=== PATIENT | female | born 1955 | race Caucasian/White ===

== ENCOUNTER → 2016-08-25 | Outpatient (CLI) | payer OTHER ==
[~2016-08-25] MED LIST: ADVIN25/60 INH; AMOX500T PO; ASPI-232 PO; CLR/5 PO; CLR10 PO; CZR50 PO; DULA0.5I SQ; ESOM20CA PO; FURO-85 PO; GLIM4TAB2 PO; HYDR-5688 PO; INSDGIPEN SC; INSU1INJ2 SC; INSU70IN2 SC; IPRASOL4 INH; LEVO1TAB33 PO; MOME200A INH; MOME50SP5; OXGN; TRAM-453 PO; TRIATAB3 PO; ZNT150 PO
[2016-08-25 12:55] LABS: ALT/SGPT 24 U/L (12-78); AST/SGOT 19 U/L (15-37); BLOOD UREA NITROGEN 12 mg/dl (7-18); CALCIUM 8.6 mg/dl (8.5-10.1); CARBON DIOXIDE 25 mmol/L (21-32); CHLORIDE 103 mmol/L (98-107); CREATININE 0.87 mg/dl (0.60-1.20); GLUCOSE 262 mg/dl (70-99); POTASSIUM 4.1 mmol/L (3.5-5.1); SODIUM 138 mmol/L (136-145)
[2016-08-25 12:57] LABS: ALB/GLOB RATIO 0.9 (0.9-2); ALKALINE PHOSPHATASE 161 U/L (45-117)
[2016-08-25 13:09] LABS: ESTIMATED AVERAGE GLUCOSE 252 mg/dl; HA1C FLAG Normal (Normal)
== END | disposition home or self-care (01) ==
LOC: C.LABPVFM 09:41
PROVIDERS: ATTEND Nurse Practitioner
DX: E11.9 Type 2 diabetes mellitus without complications (principal)

== ENCOUNTER 2016-12-27 11:27 | Inpatient (IN) | payer OTHER ==
[~2016-12-27] VITALS: Ht 152.4 cm; Wt 113.0 kg
[2016-12-27] VITALS (10 sets, daily range): BP systolic 121–141; BP diastolic 69–92; PULSE 68–108; TEMP 36.8–37.4; O2SAT 92–98; Ht 152.4 cm; Wt 113.0 kg
[~2016-12-27 11:27] MED LIST changes: -AMOX500T PO; -CLR/5 PO; -FURO-85 PO; -HYDR-5688 PO; -INSU1INJ2 SC; -INSU70IN2 SC; -LEVO1TAB33 PO; -MOME200A INH; -TRAM-453 PO
--- NOTE | 2016-12-27 11:55 | HISTORY & PHYSICAL EXAMINATION ---
DATE OF ADMISSION: 12/27/2016 CHIEF COMPLAINT: Increased right thumb pain. INDICATIONS: This is a 61-year-old female with past medical history of diabetes who presents with increasing left thumb pain. I performed trigger finger release on her 12/19/2016. Surgery uneventful, and she developed drainage over the past day or so. She states she is having subjective fever, chills at home, but has not checked her temperature. PAST MEDICAL HISTORY: Diabetes, sleep apnea. MEDICATIONS: Nocturnal oxygen, CPAP, Dulera 200 mcg 2 puffs twice a day, aspirin 81 mg, losartan 50 mg, glimepiride 4 mg twice a day, Nexium 24 hours twice a day, desloratadine, Furosemide 20 mg once a day, Nasonex spray, Mucinex. P.R.N. MEDICATIONS: Ventolin as needed, DuoNeb, Novolin insulin triamcinolone cream and a fluocinonide topical solution. ALLERGIES, DIPHENHYDRAMINE, LISINOPRIL, BENICAR. PHYSICAL EXAMINATION: HEART: Regular rate and rhythm. LUNGS: Clear to auscultation. RIGHT HAND: Right hand exam does show a 1 cm surrounding erythema around the surgical incision in the right thumb. She has intact flexion and extension of the thumb. She has mild pain at with resisted extension of the thumb. She has gross pus draining from her incision. No streaking erythema. ASSESSMENT: 1. Right hand septic flexor tenosynovitis. 2. Status post right trigger thumb release PLAN: At this point in time would like to admit her to the hospital with intravenous antibiotics. Will plan for irrigation and debridement shortly. Hospitalist consultation for management of diabetes and sleep apnea. I discussed she will likely need admission for a few days and we discussed the possibility of stiffness with motion in the finger. Plan for strict elevation as well.
--- NOTE | 2016-12-27 13:01 | Medical Consult ---
Consultation Date of Consultation: December 27, 2016. Attending Physician: Nathen York MD Reason for Consultation: Medical management History of Present Illness Patient is a 61 y/o female, with PMHx of T2DM, HTN, asthma, MADAY, and GERD, who was admitted to the hospital by Dr. York for IV antibiotic treatment due to right hand septic flexor tenosynovitis s/p right trigger thumb release on 12/19. Patient states she is currently feeling well. Per patient, Dr. York is planning for I&D later today. Pain is well controlled- states Tylenol works the best. NPO per primary team. +fever/chills. Patient denies any sweats, lightheadedness, dizziness, vision changes, CP, palpitations, edema, SOB, wheezing, cough, abdominal pain, nausea, vomiting, diarrhea, urinary symptoms, melena, numbness/tingling, weakness, muscle/joint pain, anxiety/depression, active bleeding, or new skin discoloration/changes. Past Medical/Surgical History Medical Problems: 1. Asthma 2. MADAY 3. HTN 4. GERD 5. T2DM Family History FH: cancer FH: hypertension FHx: diabetes mellitus FHx: gallbladder disease FHx: heart disease FHx: kidney disease FHx: lung disease FHx: seizures Kidney stones Social History Smoking Status: Never Smoker Drug Use: none Marital Status: Housing Status: lives with family Occupation Status: unemployed Allergies Coded Allergies: Lisinopril (Verified Allergy, Mild, SINUS SWELLING, COUGH, 11/30/15) Diphenhydramine (Unverified Adverse Reaction, Intermediate, HYPER, 11/30/15 ) Home Medications Reported Home Medications Medications Dose Route/Sig Max Daily Dose Days Date Category Dose Instructions Lantus Solostar (Insulin Glargine) 100 Unit/Ml Inj 23 Unit SC BID 30 12/02/15 Rx Ranitidine HCl 150 Mg Tab 150 Mg PO QAM 14 12/02/15 Rx Duoneb (Ipratropium-Albuterol) 3 Ml Nebu 3 Ml INH QIDR 10 12/02/15 Rx Use four times a day for atleast 7 days then wean down as symptoms tolerate over 4-5 days Trulicity (Dulaglutide) 1.5 Mg/0.5 Ml Inj 1 Dose SQ WEEKLY 10/27/15 Reported injects dose on monday Nasonex (Mometasone Furoate) [place] 1 [place] NA QAM 10/27/15 Reported Nexium (Esomeprazole Magnesium) 20 Mg Capcr 20 Mg PO QAM 10/27/15 Reported Glimepiride 4 Mg Tab 4 Mg PO BID 10/27/15 Reported Claritin (Loratadine) 10 Mg Tab 10 Mg PO QAM 10/27/15 Reported Aspir-81 (Aspirin) 81 Mg Tab 81 Mg PO QAM 12/16/14 Reported Triamterene/Hctz 37.5-25MG (Triamterene/HCTZ) 1 Tab Tab 1 Tab PO QAM 12/16/14 Reported Losartan Potassium 50 Mg Tab 50 Mg PO QAM 12/16/14 Reported Advair Diskus 250/50 60 Dose (Fluticasone Prop/Salmeterol) 1 Ea Aerp 1 Puff INH BID 12/16/14 Reported Oxygen Gas 2 Liters NA PRN 07/08/14 Reported Physical Exam Date Time Temp Pulse Resp B/P Pulse Ox O2 Delivery O2 Flow Rate FiO2 12/27/16 12:25 36.8 108 20 141/92 95 Room Air Laboratory Results Last 24 Hours Test 12/27/16 12:40 Assessment & Plan Patient is a 61 y/o female, with PMHx of T2DM, HTN, asthma, MADAY, and GERD, who was admitted to the hospital by Dr. York for IV antibiotic treatment due to right hand septic flexor tenosynovitis s/p right trigger thumb release on 12/19. - Management/treatment as per primary team - Planning for I&D - CBC and PRP pending - BCx pending - Patient requesting Tylenol PRN for pain management - Infectious disease consulted T2DM: - Hold Trulicity and Glimepiride - Continue Lantus 23 u BID - BSG ACHS w/ sliding insulin scale HTN: Continue Losartan 50 mg daily and Maxzide daily Asthma: Continue home inhalers MADAY: CPAP GERD: Protonix daily- resume Nexium and Zantac at discharge DVT prophylaxis: As per primary team Code Status: LEVEL I, FULL Dispo: Discharge as per primary team
[2016-12-27 13:58] LABS: BASO % 0.7 %; BASO ABS # 0.07 K/uL (0-0.2); COMPLETE YES; EOS % 5.3 %; HEMATOCRIT 40.2 % (37-47); IG% 0.2 %; LYMPH % 22.2 %; LYMPH ABS # 2.22 K/uL (1.2-3.4); MEAN CELL VOLUME 85.5 fL (80-100); MEAN CORPUSCULAR HEMOGLOBIN 28.7 pg (25-34); MEAN CORPUSCULAR HGB CONC 33.6 g/dl (32-36); MEAN PLATELET VOLUME 11.1 fL (7.4-10.4); MONO % 7.9 %; NEUT % 63.7 %; PLATELET COUNT 280 K/uL (130-400); WHITE BLOOD COUNT 10.02 K/uL (4.8-10.8)
[2016-12-27] MEDS ORDERED: CLR/5 PO (14:02)
[2016-12-27] MEDS ORDERED: INSU1INJ2 SC (14:02)
[2016-12-27] MEDS ORDERED: MOME200A INH (14:02)
[2016-12-27] MEDS ORDERED: INSU70IN2 SC (14:02)
[2016-12-27] MEDS ORDERED: FURO-85 PO (14:07)
[2016-12-27] MEDS ORDERED: GLUCOSE 10 TABS/TUBE PO PRN (14:15)
[2016-12-27] MEDS ORDERED: DEXTROSE 50% 50 ML SYR IV PRN (14:15)
[2016-12-27] MEDS ORDERED: GLUCAGON FOR INJ 1 MG VIAL SQ PRN (14:15)
[2016-12-27] MEDS ORDERED: GLUCOSE 40% GEL 15 GM TUBE PO PRN (14:15)
[2016-12-27] MEDS ORDERED: NURSING VERBAL MED ORDER ONE ×2 (14:45→23:00)
[2016-12-27] MEDS ORDERED: FUROSEMIDE 20 MG TAB PO PRN (14:45)
[2016-12-27 14:47] LABS: ALB/GLOB RATIO 1.1 (0.9-2); BUN/CREATININE RATIO 15.9 (10-20); CALCIUM 9.1 mg/dl (8.5-10.1); CREATININE 0.92 mg/dl (0.60-1.20); POTASSIUM 3.9 mmol/L (3.5-5.1)
[2016-12-27 14:51] LABS: C-REACTIVE PROTEIN 4.14 mg/dl (0-0.29)
[2016-12-27] MEDS: ALBUT/IPRATROP 3MG/0.5MG NEB 3 ML VIAL INH SCH ×2 (14:59→19:43)
--- NOTE | 2016-12-27 15:51 | Medical Consult ---
Consultation Date of Consultation: December 27, 2016. Attending Physician: Nathen York MD Reason for Consultation: Septic flexor tenosynovitis History of Present Illness Patient is a 61-year-old diabetic female admitted to the hospital with concerns of septic flexor tenosynovitis following trigger finger release on 12/19/2016. The patient states that she initially did very well following surgery, but approximately 3 days after surgery began to have severe pain in her right hand. She continued to have pain for the next 1-2 days, and then she started to notice some drainage from her wound along with erythema of the surrounding area. She states that on 12/25/2016, she began to purulent drainage from the area. She waited to be evaluated by her orthopedic surgeon, and was then admitted for IV antibiotic therapy. Past Medical/Surgical History Medical Problems: (1) Status asthmaticus Status: Acute (2) Wheezing Status: Acute Medical Problems: (1) Asthma (2) Asthma exacerbation (3) Diabetes (4) Eosinophilia (5) Hypertension Surgical history: Trigger finger release on 12/19/2016 Family History FH: cancer FH: hypertension FHx: diabetes mellitus FHx: gallbladder disease FHx: heart disease FHx: kidney disease FHx: lung disease FHx: seizures Kidney stones Non contributory Social History Smoking Status: Never Smoker Drug Use: none Marital Status: Housing Status: lives with family Occupation Status: unemployed Allergies Coded Allergies: Lisinopril (Verified Allergy, Mild, SINUS SWELLING, COUGH, 11/30/15) Diphenhydramine (Verified Adverse Reaction, Intermediate, HYPERACTIVE, 12/27) Olmesartan (Verified Adverse Reaction, Mild, pt reports nonstop coughing after taking (3 years ago), 12/27/16) pt reports nonstop coughing after taking (3 years ago) Home Medications Reported Home Medications Medications Dose Route/Sig Max Daily Dose Days Date Category Dose Instructions Lasix (Furosemide) 20 Mg Tab 1 Tab PO DAILY 90 12/27/16 Reported Clarinex (Desloratadine) 5 Mg Tab 5 Mg PO DAILY 12/27/16 Reported Novolog Penfill (Insulin Aspart) 100 Unit/Ml Inj SC 12/27/16 Reported Novolin 70/30 (Insulin Human Isoph/Insulin Regular) Susp 20 SC BID 12/27/16 Reported Dulera 200/5 Mcg (Mometasone Furoate-Formoterol) 1 Aer Aer 2 Puffs INH BID 30 12/27/16 Reported Duoneb (Ipratropium-Albuterol) 3 Ml Nebu 3 Ml INH QIDR 10 12/02/15 Rx Use four times a day for atleast 7 days then wean down as symptoms tolerate over 4-5 days Nasonex (Mometasone Furoate) [place] 1 [place] NA QAM 10/27/15 Reported Nexium (Esomeprazole Magnesium) 20 Mg Capcr 20 Mg PO QAM 10/27/15 Reported Glimepiride 4 Mg Tab 4 Mg PO BID 10/27/15 Reported Aspir-81 (Aspirin) 81 Mg Tab 81 Mg PO QAM 12/16/14 Reported Losartan Potassium 50 Mg Tab 50 Mg PO QAM 12/16/14 Reported Oxygen Gas 2 Liters NA PRN 07/08/14 Reported Current Inpatient Medications Current Inpatient Medications Medications (Trade) Dose Ordered Sig/Volodymyr Route Start Time Stop Time Status Last Admin Dose Admin Aspirin (Ecotrin Tab) 81 mg QAM PO 12/28/16 09:00 01/27/17 08:59 Salmeterol Xinafoate/ Fluticasone (Advair Diskus 250/50 Inh) 1 puff BID INH 12/27/16 21:00 01/26/17 20:59 Albuterol/ Ipratropium (Duoneb) 3 ml QIDR INH 12/27/16 16:00 01/26/17 15:59 12/27/16 14:59 3 ML Loratadine (Claritin Tab) 10 mg QAM PO 12/28/16 09:00 01/27/17 08:59 Losartan Potassium (coZAAR TAB) 50 mg QAM PO 12/28/16 09:00 01/27/17 08:59 Ranitidine HCl (zANTac TAB) 150 mg QAM PO 12/28/16 09:00 01/27/17 08:59 Triamterene/HCTZ (Maxzide 37.5/25 Tab) 1 tab QAM PO 12/28/16 09:00 01/27/17 08:59 Pantoprazole Sodium (Protonix Tab) 40 mg QAM PO 12/28/16 09:00 01/27/17 08:59 Acetaminophen (Tylenol Tab) 650 mg Q4H PRN PO 12/27/16 13:15 01/26/17 13:14 Glucose (Glucose 40% Gel) 15-30 GRAMS 15 GRAMS... UD PRN PO 12/27/16 14:15 01/26/17 14:14 Glucose (Glucose Chew Tab) 4-8 Tablets 4 Tabl... UD PRN PO 12/27/16 14:15 01/26/17 14:14 Dextrose (Dextrose 50% 50ML Syringe) 25-50ML OF 50% DW IV FOR... UD PRN IV 12/27/16 14:15 01/26/17 14:14 Glucagon (Glucagon Inj) 1 mg UD PRN SQ 12/27/16 14:15 01/26/17 14:14 Furosemide (Lasix Tab) 20 mg DAILY PRN PO 12/27/16 14:45 01/26/17 14:44 Insulin Aspart (novoLOG ASPART) SLIDING SCALE G... Q6 SC 12/27/16 18:00 01/26/17 17:59 Review of Systems Constitutional: + chills, + fever, + sweats, No weakness Eyes: No worsening of vision ENT: No hearing loss Respiratory: No cough, No shortness of breath Cardiovascular: No chest pain Abdomen: + nausea, + pain, No vomiting Musculoskeletal: + joint pain (right thumb), + swelling Genitourinary - Female: No dysuria, No urinary frequency Integumentary: + new/changing skin lesions (erythema surrounding surgical site , purulent drainage), No itch, No rash Physical Exam Date Time Temp Pulse Resp B/P Pulse Ox O2 Delivery O2 Flow Rate FiO2 12/27/16 15:29 37.0 96 18 141/83 93 Room Air 12/27/16 14:59 68 14 97 Room Air 12/27/16 13:43 93 93 Room Air 12/27/16 13:27 95 Room Air 12/27/16 12:25 36.8 108 20 141/92 95 Room Air General Appearance: no apparent distress, + obese Head: normocephalic, atraumatic Eyes: normal inspection, sclerae normal ENT: hearing grossly normal Neck: supple, trachea midline Respiratory/Chest: chest non-tender, lungs clear, normal breath sounds, no respiratory distress, no accessory muscle use Cardiovascular: no murmur, + tachycardia Abdomen/GI: normal bowel sounds, non tender Back: normal inspection Extremities/Musculoskelatal: normal inspection, + pertinent finding (Right inner thumb with open surgical wound with mild surrounding erythema. Tenderness to surrounding area.) Neurologic/Psych: alert, normal mood/affect, oriented x 3 Skin: warm/dry, no rash, + pertinent finding (Erythema of some as described above) Laboratory Results Last 24 Hours Test 12/27/16 13:23 12/27/16 14:14 White Blood Count 10.02 K/uL Red Blood Count 4.70 M/uL Hemoglobin 13.5 g/dL Hematocrit 40.2 % Mean Corpuscular Volume 85.5 fL Mean Corpuscular Hemoglobin 28.7 pg Mean Corpuscular Hemoglobin Concent 33.6 g/dl Platelet Count 280 K/uL Mean Platelet Volume 11.1 fL Neutrophils (%) (Auto) 63.7 % Lymphocytes (%) (Auto) 22.2 % Monocytes (%) (Auto) 7.9 % Eosinophils (%) (Auto) 5.3 % Basophils (%) (Auto) 0.7 % Neutrophils # (Auto) 6.39 K/uL Lymphocytes # (Auto) 2.22 K/uL Monocytes # (Auto) 0.79 K/uL Eosinophils # (Auto) 0.53 K/uL Basophils # (Auto) 0.07 K/uL RDW Standard Deviation 40.5 fL RDW Coefficient of Variation 13.0 % Immature Granulocyte % (Auto) 0.2 % Immature Granulocyte # (Auto) 0.02 K/uL Erythrocyte Sedimentation Rate 25 mm/hr Sodium Level 137 mmol/L Potassium Level 3.9 mmol/L Chloride Level 103 mmol/L Carbon Dioxide Level 25 mmol/L Anion Gap 9.0 mmol/L Blood Urea Nitrogen 15 mg/dl Creatinine 0.92 mg/dl Est Creatinine Clear Calc Drug Dose 74.4 ml/min Estimated GFR () 78.4 Estimated GFR (Non- 67.7 BUN/Creatinine Ratio 15.9 Random Glucose 211 mg/dl Calcium Level 9.1 mg/dl Total Bilirubin 0.6 mg/dl Aspartate Amino Transf (AST/SGOT) 14 U/L Alanine Aminotransferase (ALT/SGPT) 24 U/L Alkaline Phosphatase 154 U/L C-Reactive Protein 4.14 mg/dl Total Protein 7.5 gm/dl Albumin 4.0 gm/dl Globulin 3.5 gm/dl Albumin/Globulin Ratio 1.1 Bedside Glucose 181 mg/dl Assessment & Plan Patient with probable septic flexor tenosynovitis following trigger finger release on 12/19/2016. She is anticipated to have an I and D of this area later today. Will order CBC with diff, CMP, ESR, CRP, and blood cultures on this patient. Will await surgical cultures as well. Will start the patient on IV vancomycin pending culture results following surgery. We will continue to follow and adjust antibiotics as able. PROVIDER ADDENDUM: Patient examined and reviewed with Ms. Mares. Agree with above assessment.
[2016-12-27] MEDS ORDERED: FENTANYL CITRATE INJ 50 MCG/1 ML 2 ML VIAL ONE (15:59)
[2016-12-27] MEDS ORDERED: MIDAZOLAM HCL 1 MG/ML 2ML VIAL ONE (15:59)
--- NOTE | 2016-12-27 16:23 | Pharmacy Progress Note ---
Pharmacy Antibiotic Consult Date of Service: December 27, 2016. Pharmacy Dosing Scope Pharmacy is consulted to initiate vancomycin IV dosing therapy, order appropriate labs and adjust drug dose/frequency. Subjective The patient is a 61 year old female admitted on December 27, 2016 at 12:27. Objective Height (Feet): 5 Height (Inches): 0.00 Weight (Kilograms): 113.000 Lab Results (24hrs): Test 12/27/16 13:23 12/27/16 14:14 White Blood Count 10.02 K/uL (4.8-10.8) Red Blood Count 4.70 M/uL (4.2-5.4) Hemoglobin 13.5 g/dL (12.0-16.0) Hematocrit 40.2 % (37-47) Mean Corpuscular Volume 85.5 fL (80-100) Mean Corpuscular Hemoglobin 28.7 pg (25-34) Mean Corpuscular Hemoglobin Concent 33.6 g/dl (32-36) Platelet Count 280 K/uL (130-400) Mean Platelet Volume 11.1 fL (7.4-10.4) Neutrophils (%) (Auto) 63.7 % Lymphocytes (%) (Auto) 22.2 % Monocytes (%) (Auto) 7.9 % Eosinophils (%) (Auto) 5.3 % Basophils (%) (Auto) 0.7 % Neutrophils # (Auto) 6.39 K/uL (1.4-6.5) Lymphocytes # (Auto) 2.22 K/uL (1.2-3.4) Monocytes # (Auto) 0.79 K/uL (0.11-0.59) Eosinophils # (Auto) 0.53 K/uL (0-0.5) Basophils # (Auto) 0.07 K/uL (0-0.2) RDW Standard Deviation 40.5 fL (36.4-46.3) RDW Coefficient of Variation 13.0 % (11.5-14.5) Immature Granulocyte % (Auto) 0.2 % Immature Granulocyte # (Auto) 0.02 K/uL (0.00-0.02) Erythrocyte Sedimentation Rate 25 mm/hr (0-21) Sodium Level 137 mmol/L (136-145) Potassium Level 3.9 mmol/L (3.5-5.1) Chloride Level 103 mmol/L (98-107) Carbon Dioxide Level 25 mmol/L (21-32) Anion Gap 9.0 mmol/L (3-11) Blood Urea Nitrogen 15 mg/dl (7-18) Creatinine 0.92 mg/dl (0.60-1.20) Est Creatinine Clear Calc Drug Dose 74.4 ml/min Estimated GFR () 78.4 Estimated GFR (Non- 67.7 BUN/Creatinine Ratio 15.9 (10-20) Random Glucose 211 mg/dl (70-99) Calcium Level 9.1 mg/dl (8.5-10.1) Total Bilirubin 0.6 mg/dl (0.2-1) Aspartate Amino Transf (AST/SGOT) 14 U/L (15-37) Alanine Aminotransferase (ALT/SGPT) 24 U/L (12-78) Alkaline Phosphatase 154 U/L (45-117) C-Reactive Protein 4.14 mg/dl (0-0.29) Total Protein 7.5 gm/dl (6.4-8.2) Albumin 4.0 gm/dl (3.4-5.0) Globulin 3.5 gm/dl (2.5-4.0) Albumin/Globulin Ratio 1.1 (0.9-2) Bedside Glucose 181 mg/dl (70-90) Assessment & Plan Patient started on vancomycin for possible septic flexor tenosynovitis. ID is following the patient. Plan for I&D later today. Vancomycin: * LD of vancomycin 2800 mg (~25 mg/kg) x 1 * Will order MD of vancomycin 1500 mg (~13 mg/kg) iv q 18 hrs to achieve an estimated trough ~15-20 mcg/ml (goal for cellulitis/abscess) * Estimated kinetics: t1/2~12 hrs, ke~0.06 hr-1, CrCl ~74 ml/min * Will plan to obtain a trough prior to the 0000 dose to ensure therapeutic ( note this will be before steady state, however since with elevated BMI there is a concern for accumulation) Pharmacy will continue to follow and will adjust dose/frequency as necessary. Thank you
[2016-12-27] MEDS ORDERED: VANCOMYCIN INJ 2,800 MG in SODIUM CHLORIDE 0.9% 500ML 500 ML IV SCH (16:30)
[2016-12-27] MEDS ORDERED: VANCOMYCIN CONSULT ACTIVE PRN (16:30)
[2016-12-27] MEDS ORDERED: SODIUM CHLORIDE 0.9% IV SCH (16:30)
[2016-12-27] MEDS ORDERED: VANCOMYCIN IV SCH (16:30)
[2016-12-27] MEDS ORDERED: BUPIVACAINE 0.5 % 5 MG/1 ML MPF 30ML VIAL ONE (17:07)
[2016-12-27] MEDS ORDERED: BACITRACIN 50000 UNIT VIAL ONE (17:08)
[2016-12-27] MEDS ORDERED: INSULIN ASPART 100 UNITS/ML 3 ML PEN SC SCH ×2 (17:15→18:00)
[2016-12-27] MEDS ORDERED: LIDOCAINE HCL 2% LOCAL 50ML VIAL ONE (17:47)
[2016-12-27] MEDS ORDERED: LIDOCAINE HCL 2% 2 ML VIAL (20MG/ML) ONE (18:20)
[2016-12-27] MEDS ORDERED: PROPOFOL IV EMULSION 10 MG/ML 20 ML VIAL IV ONE (18:20)
[2016-12-27] MEDS ORDERED: LABETALOL HCL IV 5 MG/ML 20ML IV PRN (18:30)
[2016-12-27] MEDS ORDERED: FENTANYL CITRATE INJ 50 MCG/1 ML 2 ML VIAL IV PRN (18:30)
[2016-12-27] MEDS ORDERED: EpHEDrine SULFATE INJ 50 MG/ML AMP IV PRN (18:30)
[2016-12-27] MEDS ORDERED: HYDROmorphone INJ 1 MG/ML SYR IV PRN (18:30)
[2016-12-27] MEDS ORDERED: MEPERIDINE HCL 25 MG/ML CARP IV PRN (18:30)
[2016-12-27] MEDS ORDERED: ONDANSETRON INJ 2 MG/ML 2 ML VIAL IV PRN ×2 (18:30→19:15)
[2016-12-27] MEDS ORDERED: ATROPINE SULFATE 0.1 MG/ML 5ML SYR IV PRN (18:30)
[2016-12-27] MEDS ORDERED: OXYCODONE/ACETAMINOPHEN 5-325 TAB PO PRN (19:15)
[2016-12-27] MEDS ORDERED: DiphenhydrAMINE HCL 50 MG/ML VIAL IV PRN (19:15)
[2016-12-27] MEDS ORDERED: MoRPHine SULFATE 4 MG/ML 1 ML CARP\\VIAL IV PRN (19:15)
[2016-12-27] MEDS ORDERED: ZOLPIDEM TARTRATE 5 MG TAB PO PRN (19:15)
--- NOTE | 2016-12-27 19:29 | Anesthesiology Progress Note ---
Anesthesia Post Op Note Date & Time December 27, 2016 at 19:29 Vital Signs Pain Intensity: 0 Vital Signs Past 12 Hours Date Time Temp Pulse Resp B/P Pulse Ox O2 Delivery O2 Flow Rate FiO2 12/27/16 19:25 36.8 92 16 123/79 94 Room Air 12/27/16 19:15 92 18 117/76 99 Mask 10 12/27/16 19:09 36.5 94 16 109/71 99 Mask 10 12/27/16 17:31 36.8 103 16 150/74 94 Room Air 12/27/16 15:29 37.0 96 18 141/83 93 Room Air 12/27/16 14:59 68 14 97 Room Air 12/27/16 13:43 93 93 Room Air 12/27/16 13:27 95 Room Air 12/27/16 12:25 36.8 108 20 141/92 95 Room Air Notes Mental Status: alert / awake / arousable, participated in evaluation Pt Amnestic to Procedure: Yes Nausea / Vomiting: adequately controlled Pain: adequately controlled Airway Patency, RR, SpO2: stable & adequate BP & HR: stable & adequate Hydration State: stable & adequate Anesthetic Complications: no major complications apparent
[2016-12-27] MEDS: ACETAMINOPHEN 325 MG TAB PO PRN (20:02)
[2016-12-27] MEDS: FLUTICASONE/SALMETEROL 250/50 (ADVAIR) 14 PUFF/1 INHALER INH SCH (21:00)
[2016-12-27] MEDS ORDERED: VANCOMYCIN INJ 2,200 MG in SODIUM CHLORIDE 0.9% 250ML 250 ML IV SCH (21:00)
[2016-12-27] MEDS ORDERED: INSULIN GLARGINE SOLOSTAR 100 UNITS/ML 3 ML PEN SC SCH (21:00)
[2016-12-27] MEDS: OXYCODONE/ACETAMINOPHEN 5-325 TAB PO PRN (22:03)
[2016-12-27] MEDS: INSULIN ASPART 100 UNITS/ML 3 ML PEN SC SCH (23:16)
[2016-12-28] VITALS (9 sets, daily range): BP systolic 107–144; BP diastolic 65–79; PULSE 80–100; TEMP 36.9–37.1; O2SAT 91–99
--- NOTE | 2016-12-28 04:30 | OPERATIVE REPORT ---
DATE OF OPERATION: 12/27/2016 PREOPERATIVE DIAGNOSIS: Right index finger septic flexor tenosynovitis. POSTOPERATIVE DIAGNOSIS: Same. PROCEDURE: Right index finger I\T\D septic flexor tenosynovitis. SURGEON: Dr. York. BAND NAILER: None. ANESTHESIA: Local monitored anesthesia care. INDICATIONS: This is a 61-year-old female status post right trigger thumb release. She presents with pain and swelling and drainage consistent with septic flexor tenosynovitis. The risks and benefits have been discussed including, but not limited to, risk of infection, nerve injury, stiffness, loss of motion, failure to improve, etc. The patient is agreeable and wishes to proceed. DESCRIPTION OF OPERATION: I injected a mixture of lidocaine and Marcaine in the local area for pain control. The patient's traumatic laceration was opened. I removed the prior stitches. I was able to obtain good access to the flexor tendon sheath. There was a small amount of fluid in there consistent with septic flexor tenosynovitis. I performed irrigation and debridement of septic flexor tenosynovitis, irrigating with 3 liters of bacitracin impregnated normal saline in the area. The digital nerves were identified and were retracted throughout the procedure. Debridement of skin, subcutaneous tissue and fascia was performed. The wound was very clean at the end of the debridement. I elected to proceed with primary closure. Tourniquet was let down. Hemostasis was adequate. The patient's incision was closed with 4-0 nylon. I placed packing in the middle section of the incision. The patient was placed in a soft dressing and sent to the PACU in stable condition. Postoperative plan will be monitor the cultures that were taken and adjust antibiotics as necessary. I attest to the content of the Intraoperative Record and any orders documented therein. Any exceptio ns are noted below.
[2016-12-28] MEDS: OXYCODONE/ACETAMINOPHEN 5-325 TAB PO PRN (06:20)
[2016-12-28 06:57] LABS: HEMATOCRIT 39.4 % (37-47); MEAN CELL VOLUME 87.9 fL (80-100); MEAN CORPUSCULAR HEMOGLOBIN 29.5 pg (25-34); MEAN CORPUSCULAR HGB CONC 33.5 g/dl (32-36); MEAN PLATELET VOLUME 10.9 fL (7.4-10.4); PLATELET COUNT 261 K/uL (130-400); RED BLOOD COUNT 4.48 M/uL (4.2-5.4); WHITE BLOOD COUNT 9.62 K/uL (4.8-10.8)
[2016-12-28 07:33] LABS: CREATININE 0.89 mg/dl (0.60-1.20)
[2016-12-28] MEDS: FLUTICASONE/SALMETEROL 250/50 (ADVAIR) 14 PUFF/1 INHALER INH SCH ×2 (07:45→20:52)
[2016-12-28] MEDS: LORATADINE 10 MG TAB PO SCH (07:46)
[2016-12-28] MEDS: LOSARTAN POTASSIUM 50 MG TAB PO SCH (07:46)
[2016-12-28] MEDS: TRIAMTERENE/HCTZ 37.5/25MG TAB PO SCH (07:46)
[2016-12-28] MEDS: RANITIDINE HCL 150 MG TAB PO SCH (07:46)
[2016-12-28] MEDS: ALBUT/IPRATROP 3MG/0.5MG NEB 3 ML VIAL INH SCH ×4 (07:46→19:36)
[2016-12-28] MEDS: ASPIRIN 81 MG ECTAB PO SCH (07:46)
[2016-12-28] MEDS: PANTOprazole SOD 40 MG TAB PO SCH (07:47)
--- NOTE | 2016-12-28 08:27 | Anesthesiology Progress Note ---
Anesthesia Post Op Note Date & Time December 28, 2016 at 08:27 Vital Signs Pain Intensity: 5.0 Vital Signs Past 12 Hours Date Time Temp Pulse Resp B/P Pulse Ox O2 Delivery O2 Flow Rate FiO2 12/28/16 08:08 36.9 84 16 107/66 96 CPAP 12/28/16 07:46 82 14 95 Room Air 12/28/16 03:20 37.1 90 16 110/65 95 BiPAP 12/27/16 23:15 Room Air CPAP 12/27/16 22:48 37.4 99 16 121/75 98 Room Air 12/27/16 21:50 36.8 88 18 134/84 98 CPAP 2.0 12/27/16 20:50 36.9 107 18 132/69 94 CPAP Notes Mental Status: alert / awake / arousable, participated in evaluation Pt Amnestic to Procedure: Yes Nausea / Vomiting: adequately controlled Pain: adequately controlled Airway Patency, RR, SpO2: stable & adequate BP & HR: stable & adequate Hydration State: stable & adequate Anesthetic Complications: no major complications apparent
[2016-12-28] MEDS: INSULIN ASPART 100 UNITS/ML 3 ML PEN SC SCH ×4 (09:07→20:55)
--- NOTE | 2016-12-28 10:36 | Pharmacy Progress Note ---
Pharmacy Abx Dose Short Note Date of Service December 28, 2016. Assessment & Plan Item Value Date Time Gram Stain - Final Resulted 12/27/16 1858 Abscess Hand Right Blood Culture Received 12/27/16 1335 Blood Pending Blood Culture Received 12/27/16 1323 Blood Pending Assessment 61 year old female receiving Vancomycin for treatment of septic flexor tenosynovitis Day # 2 of antimicrobial therapy. Plan Vancomycin * Patient is at risk for drug accumulation given morbid obesity; however, I don' t believe current dosing interval is an appropriate estimation * Change to 1500 mg IV every 12 hours * This is a reduced mg/kg dose to account for likely drug accumulation, but an interval that I think will get us to therapeutic ranges quicker * Once we meet acceptable level, will likely need to back off * Goal trough level for septic flexor tenosynovitis (joint involvement) : 15 to 20 mcg/mL * Trough level ordered for: 12/29/16 prior to the 2130 dose. Pharmacy will continue to follow and will adjust dose/frequency as necessary. Thank you.
[2016-12-28] MEDS: ACETAMINOPHEN 325 MG TAB PO PRN ×2 (11:59→17:51)
[2016-12-28] MEDS ORDERED: VANCOMYCIN INJ 1,500 MG in SODIUM CHLORIDE 0.9% 500ML 500 ML IV SCH ×2 (12:00→22:00)
[2016-12-28] MEDS ORDERED: PIPERACILL/TAZOBAC CONSULT ACTIVE PRN (13:00)
[2016-12-28] MEDS ORDERED: PIPERACILL/TAZOBAC IV 4.5 GM in DEXTROSE 5% 100ML IV ONE (13:00)
--- NOTE | 2016-12-28 15:43 | Hospitalist Progress Note ---
Hospitalist Progress Note Date of Service December 28, 2016. Subjective Doing OK. No fevers, SOB, CP Medications Medications (Trade) Dose Ordered Sig/Volodymyr Route Start Time Stop Time Status Last Admin Dose Admin Aspirin (Ecotrin Tab) 81 mg QAM PO 12/28/16 09:00 01/27/17 08:59 12/28/16 07:46 81 MG Salmeterol Xinafoate/ Fluticasone (Advair Diskus 250/50 Inh) 1 puff BID INH 12/27/16 21:00 01/26/17 20:59 12/28/16 07:45 1 PUFF Albuterol/ Ipratropium (Duoneb) 3 ml QIDR INH 12/27/16 16:00 01/26/17 15:59 12/28/16 11:41 3 ML Loratadine (Claritin Tab) 10 mg QAM PO 12/28/16 09:00 01/27/17 08:59 12/28/16 07:46 10 MG Losartan Potassium (coZAAR TAB) 50 mg QAM PO 12/28/16 09:00 01/27/17 08:59 12/28/16 07:46 50 MG Ranitidine HCl (zANTac TAB) 150 mg QAM PO 12/28/16 09:00 01/27/17 08:59 12/28/16 07:46 150 MG Triamterene/HCTZ (Maxzide 37.5/25 Tab) 1 tab QAM PO 12/28/16 09:00 01/27/17 08:59 12/28/16 07:46 1 TAB Pantoprazole Sodium 40 mg 40 mg QAM PO 12/28/16 09:00 01/27/17 08:59 12/28/16 07:47 40 MG Vancomycin HCl 2800 mg/Sodium Chloride 556 ml @ 200 mls/hr TODAY@1630 IV 12/27/16 16:30 12/27/16 19:10 DC 12/27/16 16:53 200 MLS/HR Vancomycin HCl/ Sodium Chloride (Vancomycin Inj/ Nss 500ml) 530 ml @ 200 mls/hr Q18H IV 12/28/16 12:00 12/28/16 12:00 DC 12/28/16 10:33 200 MLS/HR Bupivacaine HCl (Marcaine 0.5% MPF Inj) 30 ml STK-MED ONCE .ROUTE 12/27/16 17:07 12/27/16 17:08 DC 12/27/16 18:48 30 ML Bacitracin (Bacitracin Inj) 50,000 units STK-MED ONCE .ROUTE 12/27/16 17:08 12/27/16 17:09 DC 12/27/16 19:00 50,000 UNITS Lidocaine HCl (Lidocaine 2% Preserved Inj) 50 ml STK-MED ONCE .ROUTE 12/27/16 17:47 12/27/16 17:48 DC 12/27/16 18:48 30 ML Oxycodone/ Acetaminophen (Percocet 5-325mg Tab) 2 tab Q4H PRN PO 12/27/16 19:15 01/10/17 19:14 12/28/16 06:20 2 TAB Insulin Aspart SLIDING SCALE G... ACHS SC 12/28/16 08:00 01/27/17 07:59 12/28/16 12:48 3 UNITS Piperacillin Sod/ Tazobactam Sod/ Dextrose (Zosyn Iv/D5 100ml) 120 ml @ 200 mls/hr 1300 ONCE IV 12/28/16 13:00 12/28/16 13:35 DC 12/28/16 13:30 200 MLS/HR Objective Vital Signs Date Time Temp Pulse Resp B/P Pulse Ox O2 Delivery O2 Flow Rate FiO2 12/28/16 15:00 36.9 99 16 127/79 91 Room Air 12/28/16 11:42 80 14 93 Room Air 12/28/16 08:08 36.9 84 16 107/66 96 CPAP 12/28/16 08:00 95 Room Air 12/28/16 07:46 82 14 95 Room Air 12/28/16 03:20 37.1 90 16 110/65 95 BiPAP 12/27/16 23:15 Room Air CPAP 12/27/16 22:48 37.4 99 16 121/75 98 Room Air 12/27/16 21:50 36.8 88 18 134/84 98 CPAP 2.0 12/27/16 20:50 36.9 107 18 132/69 94 CPAP 12/27/16 20:20 37.3 100 18 129/78 92 Room Air 12/27/16 19:57 95 Room Air 12/27/16 19:50 95 Room Air 12/27/16 19:35 98 16 126/79 93 Room Air 12/27/16 19:25 36.8 92 16 123/79 94 Room Air 12/27/16 19:15 92 18 117/76 99 Mask 10 12/27/16 19:09 36.5 94 16 109/71 99 Mask 10 12/27/16 17:31 36.8 103 16 150/74 94 Room Air Physical Exam General Appearance: WD/WN Eyes: normal inspection ENT: normal ENT inspection Neck: supple, no adenopathy Respiratory/Chest: chest non-tender, lungs clear Cardiovascular: regular rate, rhythm, no edema Abdomen: normal bowel sounds, non tender, soft Extremities: normal range of motion, non-tender, normal inspection, no pedal edema, + pertinent finding (right hand in dressing) 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, no motor/sensory deficits, alert Skin: normal color Laboratory Results Last 24 Hours Test 12/27/16 19:14 12/27/16 20:51 12/27/16 23:09 12/28/16 06:15 Bedside Glucose 157 mg/dl 228 mg/dl 248 mg/dl White Blood Count 9.62 K/uL Red Blood Count 4.48 M/uL Hemoglobin 13.2 g/dL Hematocrit 39.4 % Mean Corpuscular Volume 87.9 fL Mean Corpuscular Hemoglobin 29.5 pg Mean Corpuscular Hemoglobin Concent 33.5 g/dl RDW Standard Deviation 42.9 fL RDW Coefficient of Variation 13.3 % Platelet Count 261 K/uL Mean Platelet Volume 10.9 fL Creatinine 0.89 mg/dl Est Creatinine Clear Calc Drug Dose 76.9 ml/min Estimated GFR () 81.6 Estimated GFR (Non- 70.4 Hepatitis C Antibody Screen NEG Test 12/28/16 09:05 Bedside Glucose 297 mg/dl Diagnostic Results RUN DATE: 05/10/17 [facility] LAB PAGE 1 RUN TIME: 1356 Specimen Inquiry PATIENT: ANGUS ALEX LOC: CL[facility] U # : [id number] AGE/SX: 61/F ROOM: [facility] REG : 12/27/[address]: Nathen York : 1955 BED: 2 DIS : STATUS: ADM IN TLOC: SPEC #: [id number] KIM: 12/27/16 STATUS: RES REQ #: [id number] RECD: 12/27/16 [facility] DR: Nathen York MD SOURCE: ABSCESS ENTR: 12/27/16 [facility] DR: Yoav Tubbs MD SPDESC: HAND RIGHT Ryan Alegria M.D. Maurer, Candace C.R.N.P ORDERED: AER/LISA CULTSMR Procedure Result Verified Site GRAM STAIN Final 12/28/16-0834 RESULT FEW GRAM POSITIVE BACILLI NO WBCs SEEN OR AER/LISA CULT Preliminary 12/28/16-1356 Organism 1 GRAM NEGATIVE BACILLI QUANITY FEW SENS SENSITIVITY TO FOLLOW +MIXWOUND PLUS LOW COUNTS OF PROBABLE SKIN KAR Blood cultures are pending. Assessment and Plan Patient is a 61 y/o female, with PMHx of T2DM, HTN, asthma, MADAY, and GERD, who was admitted to the hospital by Dr. York for IV antibiotic treatment due to right hand septic flexor tenosynovitis s/p right trigger thumb release on 12/19. - Management/treatment as per primary team - Planning for I&D - CBC and PRP pending - BCx pending - Patient requesting Tylenol PRN for pain management - Infectious disease consulted T2DM: - Hold Trulicity and Glimepiride - Continue SSI with Novolog. - Switch to Insulin 70/30 at time of discharge. Pt does not want Lantus - BSG ACHS w/ sliding insulin scale HTN: Continue Losartan 50 mg daily and Maxzide daily Asthma: Continue home inhalers MADAY: CPAP GERD: Protonix daily- resume Nexium and Zantac at discharge DVT prophylaxis: As per primary team Code Status: LEVEL I, FULL
--- NOTE | 2016-12-28 16:17 | Infectious Disease Progress Nt ---
Progress Note Date of Service December 28, 2016. Subjective Pt evaluation today including: conversation w/ patient, physical exam, chart review, lab review, review of studies, review of inpatient medication list Patient is feeling groggy today it due to her pain medication. She is now S/p right index finger I and D of septic flexor tenosynovitis. Some infected appearing fluid was encountered during surgery upon review of the operative record. This fluid was sent for culture and is currently pending. Gram- positive bacilli were seen on Gram stain. Surgical culture and blood cultures are currently pending. the patient's white blood cell count today was 9.62. Her creatinine was stable at 0.89. She is currently on IV vancomycin alone. She states that she has been having some increased cough today and agreed and sputum production. She is also noticing some mild shortness of breath and wheezing on an off. Her pain level is approximately a 4/10, and it is not radiating. All Other Systems: Reviewed and Negative Medications Current Inpatient Medications Medications (Trade) Dose Ordered Sig/Volodymyr Route Start Time Stop Time Status Last Admin Dose Admin Aspirin (Ecotrin Tab) 81 mg QAM PO 12/28/16 09:00 01/27/17 08:59 12/28/16 07:46 81 MG Salmeterol Xinafoate/ Fluticasone (Advair Diskus 250/50 Inh) 1 puff BID INH 12/27/16 21:00 01/26/17 20:59 12/28/16 07:45 1 PUFF Albuterol/ Ipratropium (Duoneb) 3 ml QIDR INH 12/27/16 16:00 01/26/17 15:59 12/28/16 15:45 3 ML Loratadine (Claritin Tab) 10 mg QAM PO 12/28/16 09:00 01/27/17 08:59 12/28/16 07:46 10 MG Losartan Potassium (coZAAR TAB) 50 mg QAM PO 12/28/16 09:00 01/27/17 08:59 12/28/16 07:46 50 MG Ranitidine HCl (zANTac TAB) 150 mg QAM PO 12/28/16 09:00 01/27/17 08:59 12/28/16 07:46 150 MG Triamterene/HCTZ (Maxzide 37.5/25 Tab) 1 tab QAM PO 12/28/16 09:00 01/27/17 08:59 12/28/16 07:46 1 TAB Pantoprazole Sodium (Protonix Tab) 40 mg QAM PO 12/28/16 09:00 01/27/17 08:59 12/28/16 07:47 40 MG Acetaminophen (Tylenol Tab) 650 mg Q4H PRN PO 12/27/16 13:15 01/26/17 13:14 12/28/16 11:59 650 MG Glucose (Glucose 40% Gel) 15-30 GRAMS 15 GRAMS... UD PRN PO 12/27/16 14:15 01/26/17 14:14 Glucose (Glucose Chew Tab) 4-8 Tablets 4 Tabl... UD PRN PO 12/27/16 14:15 01/26/17 14:14 Dextrose (Dextrose 50% 50ML Syringe) 25-50ML OF 50% DW IV FOR... UD PRN IV 12/27/16 14:15 01/26/17 14:14 Glucagon (Glucagon Inj) 1 mg UD PRN SQ 12/27/16 14:15 01/26/17 14:14 Furosemide (Lasix Tab) 20 mg DAILY PRN PO 12/27/16 14:45 01/26/17 14:44 Vancomycin HCl (Consult) 1 ea UD PRN N/A 12/27/16 16:30 01/26/17 16:29 Oxycodone/ Acetaminophen (Percocet 5-325mg Tab) 1 tab Q4H PRN PO 12/27/16 19:15 01/10/17 19:14 Oxycodone/ Acetaminophen (Percocet 5-325mg Tab) 2 tab Q4H PRN PO 12/27/16 19:15 01/10/17 19:14 12/28/16 06:20 2 TAB Morphine Sulfate (MoRPHine SULFATE INJ) 4 mg Q1H PRN IV 12/27/16 19:15 01/10/17 19:14 Ondansetron HCl (Zofran Inj) 4 mg ONE PRN IV 12/27/16 19:15 01/26/17 19:14 Diphenhydramine HCl (Benadryl Inj) 25 mg Q6H PRN IV 12/27/16 19:15 01/26/17 19:14 Zolpidem Tartrate (Ambien Tab) 5 mg HS PRN PO 12/27/16 19:15 01/26/17 19:14 Insulin Aspart SLIDING SCALE G... ACHS SC 12/28/16 08:00 01/27/17 07:59 12/28/16 12:48 3 UNITS Vancomycin HCl 1500 mg/Sodium Chloride 530 ml @ 200 mls/hr Q12H IV 12/28/16 22:00 01/05/17 23:59 Piperacillin Sod/ Tazobactam Sod/ Dextrose (Zosyn Iv/D5 100ml) 120 ml @ 30 mls/hr Q8H IV 12/28/16 20:00 12/30/16 19:59 Piperacillin Sod/ Tazobactam Sod (Consult) 1 ea UD PRN N/A 12/28/16 13:00 01/27/17 12:59 Objective Vital Signs Date Time Temp Pulse Resp B/P Pulse Ox O2 Delivery O2 Flow Rate FiO2 12/28/16 15:45 86 14 96 Room Air 12/28/16 15:00 36.9 99 16 127/79 91 Room Air 12/28/16 11:42 80 14 93 Room Air 12/28/16 08:08 36.9 84 16 107/66 96 CPAP 12/28/16 08:00 95 Room Air 12/28/16 07:46 82 14 95 Room Air 12/28/16 03:20 37.1 90 16 110/65 95 BiPAP 12/27/16 23:15 Room Air CPAP 12/27/16 22:48 37.4 99 16 121/75 98 Room Air 12/27/16 21:50 36.8 88 18 134/84 98 CPAP 2.0 12/27/16 20:50 36.9 107 18 132/69 94 CPAP 12/27/16 20:20 37.3 100 18 129/78 92 Room Air 12/27/16 19:57 95 Room Air 12/27/16 19:50 95 Room Air 12/27/16 19:35 98 16 126/79 93 Room Air 12/27/16 19:25 36.8 92 16 123/79 94 Room Air 12/27/16 19:15 92 18 117/76 99 Mask 10 12/27/16 19:09 36.5 94 16 109/71 99 Mask 10 12/27/16 17:31 36.8 103 16 150/74 94 Room Air Physical Exam General Appearance: no apparent distress, + obese Eyes: normal inspection, sclerae normal ENT: hearing grossly normal Neck: supple, trachea midline Respiratory/Chest: chest non-tender, no respiratory distress, no accessory muscle use, + wheezing (Mild throughout lung [place]) Cardiovascular: regular rate, rhythm, no murmur Abdomen: normal bowel sounds, non tender, soft Extremities: + pertinent finding (Right hand with dressing in place.) 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: alert, normal mood/affect Skin: warm/dry, no rash Laboratory Results Item Value Date Time Blood Culture Received 12/27/16 1335 Blood Pending Blood Culture Received 12/27/16 1323 Blood Pending Gram Stain - Final Resulted 12/27/16 1858 Abscess Hand Right Last 24 Hours Test 12/27/16 19:14 12/27/16 20:51 12/27/16 23:09 12/28/16 06:15 Bedside Glucose 157 mg/dl 228 mg/dl 248 mg/dl White Blood Count 9.62 K/uL Red Blood Count 4.48 M/uL Hemoglobin 13.2 g/dL Hematocrit 39.4 % Mean Corpuscular Volume 87.9 fL Mean Corpuscular Hemoglobin 29.5 pg Mean Corpuscular Hemoglobin Concent 33.5 g/dl RDW Standard Deviation 42.9 fL RDW Coefficient of Variation 13.3 % Platelet Count 261 K/uL Mean Platelet Volume 10.9 fL Creatinine 0.89 mg/dl Est Creatinine Clear Calc Drug Dose 76.9 ml/min Estimated GFR () 81.6 Estimated GFR (Non- 70.4 Hepatitis C Antibody Screen NEG Test 12/28/16 09:05 Bedside Glucose 297 mg/dl Assessment and Plan Patient with septic flexor tenosynovitis following trigger finger release on 08/2016. Patient does appear to have bacteria on Gram stain. She is currently on IV vancomycin, and will add IV Zosyn for extended coverage due to the patient 's uncontrolled diabetes. She may need a few more days of IV antibiotic therapy pending healing of her wounds. Will await orthopedic opinion regarding further need for surgical intervention. We will adjust antibiotic therapy once cultures are available. I also ordered a chest x-ray due to the patient's green sputum production, wheezing, and shortness of breath. PROVIDER ADDENDUM: Pt. reviewed with Ms. Mares. Agree with above assessment.
--- NOTE | 2016-12-28 16:32 | DIAGNOSTIC IMAGING REPORT ---
CHEST 2 VIEWS ROUTINE CLINICAL HISTORY: Green sputum production, wheezing, SOB COMPARISON STUDY: 02/13/2016 FINDINGS: The cardiac and mediastinal contours remain stable. There is a peripheral right midlung zone airspace opacity, likely representing a pneumonitis given history of green sputum production. There are no pleural effusions. Films subsequent to treatment are recommended in follow-up.[ IMPRESSION: Right middle lobe airspace opacity, suspicious for a pneumonia. Films subsequent to antibiotic therapy are recommended in follow-up Electronically signed by: Rex Ernandez M.D. 12/28/2016 4:31 PM Dictated Date/Time: 12/28/2016 4:30 PM
[2016-12-28] MEDS ORDERED: HYDROCODONE/ACETAMOPHEN 5/325MG TAB PO PRN (18:00)
--- NOTE | 2016-12-28 18:20 | PROGRESS NOTE ---
DATE: 12/28/2016 SUBJECTIVE: Seen at the bedside today. She has complaints of malaise from the pain medication. Denies any subjective fever or chills, notes appropriate amount of pain in the right thumb. OBJECTIVE: Right thumb exam shows a small amount of purulent drainage. She has no extension of erythema. She has supple, flexion, extension of the thumb without significant pain or discomfort. Negative [place] signs. ASSESSMENT: Postop day #1 irrigation and debridement, septic flexor tenosynovitis. PLAN: Continue strict elevation of the extremity. She was seen by therapy and has been having range of motion of the thumb. Continue Zosyn and vancomycin. At this point in time, no further surgical plan, so will reevaluate tomorrow. If still has continued drainage, may consider repeat irrigation and debridement. Will defer to hospitalist for management of lung opacity.
[2016-12-28] MEDS ORDERED: KETOROLAC TROMETHAMINE 15 MG/ML VIAL IM SCH (18:30)
[2016-12-28] MEDS ORDERED: NURSING VERBAL MED ORDER ONE (19:00)
[2016-12-28] MEDS ORDERED: KETOROLAC TROMETHAMINE 15 MG/ML VIAL IV. SCH (20:00)
[2016-12-28] MEDS: PIPERACILL/TAZOBAC IV 4.5 GM in DEXTROSE 5% 100ML 100 ML IV SCH (20:05)
[2016-12-28] MEDS: KETOROLAC TROMETHAMINE 15 MG/ML VIAL IV. SCH (20:05)
[2016-12-29] VITALS (8 sets, daily range): BP systolic 118–136; BP diastolic 71–79; PULSE 81–96; TEMP 36.7–36.9; O2SAT 91–98
[2016-12-29] MEDS: KETOROLAC TROMETHAMINE 15 MG/ML VIAL IV. SCH ×4 (01:59→19:35)
[2016-12-29] MEDS: PIPERACILL/TAZOBAC IV 4.5 GM in DEXTROSE 5% 100ML 100 ML IV SCH (03:26)
[2016-12-29 05:40] LABS: HEMATOCRIT 34.5 % (37-47); MEAN CORPUSCULAR HEMOGLOBIN 28.9 pg (25-34); MEAN CORPUSCULAR HGB CONC 33.6 g/dl (32-36); MEAN PLATELET VOLUME 10.4 fL (7.4-10.4); PLATELET COUNT 232 K/uL (130-400); RED BLOOD COUNT 4.01 M/uL (4.2-5.4); WHITE BLOOD COUNT 8.36 K/uL (4.8-10.8)
[2016-12-29] MEDS: ALBUT/IPRATROP 3MG/0.5MG NEB 3 ML VIAL INH SCH ×4 (07:37→19:38)
[2016-12-29] MEDS: PANTOprazole SOD 40 MG TAB PO SCH (08:45)
[2016-12-29] MEDS: FLUTICASONE/SALMETEROL 250/50 (ADVAIR) 14 PUFF/1 INHALER INH SCH ×2 (08:45→20:54)
[2016-12-29] MEDS: LOSARTAN POTASSIUM 50 MG TAB PO SCH (08:47)
[2016-12-29] MEDS: RANITIDINE HCL 150 MG TAB PO SCH (08:49)
[2016-12-29] MEDS: TRIAMTERENE/HCTZ 37.5/25MG TAB PO SCH (08:49)
[2016-12-29] MEDS: INSULIN ASPART 100 UNITS/ML 3 ML PEN SC SCH ×4 (08:54→20:57)
[2016-12-29] MEDS: ASPIRIN 81 MG ECTAB PO SCH (09:19)
[2016-12-29] MEDS: LORATADINE 10 MG TAB PO SCH (09:19)
[2016-12-29] MEDS: CEFTRIAXONE SOD INJ 2,000 MG in DEXTROSE 5% 50ML 50 ML IV SCH (09:46)
--- NOTE | 2016-12-29 11:05 | Infectious Disease Progress Nt ---
Progress Note Date of Service December 29, 2016. Subjective Pt evaluation today including: conversation w/ patient, physical exam, chart review, lab review, review of studies, review of inpatient medication list WBC count 8.36 this morning. CXR showed probable right middle lobe pneumonia. Creatinine was 1.00 today. Blood cultures showing no growth to date. Hand culture growing Enterobacter Aerogenes which is pansensitive. She continues to have pain in the right hand and into the palm of her hands. She also continues to have cough and green sputum production. She is currently on IV Vancomycin and Zosyn. All Other Systems: Reviewed and Negative Medications Current Inpatient Medications Medications (Trade) Dose Ordered Sig/Volodymyr Route Start Time Stop Time Status Last Admin Dose Admin Aspirin (Ecotrin Tab) 81 mg QAM PO 12/28/16 09:00 01/27/17 08:59 12/29/16 09:19 81 MG Salmeterol Xinafoate/ Fluticasone (Advair Diskus 250/50 Inh) 1 puff BID INH 12/27/16 21:00 01/26/17 20:59 12/29/16 08:45 1 PUFF Albuterol/ Ipratropium (Duoneb) 3 ml QIDR INH 12/27/16 16:00 01/26/17 15:59 12/29/16 07:37 3 ML Loratadine (Claritin Tab) 10 mg QAM PO 12/28/16 09:00 01/27/17 08:59 12/29/16 09:19 10 MG Losartan Potassium (coZAAR TAB) 50 mg QAM PO 12/28/16 09:00 01/27/17 08:59 12/29/16 08:47 50 MG Ranitidine HCl (zANTac TAB) 150 mg QAM PO 12/28/16 09:00 01/27/17 08:59 12/28/16 07:46 150 MG Triamterene/HCTZ (Maxzide 37.5/25 Tab) 1 tab QAM PO 12/28/16 09:00 01/27/17 08:59 12/28/16 07:46 1 TAB Pantoprazole Sodium (Protonix Tab) 40 mg QAM PO 12/28/16 09:00 01/27/17 08:59 12/29/16 08:45 40 MG Acetaminophen (Tylenol Tab) 650 mg Q4H PRN PO 12/27/16 13:15 01/26/17 13:14 12/28/16 17:51 650 MG Glucose (Glucose 40% Gel) 15-30 GRAMS 15 GRAMS... UD PRN PO 12/27/16 14:15 01/26/17 14:14 Glucose (Glucose Chew Tab) 4-8 Tablets 4 Tabl... UD PRN PO 12/27/16 14:15 01/26/17 14:14 Dextrose (Dextrose 50% 50ML Syringe) 25-50ML OF 50% DW IV FOR... UD PRN IV 12/27/16 14:15 01/26/17 14:14 Glucagon (Glucagon Inj) 1 mg UD PRN SQ 12/27/16 14:15 01/26/17 14:14 Furosemide (Lasix Tab) 20 mg DAILY PRN PO 12/27/16 14:45 01/26/17 14:44 Morphine Sulfate (MoRPHine SULFATE INJ) 4 mg Q1H PRN IV 12/27/16 19:15 01/10/17 19:14 Ondansetron HCl (Zofran Inj) 4 mg ONE PRN IV 12/27/16 19:15 01/26/17 19:14 Diphenhydramine HCl (Benadryl Inj) 25 mg Q6H PRN IV 12/27/16 19:15 01/26/17 19:14 Zolpidem Tartrate (Ambien Tab) 5 mg HS PRN PO 12/27/16 19:15 01/26/17 19:14 Insulin Aspart (novoLOG ASPART) SLIDING SCALE G... ACHS SC 12/28/16 08:00 01/27/17 07:59 12/29/16 08:54 3 UNITS Acetaminophen/ Hydrocodone Bitart ([place] 5/325 Tab) 1 tab Q6 PRN PO 12/28/16 18:00 01/11/17 17:59 Ketorolac Tromethamine 15 mg 15 mg Q6H IV. 12/28/16 20:00 01/02/17 19:59 12/29/16 07:53 15 MG Ceftriaxone Sodium/Dextrose (Rocephin Inj/D5 50ml) 70 ml @ 100 mls/hr Q24H IV 12/29/16 10:00 01/08/17 09:59 12/29/16 09:46 100 MLS/HR Objective Vital Signs Date Time Temp Pulse Resp B/P Pulse Ox O2 Delivery O2 Flow Rate FiO2 12/29/16 07:37 88 16 95 Room Air 12/29/16 07:29 36.7 82 16 136/71 98 CPAP 12/29/16 07:15 Room Air 12/28/16 23:21 36.9 89 16 144/78 99 BiPAP 12/28/16 23:15 Room Air 12/28/16 19:36 100 16 95 Room Air 12/28/16 15:45 86 14 96 Room Air 12/28/16 15:45 96 Room Air 12/28/16 15:00 36.9 99 16 127/79 91 Room Air 12/28/16 11:42 80 14 93 Room Air Physical Exam General Appearance: WD/WN, no apparent distress Eyes: normal inspection, sclerae normal ENT: hearing grossly normal Neck: supple, trachea midline Respiratory/Chest: chest non-tender, no respiratory distress, no accessory muscle use, + crackles (right middle lobe and left upper lobe) Cardiovascular: regular rate, rhythm, no murmur Abdomen: normal bowel sounds, non tender, soft Extremities: + pertinent finding (right hand with swelling of the palm and mild serous drainage) 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: alert, normal mood/affect, oriented x 3 Skin: warm/dry, no rash, + pertinent finding (very mild erythema surrounding wound) Laboratory Results [~ rep ct add3]] CHEST 2 VIEWS ROUTINE CLINICAL HISTORY: Green sputum production, wheezing, SOB COMPARISON STUDY: 02/13/2016 FINDINGS: The cardiac and mediastinal contours remain stable. There is a peripheral right midlung zone airspace opacity, likely representing a pneumonitis given history of green sputum production. There are no pleural effusions. Films subsequent to treatment are recommended in follow-up.[ IMPRESSION: Right middle lobe airspace opacity, suspicious for a pneumonia. Films subsequent to antibiotic therapy are recommended in follow-up RUN DATE: 12/29/16 [facility] LAB PAGE 1 RUN TIME: 1021 Specimen Inquiry PATIENT: ANGUS ALEX LOC: CLIVE U # : [id number] AGE/SX: 61/F ROOM: [facility] REG : 12/27/[address]: Nathen York : 1955 BED: 2 DIS : STATUS: ADM IN TLOC: SPEC #: [id number] KIM: 12/27/16 STATUS: RES REQ #: [id number] RECD: 12/27/[address]: Nathen York MD SOURCE: ABSCESS ENTR: 12/27/[address] [facility] DR: Yoav Tubbs MD SPDESC: MAIN RIGHT Ryan Alegria M.D. Maurer, Candace, C.R.N.P ORDERED: AER/LISA CULTSMR Procedure Result Verified Site GRAM STAIN Final 12/28/16-833 RESULT FEW GRAM POSITIVE BACILLI NO WBCs SEEN OR AER/LISA CULT Preliminary 12/29/16-1021 Organism 1 ENTEROBACTER AEROGENES QUANITY FEW SENS SENSITIVITY TO FOLLOW +MIXWOUND PLUS LOW COUNTS OF PROBABLE SKIN KAR 1. ENTEROBACTER AEROGENES Target Route Dose RX AB Cost M.I.C. IQ ------ ----- ------ -- ------ -------- - ------ TRIMET/SULFA S <=2/38 CEFOTAXIME S <=2 CEFTRIAXONE S <=1 CEFEPIME S <=4 IMIPENEM S <=1 GENTAMICIN S <=4 TOBRAMYCIN S <=4 AMIKACIN S <=16 CIPROFLOXACIN S <=1 LEVOFLOXACIN S <=2 ERTAPENEM S <=1 PIP/TAZO S <=16 S = SENSITIVE I = INTERMEDIATE R = RESISTANT Item Value Date Time Gram Stain - Final Resulted 12/27/16 1858 Abscess Hand Right Blood Culture - Preliminary Resulted 12/27/16 1335 Blood NO GROWTH TO DATE. Blood Culture - Preliminary Resulted 12/27/16 1323 Blood NO GROWTH TO DATE. Last 24 Hours Test 12/28/16 12:06 12/28/16 16:44 12/28/16 20:31 12/29/16 05:27 Bedside Glucose 245 mg/dl 209 mg/dl 264 mg/dl White Blood Count 8.36 K/uL Red Blood Count 4.01 M/uL Hemoglobin 11.6 g/dL Hematocrit 34.5 % Mean Corpuscular Volume 86.0 fL Mean Corpuscular Hemoglobin 28.9 pg Mean Corpuscular Hemoglobin Concent 33.6 g/dl RDW Standard Deviation 42.3 fL RDW Coefficient of Variation 13.3 % Platelet Count 232 K/uL Mean Platelet Volume 10.4 fL Creatinine 1.00 mg/dl Est Creatinine Clear Calc Drug Dose 68.5 ml/min Estimated GFR () 70.9 Estimated GFR (Non- 61.2 Test 12/29/16 08:08 Bedside Glucose 267 mg/dl Assessment and Plan Patient with septic flexor tenosynovitis following trigger finger release on 08/2016 and now right middle lobe pneumonia. Culture growing Enterobacter aerogenes which is pansensitive in nature. CXR with right middle lobe pneumonia. Will D/C IV Vancomycin and Zosyn and start IV Ceftriaxone 2 g daily. She ultimately can probably transition to PO Levaquin 500 mg daily for discharge to home. This will cover her for both the pneumonia and Enterobacter in her hand wound. Recommend continuing therapy for at least 2 weeks with ID follow up prior to discharge. We will follow up as outpatient. Thanks PROVIDER ADDENDUM: Patient reviewed with Ms. Mares. Agree with above assessment.
--- NOTE | 2016-12-29 15:22 | PROGRESS NOTE ---
DATE: 12/29/2016 SUBJECTIVE: Postop day #2 I\T\D right hand. She is feeling well today. Notes that her pain is better management with her pain medication. OBJECTIVE: Right hand exam: She has no evidence of drainage from her incision. She has no erythema. She does show resolution of infection. She has supple motion of the thumb. LABORATORY DATA: Cultures do show Enterobacter aerogenes. ASSESSMENT: 1. Postop day #2 I\T\D, septic flexor tenosynovitis. 2. Right middle lobe pneumonia, present x3 weeks. PLAN: At this point, continue ceftriaxone. She may be discharged to home tomorrow after a morning 10:00 a.m. dose of ceftriaxone [address] her on Levaquin p.o. 500 mg daily upon discharge for 2 weeks. She will follow up with me January 05 in the office. May do dry sterile dressing changes once a day and should follow up with infectious disease as directed. DREW
--- NOTE | 2016-12-29 15:35 | Hospitalist Progress Note ---
Hospitalist Progress Note Date of Service December 29, 2016. Subjective No CP. Some pain in right hand post I and D. Medications Medications (Trade) Dose Ordered Sig/Volodymyr Route Start Time Stop Time Status Last Admin Dose Admin Vancomycin HCl 1500 mg/Sodium Chloride 530 ml @ 200 mls/hr Q12H IV 12/28/16 22:00 12/29/16 09:22 DC 12/29/16 00:08 200 MLS/HR Piperacillin Sod/ Tazobactam Sod/ Dextrose (Zosyn Iv/D5 100ml) 120 ml @ 30 mls/hr Q8H IV 12/28/16 20:00 12/29/16 09:22 DC 12/29/16 03:26 30 MLS/HR Ketorolac Tromethamine 15 mg 15 mg Q6H IV. 12/28/16 20:00 01/02/17 19:59 12/29/16 13:29 15 MG Ceftriaxone Sodium/Dextrose (Rocephin Inj/D5 50ml) 70 ml @ 100 mls/hr Q24H IV 12/29/16 10:00 01/08/17 09:59 12/29/16 09:46 100 MLS/HR Objective Vital Signs Date Time Temp Pulse Resp B/P Pulse Ox O2 Delivery O2 Flow Rate FiO2 12/29/16 15:23 85 16 96 Room Air 12/29/16 14:57 36.9 96 16 121/79 92 Room Air 12/29/16 11:19 81 16 95 Room Air 12/29/16 07:37 88 16 95 Room Air 12/29/16 07:29 36.7 82 16 136/71 98 CPAP 12/29/16 07:15 Room Air 12/28/16 23:21 36.9 89 16 144/78 99 BiPAP 12/28/16 23:15 Room Air 12/28/16 19:36 100 16 95 Room Air 12/28/16 15:45 86 14 96 Room Air 12/28/16 15:45 96 Room Air Physical Exam General Appearance: WD/WN Eyes: normal inspection ENT: normal ENT inspection Neck: supple Respiratory/Chest: chest non-tender, + decreased breath sounds, + rales (right base) Cardiovascular: regular rate, rhythm, no edema, no murmur Abdomen: normal bowel sounds, non tender, soft Extremities: normal range of motion, + pertinent finding (right hand in dressing) 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: 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 nml as tested, alert, oriented x 3 Laboratory Results Last 24 Hours Test 12/28/16 16:44 12/28/16 20:31 12/29/16 05:27 12/29/16 08:08 Bedside Glucose 209 mg/dl 264 mg/dl 267 mg/dl White Blood Count 8.36 K/uL Red Blood Count 4.01 M/uL Hemoglobin 11.6 g/dL Hematocrit 34.5 % Mean Corpuscular Volume 86.0 fL Mean Corpuscular Hemoglobin 28.9 pg Mean Corpuscular Hemoglobin Concent 33.6 g/dl RDW Standard Deviation 42.3 fL RDW Coefficient of Variation 13.3 % Platelet Count 232 K/uL Mean Platelet Volume 10.4 fL Creatinine 1.00 mg/dl Est Creatinine Clear Calc Drug Dose 68.5 ml/min Estimated GFR () 70.9 Estimated GFR (Non- 61.2 Test 12/29/16 11:48 Bedside Glucose 245 mg/dl Diagnostic Results CHEST 2 VIEWS ROUTINE CLINICAL HISTORY: Green sputum production, wheezing, SOB COMPARISON STUDY: 02/13/2016 FINDINGS: The cardiac and mediastinal contours remain stable. There is a peripheral right midlung zone airspace opacity, likely representing a pneumonitis given history of green sputum production. There are no pleural effusions. Films subsequent to treatment are recommended in follow-up.[ IMPRESSION: Right middle lobe airspace opacity, suspicious for a pneumonia. Films subsequent to antibiotic therapy are recommended in follow-up Electronically signed by: Rex Ernandez M.D. 12/28/2016 4:31 PM Dictated Date/Time: 12/28/2016 4:30 PM RUN DATE: 12/29/16 [facility] LAB PAGE 1 RUN TIME: 6587 Specimen Inquiry PATIENT: ANGUS ALEX LOC: CLIVE U # : [id number] AGE/SX: 61/F ROOM: [facility] REG : 12/27/[address]: Nathen oYrk : 1955 BED: 2 DIS : STATUS: ADM IN TLOC: SPEC #: [id number] KIM: 12/27/16 STATUS: RES REQ #: [id number] RECD: 12/27/[address]: Nathen York MD SOURCE: ABSCESS ENTR: 12/27/[address] [facility] [address]: Yoav Tubbs MD SPDESC: HAND RIGHT Ryan Alegria M.D. Maurer, Candace C.RAlmaNAlmaP ORDERED: AER/LISA CULTSMR Procedure Result Verified Site GRAM STAIN Final 12/28/16-833 RESULT FEW GRAM POSITIVE BACILLI NO WBCs SEEN OR AER/LISA CULT Preliminary 12/29/16-151 Organism 1 ENTEROBACTER AEROGENES QUANITY FEW SENS SENSITIVITY TO FOLLOW +MIXWOUND PLUS LOW COUNTS OF PROBABLE SKIN KAR Organism 2 ENTEROCOCCUS SPECIES QUANITY FEW SENS SENSITIVITY TO FOLLOW 1. ENTEROBACTER AEROGENES Target Route Dose RX AB Cost M.I.C. IQ ------ ----- ------ -- ------ -------- - ------ TRIMET/SULFA S <=2/38 CEFOTAXIME S <=2 CEFTRIAXONE S <=1 CEFEPIME S <=4 IMIPENEM S <=1 GENTAMICIN S <=4 TOBRAMYCIN S <=4 AMIKACIN S <=16 CIPROFLOXACIN S <=1 LEVOFLOXACIN S <=2 ERTAPENEM S <=1 PIP/TAZO S <=16 S = SENSITIVE I = INTERMEDIATE R = RESISTANT END OF REPORT Assessment and Plan Patient is a 61 y/o female, with PMHx of T2DM, HTN, asthma, MADAY, and GERD, who was admitted to the hospital by Dr. York for IV antibiotic treatment due to right hand septic flexor tenosynovitis s/p right trigger thumb release on 12/19. - Management/treatment as per primary team - s/p I&D. IV antibiotics as per ID. - CBC and PRP pending - BCx pending - Patient requesting Tylenol PRN for pain management - Infectious disease consulted Right LL PNA - oxygen, nebs, IV antibiotics. Blood cultures negative. T2DM: - Hold Trulicity and Glimepiride - Continue SSI with Novolog. - Switch to Insulin 70/30 at time of discharge. Pt does not want Lantus - BSG ACHS w/ sliding insulin scale HTN: Continue Losartan 50 mg daily and Maxzide daily Asthma: Continue home inhalers MADAY: CPAP GERD: Protonix daily- resume Nexium and Zantac at discharge DVT prophylaxis: As per primary team Code Status: LEVEL I, FULL
[2016-12-29] MEDS: ACETAMINOPHEN 325 MG TAB PO PRN (16:55)
[2016-12-29] MEDS ORDERED: VANCOMYCIN TROUGH SCH (21:30)
--- NOTE | 2016-12-29 22:30 | Discharge Instructions ---
Discharge Instructions Date of Service December 29, 2016. Admission Reason for Admission: R Thumb Infection Discharge Discharge Diagnosis / Problem: s/p Right thumb flexor tenosynovitis Discharge Goals Goal(s): Decrease discomfort, Improve function Activity Recommendations Activity Limitations: per Instructions/Follow-up section Shower/Bathe: keep incision dry . Instructions / Follow-Up Instructions / Follow-Up ACTIVITY RECOMMENDATIONS: * Avoid lifting anything heavier than a medium water glass until your first post operative visit. SPECIAL CARE INSTRUCTIONS: * Your bandage should be left in place and changed daily for dry sterile dressing. * Some drainage onto the dressing may occur. This is normal. * If the bandage feels excessively tight, you may loosen the elastic bandage. Then call the physician's office for further instructions. * If possible, keep your hand elevated above the level of your heart for the first 2 post operative days. You may use a sling if necessary. * You should move your fingers regularly (50-100 motions per hour) unless otherwise instructed. SPECIAL PRECAUTIONS: * If you notice increased drainage, fever over 101 degrees F. or severe, unremitting pain, call your physician/office at . * You may have been prescribed pain medication. If you experience nausea and/or skin rash, discontinue this medication and contact our office for an alternative medication. FOLLOW UP VISIT: If appointment is not already scheduled: Follow up appt with Dr. York on . Please call [facility] to make a follow-up appointment after your surgery at . Current Hospital Diet Patient's current hospital diet: Diabetes Type 2 Diet Discharge Diet Recommended Diet: N/A (Resume previous diabetic diet) Procedures Procedures Performed: I&D of Right hand septic flexor tenosynovitis Pending Studies Studies pending at discharge: no Medical Emergencies . Who to Call and When: Medical Emergencies: If at any time you feel your situation is an emergency, please call [phone] immediately. . Non-Emergent Contact Non-Emergency issues call your: Primary Care Provider Call Non-Emergent contact if: you have a fever, your pain is not controlled, your pain is worsening, wound has increased drainage, wound has increased redness, wound has increased pain, you have any medication questions . "Provider Documentation" section prepared by Kelsea Fermin. . Quality Control Coordinator Recommendations Quality Control Coordinator Recommendations: Follow up with infectious disease upon discharge Follow up with primary care physician upon discharge regarding pneumonia VTE Core Measure Inpt VTE Proph given/why not?: Other Anticoagulation (ASA) [place] Drug Monitoring Program Search Results: patient reviewed within database, no issues identified
[2016-12-29] MEDS ORDERED: LEVO1TAB33 PO (22:38)
[2016-12-29] MEDS ORDERED: VANCOMYCIN TROUGH ONE (23:30)
[2016-12-30] MEDS: KETOROLAC TROMETHAMINE 15 MG/ML VIAL IV. SCH ×3 (01:43→13:55)
[2016-12-30 07:20] VITALS: BP 121/81; PULSE 90; TEMP 36.8; O2SAT 95
[2016-12-30 07:45] VITALS: PULSE 84; O2SAT 93
[2016-12-30] MEDS: ALBUT/IPRATROP 3MG/0.5MG NEB 3 ML VIAL INH SCH ×2 (07:45→11:49)
[2016-12-30] MEDS: INSULIN ASPART 100 UNITS/ML 3 ML PEN SC SCH ×4 (08:23→21:40)
[2016-12-30] MEDS: FLUTICASONE/SALMETEROL 250/50 (ADVAIR) 14 PUFF/1 INHALER INH SCH ×2 (08:25→21:41)
[2016-12-30] MEDS: PANTOprazole SOD 40 MG TAB PO SCH (08:26)
[2016-12-30] MEDS: ASPIRIN 81 MG ECTAB PO SCH (08:26)
[2016-12-30] MEDS: LORATADINE 10 MG TAB PO SCH (08:26)
[2016-12-30] MEDS: LOSARTAN POTASSIUM 50 MG TAB PO SCH (08:26)
[2016-12-30] MEDS: TRIAMTERENE/HCTZ 37.5/25MG TAB PO SCH (08:28)
[2016-12-30] MEDS: RANITIDINE HCL 150 MG TAB PO SCH (08:28)
[2016-12-30] MEDS ORDERED: INSULIN HUMAN 70% NPH/30% REGULAR SC SCH (08:30)
[2016-12-30 08:51] LABS: HEMATOCRIT 36.8 % (37-47); MEAN CORPUSCULAR HGB CONC 33.7 g/dl (32-36); MEAN PLATELET VOLUME 10.9 fL (7.4-10.4); PLATELET COUNT 272 K/uL (130-400); RED BLOOD COUNT 4.28 M/uL (4.2-5.4); WHITE BLOOD COUNT 8.63 K/uL (4.8-10.8)
[2016-12-30] MEDS: CEFTRIAXONE SOD INJ 2,000 MG in DEXTROSE 5% 50ML 50 ML IV SCH (10:28)
[2016-12-30] MEDS ORDERED: GUAIFENESIN/CODEINE 100MG/10MG 5ML UDC PO PRN (10:30)
[2016-12-30] MEDS: IPRATROPIUM BROMIDE/ALBUTEROL respimat INH INH SCH ×3 (11:49→21:41)
--- NOTE | 2016-12-30 13:54 | Hospitalist Progress Note ---
Hospitalist Progress Note Date of Service December 30, 2016. Subjective Pt evaluation today including: conversation w/ patient, chart review c.o cough and min. productive. No CP or SOB. Medications Medications (Trade) Dose Ordered Sig/Volodymyr Route Start Time Stop Time Status Last Admin Dose Admin Insulin Human Isoph/Insulin Regular (novoLIN 70/30 REGULAR) 10 units BIDM SC 12/30/16 08:30 01/29/17 08:29 12/30/16 08:24 10 UNITS Albuterol/ Ipratropium (Combivent Respimat Inh) 1 puffs QIDR INH 12/30/16 12:00 01/29/17 11:59 12/30/16 11:49 1 PUFFS Objective Vital Signs Date Time Temp Pulse Resp B/P Pulse Ox O2 Delivery O2 Flow Rate FiO2 12/30/16 07:45 84 16 93 Room Air 12/30/16 07:45 Room Air 12/30/16 07:20 36.8 90 19 121/81 95 Room Air 12/29/16 23:20 CPAP 12/29/16 23:02 36.7 92 16 118/72 91 Room Air 12/29/16 19:38 81 16 95 Room Air 12/29/16 15:45 92 Room Air 12/29/16 15:23 85 16 96 Room Air 12/29/16 14:57 36.9 96 16 121/79 92 Room Air Physical Exam General Appearance: WD/WN Eyes: normal inspection ENT: normal ENT inspection Neck: supple Respiratory/Chest: chest non-tender, + decreased breath sounds Cardiovascular: regular rate, rhythm, no edema, no murmur Abdomen: normal bowel sounds, non tender, no organomegaly Extremities: normal range of motion, + pertinent finding (right hand in dressing) 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: 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, alert Skin: normal color Laboratory Results Last 24 Hours Test 12/29/16 16:48 12/29/16 20:40 12/30/16 08:04 12/30/16 08:09 Bedside Glucose 275 mg/dl 285 mg/dl 264 mg/dl White Blood Count 8.63 K/uL Red Blood Count 4.28 M/uL Hemoglobin 12.4 g/dL Hematocrit 36.8 % Mean Corpuscular Volume 86.0 fL Mean Corpuscular Hemoglobin 29.0 pg Mean Corpuscular Hemoglobin Concent 33.7 g/dl RDW Standard Deviation 42.4 fL RDW Coefficient of Variation 13.5 % Platelet Count 272 K/uL Mean Platelet Volume 10.9 fL Creatinine 1.00 mg/dl Est Creatinine Clear Calc Drug Dose 68.5 ml/min Estimated GFR () 70.9 Estimated GFR (Non- 61.2 Diagnostic Results RUN DATE: 12/29/16 [facility] LAB PAGE 1 RUN TIME: 2336 Specimen Inquiry PATIENT: ANGUS ALEX LOC: CLIVE U # : [id number] AGE/SX: 61/F ROOM: [facility] REG : 12/27/[address]: Nathen York : 1955 BED: 2 DIS : STATUS: ADM IN TLOC: SPEC #: [id number] KIM: 12/27/16-1323 STATUS: RES REQ #: [id number] RECD: 12/27/16-3323 [facility] DR: Stefany Mares PA-C SOURCE: BLOOD ENTR: 12/27/16-1241 [facility] DR: Yoav Tubbs MD [facility]: Ryan Alegria M.D. [place]ki, MD Karlos Bazzi Candace, C.R.NAlmaP ORDERED: BLOOD CULTURE Procedure Result Verified Site BLD CULT Preliminary 12/29/16-7 Organism 1 GRAM POSITIVE COCCI SENS SENSITIVITIES DEPENDENT ON FURTHER IDENTIFICATION Phoned Positive Blood Culture Gram Stain Report to EDER BRONSON on 12/29/16 At 2337 By RADHA. Results were verbalized back to RADHA. Assessment and Plan Patient is a 61 y/o female, with PMHx of T2DM, HTN, asthma, MADAY, and GERD, who was admitted to the hospital by Dr. York for IV antibiotic treatment due to right hand septic flexor tenosynovitis s/p right trigger thumb release on 12/19. - Management/treatment as per primary team - s/p I&D. IV antibiotics as per ID - BCx positive for gram + cocci. - Patient requesting Tylenol PRN for pain management - Infectious disease consulted Right LL PNA - oxygen, nebs, IV antibiotics. Blood cultures from December 27 are + for gram + cocci. Will liase with ID reg abn. blood cultures. - DC on levaquin x 2 week course as per ID. T2DM: - Restart Trulicity and Glimepiride at discharge. - Continue SSI with Novolog. - Switch to Insulin 70/30, 20 units bid at time of discharge. For now will increase it to 15 units bid with meals. - BSG ACHS w/ sliding insulin scale HTN: Continue Losartan 50 mg daily and Maxzide daily Asthma: Continue home inhalers MADAY: CPAP GERD: Protonix daily- resume Nexium and Zantac at discharge DVT prophylaxis: As per primary team Code Status: LEVEL I, FULL
--- NOTE | 2016-12-30 14:34 | Infectious Disease Progress Nt ---
Progress Note Date of Service December 30, 2016. Subjective Pt evaluation today including: conversation w/ patient, physical exam, chart review, lab review, review of studies, conversation w/ delivery consultant, review of inpatient medication list Patient offering no new complaints today. Cough unchanged, no hemoptysis. No fever. All Other Systems: Reviewed and Negative Medications Current Inpatient Medications Medications (Trade) Dose Ordered Sig/Volodymyr Route Start Time Stop Time Status Last Admin Dose Admin Aspirin (Ecotrin Tab) 81 mg QAM PO 12/28/16 09:00 01/27/17 08:59 12/30/16 08:26 81 MG Salmeterol Xinafoate/ Fluticasone (Advair Diskus 250/50 Inh) 1 puff BID INH 12/27/16 21:00 01/26/17 20:59 12/30/16 08:25 1 PUFF Loratadine (Claritin Tab) 10 mg QAM PO 12/28/16 09:00 01/27/17 08:59 12/30/16 08:26 10 MG Losartan Potassium (coZAAR TAB) 50 mg QAM PO 12/28/16 09:00 01/27/17 08:59 12/30/16 08:26 50 MG Ranitidine HCl (zANTac TAB) 150 mg QAM PO 12/28/16 09:00 01/27/17 08:59 12/28/16 07:46 150 MG Triamterene/HCTZ (Maxzide 37.5/25 Tab) 1 tab QAM PO 12/28/16 09:00 01/27/17 08:59 12/28/16 07:46 1 TAB Pantoprazole Sodium (Protonix Tab) 40 mg QAM PO 12/28/16 09:00 01/27/17 08:59 12/30/16 08:26 40 MG Acetaminophen (Tylenol Tab) 650 mg Q4H PRN PO 12/27/16 13:15 01/26/17 13:14 12/29/16 16:55 650 MG Glucose (Glucose 40% Gel) 15-30 GRAMS 15 GRAMS... UD PRN PO 12/27/16 14:15 01/26/17 14:14 Glucose (Glucose Chew Tab) 4-8 Tablets 4 Tabl... UD PRN PO 12/27/16 14:15 01/26/17 14:14 Dextrose (Dextrose 50% 50ML Syringe) 25-50ML OF 50% DW IV FOR... UD PRN IV 12/27/16 14:15 01/26/17 14:14 Glucagon (Glucagon Inj) 1 mg UD PRN SQ 12/27/16 14:15 01/26/17 14:14 Furosemide (Lasix Tab) 20 mg DAILY PRN PO 12/27/16 14:45 01/26/17 14:44 Morphine Sulfate (MoRPHine SULFATE INJ) 4 mg Q1H PRN IV 12/27/16 19:15 01/10/17 19:14 Ondansetron HCl (Zofran Inj) 4 mg ONE PRN IV 12/27/16 19:15 01/26/17 19:14 Diphenhydramine HCl (Benadryl Inj) 25 mg Q6H PRN IV 12/27/16 19:15 01/26/17 19:14 Zolpidem Tartrate (Ambien Tab) 5 mg HS PRN PO 12/27/16 19:15 01/26/17 19:14 Insulin Aspart (novoLOG ASPART) SLIDING SCALE G... ACHS SC 12/28/16 08:00 01/27/17 07:59 12/30/16 12:09 4 UNITS Acetaminophen/ Hydrocodone Bitart (Newberry 5/325 Tab) 1 tab Q6 PRN PO 12/28/16 18:00 01/11/17 17:59 Ketorolac Tromethamine 15 mg 15 mg Q6H IV. 12/28/16 20:00 01/02/17 19:59 12/30/16 13:55 15 MG Ceftriaxone Sodium/Dextrose (Rocephin Inj/D5 50ml) 70 ml @ 100 mls/hr Q24H IV 12/29/16 10:00 01/08/17 09:59 12/30/16 10:28 100 MLS/HR Codeine Phosphate/ Guaifenesin (Robitussin-AC Sugar Free Syrup) 5 ml Q6H PRN PO 12/30/16 10:30 01/29/17 10:29 Albuterol/ Ipratropium (Combivent Respimat Inh) 1 puffs QIDR INH 12/30/16 12:00 01/29/17 11:59 12/30/16 11:49 1 PUFFS Insulin Human Isoph/Insulin Regular (novoLIN 70/30 REGULAR) 15 units BIDM SC 12/30/16 17:45 01/29/17 17:44 UNV Objective Vital Signs Date Time Temp Pulse Resp B/P Pulse Ox O2 Delivery O2 Flow Rate FiO2 12/30/16 07:45 84 16 93 Room Air 12/30/16 07:45 Room Air 12/30/16 07:20 36.8 90 19 121/81 95 Room Air 12/29/16 23:20 CPAP 12/29/16 23:02 36.7 92 16 118/72 91 Room Air 12/29/16 19:38 81 16 95 Room Air 12/29/16 15:45 92 Room Air 12/29/16 15:23 85 16 96 Room Air 12/29/16 14:57 36.9 96 16 121/79 92 Room Air Physical Exam General Appearance: WD/WN, no apparent distress Eyes: normal inspection, sclerae normal ENT: normal ENT inspection, hearing grossly normal, pharynx normal Neck: supple, no adenopathy, trachea midline Respiratory/Chest: lungs clear, normal breath sounds, no respiratory distress Cardiovascular: regular rate, rhythm, no gallop, no murmur Abdomen: normal bowel sounds, non tender, soft, no organomegaly Extremities: non-tender, no calf tenderness 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: alert, normal mood/affect, oriented x 3 Skin: normal color, no rash, + pertinent finding ( Dressing intact right thumb ) Lymphatic: no adenopathy Laboratory Results RUN DATE: 01/01/17 [facility] LAB PAGE 1 RUN TIME: 9195 Specimen Inquiry PATIENT: ANGUS ALEX LOC: CLIVE U # : [id number] AGE/SX: 61/F ROOM: [facility] REG : 12/27/[address]: Nathen York : 1955 BED: 2 DIS : 12/31/16 STATUS: DIS IN TLOC: SPEC #: [id number] KIM: 12/27/16 STATUS: COMP REQ #: [id number] RECD: 12/27/[address]: Nathen York MD SOURCE: ABSCESS ENTR: 12/27/[address] [facility] DR: Yoav Tubbs MD SPDESC: HAND RIGHT Ryan Alegria M.D. Maurer,Sarah C.RAlmaNAlmaP ORDERED: AER/LISA CULTSMR Procedure Result Verified Site GRAM STAIN Final 12/28/16-0834 RESULT FEW GRAM POSITIVE BACILLI NO WBCs SEEN OR AER/LISA CULT Final 01/01/17-140 Organism 1 ENTEROBACTER AEROGENES QUANITY FEW SENS SENSITIVITY TO FOLLOW ANAS NO ANAEROBES ISOLATED. +MIXWOUND PLUS LOW COUNTS OF PROBABLE SKIN KRA Organism 2 ENTEROCOCCUS FAECALIS QUANITY FEW SENS SENSITIVITY TO FOLLOW Organism 3 PSEUDOMONAS AERUGINOSA QUANITY RARE SENS SENSITIVITY TO FOLLOW ENT AEROGE E FAECALIS PSEUD AERG M.I.C. RX M.I.C. RX M.I.C. RX --------- ------ --------- ------ --------- ------ TRIMET/SULFA <=2/38 S AMPICILLIN <=2 S CEFOTAXIME <=2 S CEFTAZIDIME 4 S CEFTRIAXONE <=1 S CEFEPIME <=4 S <=4 S IMIPENEM <=1 S <=1 S GENT SYNERGY <=500 S AZTREONAM <=4 S VANCOMYCIN 2 S PENICILLIN 2 S GENTAMICIN <=4 S <=4 S TOBRAMYCIN <=4 S <=4 S AMIKACIN <=16 S <=16 S CIPROFLOXACIN <=1 S <=1 S LEVOFLOXACIN <=2 S <=2 S ERTAPENEM <=1 S DAPTOMYCIN 2 S PIP/TAZO <=16 S <=16 S STREP SYNERGY <=1000 S CONTINUED ON NEXT PAGE RUN DATE: 01/01/17 [facility] LAB PAGE 2 RUN TIME: 863 Specimen Inquiry SPEC: [id number] PATIENT: ANGUS ALEX [id number] ( Continued) Procedure Result Verified Site OR AER/LISA CULT Final (continued) ENTEROCOCCUS FAECALIS: POSITIVE COMBO 33 Streptomycin Synergy Screen S Gentamicin Synergy Screen S 1. ENTEROBACTER AEROGENES Target Route Dose RX AB Cost M.I.C. IQ ------ ----- ------ -- ------ -------- - ------ TRIMET/SULFA S <=2/38 CEFOTAXIME S <=2 CEFTRIAXONE S <=1 CEFEPIME S <=4 IMIPENEM S <=1 GENTAMICIN S <=4 TOBRAMYCIN S <=4 AMIKACIN S <=16 CIPROFLOXACIN S <=1 LEVOFLOXACIN S <=2 ERTAPENEM S <=1 PIP/TAZO S <=16 2. ENTEROCOCCUS FAECALIS Target Route Dose RX AB Cost M.I.C. IQ ------ ----- ------ -- ------ -------- - ------ AMPICILLIN S <=2 GENT SYNERGY S <=500 VANCOMYCIN S 2 PENICILLIN S 2 DAPTOMYCIN S 2 STREP SYNERGY S <=1000 Streptomycin Synergy Screen S Gentamicin Synergy Screen S 3. PSEUDOMONAS AERUGINOSA Target Route Dose RX AB Cost M.I.C. IQ ------ ----- ------ -- ------ -------- - ------ CEFTAZIDIME S 4 CEFEPIME S <=4 IMIPENEM S <=1 AZTREONAM S <=4 GENTAMICIN S <=4 TOBRAMYCIN S <=4 AMIKACIN S <=16 CIPROFLOXACIN S <=1 LEVOFLOXACIN S <=2 PIP/TAZO S <=16 CONTINUED ON NEXT PAGE RUN DATE: 01/01/17 [facility] LAB PAGE 3 RUN TIME: 1407 Specimen Inquiry SPEC: [id number] PATIENT: ANGUS ALEX [id number] ( Continued) Procedure Result Verified Site OR AER/LISA REID Final (continued) S = SENSITIVE I = INTERMEDIATE R = RESISTANT END OF REPORT Last 24 Hours Test 12/29/16 16:48 12/29/16 20:40 12/30/16 08:04 12/30/16 08:09 Bedside Glucose 275 mg/dl 285 mg/dl 264 mg/dl White Blood Count 8.63 K/uL Red Blood Count 4.28 M/uL Hemoglobin 12.4 g/dL Hematocrit 36.8 % Mean Corpuscular Volume 86.0 fL Mean Corpuscular Hemoglobin 29.0 pg Mean Corpuscular Hemoglobin Concent 33.7 g/dl RDW Standard Deviation 42.4 fL RDW Coefficient of Variation 13.5 % Platelet Count 272 K/uL Mean Platelet Volume 10.9 fL Creatinine 1.00 mg/dl Est Creatinine Clear Calc Drug Dose 68.5 ml/min Estimated GFR () 70.9 Estimated GFR (Non- 61.2 Assessment and Plan Patient with septic flexor tenosynovitis following trigger finger release on 08/2016 and now right middle lobe pneumonia. Culture growing Enterobacter aerogenes which is pansensitive in nature, Enterococcus and now Pseudomonas. Blood culture also now with gram positive cocci. Will start vancomycin and change ceftriaxone to Zosyn pending further culture results.
[2016-12-30 15:12] VITALS: BP 146/84; PULSE 89; TEMP 36.8; O2SAT 94
[2016-12-30] MEDS ORDERED: PIPERACILL/TAZOBAC CONSULT ACTIVE PRN (16:30)
[2016-12-30] MEDS ORDERED: VANCOMYCIN CONSULT ACTIVE PRN (16:30)
--- NOTE | 2016-12-30 16:35 | Pharmacy Progress Note ---
Pharmacy Abx Dose Short Note Date of Service December 30, 2016. Assessment & Plan Assessment 61 year old female re-initiated on IV Vancomycin + Zosyn for treatment of bone/ joint infection, PNX, bacteremia Pt received Vanco + Zosyn 12/27 - 12/29 then was changed to IV Rocephin - now changing back to Vanco + Zosyn Pt with extreme obesity; BMI ~ 49, putting her at high risk of rapid vanco accumulation once Vd filled and vanco at steady state Plan Vancomycin * Last dose given was 12/29 @ 0000. Will need re-loaded. * Loading Dose: Vancomycin 2,800mg IV x 1 dose then * Vancomycin 1,500mg (~13mg/kg) IV Q18hrs * Reduced mg/kg dosing given d/t extreme obesity * Considered more aggressive Q12hr regimen for the first few doses but pt likely to rapidly accumulate at this dosing interval. Calc T1/2 is ~ 17hrs and dosing under the half life leads to accumulation. Also, pt may still have some vanco on board from previous dosing this admission. * Goal trough level for complicated infection : 15 to 20 mcg/mL * Trough level ordered for: 01/01/17 @ 2200 Zosyn Piperacillin/Tazobactam Extended Infusion: * 4.5 grams IV bolus, 4.5 grams IV every 8 hours for est CrCL > 20mL/min. * 4.5 grams IV bolus, 4.5 grams IV every 12 hours for est CrCL 20mL/min or below * Consider this more aggressive regimen if: critically ill, obese with BMI 35 or above, cystic fibrosis, MEREDITH > 16 g/mL Pharmacy will continue to follow and will adjust dose/frequency as necessary. Thank you.
[2016-12-30] MEDS ORDERED: PIPERACILL/TAZOBAC IV 4.5 GM in DEXTROSE 5% 100ML IV ONE (17:00)
[2016-12-30] MEDS ORDERED: VANCOMYCIN INJ 2,800 MG in SODIUM CHLORIDE 0.9% 500ML 500 ML IV ONE (17:00)
[2016-12-30] MEDS ORDERED: NURSING VERBAL MED ORDER ONE (17:15)
[2016-12-30] MEDS ORDERED: PIPERACILL/TAZOBAC IV 3.375 GM in DEXTROSE 5% 100ML 100 ML IV SCH (18:00)
--- NOTE | 2016-12-30 18:04 | PROGRESS NOTE ---
DATE: 12/30/2016 SUBJECTIVE: She is seen at the bedside today. She has improvements in her hand. She has complaints mostly of generalized malaise. No complaints of pain in the hand currently. OBJECTIVE: Right hand: She has resolution of infection. She has supple motion, negative Kanavel signs. ASSESSMENT: Postop day #3 incision and drainage, septic flexor tenosynovitis, right hand. PLAN: At this point, will continue antibiotics and I reviewed her cultures. We note a recent gram positive cocci growing, pending sensitivities. Will defer antibiotic treatment as per infectious disease. From my standpoint, she is stable to be discharged now and does not require further surgical treatment. My hope would be cultures will come back and discharge her either Monday or Monday, pending further ID input. Follow up with me next upon discharge.
[2016-12-30] MEDS: INSULIN HUMAN 70% NPH/30% REGULAR SC SCH (18:23)
[2016-12-30] MEDS: PIPERACILL/TAZOBAC IV 4.5 GM in DEXTROSE 5% 100ML IV SCH (21:59)
[2016-12-31 00:53] VITALS: BP 133/78; PULSE 98; TEMP 36.8; O2SAT 94
[2016-12-31] MEDS: PIPERACILL/TAZOBAC IV 4.5 GM in DEXTROSE 5% 100ML IV SCH ×2 (05:44→13:12)
[2016-12-31 06:43] LABS: BASO % 0.8 %; BASO ABS # 0.06 K/uL (0-0.2); COMPLETE YES; EOS % 11.4 %; HEMATOCRIT 36.1 % (37-47); IG% 0.4 %; LYMPH % 19.6 %; LYMPH ABS # 1.55 K/uL (1.2-3.4); MEAN CORPUSCULAR HEMOGLOBIN 28.9 pg (25-34); MEAN CORPUSCULAR HGB CONC 33.2 g/dl (32-36); MEAN PLATELET VOLUME 10.7 fL (7.4-10.4); MONO % 10.5 %; NEUT % 57.3 %; PLATELET COUNT 302 K/uL (130-400); RED BLOOD COUNT 4.15 M/uL (4.2-5.4)
[2016-12-31 07:09] VITALS: BP 151/82; PULSE 90; TEMP 36.7; O2SAT 90
[2016-12-31 07:11] LABS: CREATININE 1.3 mg/dl (0.60-1.20)
[2016-12-31] MEDS: RANITIDINE HCL 150 MG TAB PO SCH (08:29)
[2016-12-31] MEDS: ASPIRIN 81 MG ECTAB PO SCH (08:30)
[2016-12-31] MEDS: LORATADINE 10 MG TAB PO SCH (08:30)
[2016-12-31] MEDS: TRIAMTERENE/HCTZ 37.5/25MG TAB PO SCH (08:30)
[2016-12-31] MEDS: FLUTICASONE/SALMETEROL 250/50 (ADVAIR) 14 PUFF/1 INHALER INH SCH (08:30)
[2016-12-31] MEDS: LOSARTAN POTASSIUM 50 MG TAB PO SCH (08:30)
[2016-12-31] MEDS: PANTOprazole SOD 40 MG TAB PO SCH (08:32)
[2016-12-31] MEDS: IPRATROPIUM BROMIDE/ALBUTEROL respimat INH INH SCH ×2 (08:32→13:13)
[2016-12-31] MEDS: INSULIN HUMAN 70% NPH/30% REGULAR SC SCH (08:43)
[2016-12-31] MEDS: INSULIN ASPART 100 UNITS/ML 3 ML PEN SC SCH ×2 (08:44→13:17)
[2016-12-31] MEDS ORDERED: VANCOMYCIN INJ 1,500 MG in SODIUM CHLORIDE 0.9% 500ML 500 ML IV SCH (10:00)
--- NOTE | 2016-12-31 11:53 | Orthopedic Progress Note ---
Orthopedic Progress Note Date of Service December 31, 2016. Subjective Post OP Day: 4 Reports: feeling well, pain controlled w PO medications, Denies: SOB, chest pain , complaints, light headedness, nausea / vomiting Objective N/V intact, capillary refill less than 2 sec., incision C/D/I, A&O x3 no pain with Motion Date Time Temp Pulse Resp B/P Pulse Ox O2 Delivery O2 Flow Rate FiO2 12/31/16 08:00 CPAP 12/31/16 07:09 36.7 90 17 151/82 90 Room Air 12/31/16 00:53 36.8 98 18 133/78 94 Room Air 12/31/16 00:10 CPAP 12/30/16 16:00 Room Air 12/30/16 15:12 36.8 89 18 146/84 94 Room Air Laboratory Results 24 Hours: Test 12/31/16 05:57 White Blood Count 7.90 K/uL Red Blood Count 4.15 M/uL Hemoglobin 12.0 g/dL Hematocrit 36.1 % Mean Corpuscular Volume 87.0 fL Mean Corpuscular Hemoglobin 28.9 pg Mean Corpuscular Hemoglobin Concent 33.2 g/dl Platelet Count 302 K/uL Mean Platelet Volume 10.7 fL Neutrophils (%) (Auto) 57.3 % Lymphocytes (%) (Auto) 19.6 % Monocytes (%) (Auto) 10.5 % Eosinophils (%) (Auto) 11.4 % Basophils (%) (Auto) 0.8 % Neutrophils # (Auto) 4.53 K/uL Lymphocytes # (Auto) 1.55 K/uL Monocytes # (Auto) 0.83 K/uL Eosinophils # (Auto) 0.90 K/uL Basophils # (Auto) 0.06 K/uL Assessment & Plan Assessment: ASSESSMENT: Postop day #4 incision and drainage, septic flexor tenosynovitis, right hand. PLAN: At this point, will continue antibiotics and await final cultures/ID recommendations on antibiotics. noted a recent gram positive cocci growing, pending sensitivities. Will defer antibiotic treatment as per infectious disease.
--- NOTE | 2016-12-31 14:03 | Hospitalist Progress Note ---
Hospitalist Progress Note Date of Service December 31, 2016. Subjective Pt evaluation today including: conversation w/ patient, chart review c/o rash in the right elbow and left leg. Medications Medications (Trade) Dose Ordered Sig/Volodymyr Route Start Time Stop Time Status Last Admin Dose Admin Insulin Human Isoph/Insulin Regular 15 units 15 units BIDM SC 12/30/16 17:45 01/29/17 17:44 12/31/16 08:43 15 UNITS Vancomycin HCl 1500 mg/Sodium Chloride 530 ml @ 200 mls/hr Q18H IV 12/31/16 10:00 01/14/17 09:59 12/31/16 10:03 200 MLS/HR Vancomycin HCl 2800 mg/Sodium Chloride 556 ml @ 200 mls/hr NOW ONCE IV 12/30/16 17:00 12/30/16 19:46 DC 12/30/16 18:18 200 MLS/HR Piperacillin Sod/ Tazobactam Sod 4.5 gm/Dextrose 120 ml @ 200 mls/hr NOW ONCE IV 12/30/16 17:00 12/30/16 17:35 DC 12/30/16 17:19 200 MLS/HR Piperacillin Sod/ Tazobactam Sod/ Dextrose (Zosyn Iv/D5 100ml) 120 ml @ 30 mls/hr Q8H IV 12/30/16 22:00 01/06/17 21:59 12/31/16 13:12 30 MLS/HR Objective Vital Signs Date Time Temp Pulse Resp B/P Pulse Ox O2 Delivery O2 Flow Rate FiO2 12/31/16 08:00 CPAP 12/31/16 07:09 36.7 90 17 151/82 90 Room Air 12/31/16 00:53 36.8 98 18 133/78 94 Room Air 12/31/16 00:10 CPAP 12/30/16 16:00 Room Air 12/30/16 15:12 36.8 89 18 146/84 94 Room Air Physical Exam General Appearance: WD/WN Eyes: normal inspection ENT: normal ENT inspection Neck: supple, no JVD Respiratory/Chest: chest non-tender, lungs clear Cardiovascular: regular rate, rhythm, no edema Abdomen: normal bowel sounds, non tender, soft Extremities: normal range of motion, + pertinent finding (right hand in dressing) Skin: + rash (exfoliating rash present on the flexor aspect of the elbow, erythematous base, ? eczema.) Laboratory Results Last 24 Hours Test 12/30/16 16:55 12/30/16 20:49 12/31/16 05:57 Bedside Glucose 182 mg/dl 187 mg/dl White Blood Count 7.90 K/uL Red Blood Count 4.15 M/uL Hemoglobin 12.0 g/dL Hematocrit 36.1 % Mean Corpuscular Volume 87.0 fL Mean Corpuscular Hemoglobin 28.9 pg Mean Corpuscular Hemoglobin Concent 33.2 g/dl Platelet Count 302 K/uL Mean Platelet Volume 10.7 fL Neutrophils (%) (Auto) 57.3 % Lymphocytes (%) (Auto) 19.6 % Monocytes (%) (Auto) 10.5 % Eosinophils (%) (Auto) 11.4 % Basophils (%) (Auto) 0.8 % Neutrophils # (Auto) 4.53 K/uL Lymphocytes # (Auto) 1.55 K/uL Monocytes # (Auto) 0.83 K/uL Eosinophils # (Auto) 0.90 K/uL Basophils # (Auto) 0.06 K/uL RDW Standard Deviation 42.9 fL RDW Coefficient of Variation 13.5 % Immature Granulocyte % (Auto) 0.4 % Immature Granulocyte # (Auto) 0.03 K/uL Creatinine 1.30 mg/dl Est Creatinine Clear Calc Drug Dose 52.7 ml/min Estimated GFR () 51.6 Estimated GFR (Non- 44.6 Assessment and Plan Patient is a 61 y/o female, with PMHx of T2DM, HTN, asthma, MADAY, and GERD, who was admitted to the hospital by Dr. York for IV antibiotic treatment due to right hand septic flexor tenosynovitis s/p right trigger thumb release on 12/19. - Management/treatment as per primary team - s/p I&D. IV antibiotics as per ID - BCx positive for gram + cocci, micrococcus. Wound cultures positive for Pseudomonas and Enterococcus - Patient requesting Tylenol PRN for pain management - Infectious disease consulted Right LL PNA - oxygen, nebs, IV antibiotics. Blood cultures from December 27 are + for gram + cocci. Will liase with ID reg abn. blood cultures. - DC on levaquin x 2 week course as per ID. ARF - Increase in serum creatinine to 1.3. Will check renal profile in am. Avoid nephrotoxic agents. Renally dose IV antibiotics. Will hold losartan and maxzide. Rash right elbow - Pt has had this rash for about five to six weeks. ? Eczema. OP Derm follow up T2DM: - Restart Trulicity and Glimepiride at discharge. - Continue SSI with Novolog. - Switch to Insulin 70/30, 20 units bid at time of discharge. For now will increase it to 15 units bid with meals. - BSG ACHS w/ sliding insulin scale HTN: Continue Losartan 50 mg daily and Maxzide daily Asthma: Continue home inhalers MADAY: CPAP GERD: Protonix daily- resume Nexium and Zantac at discharge DVT prophylaxis: As per primary team Code Status: LEVEL I, FULL
[2016-12-31] MEDS ORDERED: LEVO1TAB33 PO (14:55)
[2016-12-31] MEDS ORDERED: AMOX500T PO (14:55)
[2016-12-31] MEDS ORDERED: HYDR-5688 PO (14:55)
[2016-12-31] MEDS ORDERED: TRAM-453 PO (15:15)
[2016-12-31 15:16] VITALS: BP 126/76; PULSE 91; TEMP 36.9; O2SAT 96
[2016-12-31 15:18] VITALS: BP 126/76; PULSE 91; TEMP 36.9; O2SAT 96
[2017-01-01] MEDS ORDERED: VANCOMYCIN TROUGH SCH (21:30)
--- NOTE | 2017-01-02 09:19 | EDITING REQUIRED CODING QUERY ---
DEBRIDEMENT DOCUMENTATION To promote full compliance with coding requirements relating to patient care, physician participation is requested in all cases of cash grain grower uncertainty. Please assist us with the question(s) below: Please place an X in the parenthesis (x). If other, please document the finding: Type of Debridement: (x ) Excisional Debridement- Cutting away necrotic, devitalized tissue or slough to the level of viable tissue using a sharp instrument (i.e. scalpel, scissors, etc.) ( ) Non Excisional Debridement- The removal of necrotic, devitalized tissue or slough by means of scraping, mechanical brushing, flushing, or washing (i.e. irrigation,whirlpool);minor removal of loose fragments. ( ) Other (please specify): Instrument Used: (x ) Scissors (x ) Scalpel x( ) Curette ( ) Other (please specify): Depth of Debridement: ( ) Skin ( ) Skin and Subcutaneous Tissue (x ) Skin, Subcutaneous Tissue and Muscle ( ) Skin, Subcutaneous Tissue, Muscle and Bone ( ) Other (please specify): Please Specify the Size of Debridement in cm2: Thank you Flores Wilson
--- NOTE | 2017-01-02 09:23 | EDITING REQUIRED CODING QUERY ---
CODING QUERY To promote full compliance with coding requirements relating to patient care, provider participation is requested in all cases of freight car inspector uncertainty. Please assist us with the question(s) below: Coding Question(s): Please clarify below, in your clinical opinion, regarding the Septic Tenosynovitis right hand s/p right trigger thumb release procedure. ( x ) Septic Tenosynovitis is likely a postoperative complication ( ) Septic Tenosynovitis is not a postoperative comlication Physician's Response(s): Thank you Flores Wilson Principal Diagnosis: "_that condition established after study, to be chiefly responsible for occasioning the admission of the patient to the hospital for care." Co-Existing Principal Diagnosis: "_when two or more diagnoses equally meet the criteria for principal diagnosis as determined by the circumstances of admission, diagnostic work up, and/or therapy provided, and the Alphabetic Index, Tabular List, or another coding guideline does not provide sequencing direction, any one of the diagnoses may be sequenced first." "When the physician has documented what appears to be a current diagnosis in the body of the record, but has not included the diagnosis in the final diagnostic statement, the physician should be asked whether the diagnosis should be added." (Source Coding [facility] 2 QTR90. p3-4)
--- NOTE | 2017-01-11 18:13 | Discharge Summary ---
Orthopedic Discharge Summary Admission Date/Reason December 27, 2016 at 12:27 R Thumb Infection. Discharge Date/Disposition December 31, 2016 Home Diagnosis Principal Diagnosis: right hand septic flexor tenosynovitis Procedure(s) Performed Right hand I &D septic flexor tenosynovitis Medication Reconciliation New Medications: Amoxicillin & Pot Clavulanate (Augmentin 500MG) 1 Tab Tab 1 TAB PO BID for 21 Days, #42 TAB Levofloxacin (Levaquin) 500 Mg Tab 500 MG PO DAILY for 21 Days, #21 TAB Continued Medications: Aspirin (Aspir-81) 81 Mg Tab 81 MG PO QAM Desloratadine (Clarinex) 5 Mg Tab 5 MG PO DAILY, TAB Esomeprazole Magnesium (Nexium) 20 Mg Capcr 20 MG PO QAM, CAP Furosemide (Lasix) 20 Mg Tab 1 TAB PO DAILY for 90 Days, #90 TAB 1 Refill Glimepiride (Glimepiride) 4 Mg Tab 4 MG PO BID, TAB 3 Refills Insulin Aspart (Novolog Penfill) 100 Unit/Ml Inj SC Insulin Isophan/Regular (Novolin 70/30) Susp 20 SC BID, BTL Ipratropium-Albuterol (Duoneb) 3 Ml Nebu 3 ML INH QIDR for 10 Days Use four times a day for atleast 7 days then wean down as symptoms tolerate over 4-5 days Losartan Potassium (Losartan Potassium) 50 Mg Tab 50 MG PO QAM Mometasone Furoate (Nasonex) [place] 1 SPRAY NA QAM, BTL Mometasone Furoate-Formoterol (Dulera 200/5 Mcg) 1 Aer Aer 2 PUFFS INH BID for 30 Days, #13 GM 5 Refills Oxygen (Oxygen) Gas 2 LITERS NA PRN Admission Physical Exam As per Admitting History & Physical. Discharge Instructions Please refer to the electronic Patient Visit Report (Discharge Instructions) for additional information.
== END 2016-12-31 17:00 | disposition home or self-care (01) | DRG 856 ==
LOC: C.MSW 12:12 → OBSVTOIN 12:27
PROVIDERS: ADMIT Orthopaedic Surgery; ATTEND Orthopaedic Surgery
PROC: 0KB Muscles, Excision (ICD-10-PCS; principal; 2016-12-27 11:00)
PROC: 3E1U38Z Irrigation of Joints using Irrigating Substance, Percutaneous Approach (ICD-10-PCS; principal; 2016-12-27 11:00)
DX: T81.4XXA Infection following a procedure, initial encounter (principal); M65.141 Other infective (teno)synovitis, right hand; J18.9 Pneumonia, unspecified organism; Z68.42 Body mass index [BMI] 45.0-49.9, adult; N17.9 Acute kidney failure, unspecified; B96.89 Other specified bacterial agents as the cause of diseases classified elsewhere; B96.5 Pseudomonas (aeruginosa) (mallei) (pseudomallei) as the cause of diseases classified elsewhere; E11.9 Type 2 diabetes mellitus without complications; E66.9 Obesity, unspecified; G47.33 Obstructive sleep apnea (adult) (pediatric); I10 Essential (primary) hypertension; J45.909 Unspecified asthma, uncomplicated; K21.9 Gastro-esophageal reflux disease without esophagitis; Z79.899 Other long term (current) drug therapy; Z79.84 Long term (current) use of oral hypoglycemic drugs; Z79.82 Long term (current) use of aspirin; Z98.890 Other specified postprocedural states; Z82.49 Family history of ischemic heart disease and other diseases of the circulatory system; Z83.3 Family history of diabetes mellitus; Z84.1 Family history of disorders of kidney and ureter; Y83.8 Other surgical procedures as the cause of abnormal reaction of the patient, or of later complication, without mention of misadventure at the time of the procedure

== ENCOUNTER → 2017-03-04 | Outpatient (CLI) | payer OTHER ==
[~2017-03-04] MED LIST changes: -ADVIN25/60 INH; +CLR/5 PO; -CLR10 PO; -DULA0.5I SQ; +FURO-85 PO; -INSDGIPEN SC; +INSU1INJ2 SC; +INSU70IN2 SC; +LEVO1TAB33 PO; +MOME200A INH; -TRIATAB3 PO; -ZNT150 PO
[2017-03-04 12:42] LABS: ESTIMATED AVERAGE GLUCOSE 220 mg/dl; HA1C FLAG Normal (Normal)
[2017-03-04 12:43] LABS: ALT/SGPT 30 U/L (12-78); AST/SGOT 20 U/L (15-37); BLOOD UREA NITROGEN 14 mg/dl (7-18); BUN/CREATININE RATIO 14.3 (10-20); CALCIUM 8.7 mg/dl (8.5-10.1); CARBON DIOXIDE 27 mmol/L (21-32); CHLORIDE 103 mmol/L (98-107); GLUCOSE 267 mg/dl (70-99); POTASSIUM 4.5 mmol/L (3.5-5.1); SODIUM 139 mmol/L (136-145)
[2017-03-04 12:46] LABS: ALB/GLOB RATIO 0.9 (0.9-2); ALKALINE PHOSPHATASE 163 U/L (45-117); CHOLESTEROL 235 mg/dl (0-200); CHOLESTEROL/HDL RATIO 5.7; HDL CHOLESTEROL 41 mg/dl; LDL CHOLESTEROL CALCULATED 142 mg/dl; TRIGLYCERIDES 262 mg/dl (0-150); VERY LOW DENSITY LIPOPROT CALC 52 mg/dl
== END | disposition home or self-care (01) ==
LOC: C.LABPVFM 09:39
PROVIDERS: ATTEND Nurse Practitioner
DX: E11.9 Type 2 diabetes mellitus without complications (principal); E55.9 Vitamin D deficiency, unspecified; I10 Essential (primary) hypertension

== ENCOUNTER 2017-06-05 10:11 | Emergency (ER) | payer OTHER ==
[~2017-06-05] VITALS: Ht 152.4 cm; Wt 116.4 kg
[2017-06-05 10:20] VITALS: TEMP 36.7; Ht 152.4 cm; Wt 116.4 kg
[2017-06-05] MEDS ORDERED: IPRA1AER2 INH (10:45)
[2017-06-05 10:48] VITALS: O2SAT 94
[2017-06-05 11:19] LABS: BASO ABS # 0.08 K/uL (0-0.2); COMPLETE YES; EOS % 8.6 %; HEMATOCRIT 39.5 % (37-47); IG% 0.3 %; LYMPH % 24.9 %; LYMPH ABS # 1.95 K/uL (1.2-3.4); MEAN CELL VOLUME 84.4 fL (80-100); MEAN CORPUSCULAR HEMOGLOBIN 28.4 pg (25-34); MEAN CORPUSCULAR HGB CONC 33.7 g/dl (32-36); MONO % 7.8 %; NEUT % 57.4 %; PLATELET COUNT 277 K/uL (130-400); RED BLOOD COUNT 4.68 M/uL (4.2-5.4); WHITE BLOOD COUNT 7.82 K/uL (4.8-10.8)
[2017-06-05 11:23] LABS: INR 0.9 (0.9-1.1)
[2017-06-05 11:28] LABS: ALT/SGPT 42 U/L (12-78); AST/SGOT 39 U/L (15-37); BLOOD UREA NITROGEN 17 mg/dl (7-18); BUN/CREATININE RATIO 17.4 (10-20); CALCIUM 8.9 mg/dl (8.5-10.1); CARBON DIOXIDE 24 mmol/L (21-32); CHLORIDE 103 mmol/L (98-107); CREATININE 0.98 mg/dl (0.60-1.20); GLUCOSE 265 mg/dl (70-99); POTASSIUM 4.2 mmol/L (3.5-5.1); SODIUM 137 mmol/L (136-145)
[2017-06-05 11:32] LABS: ALKALINE PHOSPHATASE 152 U/L (45-117); CKMB/CK RATIO 1.3 (0-3.0)
[2017-06-05 11:32] LABS: POINT OF CARE TROPONIN I < 0.030 ng/ml (0-0.045)
--- NOTE | 2017-06-05 11:39 | DIAGNOSTIC IMAGING REPORT ---
CHEST 2 VIEWS ROUTINE CLINICAL HISTORY: Atypical chest pain COMPARISON STUDY: 12/28/2016 FINDINGS: The cardiac and mediastinal contours are normal. There is no evidence of focal pulmonary consolidation. There is no evidence of failure. No pleural effusions are visualized.[ IMPRESSION: No active disease in the chest. Electronically signed by: Rex Ernandez M.D. 06/05/2017 11:38 AM Dictated Date/Time: 06/05/2017 11:37 AM
[2017-06-05 12:09] LABS: URINE APPEARANCE CLEAR (CLEAR); URINE BILIRUBIN NEG (NEG); URINE COLOR YELLOW; URINE NITRITE NEG (NEG); URINE SPECIFIC GRAVITY 1.013 (1.000-1.030); UROBILINOGEN NEG (NEG); ZZUR CULT IF INDIC CLEAN CATCH NO
[2017-06-05 12:10] LABS: MANUAL MICROSCOPIC REQUIRED? NO; REVIEW REQ? NO
[2017-06-05] MEDS ORDERED: PERFLUTREN LIPID MICROSPHERE (DEFINITY) IV ONE (14:46)
--- NOTE | 2017-06-05 15:18 | EMERGENCY ROOM VISIT NOTE ---
History First contact with patient: 10:49 Chief Complaint: CARDIAC ASSESSMENT Stated Complaint: CHEST PRESSURE-PHYSICIAN REFERRED Nursing Triage Summary: Pt c/o intermittent left chest pressure/squeezing that began 1 1/2 weeks ago, at times she also get a pain in her left neck. SOB at time (but I have asthma), diaphoretic with CP. denies nausea. Rash on right leg x months. 81mg asa today. Ankle swelling, but not worse than usual. Pt states he told her to come to ER to be admitted. Denies personal cardiac history. History of Present Illness The patient is a 62 year old female who presents to the Emergency Room with complaints of chest pain which started 10 days ago. The patient describes the pain as a "squeezing sensation". She states it radiates up to the left side of her neck. She also gets some associated shortness of breath and diaphoresis. She states that the shortness of breath feels different than her asthma. She has not used her inhaler for the shortness of breath. She states the chest pain has been intermittent but is becoming more frequent and is lasting longer. Over the last 24 hours she states the pain has lasted from 90 minutes up to 3 hours at a time. Currently she had the pain for 90 minutes. She takes a baby aspirin daily which she took this morning. The patient denies any associated nausea, headaches, dizziness or visual changes. The patient denies any urinary symptoms, abdominal pain or change in bowel habits. The patient is a nonsmoker. She does admit to having a DVT in her left lower leg 40 years ago when she broke her leg. She has not had any problems since that time. The patient denies any clotting disorders. The patient father at age 61 from a heart attack. The patient states that she initially went to her family physician at [facility] this morning for her symptoms. She was told the EKG was normal. The physician wanted the patient to go to the ER by ambulance but she refused. The doctor then called Dr. Goldsmith, cardiology and she was instructed to send the patient to the ER. The patient drove herself to the emergency room. The patient has never seen a box inspector in the past. The patient does admit to hypertension, diabetes, asthma Review of Systems 10 system review was performed and was negative unless stated otherwise history of present illness. Past Medical/Surgical History Medical Problems: (1) Asthma (2) Asthma exacerbation (3) Diabetes (4) Eosinophilia (5) Hypertension Family History FH: cancer FH: hypertension FHx: diabetes mellitus FHx: gallbladder disease FHx: heart disease FHx: kidney disease FHx: lung disease FHx: seizures Kidney stones Social History Smoking Status: Never Smoker Alcohol Use: none Drug Use: none Marital Status: Housing Status: lives with family Occupation Status: unemployed Current/Historical Medications Scheduled Aspirin (Aspir-81), 81 MG PO QAM Desloratadine (Clarinex), 5 MG PO DAILY Esomeprazole Magnesium (Nexium), 20 MG PO QAM Furosemide (Lasix), 1 TAB PO DAILY Glimepiride (Glimepiride), 4 MG PO BID Home O2 Therapy (Oxygen), 2 LITERS NA PRN Insulin Aspart (Novolog Penfill), 1 DOSE SC DIRECTED Insulin Isophan/Regular (Novolin 70/30), 30 UNITS SC BID Ipratropium-Albuterol (Combivent Respimat), 1 PUFF INH QID Losartan Potassium (Losartan Potassium), 50 MG PO QAM Mometasone Furoate-Formoterol (Dulera 200/5 Mcg), 2 PUFFS INH BID Physical Exam Vital Signs Date Time Temp Pulse Resp B/P (MAP) Pulse Ox O2 Delivery O2 Flow Rate FiO2 06/05/17 13:59 88 20 127/86 97 Room Air 06/05/17 13:09 82 06/05/17 13:05 86 18 126/82 96 Room Air 06/05/17 11:40 80 20 143/83 95 Room Air 06/05/17 10:48 94 Room Air 06/05/17 10:43 88 06/05/17 10:24 95 Room Air 06/05/17 10:20 36.7 95 16 152/92 96 Room Air Physical Exam GENERAL: 62-year-old obese female appears in no acute distress. MENTAL Status: Alert and oriented 3. EYES: PERRLA. EOMs intact. EARS: Canals clear. TMs without fluid level noted. NECK: Supple, no lymphadenopathy noted. No carotid bruits noted. LUNGS: Clear auscultation without wheezes rales or rhonchi. CARDIAC: Regular rate and rhythm without murmur. Pulses is full and equal throughout. CHEST WALL: Nontender to palpation throughout. ABDOMEN: Positive bowel sounds all 4 quadrants. Soft, nontender to palpation without organomegaly or masses. NEURO:Cranial nerves two through 12 intact. Cerebellar function intact with [id number]. Fine motor intact with alternating finger motions. LOWER EXTREMITIES: Nontender to palpation bilaterally. No palpable cords. No erythema or edema noted. No cyanosis. Medical Decision & Procedures ER Provider Diagnostic Interpretation: CHEST 2 VIEWS ROUTINE CLINICAL HISTORY: Atypical chest pain COMPARISON STUDY: 12/28/2016 FINDINGS: The cardiac and mediastinal contours are normal. There is no evidence of focal pulmonary consolidation. There is no evidence of failure. No pleural effusions are visualized.[ IMPRESSION: No active disease in the chest. Electronically signed by: Rex Ernandez M.D. 06/05/2017 11:38 AM Laboratory Results 06/05/17 10:35 Red Blood Count 4.68, Mean Corpuscular Volume 84.4, Mean Corpuscular Hemoglobin 28.4, Mean Corpuscular Hemoglobin Concent 33.7, Mean Platelet Volume 11.0, Neutrophils (%) (Auto) 57.4, Lymphocytes (%) (Auto) 24.9, Monocytes (%) (Auto) 7.8, Eosinophils (%) (Auto) 8.6, Basophils (%) (Auto) 1.0, Neutrophils # (Auto) 4.49, Lymphocytes # (Auto) 1.95, Monocytes # (Auto) 0.61, Eosinophils # (Auto) 0.67, Basophils # (Auto) 0.08 06/05/17 10:35 Test 06/05/17 10:35 06/05/17 11:15 06/05/17 12:00 06/05/17 12:54 White Blood Count 7.82 K/uL (4.8-10.8) Red Blood Count 4.68 M/uL (4.2-5.4) Hemoglobin 13.3 g/dL (12.0-16.0) Hematocrit 39.5 % (37-47) Mean Corpuscular Volume 84.4 fL (80-100) Mean Corpuscular Hemoglobin 28.4 pg (25-34) Mean Corpuscular Hemoglobin Concent 33.7 g/dl (32-36) Platelet Count 277 K/uL (130-400) Mean Platelet Volume 11.0 fL (7.4-10.4) Neutrophils (%) (Auto) 57.4 % Lymphocytes (%) (Auto) 24.9 % Monocytes (%) (Auto) 7.8 % Eosinophils (%) (Auto) 8.6 % Basophils (%) (Auto) 1.0 % Neutrophils # (Auto) 4.49 K/uL (1.4-6.5) Lymphocytes # (Auto) 1.95 K/uL (1.2-3.4) Monocytes # (Auto) 0.61 K/uL (0.11-0.59) Eosinophils # (Auto) 0.67 K/uL (0-0.5) Basophils # (Auto) 0.08 K/uL (0-0.2) RDW Standard Deviation 40.6 fL (36.4-46.3) RDW Coefficient of Variation 13.4 % (11.5-14.5) Immature Granulocyte % (Auto) 0.3 % Immature Granulocyte # (Auto) 0.02 K/uL (0.00-0.02) Prothrombin Time 10.0 SECONDS (9.0-12.0) Prothromb Time International Ratio 0.9 (0.9-1.1) Activated Partial Thromboplast Time 25.1 SECONDS (21.0-31.0) Partial Thromboplastin Ratio 1.0 Anion Gap 10.0 mmol/L (3-11) Est Creatinine Clear Calc Drug Dose 70.3 ml/min Estimated GFR () 72.2 Estimated GFR (Non- 62.3 BUN/Creatinine Ratio 17.4 (10-20) Calcium Level 8.9 mg/dl (8.5-10.1) Total Bilirubin 0.5 mg/dl (0.2-1) Direct Bilirubin < 0.1 mg/dl (0-0.2) Aspartate Amino Transf (AST/SGOT) 39 U/L (15-37) Alanine Aminotransferase (ALT/SGPT) 42 U/L (12-78) Alkaline Phosphatase 152 U/L (45-117) Total Creatine Kinase 107 U/L (26-192) Creatine Kinase MB 1.4 ng/ml (0.5-3.6) Creatine Kinase MB Ratio 1.3 (0-3.0) Total Protein 7.2 gm/dl (6.4-8.2) Albumin 3.4 gm/dl (3.4-5.0) Lipase 90 U/L (73-393) Bedside D-Dimer 332 ng/mlFEU (0-450) Bedside Troponin I < 0.030 ng/ml (0-0.045) Urine Color YELLOW Urine Appearance CLEAR (CLEAR) Urine pH 7.0 (4.5-7.5) Urine Specific [place] 1.013 (1.000-1.030) Urine Protein NEG (NEG) Urine Glucose (UA) 3+ (NEG) Urine Ketones NEG (NEG) Urine Occult Blood NEG (NEG) Urine Nitrite NEG (NEG) Urine Bilirubin NEG (NEG) Urine Urobilinogen NEG (NEG) Urine Leukocyte Esterase NEG (NEG) Troponin I < 0.015 ng/ml (0-0.045) Medications Administered Medications (Trade) Dose Ordered Sig/Volodymyr Route Start Time Stop Time Status Last Admin Dose Admin Perflutren Lipid Microsphere (Definity) 2 ml ONE ONCE IV 06/05/17 14:46 06/05/17 14:50 DC 06/05/17 14:46 2 ML ECG Indication: chest pain Rhythm: normal sinus Findings: no acute ischemic change ED Course The patient was evaluated. IV access was obtained. The patient was placed on a monitor and continuous pulse ox. Vitals every hour ordered. CBC and differential, renal profile, LFTs and lipase levels were ordered. Coags, CK-MB , [id number] troponin, pointing care d-dimer were ordered. Urinalysis was ordered. Chest x-ray was ordered and interpreted by the radiologist and myself as above without any acute findings. EKG was reviewed as above without any acute findings. Labs are all reviewed and were within normal range. The patient's case was discussed with Dr. Ulloa. I also contacted Dr. Pichardo since her PCP had contacted him earlier. He stated I should call Dr. Barrios since he is email production consultant increased stress the patient if he felt it was indicated. I then contacted Dr. Barrios about the patient. He wanted me to get a troponin through the [facility] [place] [facility]. This was obtained and was less than 0.015. The patient was sent to the stress lab per Dr. Barrios. He contacted me and stated that the stress test was normal and that the patient could just follow-up with her family doctor. The patient was informed of all findings and discharged home in stable condition. Medical Decision Differential diagnosis include acute DE, unstable angina, GERD, pneumonia, PE Due to the patient's family history and risk factors a stress test was obtained. [place] Drug Monitoring Program Search Results: patient reviewed within database Medication Reconcilliation Current Medication List: was personally reviewed by me Blood Pressure Screening Patient's blood pressure: Normal blood pressure Impression Primary Impression: Chest pain not due to acute coronary syndrome Departure Information Dispostion Home / Self-Care Condition GOOD Referrals Sarah Everett C.R.N.P (PCP) Forms IMPORTANT VISIT INFORMATION Patient Instructions Chest Pain - [facility], [facility] Additional Instructions Continue all current medications as prescribed. If you become short of breath or chest pain changes in nature return to ER immediately. Otherwise follow-up with your family doctor in 2 days for recheck.
[2017-06-05 15:30] VITALS: BP 132/97; PULSE 93; O2SAT 96
--- NOTE | 2017-06-05 15:52 | EXERCISE STRESS ECHO ---
*NOTICE TO RECEIVING CONSTITUTION PARTY AGENCY This information is strictly Confidential and protected under [place] law. [place] law prohibits you from making any further disclosure of this information unless further disclosure is expressly permitted by the written consent of the person to whom it pertains or is authorized by law. A general authorization for the release of medical or other information is not sufficient for this purpose. Hospital accepts no responsibility if the information is made available to any other person, INCLUDING THE PATIENT. Interpretation Summary * Name: ANGUS ALEX Study Date: 06/05/2017 01:49 PM BP: 134/89 mmHg * Patient Location: [facility] HR: 76 * : 1955 (M/d/yyyy) Gender: Female Height: 60 in * Age: 62 yrs Ethnicity: CA Weight: 256 lb * Ordering Physician: Aylin Larose * Referring Physician: Kalyan Pichardo * Performed By: Milana Cole RDCS * * Reason For Study: CHEST PAIN * BSA: 2.1 m2 * -- Conclusions -- * 1. Normal stress echocardiogram at 4.6 METS and a peak heart rate of 90% predicted maximum. * 2. No exercise-induced chest pain. * 3. Limited exercise tolerance. * 4. No EKG changes. * 5. Baseline echocardiogram notes normal left ventricular systolic function. Procedure Details * ECHOEX, CPT #46348 * A contrast injection of Definity was performed to improve assessment of LV function. * Contrast was injected into an intravenous site in the left arm. * One vial of Definity ultrasound contrast was diluted in normal saline to a total volume of 10 ml. A total of '4' ml of solution was administered during imaging. * Lot # [id number] of Definity utilized for procedure. * Expiration date JUN 07. * The attending nurse who injected the contrast agent was IVA HICKS RN. Left Ventricle * The left ventricle is normal in size. * There is normal left ventricular wall thickness. * Left ventricular systolic function is normal. * Resting wall motion: Normal. Stress wall motion: Appropriate increase in Left ventricular systolic function and decrease in cavity size. No stress induced segmental wall motion abnormalities. Stress Parameters * Normal baseline electrocardiogram. * Stress ECG: No ST changes. No arrhythmias. * The stress portion of this study was personally supervised by the undersigned interpreting physician. * Rest heart rate was '76' BPM. * Rest blood pressure was '134/89' * Maximum heart rate achieved was 146 bpm. * Maximum heart rate was 91 % of maximum age-predicted heart rate. * Maximum blood pressure was '180/90' * Total exercise time was '2:36' * Maximum exercise MET level achieved was '4.60' METS * Maximum treadmill speed was '1.70' miles per hour. * Maximum treadmill elevation was '10.00'% grade. * Exercise was terminated due to 'FATIGUE, ACHIEVING TARGET HR'
== END 2017-06-05 15:32 | disposition home or self-care (01) ==
LOC: C.EDB 10:12 → C.EDC 15:32
DX: R07.89 Other chest pain (principal); Z86.718 Personal history of other venous thrombosis and embolism; E66.9 Obesity, unspecified; Z68.43 Body mass index [BMI] 50.0-59.9, adult; Z79.82 Long term (current) use of aspirin; I10 Essential (primary) hypertension; E11.9 Type 2 diabetes mellitus without complications; J45.909 Unspecified asthma, uncomplicated; D72.1 Eosinophilia; Z79.4 Long term (current) use of insulin; Z79.899 Other long term (current) drug therapy; Z80.9 Family history of malignant neoplasm, unspecified; Z83.3 Family history of diabetes mellitus; Z82.0 Family history of epilepsy and other diseases of the nervous system; Z84.1 Family history of disorders of kidney and ureter; Z82.49 Family history of ischemic heart disease and other diseases of the circulatory system

== ENCOUNTER → 2017-07-03 | Outpatient (CLI) | payer OTHER ==
[~2017-07-03] MED LIST changes: +IPRA1AER2 INH; -IPRASOL4 INH; -LEVO1TAB33 PO; -MOME50SP5
[2017-07-03 13:12] LABS: ESTIMATED AVERAGE GLUCOSE 252 mg/dl; HA1C FLAG Normal (Normal)
[2017-07-03 13:28] LABS: ALT/SGPT 41 U/L (12-78); AST/SGOT 39 U/L (15-37); BLOOD UREA NITROGEN 15 mg/dl (7-18); BUN/CREATININE RATIO 14.4 (10-20); CALCIUM 8.8 mg/dl (8.5-10.1); CARBON DIOXIDE 24 mmol/L (21-32); CHLORIDE 102 mmol/L (98-107); CREATININE 1.02 mg/dl (0.60-1.20); GLUCOSE 327 mg/dl (70-99); POTASSIUM 4.4 mmol/L (3.5-5.1); SODIUM 134 mmol/L (136-145)
[2017-07-03 13:32] LABS: ALB/GLOB RATIO 0.8 (0.9-2); ALKALINE PHOSPHATASE 164 U/L (45-117)
[2017-07-03 13:40] LABS: BETA-HYDROXYBUTYRATE 1.35 mg/dL (0.2-2.81)
== END | disposition home or self-care (01) ==
LOC: C.LABPVFM 11:00
PROVIDERS: ATTEND Nurse Practitioner
DX: E11.9 Type 2 diabetes mellitus without complications (principal); I10 Essential (primary) hypertension; R74.8 Abnormal levels of other serum enzymes

== ENCOUNTER → 2017-07-04 | Outpatient (CLI) | payer OTHER | END | disposition home or self-care (01) | LOC: C.LABPVFM 13:11 | PROVIDERS: ATTEND Nurse Practitioner | DX: N39.0 Urinary tract infection, site not specified (principal) ==

== ENCOUNTER → 2017-08-03 | Outpatient (CLI) | payer OTHER | END | disposition home or self-care (01) | LOC: C.LABPVFM 15:28 | PROVIDERS: ATTEND Nurse Practitioner | DX: E11.9 Type 2 diabetes mellitus without complications (principal); R51 Headache; R00.0 Tachycardia, unspecified; R00.2 Palpitations ==

== ENCOUNTER → 2017-08-08 | Outpatient (CLI) | payer OTHER ==
[2017-08-08 12:51] LABS: BASO % 1.1 %; BASO ABS # 0.09 K/uL (0-0.2); COMPLETE YES; EOS % 6.9 %; HEMATOCRIT 39.2 % (37-47); IG% 0.2 %; LYMPH % 22.8 %; LYMPH ABS # 1.89 K/uL (1.2-3.4); MEAN CORPUSCULAR HEMOGLOBIN 28.7 pg (25-34); MEAN CORPUSCULAR HGB CONC 33.4 g/dl (32-36); MEAN PLATELET VOLUME 11.5 fL (7.4-10.4); MONO % 8.2 %; NEUT % 60.8 %; PLATELET COUNT 288 K/uL (130-400); RED BLOOD COUNT 4.56 M/uL (4.2-5.4)
== END | disposition home or self-care (01) ==
LOC: C.LABPVFM 10:33
PROVIDERS: ATTEND Nurse Practitioner
DX: R00.0 Tachycardia, unspecified (principal); R00.2 Palpitations

== ENCOUNTER → 2017-11-22 | Outpatient (CLI) | payer OTHER ==
--- NOTE | 2017-11-23 14:42 | MAMMOGRAPHY REPORT ---
BILATERAL DIGITAL SCREENING MAMMOGRAM TOMOSYNTHESIS WITH CAD: 11/22/2017 CLINICAL HISTORY: Routine screening. TECHNIQUE: Breast tomosynthesis in addition to standard 2D mammography was performed. Current study was also evaluated with a Computer Aided Detection (CAD) system. COMPARISON: No prior exams were available for comparison. BREAST COMPOSITION: The tissue of both breasts is almost entirely fatty. FINDINGS: There are a few scattered benign-appearing calcifications in the breasts. No suspicious ma ss, architectural distortion or cluster of suspicious microcalcifications is seen. IMPRESSION: ACR BI-RADS CATEGORY 1: NEGATIVE There is no mammographic evidence of malignancy. A 1 year screening mammogram is recommended. The pa tient will receive written notification of the results. Approximately 10% of breast cancers are not detected with mammography. A negative mammographic report should not delay biopsy if a clinically suggestive mass is present. Lou Berg M.D. ay/:11/22/2017 15:13:17 Supervisor [employer]: Perez MARTINS(Rafi)(Chente), [facility] letter sent: Normal 1/2 BI-RADS Code: ACR BI-RADS Category 1: Negative
== END | disposition home or self-care (01) ==
LOC: C.MAMM 14:32
PROVIDERS: ATTEND Nurse Practitioner
DX: Z12.31 Encounter for screening mammogram for malignant neoplasm of breast (principal)

== ENCOUNTER → 2017-11-28 | Outpatient (CLI) | payer OTHER ==
--- NOTE | 2017-11-28 12:16 | DIAGNOSTIC IMAGING REPORT ---
CHEST 2 VIEWS ROUTINE CLINICAL HISTORY: 62 years-old Female presenting with DYSPNEA ON EXERTION. TECHNIQUE: PA and lateral views of the chest were obtained. COMPARISON: 06/05/2017. FINDINGS: Atherosclerosis of aortic arch. Cardiac silhouette enlarged. No focal opacity. No large effusion or pneumothorax. Osseous structures normal. Upper abdomen normal. IMPRESSION: 1. No acute cardiopulmonary disease. Electronically signed by: Agustin Gilbert M.D. 11/28/2017 12:15 PM Dictated Date/Time: 11/28/2017 12:14 PM
[2017-11-28 17:33] LABS: BLOOD UREA NITROGEN 22 mg/dl (7-18); CALCIUM 8.6 mg/dl (8.5-10.1); CARBON DIOXIDE 25 mmol/L (21-32); CREATININE 1.04 mg/dl (0.60-1.20); GLUCOSE 140 mg/dl (70-99); POTASSIUM 4.2 mmol/L (3.5-5.1); SODIUM 137 mmol/L (136-145)
[2017-11-29 05:48] LABS: HEMOGLOBIN A1C 6.8 % (4.5-5.6)
== END | disposition home or self-care (01) ==
LOC: C.LABPVFM 11:55
PROVIDERS: ATTEND Nurse Practitioner
DX: R06.09 Other forms of dyspnea (principal); E11.9 Type 2 diabetes mellitus without complications; R53.83 Other fatigue

== ENCOUNTER → 2017-12-11 | Outpatient (CLI) | payer OTHER ==
[~2017-12-11] MED LIST changes: +OPTIRAY 320 IV PRN
--- NOTE | 2017-12-11 12:31 | DIAGNOSTIC IMAGING REPORT ---
CT ANGIOGRAPHY OF THE CHEST, PULMONARY EMBOLUS PROTOCOL CLINICAL HISTORY: Dyspnea on exertion. COMPARISON STUDY: Chest CT November 30, 2015 and chest radiograph November 28, 2017. TECHNIQUE: Following IV administration of 95 mL of Optiray-320, helical axial images of the chest were obtained utilizing the pulmonary embolus protocol. Maximal intensity projections and sagittal and coronal reformats were viewed on an independent 3D workstation. IV contrast was administered without complication. A dose lowering technique was utilized adhering to the principles of ALARA. CT DOSE: 545.87 mGycm FINDINGS: No pulmonary emboli are identified. There is no evidence of thoracic aortic dissection. There is no pericardial effusion. Enlarged bilateral axillary lymph nodes are similar to exam of November 30, 2015. Index right axillary lymph node measures 2.5 x 2.1 cm. A few lymph nodes have slightly increased in size. There is no mediastinal or hilar lymphadenopathy. There is a small hiatal hernia. A few small right lung nodules are unchanged. These are benign given stability. There is no consolidation to suggest pneumonia. Groundglass opacities are noted with mosaic attenuation. No pneumothorax or pleural effusion is noted. There is suspected fatty atrophy of the pancreas which is partially imaged. There may be fatty infiltration of the liver. IMPRESSION: 1. No pulmonary emboli identified. 2. No consolidation to suggest pneumonia. 3. Groundglass opacities within the lungs with mosaic attenuation. The findings favor atelectasis although air trapping could appear similar. 4. Bilateral axillary lymphadenopathy, right greater than left. The majority of these nodes are similar to exam of November 30, 2015. A few nodes have minimally increased in size. These nodes remain indeterminate although relative stability favors a benign etiology and many of these nodes contain a fatty hilum. Correlation with previous biopsy results is recommended. Electronically signed by: Jamaal Biggs M.D. 12/11/2017 12:29 PM Dictated Date/Time: 12/11/2017 12:06 PM
== END | disposition home or self-care (01) ==
LOC: C.CTS 11:23
PROVIDERS: ATTEND Nurse Practitioner
DX: E11.9 Type 2 diabetes mellitus without complications (principal); R06.09 Other forms of dyspnea

== ENCOUNTER → 2018-01-02 | Outpatient (CLI) | payer OTHER ==
[~2018-01-02] MED LIST changes: -OPTIRAY 320 IV PRN
== END | disposition home or self-care (01) ==
LOC: C.LABPVFM 10:31
PROVIDERS: ATTEND Nurse Practitioner
DX: E78.5 Hyperlipidemia, unspecified (principal)

== ENCOUNTER → 2018-03-21 | Outpatient (CLI) | payer OTHER ==
--- NOTE | 2018-03-21 11:36 | DIAGNOSTIC IMAGING REPORT ---
ULTRASOUND-GUIDED FINE-NEEDLE ASPIRATION OF A RIGHT AXILLARY LYMPH NODE HISTORY: Right axillary lymph node COMPARISON: Chest CTA 12/11/2017. PROCEDURE: Written informed consent was obtained. The right axilla was prepped and draped in the usual sterile fashion. 1% lidocaine was used for local anesthesia. A total of 2 passes using a 22-gauge and 20-gauge spinal needle were made through right lower axillary lymph node under ultrasound guidance. Specimens were given to the on-site pathologist who determined adequate tissue for diagnosis. The patient tolerated the procedure well. There were no immediate locations. IMPRESSION: Successful ultrasound-guided fine-needle aspiration of a right lower axillary lymph node. Electronically signed by: Ramsey Tse M.D. 03/21/2018 11:34 AM Dictated Date/Time: 03/21/2018 11:30 AM
== END | disposition home or self-care (01) ==
LOC: C.ULTR 10:27
PROVIDERS: ATTEND Physician Assistant
DX: R06.02 Shortness of breath (principal); R59.0 Localized enlarged lymph nodes

== ENCOUNTER 2019-02-05 14:35 | Inpatient (IN) ==
[2019-02-05] MEDS ORDERED: ASPIRIN CHEW 324 MG PO STA (14:52)
[2019-02-05] MEDS ORDERED: ALBUT/IPRATROP 3MG/0.5MG NEB 3 ML VIAL NEB STA (14:52)
[2019-02-05 15:17] LABS: Hematocrit (blood only) 38.4 % (37-47); Hemoglobin 12.8 g/dL (12.0-16.0); Immature Granulocytes # (auto) 0.04 K/uL (0.00-0.02); Immature Granulocytes % (auto) 0.6 %; Lymphocytes # (auto) 1.67 K/uL (1.2-3.4); Lymphocytes % (auto) 24.6 %; Mean Corpuscular Hgb Conc 33.3 g/dL (32-36); Mean Corpuscular Volume 85.9 fL (80-100); Mean Platelet Volume 10.6 fL (7.4-10.4); Monocytes # (auto) 0.38 K/uL (0.11-0.59); Monocytes % (auto) 5.6 %; Neutrophils # (auto) 4.69 K/uL (1.4-6.5); Neutrophils % (auto) 69.2 %; Platelet Count 219 K/uL (130-400); RDW Standard Deviation 43.8 fL (36.4-46.3); Red Blood Count 4.47 M/uL (4.2-5.4); White Blood Count 6.78 K/uL (4.8-10.8)
[2019-02-05 15:32] LABS: D Dimer 240 ug/L FEU (0-500); INR 0.9 (0.9-1.1); Partial Thromboplastin Ratio 0.8; Partial Thromboplastin Time 22.3 Seconds (21.0-31.0); Prothrombin Time 9.7 Seconds (9.0-12.0)
[2019-02-05 15:40] LABS: Base Excess VBG 1.3 mEq/L; HCO3 VBG 26 mmol/L; PCO2 VBG 44 mmHg (38-50); PO2 VBG 28 mmHg
[2019-02-05 15:42] LABS: Oxygen Saturation VBG < 60.0 %
--- NOTE | 2019-02-05 15:42 | XRay Report ---
XR chest 2V routine CLINICAL HISTORY: 63 years-old Female presenting with Chest Pain. TECHNIQUE: PA and lateral views of the chest were obtained. COMPARISON: 05/24/2018. FINDINGS: Atherosclerosis of the aortic arch. Cardiac silhouette top normal in size. Lungs and pleural spaces c lear. Degenerative changes of the thoracic spine. Upper abdomen normal. IMPRESSION: 1. No acute cardiopulmonary disease. Electronically signed by: Agustin Gilbert M.D. 02/05/2019 3:40 PM
[2019-02-05 15:50] LABS: BUN Creatinine Ratio 16.4 (10-20); Blood Urea Nitrogen 20 mg/dl (7-18); Calcium 8.8 mg/dl (8.5-10.1); Carbon Dioxide 28 mmol/L (21-32); Chloride 102 mmol/L (98-107); Creatinine Clr Calc Pharmacy 58.3 ml/min; Est GFR (African American) 53.9; Est GFR (Non-African American) 46.5; Glucose 342 mg/dl (70-99); NT Pro B Type Natriuretic Pept 26 pg/ml (0-900); Potassium 4.6 mmol/L (3.5-5.1); Sodium 138 mmol/L (136-145); Troponin I < 0.015 ng/ml (0-0.045)
--- NOTE | 2019-02-05 17:15 | Emergency Department Note ---
Entered by Shima Harvey acting as a scribe for Maximus Wade History of Present Illness General Chief complaint: Shortness of Breath/Dyspnea Stated complaint: TROUBLE BREATHING Time Seen by Provider: 02/05/19 14:48 Source: patient Mode of arrival: ambulatory Limitations: no limitations History of Present Illness Onset (ago): week(s) 1 Location: chest Pain Consistency: + constant Maximum Pain Intensity: 0 Quality: + other (chest discomfort) Associated symptoms: + chest pain (discomfort) and + other (The patient denies diarrhea and coughing up blood. ); no nausea/vomiting The patient is a 63 year old female with a history of asthma, diabetes, hyperten amor, eosinophilia, and hyperglycemia who presents to the ED with complaints of constant shortness of breath that onset 1 week ago. The patient complains of chest discomfort located over her left chest which she describes as a light pressure. Pain is mild in nature. Dates she has a history of asthma and has been on a prednisone taper since late December. She states that her carton liner told her to come to the emergency department today as he is worried that her persistent dyspnea could be due to more than her asthma. The patient denies nausea, vomiting, diarrhea, and coughing up blood. She denies using hormones creams, taking blood thinners, and recent travel. The patient states that she is on Prednisone for 2 more days. Home Medications Home Medications Medication Instructions Recorded Confirmed Type aspirin [Aspir-81] 81 mg PO QAM #0 12/16/14 02/05/19 History losartan 50 mg PO DAILY #0 12/16/14 02/05/19 History glimepiride 4 mg PO BID #0 tab 10/27/15 02/05/19 History furosemide [Lasix] 20 mg PO QPM 90 Days #90 tab 12/27/16 02/05/19 History mometasone-formoterol 1 puff INHALATION BID 05/24/18 02/05/19 History benralizumab [Fasenra] 30 mg SUBCUT 02/05/19 History epinephrine [EpiPen] 0.3 mg IM DIRECTED PRN 02/05/19 02/05/19 History escitalopram oxalate 20 mg PO DAILY 02/05/19 02/05/19 History fexofenadine [Sari Allergy] 180 mg PO DAILY 02/05/19 02/05/19 History insulin NPH and regular human 30 unit SUBCUT QPM 02/05/19 02/05/19 History [Novolin 70/30 U-100 Insulin] insulin NPH and regular human 50 unit SUBCUT QAM 02/05/19 02/05/19 History [Novolin 70/30 U-100 Insulin] insulin lispro [Admelog U-100 0 unit SUBCUT BIDM 02/05/19 02/05/19 History Insulin lispro] ipratropium-albuterol [Combivent 1 puff INHALATION QID 02/05/19 02/05/19 History Respimat] mometasone [Nasonex] 2 spray INTRANASAL DAILY 02/05/19 02/05/19 History pantoprazole 40 mg PO QAM 02/05/19 02/05/19 History Allergies Allergy/AdvReac Type Severity Reaction Status Date / Time lisinopril Allergy Mild SINUS Verified 02/05/19 15:51 SWELLING, COUGH cetirizine [From Zyrtec] AdvReac Severe Dizziness Verified 02/05/19 15:51 escitalopram [From Lexapro] AdvReac Severe Fatigued Verified 02/05/19 15:51 diphenhydramine AdvReac Intermediate HYPERACTIVE Verified 02/05/19 15:51 insulin glargine AdvReac Intermediate VERY "SICK Verified 02/05/19 15:51 ALL OVER" olmesartan AdvReac Mild pt reports Verified 02/05/19 15:51 nonstop coughing after taking (3 years ago) Past Med/Surg History Medical History Asthma (Acute) Diabetes (Acute) Eosinophilia (Acute) Hypertension (Acute) Trigger thumb (Acute) Surgical History H/O laparoscopy (Acute) Family History Other Family history non-contributory Social History Preferred Language: Yi Communication Ability: Effective Beliefs That Will Affect Care: None Current Living Situation: Spouse Feels Safe at Home: Yes Smoking Status: Never smoker Hx Alcohol Use: No Hx Substance Use: No Review of Systems See HPI for pertinent positives & negatives. and A total of 10 systems reviewed and were otherwise negative Physical Exam Vital Signs Vital Signs - 24 hr 02/05/19 14:40 02/05/19 15:05 02/05/19 15:13 Temperature 36.5 C Temperature Source Oral Sepsis Recent Fever Within 48 Hours No Sepsis New/Unexplained Change in Mental Status No Sepsis Action Taken by Nursing No Action Required Pulse Rate 103 H Pulse Rate [Finger] 92 H Pulse Rate [Right Apical] 90 Pulse Rhythm [Finger] Regular Pulse Rhythm [Right Apical] Respiratory Rate 20 14 18 Respiratory Effort / Characteristics Pursed Lip Non-Labored Spontaneous Respiratory Depth Normal Blood Pressure 166/73 H Blood Pressure [Right Arm] 155/69 H Blood Pressure Mean 104 Blood Pressure Mean [Right Arm] 97 Blood Pressure Position [Right Arm] Sitting Pulse Oximetry 93 97 97 Oxygen Delivery Method Room Air Room Air Room Air 02/05/19 16:01 Temperature Temperature Source Sepsis Recent Fever Within 48 Hours Sepsis New/Unexplained Change in Mental Status Sepsis Action Taken by Nursing Pulse Rate Pulse Rate [Finger] Pulse Rate [Right Apical] 92 H Pulse Rhythm [Finger] Pulse Rhythm [Right Apical] Regular Respiratory Rate 22 Respiratory Effort / Characteristics Respiratory Depth Normal Blood Pressure Blood Pressure [Right Arm] 107/88 Blood Pressure Mean Blood Pressure Mean [Right Arm] 94 Blood Pressure Position [Right Arm] Sitting Pulse Oximetry 95 Oxygen Delivery Method Room Air GENERAL: Obese. She is oriented to person, place, and time. She appears well- developed and well-nourished. She does not appear distressed. HENT: Exam performed. - Head: Normocephalic and atraumatic. - Right Ear: External ear normal. No mastoid tenderness. - Left Ear: External ear normal. No mastoid tenderness. - Mouth/Throat: The oropharynx is clear and moist. No trismus in the jaw. No dental abscesses or uvula swelling. No oropharyngeal exudate or tonsillar abscesses. EYES: Conjunctivae and EOM are normal. Pupils are equal, round, and reactive to light. Right eye exhibits no discharge. Left eye exhibits no discharge. No scleral icterus. NECK: Normal range of motion. Neck supple. No JVD present. No spinous process tenderness present. No carotid bruit present. No rigidity. No tracheal deviation and normal range of motion present. No Brudzinski's sign and no Kernig's sign noted. CV: Normal rate, regular rhythm, normal heart sounds and intact distal pulses. There is no peripheral edema. Palpable radial pulses bue. PULM/CHEST: Effort normal and breath sounds normal. No respiratory distress. No stridor. She has no wheezes. She has no rales. Chest Wall: She exhibits no tenderness. ABD: The abdomen is soft. Bowel sounds are normal. She has no distension. No mass is present. There is no tenderness. There is no rebound, no guarding, no Vaz's sign and no tenderness at McBurney's point. Rovsig negative MUSC/SKEL: Normal range of motion. There is no peripheral edema, tenderness or deformity. LYMPH: No cervical adenopathy. NEURO: She is alert and oriented to person, place, and time. She has normal strength. No cranial nerve deficit or sensory deficit. Coordination and gait normal. GCS eye subscore is 4. GCS verbal subscore is 5. GCS motor subscore is 6. cerbellar tests wnl. SKIN: Skin is warm and dry. She is not diaphoretic. PSYCH: She has a normal mood and affect. Her behavior is normal. Judgment and thought content normal. Course 1449: Past medical records reviewed. The patient was evaluated in room C8. A complete history and physical examination was performed. 1602: Vital signs stable. Labs and imaging within normal limits including a negative D-dimer, troponin, proBNP, chest x -ray and VBG. The patient states that she is still short of breath and has intermittent chest pain. I discussed conducting a delta troponin with the patient and possible discharge with outpatient follow-up. She states that her carton liner wanted her admitted for an echo. She and her at bedside are not comfortable with the patient going home and are okay being admitted for observation. Tiara german and the hospitalist was made aware of the patient. Consultations Consultation #1: [id number]: I reviewed the patient's case with Tiara Ring Hospitalist - [facility]. She will evaluate the patient for further management. Time: 16:01 Administered Medications Discontinued Medications Albuterol (Duoneb) 3 ml NEB NOW STA Stop: 02/05/19 14:53 Last Admin: 02/05/19 15:11 Dose: 3 ml Documented by: [id number] Aspirin (Aspirin) 324 mg PO NOW STA Stop: 02/05/19 14:53 Last Admin: 02/05/19 15:17 Dose: 324 mg Documented by: [id number] Medical Decision Making Medical Records Attestation: I reviewed the patient's medical records. Home Medications Current Medication List: was personally reviewed by me Laboratory Data Attestation: I reviewed the patient's lab results. Result diagrams: 02/05/19 15:09 02/05/19 15:09 Lab Results 02/05/19 02/05/19 02/05/19 Range/Units 15:09 15:09 15:09 WBC 6.78 (4.8-10.8) K/uL RBC 4.47 (4.2-5.4) M/uL Hgb 12.8 (12.0-16.0) g/dL Hct 38.4 (37-47) % MCV 85.9 (80-100) fL MCH 28.6 (25-34) pg MCHC 33.3 (32-36) g/dL RDW Std Deviation 43.8 (36.4-46.3) fL RDW Coeff of Carolyn 14.0 (11.5-14.5) % Plt Count 219 (130-400) K/uL MPV 10.6 H (7.4-10.4) fL Immature Gran % (Auto) 0.6 % Neut % (Auto) 69.2 % Lymph % (Auto) 24.6 % [place] % (Auto) 5.6 % Eos % (Auto) 0.0 % Baso % (Auto) 0.0 % Immature Gran # (Auto) 0.04 H (0.00-0.02) K/uL Neut # (Auto) 4.69 (1.4-6.5) K/uL Lymph # (Auto) 1.67 (1.2-3.4) K/uL [place] # (Auto) 0.38 (0.11-0.59) K/uL Eos # (Auto) 0.00 (0-0.5) K/uL Baso # (Auto) 0.00 (0-0.2) K/uL PT 9.7 (9.0-12.0) Seconds INR 0.9 (0.9-1.1) APTT 22.3 (21.0-31.0) Seconds PTT Ratio 0.8 D-Dimer 240 (0-500) ug/L FEU VBG pH (7.36-7.41) VBG pCO2 (38-50) mmHg VBG pO2 mmHg VBG HCO3 mmol/L VBG O2 Saturation % VBG Base Excess mEq/L Barometric Pressure mm/Hg Sodium 138 (136-145) mmol/L Potassium 4.6 (3.5-5.1) mmol/L Chloride 102 (98-107) mmol/L Carbon Dioxide 28 (21-32) mmol/L Anion Gap 8.0 (3-11) BUN 20 H (7-18) mg/dl Creatinine 1.24 H (0.6-1.2) mg/dl Est Cr Clr Drug Dosing 58.3 ml/min Est GFR ( Amer) 53.9 Est GFR (Non-Af Amer) 46.5 BUN/Creatinine Ratio 16.4 (10-20) Glucose 342 H* (70-99) mg/dl Calcium 8.8 (8.5-10.1) mg/dl Troponin I < 0.015 (0-0.045) ng/ml NT-Pro-B Natriuret Pep 26 (0-900) pg/ml Lipase 84 (73-393) U/L Beta-Hydroxybutyric Acd (0.2-2.81) mg/dl Specimen Hemolysis 02/05/19 Range/Units 15:26 WBC (4.8-10.8) K/uL RBC (4.2-5.4) M/uL Hgb (12.0-16.0) g/dL Hct (37-47) % MCV (80-100) fL MCH (25-34) pg MCHC (32-36) g/dL RDW Std Deviation (36.4-46.3) fL RDW Coeff of Carolyn (11.5-14.5) % Plt Count (130-400) K/uL MPV (7.4-10.4) fL Immature Gran % (Auto) % Neut % (Auto) % Lymph % (Auto) % [place] % (Auto) % Eos % (Auto) % Baso % (Auto) % Immature Gran # (Auto) (0.00-0.02) K/uL Neut # (Auto) (1.4-6.5) K/uL Lymph # (Auto) (1.2-3.4) K/uL [place] # (Auto) (0.11-0.59) K/uL Eos # (Auto) (0-0.5) K/uL Baso # (Auto) (0-0.2) K/uL PT (9.0-12.0) Seconds INR (0.9-1.1) APTT (21.0-31.0) Seconds PTT Ratio D-Dimer (0-500) ug/L FEU VBG pH 7.40 (7.36-7.41) VBG pCO2 44 (38-50) mmHg VBG pO2 28 mmHg VBG HCO3 26 mmol/L VBG O2 Saturation < 60.0 % VBG Base Excess 1.3 mEq/L Barometric Pressure 729.3 mm/Hg Sodium (136-145) mmol/L Potassium (3.5-5.1) mmol/L Chloride (98-107) mmol/L Carbon Dioxide (21-32) mmol/L Anion Gap (3-11) BUN (7-18) mg/dl Creatinine (0.6-1.2) mg/dl Est Cr Clr Drug Dosing ml/min Est GFR ( Amer) Est GFR (Non-Af Amer) BUN/Creatinine Ratio (10-20) Glucose (70-99) mg/dl Calcium (8.5-10.1) mg/dl Troponin I (0-0.045) ng/ml NT-Pro-B Natriuret Pep (0-900) pg/ml Lipase (73-393) U/L Beta-Hydroxybutyric Acd (0.2-2.81) mg/dl Specimen Hemolysis Imaging Data Radiologist's Impression: Radiology results as stated below per my review and the radiologist's interpretation: XR chest 2V routine CLINICAL HISTORY: 63 years-old Female presenting with Chest Pain. TECHNIQUE: PA and lateral views of the chest were obtained. COMPARISON: 05/24/2018. FINDINGS: Atherosclerosis of the aortic arch. Cardiac silhouette top normal in size. Lungs and pleural spaces clear. Degenerative changes of the thoracic spine. Upper abdomen normal. IMPRESSION: 1. No acute cardiopulmonary disease. Electronically signed by: Agustin Gilbert M.D. 02/05/2019 3:40 PM Dictated: 02/05/19 1539 Transcribed: 02/05/19 1539 ECG Data Attestation: I personally reviewed and interpreted this ECG as follows: Indication: SOB/dyspnea Rate (beats per minute): 90 Rhythm: sinus rhythm Findings: + other (HI, QRS, QTC within normal limtis); no ST depression and no ST elevation Blood Pressure Blood Pressure Findings: Normal blood pressure MDM Narrative Vital signs stable. Labs and imaging within normal limits including a negative D-dimer, troponin, proBNP, chest x -ray and VBG. The patient states that she is still short of breath and has intermittent chest pain. I discussed conducting a delta troponin with the patient and possible discharge with outpatient follow- up. She states that her carton liner wanted her admitted for an echo. She and her at bedside are not comfortable with the patient going home and are okay being admitted for observation. Tiara Ring wound and the hospitalist was made aware of the patient. Impression & Plan Dyspnea, Chest pain Discharge Plan Visit Data Chief Complaint: Shortness of Breath/Dyspnea Stated Complaint: TROUBLE BREATHING ED Provider: Maximus Wade Discharge Problem: Dyspnea, Chest pain Patient Disposition: Being Evaluated by Hospitalist Forms Stand Alone Forms: My [facility] Prescriptions Prescriptions: No Action losartan 50 mg Tablet 50 mg PO DAILY Qty: 0 RF: 0 aspirin [Aspir-81] 81 mg Tablet,Delayed Release (Dr/Ec) 81 mg PO QAM Qty: 0 RF: 0 glimepiride 4 mg Tablet 4 mg PO BID Qty: 0 RF: 3 furosemide [Lasix] 20 mg Tablet 20 mg PO QPM 90 Days Qty: 90 RF: 1 mometasone-formoterol 200-5 mcg/actuation HFA aerosol inhaler 1 puff Inhalation BID RF: 0 Novolin 70/30 U-100 Insulin 100 unit/mL (70-30) suspension 30 unit subcut QPM RF: 0 Novolin 70/30 U-100 Insulin 100 unit/mL (70-30) suspension 50 unit subcut QAM RF: 0 fexofenadine [Sari Allergy] 180 mg Tablet 180 mg PO DAILY RF: 0 pantoprazole 40 mg tablet,delayed release (DR/EC) 40 mg PO QAM RF: 0 mometasone [Nasonex] 50 mcg/actuation Ipava,Non-Aerosol 2 spray INTRANASAL DAILY RF: 0 insulin lispro [Admelog U-100 Insulin lispro] 100 unit/mL solution subcut BIDM RF: 0 epinephrine [EpiPen] 0.3 mg/0.3 mL Auto-Injector 0.3 mg IM DIRECTED PRN (Reason: Allergic Reaction) RF: 0 escitalopram oxalate 20 mg tablet 20 mg PO DAILY RF: 0 Combivent Respimat 20-100 mcg/actuation mist 1 puff inhalation QID RF: 0 Fasenra 30 mg/mL syringe 30 mg subcut RF: 0 Referrals Referrals: Sarah Everett CRNP [Primary Care Provider] - Discharge Problem: Dyspnea Qualifiers: Dyspnea type: unspecified Qualified Code(s): R06.00 - Dyspnea, unspecified Chest pain Qualifiers: Chest pain type: unspecified Qualified Code(s): R07.9 - Chest pain, unspecified The scribe's documentation has been prepared under my direction and personally reviewed by me in its entirety. I confirm that the note above accurately reflects all work, treatment, procedures, and medical decision making performed by me.
--- NOTE | 2019-02-05 17:30 | History & Physical Report ---
Date of Service February 05, 2019 Assessment & Plan (1) Dyspnea: Uncertain etiology Persisting through tx of pt's eosinophilic asthma, so seems unlikely cause Not hypoxic on RA CXR neg for acute CBC, PRP WNL BNP WNL Trop neg x1 Stress ECHO 05/2017 was WNL, will repeat resting ECHO to eval for pulm HTN Lyme neg x2, but prior to onset of most recent sx, will recheck TSH pending Pulm increased her lasix from 10mg to 20mg today, uncertain that this will change her status Pt with 2 days of prednisone at 5mg left, will continue this Will not dose with further steroids as this seems to not be resolving her SOB and is causing elevated BS (2) Hyperglycemia due to type 2 diabetes mellitus: Likely related to recent steroid use SSI PRN Home NPH dosing A1c pending (3) Hypertension: continue home meds Pt was on aspirin 81mg for prevention only Has been out for 3-4 weeks, will resume (4) GERD (gastroesophageal reflux disease): Was on nexium in the past, but changed to protonix s/p admission and d/c Will keep on protonix due to hospital formulary, but pt requesting rx for nexium at d/c as she feels it worked much better (5) DVT prophylaxis: SCDs History of Present Illness Primary Care Provider: VALERY Chavez 63 y/o F c/o SOB. Pt states that she has been having progressive SOB for the last few months. It was mostly with exertion at one point, but now she is getting SOB at rest. She feels she is SOB all day, every day at this point. She is fatigued to the point of having difficulty getting out of bed. She has a dx of eosinophilic asthma and states that she has been following with Dr. Cortes with this. She states she had some wheezing in his office recently and was started on a steroid taper on 01/10. She only has 2 days left of this and while the wheezing/asthma type issues are better, she is still having this other SOB that she states does not feel like her asthma at all. She was seen in the office earlier today by Dr. Cortes and he sent her to the ED for further eval. Pt states that she does get some LE swelling at times and that today he increased her lasix from 10mg to 20mg QD. Pt states she gets a chest heaviness at times, but no nikita pain. She states she has a lot of gas, but no other GI sx. Pt denies fever, abd pain, n/v/c/d, LE pain. Pt states she gets large open ulcerations all over, particularly on her UE. This has been happening for many years. She actually relates the onset to after she was bitten by something when in [place]. She states that the area got very infected and she had to take abx for this. She is not sure what bit her. Pt states she used to take nexium for her GERD. During a recent admission, she was changed to protonix due to availability in the hospital and this was continued. She feels the protonix does not work as well for her. Allergies Allergy/AdvReac Type Severity Reaction Status Date / Time lisinopril Allergy Mild SINUS Verified 02/05/19 15:51 SWELLING, COUGH cetirizine [From Zyrtec] AdvReac Severe Dizziness Verified 02/05/19 15:51 escitalopram [From Lexapro] AdvReac Severe Fatigued Verified 02/05/19 15:51 diphenhydramine AdvReac Intermediate HYPERACTIVE Verified 02/05/19 15:51 insulin glargine AdvReac Intermediate VERY "SICK Verified 02/05/19 15:51 ALL OVER" olmesartan AdvReac Mild pt reports Verified 02/05/19 15:51 nonstop coughing after taking (3 years ago) Home Medications Home Medications Medication Instructions Recorded Confirmed Type aspirin [Aspir-81] 81 mg PO QAM #0 12/16/14 02/05/19 History losartan 50 mg PO DAILY #0 12/16/14 02/05/19 History glimepiride 4 mg PO BID #0 tab 10/27/15 02/05/19 History furosemide [Lasix] 20 mg PO QPM 90 Days #90 tab 12/27/16 02/05/19 History mometasone-formoterol 1 puff INHALATION BID 05/24/18 02/05/19 History benralizumab [Fasenra] 30 mg SUBCUT 02/05/19 History epinephrine [EpiPen] 0.3 mg IM DIRECTED PRN 02/05/19 02/05/19 History escitalopram oxalate 20 mg PO DAILY 02/05/19 02/05/19 History fexofenadine [Sari Allergy] 180 mg PO DAILY 02/05/19 02/05/19 History insulin NPH and regular human 30 unit SUBCUT QPM 02/05/19 02/05/19 History [Novolin 70/30 U-100 Insulin] insulin NPH and regular human 50 unit SUBCUT QAM 02/05/19 02/05/19 History [Novolin 70/30 U-100 Insulin] insulin lispro [Admelog U-100 0 unit SUBCUT BIDM 02/05/19 02/05/19 History Insulin lispro] ipratropium-albuterol [Combivent 1 puff INHALATION QID 02/05/19 02/05/19 History Respimat] mometasone [Nasonex] 2 spray INTRANASAL DAILY 02/05/19 02/05/19 History pantoprazole 40 mg PO QAM 02/05/19 02/05/19 History Past Med/Surg History Medical History Asthma (Acute) Diabetes (Acute) Eosinophilia (Acute) Hypertension (Acute) Trigger thumb (Acute) Surgical History H/O laparoscopy (Acute) Family History Father Myocardial infarction Mother Stroke Ovarian cancer Sister Stroke Other Family history non-contributory Social History Preferred Language: Danish Communication Ability: Effective Beliefs That Will Affect Care: None Current Living Situation: Spouse Feels Safe at Home: Yes Smoking Status: Never smoker Second Hand Exposure: Yes (father smoked, but mostly outside) Hx Alcohol Use: No Hx Substance Use: No Review of Systems Review of Systems: Pertinent positives and negatives reviewed in HPI--all others negative Physical Exam Constitutional: WD/WN, vitals as above + obese Eyes: normal visual [place] by confrontation and + anicteric sclerae Neck: normal visual inspection and trachea midline Respiratory: normal respiratory effort, lungs clear to auscultation no respiratory distress periodically has to catch her breath to continue speaking Cardiovascular: Rate/Rhythm: regular rate and regular rhythm Gastrointestinal (Abdomen): Inspection/Auscultation: abdomen not distended Percussion/Palpation: abdomen soft; abdomen nontender Musculoskeletal: Head/Neck/Chest: normocephalic and head atraumatic negative for edema, peripheral pulses intact Skin: no rashes, warm and dry Neurologic: awake; not confused Speech / Cognition: normal speech Psychiatric: A+Ox3, euthymic affect Results & Data Vital Signs (Past 12 Hours) Vital Signs Temp Pulse Pulse Pulse Resp BP BP 02/05/19 16:01 92 H 22 107/88 02/05/19 15:13 90 18 02/05/19 15:05 92 H 14 155/69 H 02/05/19 14:40 36.5 C 103 H 20 166/73 H Pulse Ox 02/05/19 16:01 95 02/05/19 15:13 97 02/05/19 15:05 97 02/05/19 14:40 93 Diagnostic Findings CXR: neg for acute Code Status & VTE Plan Code Status Full code VTE Prophylaxis Plan VTE Prophylaxis will be ordered: Yes PG Care Time/CCT Total # of Minutes Spent Total Time Spent with Patient: Total time spent is greater than 50% in coordination of care (as documented) at patient's floor/unit and/or counseling patient: (1) Dyspnea Dyspnea type: unspecified Qualified Code(s): R06.00 - Dyspnea, unspecified
[2019-02-05] MEDS ORDERED: GLUCOSE 40% GEL 15 GM TUBE PO PRN (18:30)
[2019-02-05] MEDS ORDERED: EPINEPHRINE ADULT AUTO-INJECT 0.3 MG SYR IM PRN (18:30)
[2019-02-05] MEDS ORDERED: DEXTROSE 50% 50 ML SYRINGE IV PRN (18:30)
[2019-02-05] MEDS ORDERED: MAGNESIUM HYDROXIDE SUSP 30 ML UDC PO PRN (18:30)
[2019-02-05] MEDS ORDERED: CARBOHYDRATES FOR HYPOGLYCEMIA PO PRN (18:30)
[2019-02-05] MEDS ORDERED: GLUCAGON FOR INJ 1 MG VIAL SQ PRN (18:30)
[2019-02-05] MEDS ORDERED: ACETAMINOPHEN 325 MG TAB PO PRN (18:30)
[2019-02-05] MEDS ORDERED: ONDANSETRON INJ 2 MG/ML 2 ML VIAL IV PRN (18:30)
[2019-02-05] MEDS ORDERED: GLUCOSE 10 TABS/TUBE PO PRN (18:30)
[2019-02-05] MEDS ORDERED: INSULIN HUMAN 70% NPH/30% REGULAR SQ SCH (19:00)
[2019-02-05 19:33] LABS: Lyme Ab IgG w/WB Rflx Negative (Negative); Lyme Ab IgM w/WB Rflx Negative (Negative)
[2019-02-05] MEDS: INSULIN ASPART 100 UNITS/ML 3 ML PEN SC SCH (20:53)
[2019-02-05] MEDS: IPRATROPIUM BROMIDE/ALBUTEROL respimat INH INH SCH (20:54)
[2019-02-05] MEDS ORDERED: FUROSEMIDE 20 MG TAB PO SCH (21:00)
[2019-02-06 07:04] LABS: BUN Creatinine Ratio 19.7 (10-20); Calcium 8.3 mg/dl (8.5-10.1); Creatinine Clr Calc Pharmacy 75.3 ml/min; Est GFR (African American) 73.5; Est GFR (Non-African American) 63.4; Potassium 3.9 mmol/L (3.5-5.1)
[2019-02-06 07:13] LABS: Estimated Average Glucose 258 mg/dl; Hemoglobin A1C 10.6 % (4.5-5.6)
[2019-02-06] MEDS ORDERED: INSULIN HUMAN 70% NPH/30% REGULAR SQ SCH (07:30)
[2019-02-06] MEDS: INSULIN ASPART 100 UNITS/ML 3 ML PEN SC SCH ×4 (08:17→21:03)
[2019-02-06] MEDS: LOSARTAN POTASSIUM 50 MG TAB PO SCH (08:22)
[2019-02-06] MEDS: GLIMEPIRIDE 2 MG TAB PO SCH ×2 (08:23→17:17)
[2019-02-06] MEDS: ESCITALOPRAM OXALATE 20 MG TAB PO SCH (08:23)
[2019-02-06] MEDS: predniSONE 5 MG TAB PO SCH (08:23)
[2019-02-06] MEDS: FEXOFENADINE HCL 180 MG TAB PO SCH (08:23)
[2019-02-06] MEDS: ASPIRIN 81 MG ECTAB PO SCH (08:24)
[2019-02-06] MEDS: FLUTICASONE PROPIONATE NA SPR 16 GM BTL SCH (08:24)
[2019-02-06] MEDS: PANTOprazole 40 MG TAB PO SCH (08:24)
[2019-02-06] MEDS: IPRATROPIUM BROMIDE/ALBUTEROL respimat INH INH SCH ×4 (08:25→21:01)
[2019-02-06] MEDS ORDERED: FAMOTIDINE 20 MG TAB PO ONE (14:45)
[2019-02-06] MEDS: INSULIN HUMAN NPH SC SCH (17:17)
[2019-02-06] MEDS: FUROSEMIDE 20 MG TAB PO SCH (18:22)
--- NOTE | 2019-02-06 22:26 | Hospitalist Progress Note ---
Date of Service February 06, 2019 Assessment & Plan (1) Dyspnea: Uncertain etiology Persisting through tx of pt's eosinophilic asthma, so seems unlikely cause IMaging and tests are negative. Unsure as to the cause. Given that patient gets short of breath on exertion, could be cardiac in nature, perhaps anginal equivalent. Will discuss with cardio and consult them. Stress ECHO 05/2017 was WNL. Perhaps patient has pulmonary hypertension. Patient may require a cath. Lyme neg x2, but prior to onset of most recent sx (2) Hyperglycemia due to type 2 diabetes mellitus: Likely related to recent steroid use SSI PRN Home NPH dosing A1c remains elevated. (3) Hypertension: continue home meds Pt was on aspirin 81mg for prevention only Has been out for 3-4 weeks, will resume (4) GERD (gastroesophageal reflux disease): Was on nexium in the past, but changed to protonix s/p admission and d/c Will keep on protonix due to hospital formulary, but pt requesting rx for nexium at d/c as she feels it worked much better (5) DVT prophylaxis: SCDs Spent 35 minutes in management of patient. This included discussion with cardio. Subjective 63 yo female reports no significant improvement. She continues to feel short of breath especially with short distances. Patient denies any chest pain. Review of Systems Review of Systems: All systems reviewed & are unremarkable except as noted in HPI & below Physical Exam Physical Exam: Constitutional: WD/WN, vitals as above + obese Eyes: normal visual [place] by confrontation and + anicteric sclerae Neck: normal visual inspection and trachea midline Respiratory: normal respiratory effort, lungs clear to auscultation no respiratory distress periodically has to catch her breath to continue speaking Cardiovascular: Rate/Rhythm: regular rate and regular rhythm Gastrointestinal (Abdomen): Inspection/Auscultation: abdomen not distended Percussion/Palpation: abdomen soft; abdomen nontender Musculoskeletal: Head/Neck/Chest: normocephalic and head atraumatic negative for edema, peripheral pulses intact Skin: no rashes, warm and dry Neurologic: awake; not confused Speech / Cognition: normal speech Psychiatric: A+Ox3, euthymic affect Results & Data Vital Signs (Past 12 Hours) Vital Signs Temp Pulse Pulse Resp BP Pulse Ox 02/06/19 19:53 36.8 C 88 18 126/73 95 02/06/19 15:36 37.0 C 59 L 18 155/77 H 98 02/06/19 15:13 81 02/06/19 11:38 37.1 C 88 20 153/85 H 02/06/19 10:50 99 H PG Care Time/CCT Total # of Minutes Spent Total Time Spent with Patient: Total time spent is greater than 50% in coordination of care (as documented) at patient's floor/unit and/or counseling patient: (1) Dyspnea Dyspnea type: unspecified Qualified Code(s): R06.00 - Dyspnea, unspecified
[2019-02-07] MEDS: ESCITALOPRAM OXALATE 20 MG TAB PO SCH (08:25)
[2019-02-07] MEDS: PANTOprazole 40 MG TAB PO SCH (08:26)
[2019-02-07] MEDS: FEXOFENADINE HCL 180 MG TAB PO SCH (08:26)
[2019-02-07] MEDS: LOSARTAN POTASSIUM 50 MG TAB PO SCH (08:26)
[2019-02-07] MEDS: predniSONE 5 MG TAB PO SCH (08:26)
[2019-02-07] MEDS: FLUTICASONE PROPIONATE NA SPR 16 GM BTL SCH (08:28)
[2019-02-07] MEDS: IPRATROPIUM BROMIDE/ALBUTEROL respimat INH INH SCH ×4 (08:28→21:11)
[2019-02-07] MEDS: ASPIRIN 81 MG ECTAB PO SCH (08:28)
[2019-02-07] MEDS: INSULIN ASPART 100 UNITS/ML 3 ML PEN SC SCH ×4 (09:17→21:11)
[2019-02-07] MEDS: INSULIN HUMAN NPH SC SCH ×2 (09:19→17:22)
[2019-02-07 13:14] LABS: EBV Nuclear Ag Antibody >600.00 U/ML; EBV Virus Capsid Ag IgG Ab >750.00 U/ML; Epstein Barr Virus Early Ag Ab < 9.00 U/ML
--- NOTE | 2019-02-07 15:44 | Cardiology Consultation ---
Date of Consultation February 07, 2019 Assessment & Plan (1) Dyspnea: Etiology of her dyspnea is likely pulmonary. While she has persistent and progressive symptoms of dyspnea, this is not appear to be consistent with heart failure or pulmonary vascular congestion. LV function has been normal over the years. Her N terminal proBNP at the time of admission was normal. There is no evidence of edema on examination or on x-ray. The severity of her symptoms which includes breathing difficulty even at rest give highly atypical for any cardiac process in the absence of severe heart failure. Exertional dyspnea could be an anginal equivalent. However, she has been evaluated on 2 occasions for the same symptoms with dobutamine echocardiography. Neither study has suggest an element of ischemia. I do not think a repeat dobutamine echocardiogram is worthwhile. I think the likelihood that she has a cardiac lesion that produces or symptoms is low. However, if there is some concerned amongst her medical team that her current symptoms are not pulmonary in etiology or represent some form of angina, both right and left heart catheterization could be entertained. Did discuss the procedure with the patient today who was willing to proceed if necessary. Present on Admission?: Yes History of Present Illness Reason for Consultation: Dyspnea on exertion Requesting Physician: Juancho Attending Physician: Amaury Dawkins History of Present Illness Patient is a 63-year-old woman with a history of severe persistent asthma and use anaphylactic asthma who continues to have severe shortness of breath. The patient states that despite a recent course of steroids she continues to have breathing difficulty. She feels that her current breathing difficulty is not reminiscent of her typical asthma as she is not wheezing. She has not noticed significant coughing recently which has been more consistent with a history of bronchitis. He states that over the past year she is more short of breath with even less activity than usual. She states she can be short of breath after eating or even after speaking. She is short of breath at rest. With minimal activity she gets severely short of breath and have an element of tachycardia. She feels this has been progressive over the past year. He has occasional symptoms of left chest discomfort. This is fairly random in nature and not associated with her breathing difficulty or activity. She does not have associated dizziness or lightheadedness. She notices palpitations with activity which she describes as a sense of tachycardia. She has not had recent fevers or chills. She is very frustrated regarding the persistent and progressive nature of her breathing difficulty. Allergies Allergy/AdvReac Type Severity Reaction Status Date / Time lisinopril Allergy Mild SINUS Verified 02/05/19 15:51 SWELLING, COUGH cetirizine [From Zyrtec] AdvReac Severe Dizziness Verified 02/05/19 15:51 escitalopram [From Lexapro] AdvReac Severe Fatigued Verified 02/05/19 15:51 diphenhydramine AdvReac Intermediate HYPERACTIVE Verified 02/05/19 15:51 insulin glargine AdvReac Intermediate VERY "SICK Verified 02/05/19 15:51 ALL OVER" olmesartan AdvReac Mild pt reports Verified 02/05/19 15:51 nonstop coughing after taking (3 years ago) Home Medications Home Medications Medication Instructions Recorded Confirmed Type aspirin [Aspir-81] 81 mg PO QAM #0 12/16/14 02/05/19 History losartan 50 mg PO DAILY #0 12/16/14 02/05/19 History glimepiride 4 mg PO BID #0 tab 10/27/15 02/05/19 History furosemide [Lasix] 20 mg PO QPM 90 Days #90 tab 12/27/16 02/05/19 History mometasone-formoterol 1 puff INHALATION BID 05/24/18 02/05/19 History benralizumab [Fasenra] 30 mg SUBCUT 02/05/19 History epinephrine [EpiPen] 0.3 mg IM DIRECTED PRN 02/05/19 02/05/19 History escitalopram oxalate 20 mg PO DAILY 02/05/19 02/05/19 History fexofenadine [Sari Allergy] 180 mg PO DAILY 02/05/19 02/05/19 History insulin NPH and regular human 30 unit SUBCUT QPM 02/05/19 02/05/19 History [Novolin 70/30 U-100 Insulin] insulin NPH and regular human 50 unit SUBCUT QAM 02/05/19 02/05/19 History [Novolin 70/30 U-100 Insulin] insulin lispro [Admelog U-100 0 unit SUBCUT BIDM 02/05/19 02/05/19 History Insulin lispro] ipratropium-albuterol [Combivent 1 puff INHALATION QID 02/05/19 02/05/19 History Respimat] mometasone [Nasonex] 2 spray INTRANASAL DAILY 02/05/19 02/05/19 History pantoprazole 40 mg PO QAM 02/05/19 02/05/19 History Patient History Medical History Asthma (Acute) Diabetes (Acute) Eosinophilia (Acute) Hypertension (Acute) Trigger thumb (Acute) Surgical History H/O laparoscopy (Acute) Family History Father Myocardial infarction Mother Stroke Ovarian cancer Sister Stroke Other Family history non-contributory Social History Preferred Language: Malay Communication Ability: Effective Beliefs That Will Affect Care: None Current Living Situation: Spouse Feels Safe at Home: Yes Smoking Status: Never smoker Second Hand Exposure: No Hx Alcohol Use: No Hx Substance Use: No Review of Systems Review of Systems: All systems reviewed & are unremarkable except as noted in HPI & below Mild persistent lower extremity edema. Patient uses CPAP and supplemental oxygen at night. She occasionally will get up to take a few deep breaths. Physical Exam Physical Exam: She is alert and oriented x3. Mood affect appear normal. She answered all questions appropriately. Obese HEENT: Sclerae are anicteric. Pupils are equal and reactive to light and accommodation. Extraocular movements were intact. Neuro: Cranial nerves intact Neck: Examination of the submandibular region did not reveal any significant lymphadenopathy. Carotids are palpable bilaterally and free of bruits on auscultation. There was no evidence of jugular venous distention. The thyroid was not enlarged. Lungs: Lungs are clear to auscultation bilaterally. There are no rales wheezes or rhonchi. She has normal respiratory effort without use of accessory muscles. There is normal pulmonary excursion. Cardiac: The rhythm was regular. S1 and S2 were normal. There are no murmurs on examination. The PMI was not markedly displaced on palpation. Abdomen: The abdomen was soft and nontender. Extremities: Patient has bilateral radial pulses that are equal in intensity. There is no evidence cyanosis or clubbing. Skin: There are no rashes noted on examination today. Results & Data Vital Signs (Past 12 Hours) Vital Signs Temp Pulse Pulse Resp BP BP Pulse Ox 02/07/19 11:37 37 C 85 18 123/68 95 02/07/19 09:00 94 H 02/07/19 06:56 36.5 C 79 20 144/85 H 96 02/07/19 04:00 36.4 C L 77 22 138/75 96 Laboratory Results Abnormal Lab Results 02/05/19 02/06/19 02/06/19 15:05 13:38 16:21 POC Glucose 204 H 150 H EBV Capsid Ag IgG Ab >750.00 H EBV Capsid Ag IgM Ab < 36.00 EBV EA Restrict+Diffuse < 9.00 EBV Nuclear Antigen Ab >600.00 H 02/06/19 02/07/19 02/07/19 20:51 07:28 11:44 POC Glucose 131 H 139 H 161 H EBV Capsid Ag IgG Ab EBV Capsid Ag IgM Ab EBV EA Restrict+Diffuse EBV Nuclear Antigen Ab Diagnostic Findings Chest x-ray obtained at the time of admission was normal Echocardiogram obtained during this admission demonstrated preserved LV systolic function with stage I diastolic dysfunction Dobutamine echocardiogram performed in April 2018 without evidence of ischemia Dobutamine echocardiogram performed in 2016 without evidence of ischemia ECG Additional Comments: Normal sinus rhythm. Normal EKG (1) Dyspnea Dyspnea type: unspecified Qualified Code(s): R06.00 - Dyspnea, unspecified
[2019-02-07] MEDS: FUROSEMIDE 20 MG TAB PO SCH (17:21)
--- NOTE | 2019-02-08 07:29 | Hospitalist Progress Note ---
Date of Service February 07, 2019 Assessment & Plan (1) Dyspnea: Uncertain etiology Had discussion with both cardiology and pulmonary. 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 Unsure as to the cause. Given that patient gets short of breath on exertion, could be cardiac in nature, perhaps anginal equivalent. Will discuss with cardio and consult them. Stress ECHO 05/2017 was WNL. Perhaps patient has pulmonary hypertension. Patient may require a cath. Lyme neg x2, but prior to onset of most recent sx Had discussion with cardiology and pulmonary on 02/07 Patient will need to obtain a cardiac cath in AM. Will admit patient. (2) Hyperglycemia due to type 2 diabetes mellitus: Likely related to recent steroid use SSI PRN Home NPH dosing A1c remains elevated. Will consider getting pharmacy consult. (3) Hypertension: continue home meds Pt was on aspirin 81mg for prevention only Has been out for 3-4 weeks, will resume (4) GERD (gastroesophageal reflux disease): Was on nexium in the past, but changed to protonix s/p admission and d/c Will keep on protonix due to hospital formulary, but pt requesting rx for nexium at d/c as she feels it worked much better (5) DVT prophylaxis: SCDs Spent 35 minutes in management of patient. This included discussion with cardio and pulmonry Subjective Late input for 02/07/19 63 yo female reports no significant improvement. She contiues to be short of breath. She states she does not want to go home as she continues to be short of breath. I had discussion with Dr. Cortes who saw patient prior to coming to the hospital. He does not feel this is pulmonary in nature. Perhaps pulmonary hypertension or Unstable angina. Review of Systems Review of Systems: All systems reviewed & are unremarkable except as noted in HPI & below Physical Exam Physical Exam: Constitutional: WD/WN, vitals as above + obese Eyes: normal visual [place] by confrontation and + anicteric sclerae Neck: normal visual inspection and trachea midline Respiratory: normal respiratory effort, lungs clear to auscultation no respiratory distress periodically has to catch her breath to continue speaking Cardiovascular: Rate/Rhythm: regular rate and regular rhythm Gastrointestinal (Abdomen): Inspection/Auscultation: abdomen not distended Percussion/Palpation: abdomen soft; abdomen nontender Musculoskeletal: Head/Neck/Chest: normocephalic and head atraumatic negative for edema, peripheral pulses intact Skin: no rashes, warm and dry Neurologic: awake; not confused Speech / Cognition: normal speech Psychiatric: A+Ox3, euthymic affect Results & Data Vital Signs (Past 12 Hours) Vital Signs Temp Pulse Pulse Resp BP Pulse Ox 02/08/19 06:55 86 02/08/19 03:51 36.5 C 85 20 142/82 H 95 02/08/19 00:00 88 02/07/19 23:01 36.8 C 78 20 145/77 H 93 02/07/19 19:35 36.7 C 85 22 145/81 H 94 PG Care Time/CCT Total # of Minutes Spent Total Time Spent with Patient: Total time spent is greater than 50% in coordination of care (as documented) at patient's floor/unit and/or counseling patient: (1) Dyspnea Dyspnea type: unspecified Qualified Code(s): R06.00 - Dyspnea, unspecified
[2019-02-08] MEDS ORDERED: Nursing to Pharmacy Communication ONE (08:15)
[2019-02-08] MEDS: INSULIN ASPART 100 UNITS/ML 3 ML PEN SC SCH ×4 (08:40→21:48)
[2019-02-08] MEDS: INSULIN HUMAN NPH SC SCH ×2 (08:40→16:58)
[2019-02-08] MEDS: FEXOFENADINE HCL 180 MG TAB PO SCH (08:41)
[2019-02-08] MEDS: LOSARTAN POTASSIUM 50 MG TAB PO SCH (08:41)
[2019-02-08] MEDS: FLUTICASONE PROPIONATE NA SPR 16 GM BTL SCH (08:42)
[2019-02-08] MEDS: ASPIRIN 81 MG ECTAB PO SCH (08:42)
[2019-02-08] MEDS: ESCITALOPRAM OXALATE 20 MG TAB PO SCH (08:42)
[2019-02-08] MEDS: PANTOprazole 40 MG TAB PO SCH (08:42)
[2019-02-08] MEDS: IPRATROPIUM BROMIDE/ALBUTEROL respimat INH INH SCH ×4 (08:42→21:05)
[2019-02-08] MEDS ORDERED: NiCARDipine HCL INJ 2.5 MG/ML 10 ML AMP ONE (10:00)
[2019-02-08] MEDS ORDERED: MIDAZOLAM HCL 1 MG/ML 2ML VIAL ONE (10:00)
[2019-02-08] MEDS ORDERED: fentaNYL citrate 100 MCG/2 ML VIAL ONE (10:00)
[2019-02-08] MEDS ORDERED: HEPARIN (PORCINE) 1000 UNIT/ML 10 ML (CATH LAB USE ONLY) ONE (10:00)
[2019-02-08] MEDS ORDERED: NITROGLYCERIN/D5W 100MCG/ML 20ML SYR ONE (10:01)
--- NOTE | 2019-02-08 10:26 | Pre Anesthesia Assessment ---
Date of Service February 08, 2019 Pre Sedation Assessment Vital Signs Temp Pulse Pulse Resp BP BP Pulse Ox 02/08/19 07:30 36.8 C 94 H 22 154/75 H 95 02/08/19 06:55 86 02/08/19 03:51 36.5 C 85 20 142/82 H 95 02/08/19 00:00 88 02/07/19 23:01 36.8 C 78 20 145/77 H 93 02/07/19 19:35 36.7 C 85 22 145/81 H 94 02/07/19 17:21 97 H 162/85 H 02/07/19 16:14 94 H 02/07/19 16:00 36.9 C 88 18 142/73 H 96 02/07/19 11:37 37 C 85 18 123/68 95 Cardiovascular + regular rate Respiratory + respiratory effort normal Pre-Sedation Airway Assessment Smoking Status: Never smoker Hx Sleep Apnea: Yes Hx Difficult Intubation: No Short, Thick Neck: Yes Thyromental Distance: > or= 3.5 Finger Breadths Oral Cavity: + WNL Mallampati Class: III ASA: ASA3 Procedure Planning Contraindications for Sedation: none Current Medications Reviewed: Yes Notes The planned sedation has been discussed with the patient. Informed Consent was obtained. I have identified the patient, determined the appropriateness of sedation and have assessed the patient immediately prior to the procedure. All medicine(s) and interventions are by my order.
[2019-02-08] MEDS ORDERED: PHENYLEPHRINE HCL INJ 10 MG/ML VIAL (CATH LAB USE ONLY) ONE (12:29)
[2019-02-08] MEDS ORDERED: DOPamine 400MG / 250ML D5W (CATH LAB USE ONLY) ONE (12:30)
[2019-02-08] MEDS ORDERED: NOREPINEPHRINE BITARTRATE 1 MG/ML 4 ML VIAL (CATH LAB USE ONLY) ONE (12:34)
--- NOTE | 2019-02-08 13:12 | Cardiac Catheterization ---
Cardiac Cath Procedure: Brief Procedure Date February 08, 2019 Pre-Procedure Diagnosis Pre-Procedure Diagnosis: Cardiothoracic Symptom AUC Score AUC Score: 7 Post-Procedure Diagnosis Post-Procedure Diagnosis: Mild CAD Procedure(s) Performed Procedure(s) Performed: Coronary Angiography and Left Heart Cath Print Manager Nathen Skaggs MD [employer](s) none Estimated Blood Loss Estimated Blood Loss: 20cc Medication(s) Medication(s): Dopamine, Fentanyl, Morphine, Nicardipine, Nitroglycerin and Versed Preliminary Findings Transient hypotension with administration of vasodilators. Normal pulmonary pressure. Normal left ventricular pressure. 50% proximal LAD stenosis. Right dominant coronary system without other significant disease. Recommendations Recommendations: Medical Therapy and/or Counseling Procedural Complication(s) None Disposition PCU
[2019-02-08 13:24] LABS: iSTAT Arterial Blood Gas HCO3 24 meg/L (19-24); iSTAT Arterial Blood Gas pCO2 44 mmHg (35-46); iSTAT Arterial Blood Gas pH 7.34 (7.35-7.45); iSTAT Carbon Dioxide 25 mEq/l (24-31)
[2019-02-08 13:26] LABS: iSTAT Arterial Blood Gas HCO3 24 meg/L (19-24); iSTAT Arterial Blood Gas pCO2 46 mmHg (35-46); iSTAT Arterial Blood Gas pH 7.33 (7.35-7.45); iSTAT Carbon Dioxide 26 mEq/l (24-31)
[2019-02-08] MEDS: FUROSEMIDE 20 MG TAB PO SCH (17:18)
--- NOTE | 2019-02-08 17:38 | XRay Report ---
XR chest 2V routine CLINICAL HISTORY: Shortness of breath COMPARISON STUDY: 02/05/2019 FINDINGS: The cardiac and mediastinal contours are normal. There is no evidence of focal pulmonary co nsolidation. There is no evidence of failure. No pleural effusions are visualized.[ IMPRESSION: No active disease in the chest. Electronically signed by: Rex Ernandez M.D. 02/08/2019 5:37 PM
--- NOTE | 2019-02-08 17:54 | Cardiology Progress Note ---
Date of Service February 08, 2019 Assessment & Plan (1) Dyspnea: Her cardiac catheterization did not suggest pulmonary hypertension, coronary disease or left ventricular failure. While she does have an element of coronary disease this was nonobstructive. The degree of her coronary stenosis should not produce the symptoms described. At this point I would recommend standard cardiac risk factor modification according to published guidelines. She had some transient hypotension associated with the catheterization procedure, likely related to administration of vasodilators in the setting of relatively low cardiac filling pressures. This responded promptly to volume administration and a brief period of vasopressor therapy. Patient should refrain from using the right wrist in a vigorous fashion or lifting more than 5 pounds for period of 7 days. No other restrictions. Subjective This afternoon she claims to be feeling well. She has not report any discomfort at the site of her right radial access. She continues to have her usual dy spnea. Not better or worse. Review of Systems Review of Systems: Per HPI Physical Exam Physical Exam: Right radial area without hematoma. Good perfusion of the right hand. Palpable radial pulse. Results & Data Vital Signs (Past 12 Hours) Vital Signs Temp Pulse Pulse Pulse Resp BP BP 02/08/19 17:27 90 16 122/71 02/08/19 16:27 87 16 117/75 02/08/19 15:27 90 16 114/66 02/08/19 15:13 36.6 C 94 H 16 93/45 L 02/08/19 14:27 36.8 C 16 136/74 02/08/19 13:57 95 H 16 119/84 02/08/19 13:42 88 16 117/86 02/08/19 13:27 36.8 C 72 16 104/68 02/08/19 11:26 36.5 C 92 H 18 159/80 H 02/08/19 07:30 36.8 C 94 H 22 154/75 H 02/08/19 06:55 86 Pulse Ox 02/08/19 17:27 95 02/08/19 16:27 96 02/08/19 15:27 95 02/08/19 15:13 95 02/08/19 14:27 95 02/08/19 13:57 96 02/08/19 13:42 95 02/08/19 13:27 95 02/08/19 11:26 93 02/08/19 07:30 95 02/08/19 06:55 Laboratory Results Abnormal Lab Results 02/07/19 02/08/19 02/08/19 20:15 07:44 12:19 POC pH 7.33 L POC pCO2 46 POC pO2 39 L POC HCO3 24 POC Total CO2 26 POC Base Excess -2.0 POC ABG O2 Sat 69.0 L POC Glucose 157 H 168 H 02/08/19 02/08/19 02/08/19 12:25 13:40 16:05 POC pH 7.34 L POC pCO2 44 POC pO2 236 H POC HCO3 24 POC Total CO2 25 POC Base Excess -2.0 POC ABG O2 Sat 100.0 H POC Glucose 164 H 174 H Diagnostic Findings Patient did undergo right and left heart catheterization today. She appeared to have normal pulmonary pressures. Normal wedge pressure. Normal left ventricular end-diastolic pressure. She had a 50 percent stenosis in the proximal LAD but no other significant coronary disease. (1) Dyspnea Dyspnea type: unspecified Qualified Code(s): R06.00 - Dyspnea, unspecified
[2019-02-08] MEDS ORDERED: PHARMACY GLYCEMIC MGMT CONSULT PRN (18:00)
[2019-02-08] MEDS ORDERED: INSULIN HUMAN NPH SC ONE (18:00)
[2019-02-08] MEDS ORDERED: AZITHROMYCIN 500 MG in DEXTROSE 5% 250 ML IV ONE (19:30)
[2019-02-08] MEDS: ARFORMOTEROL TART 15MCG/2ML VIAL INH SCH (19:32)
[2019-02-08] MEDS: LEVALBUTEROL HCL 1.25 MG/3 ML NEB NEB SCH (19:35)
[2019-02-08] MEDS: cefTRIAXone SODIUM 2,000 MG in DEXTROSE 5% 50 ML IV SCH (20:04)
[2019-02-08] MEDS: methylPREDNISolone 80 MG in SYRINGE 0 ML IV SCH (21:03)
--- NOTE | 2019-02-08 23:00 | Hospitalist Progress Note ---
Date of Service February 08, 2019 Assessment & Plan (1) Dyspnea: Uncertain etiology Had discussion with both cardiology and pulmonary. 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 Unsure as to the cause. Given that patient gets short of breath on exertion, could be cardiac in nature, perhaps anginal equivalent. Will discuss with cardio and consult them. Stress ECHO 05/2017 was WNL. Perhaps patient has pulmonary hypertension. Patient may require a cath. Lyme neg x2, but prior to onset of most recent sx On 02/08 Cardiac cath improved. Exam shows wheezing, discussed with pulmonary. Will treat for COPD exacerbation. Will keep patient in hospital. May require a bronch (2) Hyperglycemia due to type 2 diabetes mellitus: Likely related to recent steroid use SSI PRN Home NPH dosing A1c remains elevated. Consulted glycemic control. (3) Hypertension: continue home meds Pt was on aspirin 81mg for prevention only Has been out for 3-4 weeks, will resume (4) GERD (gastroesophageal reflux disease): Was on nexium in the past, but changed to protonix s/p admission and d/c Will keep on protonix due to hospital formulary, but pt requesting rx for nexium at d/c as she feels it worked much better (5) DVT prophylaxis: SCDs Spent 35 minutes in management of patient. This included discussion with cardio and pulmonry Subjective Patient reports no significant improvement in her shortness of breath. Review of Systems Review of Systems: All systems reviewed & are unremarkable except as noted in HPI & below Physical Exam Physical Exam: Constitutional: WD/WN, vitals as above + obese Eyes: normal visual [place] by confrontation and + anicteric sclerae Neck: normal visual inspection and trachea midline Respiratory: normal respiratory effort, lungs clear to auscultation no respiratory distress periodically has to catch her breath to continue speaking Cardiovascular: Rate/Rhythm: regular rate and regular rhythm Gastrointestinal (Abdomen): Inspection/Auscultation: abdomen not distended Percussion/Palpation: abdomen soft; abdomen nontender Musculoskeletal: Head/Neck/Chest: normocephalic and head atraumatic negative for edema, peripheral pulses intact Skin: no rashes, warm and dry Neurologic: awake; not confused Speech / Cognition: normal speech Psychiatric: A+Ox3, euthymic affect Results & Data Vital Signs (Past 12 Hours) Vital Signs Temp Pulse Pulse Resp BP BP Pulse Ox 02/08/19 20:13 71 16 97 02/08/19 18:11 36.6 C 95 H 20 153/84 H 93 02/08/19 17:27 90 16 122/71 95 02/08/19 16:27 87 16 117/75 96 02/08/19 15:27 90 16 114/66 95 02/08/19 15:13 36.6 C 94 H 16 93/45 L 95 02/08/19 14:27 36.8 C 16 136/74 95 02/08/19 13:57 95 H 16 119/84 96 02/08/19 13:42 88 16 117/86 95 02/08/19 13:27 36.8 C 72 16 104/68 95 02/08/19 11:26 36.5 C 92 H 18 159/80 H 93 PG Care Time/CCT Total # of Minutes Spent Total Time Spent with Patient: Total time spent is greater than 50% in coordination of care (as documented) at patient's floor/unit and/or counseling patient: (1) Dyspnea Dyspnea type: unspecified Qualified Code(s): R06.00 - Dyspnea, unspecified
[2019-02-09] MEDS: INSULIN ASPART 100 UNITS/ML 3 ML PEN SC SCH ×6 (00:07→20:33)
--- NOTE | 2019-02-09 02:01 | Consultation Report ---
DATE OF CONSULTATION: 02/08/2019 PULMONARY MEDICINE CONSULTATION REASON FOR CONSULTATION: Asthma/dyspnea. HISTORY OF PRESENT ILLNESS: This patient is a 63-year-old white female who was admitted from our office practice with progressive signs of dyspnea and clear tachypnea. She has been very symptomatic over the past several months. She has been followed by both our clinic in pulmonary medicine and by asthma and allergy with Dr. Merritt. She has been treated for asthma with eosinophilia and was on prednisone taper recently, but came in to my clinic the day of her admission complaining of dyspnea and fatigue. I could not hear any wheezing at that juncture, but sent her to the Emergency Room where she was evaluated by Dr. Maximus Wade. There was some light pressure in her chest that was nonspecific and atypical. Her oxygenation was excellent. Her hemodynamics were normal and she was given neb treatment in the Emergency Room and a chest x-ray in the Emergency Room showed no acute cardiopulmonary findings. The exact nature and etiology of her dyspnea were unclear, but she was admitted onto the hospitalist service by Dr. Tiara Ring. Troponin levels were negative. BNP was normal. The rest of her blood work was unremarkable. Echocardiogram did not suggest pulmonary hypertension and she has undergone dobutamine stress testing x2 in the past without ischemic changes seen. She felt that her dyspnea was different than from what she normally experiences when her asthma is exacerbated. Her diuretic was stepped up a bit. She has gained a great deal of weight over the past year. Dr. Dawkins took over her care and conversed with me by phone. Dr. Nathen Skaggs from cardiology was consulted who thought it would be unlikely that her symptoms represent an anginal equivalent, but could not rule it out and because it was unclear as to the nature of her exertional dyspnea, she underwent cardiac catheterization today with normal pulmonary artery pressures, normal left ventricular pressures and function with a 50% proximal left anterior descending stenosis. The rest of the coronaries looked fine and she was to be treated medically. This evening, I was asked by Dr. Dawkins to stop in to see the patient, I did and she still felt somewhat labored with her breathing and has not improved since her hospitalization. PHYSICAL EXAMINATION: VITAL SIGNS: Blood pressure was 153/84, pulse 95 and regular, respiratory rate 20, temperature 36.6 and O2 sat 93% on room air. SKIN: Warm and dry. HEENT: Atraumatic and normocephalic. PERRLA. EOMI. Conjunctivae pink. Sclerae nonicteric. Fundi benign. Tympanic membranes within normal limits. Pharyngeal examination intact. LUNGS: On forced expiration, I could hear expiratory wheeze at the right base. CARDIAC: Sinus tachycardia. No murmurs or gallops. ABDOMEN: Soft and protuberant. EXTREMITIES: No significant pedal edema, clubbing or cyanosis. NEUROLOGIC: Intact. ABG done earlier today showed a pH 7.34, pCO2 of 44, pO2 of 236 on high flow O2 would suggest a mild respiratory acidosis. Chest x-ray this evening showed no active disease. CTA done in 05/2018 showed no evidence of pulmonary emboli and no acute intrathoracic findings noted. OVERALL ASSESSMENT: This patient is a 63-year-old morbidly obese white female with a history of asthma with eosinophilia admitted with dyspnea and tachypnea with no clinical signs of left ventricular decompensation or for that matter acute or chronic pulmonary arterial hypertension. I do believe her asthma despite steroid therapy and fairly good outpatient regimen that her asthma is not well controlled and for the first time I have been able to hear some audible wheezing. I have discussed with Dr. Dawkins about keeping her in the hospital and treating her asthma more aggressively and not discharging her this evening as originally planned. Appreciate Dr Skaggs's diligence in performing R and L cardiac catheterization(very helpful information in our approach to treating this patient) [facility] HOSPITALFernando
[2019-02-09] MEDS: LEVALBUTEROL HCL 1.25 MG/3 ML NEB NEB SCH ×4 (02:11→19:22)
[2019-02-09] MEDS: ARFORMOTEROL TART 15MCG/2ML VIAL INH SCH ×2 (07:39→19:23)
[2019-02-09] MEDS: cefTRIAXone SODIUM 2,000 MG in DEXTROSE 5% 50 ML IV SCH (08:09)
[2019-02-09] MEDS: IPRATROPIUM BROMIDE/ALBUTEROL respimat INH INH SCH ×4 (08:10→20:27)
[2019-02-09] MEDS: methylPREDNISolone 80 MG in SYRINGE 0 ML IV SCH ×2 (08:10→20:27)
[2019-02-09] MEDS: FLUTICASONE PROPIONATE NA SPR 16 GM BTL SCH (08:11)
[2019-02-09] MEDS: INSULIN HUMAN NPH SC SCH ×2 (08:13→16:38)
[2019-02-09] MEDS: ASPIRIN 81 MG ECTAB PO SCH (08:43)
[2019-02-09] MEDS: LOSARTAN POTASSIUM 50 MG TAB PO SCH (08:44)
[2019-02-09] MEDS: FEXOFENADINE HCL 180 MG TAB PO SCH (08:44)
[2019-02-09] MEDS: ESCITALOPRAM OXALATE 20 MG TAB PO SCH (08:44)
[2019-02-09] MEDS: PANTOprazole 40 MG TAB PO SCH (08:44)
[2019-02-09] MEDS: INSULIN REGULAR 250 UNITS in SODIUM CHLORIDE 0.9% 247.5 ML IV SCH (08:45)
--- NOTE | 2019-02-09 10:31 | Progress Note ---
DATE: 02/09/2019 PULMONARY MEDICINE PROGRESS NOTE SUBJECTIVE: The patient does not feel any significant improvement since institution of high-dose steroid therapy along with aerosolized bronchodilator. She is still mildly bronchospastic at the right base and we discussed several options including consideration of bronchoscopic intervention on Monday with BAL for the possibility, she has some mucoid impaction or mucus plugging. She is amenable to proceeding, so I would continue current therapy through the weekend schedule her for Monday.
--- NOTE | 2019-02-09 13:44 | Pharmacy Report ---
Pharmacy Glycemic Short Note 2 - Date of Service February 09, 2019 - Glycemic Short BSG Results (Last 24 hours): 02/08/19 02/08/19 02/08/19 13:40 16:05 18:31 POC Glucose 164 H 174 H 131 H 02/08/19 02/08/19 02/08/19 20:59 23:43 23:44 POC Glucose 89 347 H* 342 H* 02/09/19 02/09/19 02/09/19 04:14 07:37 07:38 POC Glucose 382 H* 440 H* 417 H* 02/09/19 02/09/19 02/09/19 10:05 11:01 12:01 POC Glucose 408 H* 363 H* 334 H* 02/09/19 13:20 POC Glucose 299 H ASSESSMENT: * Insulin infsn started in setting of steroid induced hyperglycemia. We will increase her NPH doses to more closely mirror her home regimen. PLAN FOR INPATIENT GLYCEMIC CONTROL: * Basal insulin * NPH 35u QAM, 20u Dinner * Insulin infsn
[2019-02-09] MEDS: AZITHROMYCIN 250 MG TAB PO SCH (17:27)
[2019-02-09] MEDS: FUROSEMIDE 20 MG TAB PO SCH (17:27)
--- NOTE | 2019-02-09 23:55 | Hospitalist Progress Note ---
Date of Service February 09, 2019 Assessment & Plan (1) Dyspnea: Uncertain etiology Had discussion with both cardiology and pulmonary. 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 Unsure as to the cause. Given that patient gets short of breath on exertion, could be cardiac in nature, perhaps anginal equivalent. Will discuss with cardio and consult them. Stress ECHO 05/2017 was WNL. Perhaps patient has pulmonary hypertension. Patient may require a cath. Lyme neg x2, but prior to onset of most recent sx On 02/09 Cardiac cath was negative for pul hypertension. No signifcant improvement with steroids and bronchodilators. Patient will have a bronchscopy on Monday. (2) Hyperglycemia due to type 2 diabetes mellitus: Likely related to recent steroid use SSI PRN Home NPH dosing A1c remains elevated. Obtained glycemic consult. (3) Hypertension: continue home meds Pt was on aspirin 81mg for prevention only Has been out for 3-4 weeks, will resume (4) GERD (gastroesophageal reflux disease): Was on nexium in the past, but changed to protonix s/p admission and d/c Will keep on protonix due to hospital formulary, but pt requesting rx for nexium at d/c as she feels it worked much better (5) DVT prophylaxis: SCDs Spent 25 minutes in management of patient. Subjective Patient reports having mildly less shortness of breath. But is clearly not back to her baseline. Patient explains she is interested in having a bronchoscopy on monday. Review of Systems Review of Systems: All systems reviewed & are unremarkable except as noted in HPI & below Physical Exam Physical Exam: Constitutional: WD/WN, vitals as above + obese Eyes: normal visual [place] by confrontation and + anicteric sclerae Neck: normal visual inspection and trachea midline Respiratory: normal respiratory effort, lungs show wheezing on right lung, no respiratory distress Cardiovascular: Rate/Rhythm: regular rate and regular rhythm Gastrointestinal (Abdomen): Inspection/Auscultation: abdomen not distended Percussion/Palpation: abdomen soft; abdomen nontender Musculoskeletal: Head/Neck/Chest: normocephalic and head atraumatic negative for edema, peripheral pulses intact Skin: no rashes, warm and dry Neurologic: awake; not confused Speech / Cognition: normal speech Psychiatric: A+Ox3, euthymic affect Results & Data Vital Signs (Past 12 Hours) Vital Signs Temp Pulse Resp BP Pulse Ox 02/09/19 19:25 89 16 96 02/09/19 15:32 36.7 C 88 18 149/77 H 94 PG Care Time/CCT Total # of Minutes Spent Total Time Spent with Patient: Total time spent is greater than 50% in coordination of care (as documented) at patient's floor/unit and/or counseling patient: (1) Dyspnea Dyspnea type: unspecified Qualified Code(s): R06.00 - Dyspnea, unspecified
[2019-02-10] MEDS: LEVALBUTEROL HCL 1.25 MG/3 ML NEB NEB SCH ×4 (01:31→20:04)
[2019-02-10] MEDS ORDERED: INSULIN HUMAN NPH SC SCH (07:30)
[2019-02-10] MEDS ORDERED: INSULIN HUMAN NPH SC ONE ×2 (07:30)
[2019-02-10] MEDS: ARFORMOTEROL TART 15MCG/2ML VIAL INH SCH ×2 (07:43→19:06)
[2019-02-10] MEDS ORDERED: INSULIN HUMAN NPH SC STA (08:04)
[2019-02-10] MEDS: PANTOprazole 40 MG TAB PO SCH (08:19)
[2019-02-10] MEDS: ESCITALOPRAM OXALATE 20 MG TAB PO SCH (08:20)
[2019-02-10] MEDS: ASPIRIN 81 MG ECTAB PO SCH (08:20)
[2019-02-10] MEDS: LOSARTAN POTASSIUM 50 MG TAB PO SCH (08:20)
[2019-02-10] MEDS: FEXOFENADINE HCL 180 MG TAB PO SCH (08:20)
[2019-02-10] MEDS: FLUTICASONE PROPIONATE NA SPR 16 GM BTL SCH (08:20)
[2019-02-10] MEDS: IPRATROPIUM BROMIDE/ALBUTEROL respimat INH INH SCH ×4 (08:21→19:54)
[2019-02-10] MEDS: cefTRIAXone SODIUM 2,000 MG in DEXTROSE 5% 50 ML IV SCH (08:46)
[2019-02-10] MEDS: methylPREDNISolone 80 MG in SYRINGE 0 ML IV SCH ×2 (08:46→21:55)
[2019-02-10] MEDS: INSULIN ASPART 100 UNITS/ML 3 ML PEN SC SCH ×4 (08:52→19:57)
--- NOTE | 2019-02-10 09:47 | Progress Note ---
DATE: 02/10/2019 PULMONARY MEDICINE PROGRESS NOTE SUBJECTIVE: The patient is status quo, sleeping comfortably with BiPAP. I do not appreciate any wheezing today, I think she has responded to therapy, but still states she is not breathing the way she is usually comfortable with her breathing, but still not comfortable with her breathing. We will schedule bronchoscopic evaluation with BAL tomorrow. Hopefully, there is some mucoid impaction that we can help her with and would slowly decrease her steroid therapy. I spoke with Dr. Dawkins this morning and it is certainly possible that we post-procedure can discharge her tomorrow evening or the next day.
--- NOTE | 2019-02-10 13:16 | Pharmacy Report ---
Pharmacy Glycemic Short Note 2 - Date of Service February 10, 2019 - Glycemic Short BSG Results (Last 24 hours): 02/09/19 02/09/19 02/09/19 13:20 14:27 15:30 POC Glucose 299 H 305 H* 290 H 02/09/19 02/09/19 02/09/19 16:27 17:23 18:25 POC Glucose 275 H 272 H 350 H* 02/09/19 02/09/19 02/09/19 19:26 20:25 21:29 POC Glucose 298 H 264 H 258 H 02/09/19 02/09/19 02/10/19 22:24 23:32 00:25 POC Glucose 238 H 211 H 227 H 02/10/19 02/10/19 02/10/19 02:31 04:25 06:23 POC Glucose 206 H 205 H 179 H 02/10/19 02/10/19 02/10/19 07:47 10:36 11:37 POC Glucose 160 H 228 H 217 H ASSESSMENT: * Will continue with insulin infsn. Solumedrol 80mg q12 ongoing and her insulin requirements are currently in excess of 180u/D. She will be made NPO at midnight which further makes any transition to basal/bolus inappropriate. She will receive her home Rx of NPH tonight with dinner. NPH for after tomorrow's bronchoscopy will need to be ordered AM of 02/11/19. PLAN FOR INPATIENT GLYCEMIC CONTROL: * Basal insulin * NPH 35u QAM, 20u Dinner * Insulin infsn continues to run at 5.5u/hr
[2019-02-10] MEDS: AZITHROMYCIN 250 MG TAB PO SCH (17:36)
[2019-02-10] MEDS: INSULIN HUMAN NPH SC SCH (17:36)
[2019-02-10] MEDS: FUROSEMIDE 20 MG TAB PO SCH (17:37)
[2019-02-10] MEDS: INSULIN REGULAR 250 UNITS in SODIUM CHLORIDE 0.9% 247.5 ML IV SCH (21:54)
--- NOTE | 2019-02-10 23:55 | Hospitalist Progress Note ---
Date of Service February 10, 2019 Assessment & Plan (1) Dyspnea: Uncertain etiology Had discussion with both cardiology and pulmonary. 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 Unsure as to the cause. Given that patient gets short of breath on exertion, could be cardiac in nature, perhaps anginal equivalent. Will discuss with cardio and consult them. Stress ECHO 05/2017 was WNL. Perhaps patient has pulmonary hypertension. Patient may require a cath. Lyme neg x2, but prior to onset of most recent sx On 02/10 Cardiac cath was negative for pul hypertension. No signifcant improvement with steroids and bronchodilators. Patient will have a bronchscopy on Monday. Patient has not improved with medical treatment. (2) Hyperglycemia due to type 2 diabetes mellitus: Likely related to recent steroid use SSI PRN Home NPH dosing A1c remains elevated. Obtained glycemic consult. Patient will be started on insulin drip. (3) Hypertension: continue home meds Pt was on aspirin 81mg for prevention only Has been out for 3-4 weeks, will resume (4) GERD (gastroesophageal reflux disease): Was on nexium in the past, but changed to protonix s/p admission and d/c Will keep on protonix due to hospital formulary, but pt requesting rx for nexium at d/c as she feels it worked much better (5) DVT prophylaxis: SCDs Spent 25 minutes in management of patient. Subjective Patient reports no significant improvement today. Patient still reports dypsnea at rest Review of Systems Review of Systems: All systems reviewed & are unremarkable except as noted in HPI & below Physical Exam Physical Exam: Constitutional: WD/WN, vitals as above + obese Eyes: normal visual [place] by confrontation and + anicteric sclerae Neck: normal visual inspection and trachea midline Respiratory: normal respiratory effort, lungs show wheezing on right lung, no respiratory distress Cardiovascular: Rate/Rhythm: regular rate and regular rhythm Gastrointestinal (Abdomen): Inspection/Auscultation: abdomen not distended Percussion/Palpation: abdomen soft; abdomen nontender Musculoskeletal: Head/Neck/Chest: normocephalic and head atraumatic negative for edema, peripheral pulses intact Skin: no rashes, warm and dry Neurologic: awake; not confused Speech / Cognition: normal speech Psychiatric: A+Ox3, euthymic affect Results & Data Vital Signs (Past 12 Hours) Vital Signs Temp Pulse Resp BP Pulse Ox 02/10/19 19:06 83 16 97 02/10/19 15:26 36.7 C 84 18 145/72 H 93 PG Care Time/CCT Total # of Minutes Spent Total Time Spent with Patient: Total time spent is greater than 50% in coordination of care (as documented) at patient's floor/unit and/or counseling patient: (1) Dyspnea Dyspnea type: unspecified Qualified Code(s): R06.00 - Dyspnea, unspecified
[2019-02-11] MEDS: LEVALBUTEROL HCL 1.25 MG/3 ML NEB NEB SCH ×2 (01:28→07:08)
[2019-02-11] MEDS: ARFORMOTEROL TART 15MCG/2ML VIAL INH SCH ×2 (07:08→19:14)
--- NOTE | 2019-02-11 07:44 | History & Physical Bridge Note ---
Date of Service February 11, 2019 History & Physical Bridge Note I have examined the patient, reviewed the History & Physical and in the interval since the performance of the History & Physical I have noted the following changes of clinical significance: no changes noted
--- NOTE | 2019-02-11 07:45 | Pre Anesthesia Assessment ---
Date of Service February 11, 2019 Pre Sedation Assessment Vital Signs Temp Pulse Pulse Resp BP BP Pulse Ox 02/11/19 07:12 36.6 C 87 20 138/73 96 02/11/19 07:10 68 16 97 02/10/19 23:53 36.8 C 79 18 168/86 H 91 02/10/19 19:06 83 16 97 02/10/19 15:26 36.7 C 84 18 145/72 H 93 Cardiovascular RRR, no murmur, no edema + peripheral pulses normal Respiratory normal respiratory effort, lungs clear to auscultation Pre-Sedation Airway Assessment Smoking Status: Never smoker Hx Sleep Apnea: Yes Hx Difficult Intubation: No Short, Thick Neck: Yes Thyromental Distance: > or= 3.5 Finger Breadths Oral Cavity: + WNL Mallampati Class: III ASA: ASA3 Notes The planned sedation has been discussed with the patient. Informed Consent was obtained. I have identified the patient, determined the appropriateness of sedation and have assessed the patient immediately prior to the procedure. All medicine(s) and interventions are by my order.
[2019-02-11] MEDS ORDERED: LIDOCAINE 4% INH SOLN 4 ML BTL ONE ×2 (08:20→08:24)
[2019-02-11] MEDS ORDERED: OXYMETAZOLINE 0.05% 30 ML BTL ONE (08:20)
[2019-02-11] MEDS ORDERED: INSULIN HUMAN NPH SC SCH ×3 (08:30→16:30)
[2019-02-11] MEDS ORDERED: LEVALBUTEROL HCL 1.25 MG/3 ML NEB NEB STA (08:36)
[2019-02-11] MEDS ORDERED: MIDAZOLAM HCL 1 MG/ML 2ML VIAL IV STA (08:36)
[2019-02-11] MEDS ORDERED: LIDOCAINE HCL VISCOUS SOLN 2% 15 ML UDC MT ONE (08:36)
--- NOTE | 2019-02-11 08:36 | Hospitalist Progress Note ---
Date of Service February 11, 2019 Assessment & Plan (1) Dyspnea: Uncertain etiology Had discussion with both cardiology and pulmonary. 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 Stress ECHO 05/2017 was WNL.. On 02/10 Cardiac cath was negative for pul hypertension. No signifcant improvement with steroids and bronchodilators. 02/11 bronchscopy mucopurulent impacted secretions removed patient subjectively feels better. (2) Hyperglycemia due to type 2 diabetes mellitus: Likely related to recent steroid use As patient starting to be going home the next few days will discuss with glycemic pharmacist about transitioning from insulin drip to basal bolus insulin to return to home (3) Hypertension: continue home meds, losartan Pt was on aspirin 81mg for prevention only, will resume (4) GERD (gastroesophageal reflux disease): Was on nexium in the past, but changed to protonix s/p admission and d/c Will keep on protonix due to hospital formulary, but pt requesting rx for nexium at d/c as she feels it worked much better (5) DVT prophylaxis: SCDs Subjective Pt was seen after bronchoscopy, she states that at rest feels better but had yet to ambulate. she is eager to eat and to go home, will advance diet, and attempt to get off insulin gtt Review of Systems Review of Systems: ROS: well nourished well developed. No double vision blurry vision No problems with speech or swallowing No palpitations, chest pain or pressure No Wheezing or coughing No abdominal pain nausea vomiting diarrhea changes in appetite or weight No burning urine urine frequency or changes in color No focal joint pain or muscle pain No skin rashes or oral lesions No unusual bruising or bleeding No focused back pain or numbness or loss of strength No changes in memory or confusion Physical Exam Physical Exam: The patient appeared awake alert does not appears significantly uncomfortable Vital signs as documented. Head exam is unremarkable. normocephalic, atraumatic Neck is without jugular venous distension, thyromegaly, or lymphademopathy Lungs are clear recently air movement no wheezes are heard no focal air loss Cardiac exam reveals Rhythm is regular. First and second heart sounds normal. Abdominal exam reveals normal bowel sounds, no masses, no organomegaly Extremities are nonedematous and both pedal pulses are present Neurologic exam is A&Ox3, no focal deficits, strength is equal bilateral Psychologically seems neither anxious or depressed Skin is warm Dry without bruises or lesions Results & Data Vital Signs (Past 12 Hours) Vital Signs Temp Pulse Pulse Pulse Resp BP Pulse Ox 02/11/19 08:30 79 14 137/102 H 98 02/11/19 08:25 78 157/89 H 99 02/11/19 08:15 76 139/83 100 02/11/19 07:12 36.6 C 87 20 138/73 96 02/11/19 07:10 68 16 97 02/10/19 23:53 36.8 C 79 18 168/86 H 91 PG Care Time/CCT Total # of Minutes Spent Total Time Spent with Patient: Total time spent is greater than 50% in coordination of care (as documented) at patient's floor/unit and/or counseling patient: (1) Dyspnea Dyspnea type: unspecified Qualified Code(s): R06.00 - Dyspnea, unspecified
[2019-02-11] MEDS ORDERED: SODIUM CHLORIDE 0.9% 1000ML 1,000 ML IV SCH (08:45)
--- NOTE | 2019-02-11 08:56 | Post Anesthesia Assessment ---
Date of Service February 11, 2019 Post Sedation Assessment Vital Signs Temp Pulse Pulse Pulse Resp BP BP 02/11/19 08:47 91 H 129/108 H 02/11/19 08:45 93 H 163/84 H 02/11/19 08:40 90 113/86 02/11/19 08:35 96 H 189/107 H 02/11/19 08:30 79 14 137/102 H 02/11/19 08:25 78 157/89 H 02/11/19 08:15 76 139/83 02/11/19 07:12 36.6 C 87 20 138/73 02/11/19 07:10 68 16 02/10/19 23:53 36.8 C 79 18 168/86 H 02/10/19 19:06 83 16 02/10/19 15:26 36.7 C 84 18 145/72 H Pulse Ox 02/11/19 08:47 98 02/11/19 08:45 99 02/11/19 08:40 99 02/11/19 08:35 99 02/11/19 08:30 98 02/11/19 08:25 99 02/11/19 08:15 100 02/11/19 07:12 96 02/11/19 07:10 97 02/10/19 23:53 91 02/10/19 19:06 97 02/10/19 15:26 93 Recovery Score Activity: Moves 4 extremities Respiration: Deep Breath/Cough Circulation: +/-20% PreAnes Value Consciousness: Arouseable (by name) Oxygen Saturation: O2 needed for >90% Post Anesthesia Score: 8 Discharge Sedation Level of Care: Fast Track Phase II Post Sedation Plan On clinical assessment, the patient appears to have tolerated the sedation without complications. Patient is recovering as anticipated. Patient will continue to be monitored by nursing and may be discharged when sedation discharge criteria are met per below protocol. Upon Completions of procedure and additional 15 minutes continue every 5 minute vital signs and the P.A.R. score; then discharge to a Phase I or Fast Track to Phase II per the following guidelines: * Discharge Patient to appropriate Phase II area if PAR is 8 or greater or return to pre- procedure baseline. The post - procedure orders will be as directed. * If PAR score is less than 8 or not return to pre-procedure baseline then patient will follow Phase I monitoring till PAR is reached for Phase II. The Phase I may be done in procedure room or may call to secure a Phase I area. * If naloxone or flumazenil are used for reversal, hold in Phase I for continued monitoring from when last reversal dose was given for a minimum of 60 minutes or longer pending the nurse and/or physician discretion of patient condition before discharge to Phase II. Please call the Sedation Physician to re-evaluate and complete post-note for discharge to Phase II area. Do NOT discharge from procedure sedation or Phase 1 until post- sedation evaluation note is complete by procedure /sedation MD Sedation Discharge Instructions to be given to the patient at discharge to home.
--- NOTE | 2019-02-11 08:57 | Post Operative Brief Note ---
Immediate Post Op Note v1 Date of Surgery February 11, 2019 Pre & Post Diagnosis Operation Date: 02/08/19 07:35 <No data on this case meets the specified criteria> Operation Date: 02/11/19 08:00 Pre-Op Diagnosis: Chronic Asthmatic Bronchitis Post-Op Diagnosis: Chronic Asthmatic Bronchitis /mucopurulent Procedure Operation Date: 02/08/19 07:35 Actual Procedures p Cath, Right and Left Heart - Mc Skaggs MD s Cineradiography w/Routine Exam - Mc Skaggs MD Operation Date: 02/11/19 08:00 Actual Procedures p Bronchoscopy Radiology(Bilateral) - Brad Cortes MD Surgeon Brad Cortes MD Drag Out Man none Estimated Blood Loss 0 Findings Consistent with Post-Op Diagnosis Chronic Mucopurulent Astmatic Bronchitis Complications none Disposition Accompanied Patient To Recovery: No Overlapping Procedure I was present for: the critical portions of procedure. I was immediately available: during the entire case. Back up surgeon: was not required during procedure.
[2019-02-11] MEDS: INSULIN ASPART 100 UNITS/ML 3 ML PEN SC SCH ×4 (09:20→21:12)
[2019-02-11] MEDS: IPRATROPIUM BROMIDE/ALBUTEROL respimat INH INH SCH ×2 (09:34→12:03)
[2019-02-11] MEDS: methylPREDNISolone 80 MG in SYRINGE 0 ML IV SCH (09:35)
[2019-02-11] MEDS: INSULIN HUMAN NPH SC SCH (09:35)
[2019-02-11] MEDS: FLUTICASONE PROPIONATE NA SPR 16 GM BTL SCH (09:36)
[2019-02-11] MEDS: cefTRIAXone SODIUM 2,000 MG in DEXTROSE 5% 50 ML IV SCH (09:36)
[2019-02-11] MEDS: ASPIRIN 81 MG ECTAB PO SCH (09:36)
[2019-02-11] MEDS: ESCITALOPRAM OXALATE 20 MG TAB PO SCH (09:36)
[2019-02-11] MEDS: PANTOprazole 40 MG TAB PO SCH (09:36)
[2019-02-11] MEDS: LOSARTAN POTASSIUM 50 MG TAB PO SCH (09:36)
[2019-02-11] MEDS: FEXOFENADINE HCL 180 MG TAB PO SCH (09:36)
--- NOTE | 2019-02-11 09:44 | Operative Report ---
DATE OF OPERATION: 02/11/2019 PROCEDURE: Fiberoptic bronchoscopy with bronchoalveolar lavage. INDICATIONS: Persistent symptoms of dyspnea, persistent right lower lobe wheezing, rule out mucus plugging. ANESTHESIA PREOPERATIVELY: None. ANESTHESIA DURING PROCEDURE: IV Versed 5 mg. No fentanyl given. 20 mL 2% Xylocaine spray above and below the cords, 4% viscous Xylocaine intranasally. DESCRIPTION OF PROCEDURE: Fiberoptic bronchoscope was inserted to the right naris with minimal difficulty and passed to the level of the true vocal cords. The cords appear to approximate normally with phonation without evidence for lesions or paralysis. Significant amount of mucoviscous secretion was seen pooling in the supraglottic region and was aspirated to clear. The cords were anesthetized with 2% Xylocaine spray and the scope was then introduced into the trachea and right and left tracheobronchial tree. The grzegorz was sharp. The right main stem bronchus was found to be free of endobronchial lesions. Right upper lobe, the apical posterior and anterior segments, bronchus intermedius, right middle lobe, the medial and lateral segments and all basilar segments of right lower lobe were found to be free of endobronchial lesions with a moderate amount of mucoviscous secretion lavaged from each segmental and subsegmental bronchus from the right lower lobe until clear. The aspirate was sent for appropriate studies. Bronchial crypts and clefts were seen throughout the right tracheobronchial tree. Left tracheobronchial tree was explored. No antibiotic lesions were seen. Left upper lobe, the apical posterior and anterior segments, lingula subdivision with respective segmental bronchi and the basilar segments of the left lower lobe were found to be free of endobronchial lesions. A mild degree of inflammatory mucosal change was seen with a small amount of mucoviscous secretion lavaged from the left lower lobe until clear. The procedure was terminated. No brushings or biopsies were attempted. Fluoroscopy was not utilized. The patient was given a nebulizer treatment with Xopenex 1.25 mg and then transferred back to the medical floor, hemodynamically stable, no signs of respiratory compromise. Will await microbiological and cytologic examination of the bronchial washings. OVERALL ASSESSMENT: Chronic mucopurulent asthmatic bronchitis with mucus plugging, right lower lobe basal segments lavaged until clear, aspirate cultures pending. I attest to the content of the Intraoperative Record and any orders documented therein. Any exception s are noted below.
[2019-02-11] MEDS ORDERED: methylPREDNISolone 40 MG in SYRINGE 0 ML IV SCH (13:30)
--- NOTE | 2019-02-11 13:56 | Pharmacy Report ---
Pharmacy Glycemic Short Note 2 - Date of Service February 11, 2019 - Glycemic Short BSG Results (Last 24 hours): 02/10/19 02/10/19 02/10/19 15:34 16:41 19:53 POC Glucose 218 H 190 H 233 H 02/11/19 02/11/19 02/11/19 00:03 01:15 02:04 POC Glucose 136 H 147 H 170 H 02/11/19 02/11/19 02/11/19 03:03 04:06 05:58 POC Glucose 201 H 199 H 210 H 02/11/19 02/11/19 02/11/19 07:47 09:59 11:44 POC Glucose 192 H 216 H 260 H 02/11/19 02/11/19 12:59 13:02 POC Glucose 292 H 302 H* ASSESSMENT: 02/11 * will continue the insulin drip overnight (unless the drip turns off on its own) while steroids are transitioned form iV to PO. Solumedrol 80mg IV was changed to prednisone 60mg starting tomorrow, which should help for drip transition. I did increase both the morning and evening NPH doses to aid in transition and will initiate a stress of three novolog regimen in the morning. Lunch BSG is elevated, however, this is somewhat expected given the 2 hour delay in NPH administration for bronch procedure. 02/10 * Will continue with insulin infsn. Solumedrol 80mg q12 ongoing and her insulin requirements are currently in excess of 180u/D. She will be made NPO at midnight which further makes any transition to basal/bolus inappropriate. She will receive her home Rx of NPH tonight with dinner. NPH for after tomorrow's bronchoscopy will need to be ordered AM of 02/11/19. PLAN FOR INPATIENT GLYCEMIC CONTROL: * Basal insulin * NPH 40u QAM, 30 or 35u Dinner (see scale in order and MAR for details) * Insulin infsn continues to run between 3-5 u/hr
[2019-02-11] MEDS: ALBUT/IPRATROP 3MG/0.5MG NEB 3 ML VIAL NEB SCH ×2 (15:16→19:14)
--- NOTE | 2019-02-11 16:40 | Pulmonology Progress Note ---
Date of Service February 11, 2019 Assessment & Plan (1) Asthma: Impression: 1. Asthma exacerbation with mucoid impaction status post bronchoscopy with good results. 2. Eosinophilic syndrome, on benralimab. 3. Morbid obesity with obstructive sleep apnea. Plan: 1. Change bronchodilators to DuoNeb for now. 2. Continue with MDI upon discharge. 3 change steroids to prednisone 60 mg p.o. daily for 5 days then taper by 10 mg every other day.. 4. Change antibiotics to cefuroxime upon discharge. 5. Follow the results of the bronchoscopy. 6. Patient can be discharged home from pulmonary standpoint. 7. Follow with Dr. Cortes and allergy medicine as well. Thank you, will follow as needed. Subjective The patient feeling better after the bronchoscopy, she is able to breathe, she was on room air when I interviewed her, no wheezing, no cough, she was asymptomatic from pulmonary standpoint, she has not ambulated yet. Review of Systems Review of Systems: Review of system otherwise was unremarkable. Physical Exam Physical Exam: Vital signs are stable, S1-S2 regular rate and rhythm, distant breath sounds but clear bilaterally, abdomen is benign obese but nontender, no edema, neurologically she is intact, no oral thrush. No skin rash. Results & Data Vital Signs (Past 12 Hours) Vital Signs Temp Pulse Pulse Pulse Resp BP Pulse Ox 02/11/19 15:11 77 16 96 02/11/19 15:05 36.4 C L 75 18 135/83 95 02/11/19 08:47 91 H 129/108 H 98 02/11/19 08:45 93 H 163/84 H 99 02/11/19 08:40 90 113/86 99 02/11/19 08:35 96 H 189/107 H 99 02/11/19 08:30 79 14 137/102 H 98 02/11/19 08:25 78 157/89 H 99 02/11/19 08:15 76 139/83 100 02/11/19 07:12 36.6 C 87 20 138/73 96 02/11/19 07:10 68 16 97 Laboratory Results Labs with resolving eosinophils, she is already on targeted therapy, the rest of her labs are acceptable. Diagnostic Findings Imaging has been reviewed personally.
[2019-02-11] MEDS: AZITHROMYCIN 250 MG TAB PO SCH (18:15)
[2019-02-11] MEDS: FUROSEMIDE 20 MG TAB PO SCH (18:15)
[2019-02-11] MEDS ORDERED: INSULIN REGULAR 250 UNITS in SODIUM CHLORIDE 0.9% 247.5 ML IV SCH (23:00)
[2019-02-12] MEDS: INSULIN REGULAR 250 UNITS in SODIUM CHLORIDE 0.9% 247.5 ML IV SCH ×2 (06:56→06:58)
[2019-02-12] MEDS: ALBUT/IPRATROP 3MG/0.5MG NEB 3 ML VIAL NEB SCH ×2 (07:13→11:17)
[2019-02-12] MEDS: ARFORMOTEROL TART 15MCG/2ML VIAL INH SCH (07:15)
[2019-02-12] MEDS ORDERED: INSULIN ASPART 100 UNITS/ML 3 ML PEN SC SCH (07:30)
[2019-02-12] MEDS: INSULIN HUMAN NPH SC SCH (07:48)
[2019-02-12] MEDS ORDERED: INSULIN HUMAN NPH SC SCH (08:00)
[2019-02-12] MEDS: FEXOFENADINE HCL 180 MG TAB PO SCH (08:32)
[2019-02-12] MEDS: LOSARTAN POTASSIUM 50 MG TAB PO SCH (08:32)
[2019-02-12] MEDS: ASPIRIN 81 MG ECTAB PO SCH (08:33)
[2019-02-12] MEDS: FLUTICASONE PROPIONATE NA SPR 16 GM BTL SCH (08:33)
[2019-02-12] MEDS: ESCITALOPRAM OXALATE 20 MG TAB PO SCH (08:33)
[2019-02-12] MEDS: cefTRIAXone SODIUM 2,000 MG in DEXTROSE 5% 50 ML IV SCH (08:34)
[2019-02-12] MEDS: PANTOprazole 40 MG TAB PO SCH (08:34)
[2019-02-12] MEDS ORDERED: predniSONE 20 MG TAB PO SCH (09:00)
--- NOTE | 2019-02-12 12:17 | Discharge Summary ---
Date of Service February 12, 2019 Admission HPI Per Admitting Provider 63 y/o F c/o SOB. Pt states that she has been having progressive SOB for the last few months. It was mostly with exertion at one point, but now she is getting SOB at rest. She feels she is SOB all day, every day at this point. She is fatigued to the point of having difficulty getting out of bed. She has a dx of eosinophilic asthma and states that she has been following with Dr. Cortes with this. She states she had some wheezing in his office recently and was started on a steroid taper on 01/10. She only has 2 days left of this and while the wheezing/asthma type issues are better, she is still having this other SOB that she states does not feel like her asthma at all. She was seen in the office earlier today by Dr. Cortes and he sent her to the ED for further eval. Pt states that she does get some LE swelling at times and that today he increased her lasix from 10mg to 20mg QD. Pt states she gets a chest heaviness at times, but no nikita pain. She states she has a lot of gas, but no other GI sx. Pt denies fever, abd pain, n/v/c/d, LE pain. Pt states she gets large open ulcerations all over, particularly on her UE. This has been happening for many years. She actually relates the onset to after she was bitten by something when in [place]. She states that the area got very infected and she had to take abx for this. She is not sure what bit her. Pt states she used to take nexium for her GERD. During a recent admission, she was changed to protonix due to availability in the hospital and this was continued. She feels the protonix does not work as well for her. Principal Diagnosis Asthma dyspnea mucoid impaction removed by bronchoscopy Discharge Exam The patient appeared well nourished and normally developed. Vital signs as documented. Head exam is unremarkable. normocephalic, atraumatic Neck is without jugular venous distension, thyromegaly, or lymphademopathy Lungs are clear to auscultation Cardiac exam reveals Rhythm is regular. Extremities are nonedematous Neurologic exam is A&Ox3, no focal deficits, strength is equal bilateral Skin is warm Dry without bruises or lesions Discharge Data Allergies Allergy/AdvReac Type Severity Reaction Status Date / Time lisinopril Allergy Mild SINUS Verified 02/05/19 15:51 SWELLING, COUGH amoxicillin [From Augmentin] Allergy Unknown Unknown Verified 02/11/19 20:48 clavulanic acid Allergy Unknown Unknown Verified 02/11/19 20:48 [From Augmentin] metformin Allergy Unknown Unknown Verified 02/11/19 20:48 cetirizine [From Zyrtec] AdvReac Intermediate Dizziness Verified 02/11/19 19:09 diphenhydramine AdvReac Intermediate HYPERACTIVE Verified 02/05/19 15:51 escitalopram [From Lexapro] AdvReac Intermediate Fatigued Verified 02/11/19 19:09 insulin glargine AdvReac Intermediate VERY "SICK Verified 02/05/19 15:51 ALL OVER" olmesartan AdvReac Mild pt reports Verified 02/05/19 15:51 nonstop coughing after taking (3 years ago) Consultations 02/05/19 16:03 ED Decision to Admit Stat 02/06/19 14:22 Consult Cardiology Routine 02/08/19 17:16 Consult Pulmonology Routine Procedures Performed Operation Date: 02/08/19 07:35 Actual Procedures p Cath, Right and Left Heart - Mc Skaggs MD s Cineradiography w/Routine Exam - Mc Skaggs MD Operation Date: 02/11/19 08:00 Actual Procedures p Bronchoscopy Radiology(Bilateral) - Brad Cotres MD Ordered Studies 02/08/19 07:35 CL Cath Imgs for PACS use only Routine Hospital Course (1) Dyspnea: [place] secondary asthma and underventilation due to mucoid impaction limiting ventilation Had discussion with both cardiology and pulmonary. 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 Stress ECHO 05/2017 was WNL.. On 02/10 Cardiac cath was negative for pul hypertension. No signifcant improvement with steroids and bronchodilators. 02/11 bronchscopy mucopurulent impacted secretions removed patient subjectively feels better. (2) Hyperglycemia due to type 2 diabetes mellitus: Likely related to recent steroid use will recommend increased caution with diet while on steroid taper (3) Hypertension: continue home meds, losartan Pt was on aspirin 81mg for prevention only (4) GERD (gastroesophageal reflux disease): nexium at d/c as she feels it worked much better (5) DVT prophylaxis: SCDs Total Time Total Time Spent Total Time Spent (In Minutes): greater than 30 minutes were required to prepare discharge Discharge Plan Discharge Items Patient Disposition: Home - Self-Care Reason For Visit: SOB Discharge Diagnosis: SOB mucus impaction, with removal Discharge Goals: Decrease discomfort Activity: Resume your previous activity Non-emergency contact: Primary Care Provider Call non-emergency contact if: you have any medication questions Follow-up/Referrals: Brad Cortes MD [Physician] - 02/27/19 1:00 pm (follow up appointment at the lung doctor office with the physician autopsy assistant, Tiara) Sarah Everett CRNP [Primary Care Provider] - 02/20/19 9:30 am (follow up appointment with your primary care physician) Diet: Regular Addtl Provider Instructions: Recommend followup with PCP to discuss better control regarding your blood sugars. Please be extra cautious with your diet to help control your blood sugars while you are on steroids You had an extensive workup which did not show anything wrong with your heart, you lung test did show a large amount of mucus, and much was removed. Please follow up with pulmonary medicine to consider also pulmonary rehab Prescriptions: New prednisone 10 mg tablet 10 mg PO UD Qty: 40 RF: 0 Dulera 100-5 mcg/actuation HFA aerosol inhaler 2 puffs INH BID Qty: 13 RF: 6 guaifenesin 600 mg tablet extended release 12hr 600 mg PO BID Qty: 60 RF: 0 Continued losartan 50 mg Tablet 50 mg PO DAILY Qty: 0 RF: 0 aspirin [Aspir-81] 81 mg Tablet,Delayed Release (Dr/Ec) 81 mg PO QAM Qty: 0 RF: 0 glimepiride 4 mg Tablet 4 mg PO BID Qty: 0 RF: 3 furosemide [Lasix] 20 mg Tablet 20 mg PO QPM 90 Days Qty: 90 RF: 1 triamcinolone acetonide 0.1 % ointment topical .APPLY SPARINGLY TO A Qty: 1 RF: 0 montelukast 10 mg tablet PO .TAKE 1 TABLET DAILY. Qty: 30 RF: 0 ipratropium-albuterol 0.5 mg-3 mg(2.5 mg base)/3 mL solution for nebulization inhalation .USE 1 UNIT DOSE IN N Qty: 1 RF: 0 mometasone-formoterol 200-5 mcg/actuation HFA aerosol inhaler 1 puff Inhalation BID RF: 0 Novolin 70/30 U-100 Insulin 100 unit/mL (70-30) suspension 30 unit subcut QPM RF: 0 Novolin 70/30 U-100 Insulin 100 unit/mL (70-30) suspension 50 unit subcut QAM RF: 0 fexofenadine [Sari Allergy] 180 mg Tablet 180 mg PO DAILY RF: 0 pantoprazole 40 mg tablet,delayed release (DR/EC) 40 mg PO QAM RF: 0 mometasone [Nasonex] 50 mcg/actuation [place],Non-Aerosol 2 spray INTRANASAL DAILY RF: 0 insulin lispro [Admelog U-100 Insulin lispro] 100 unit/mL solution subcut BIDM RF: 0 epinephrine [EpiPen] 0.3 mg/0.3 mL Auto-Injector 0.3 mg IM DIRECTED PRN (Reason: Allergic Reaction) RF: 0 escitalopram oxalate 20 mg tablet 20 mg PO DAILY RF: 0 Combivent Respimat 20-100 mcg/actuation mist 1 puff inhalation QID RF: 0 Fasenra 30 mg/mL syringe 30 mg subcut RF: 0 Stand-Alone Forms: [facility] Discharge Orders: Discharge Order (Routine); Ordered 02/12/19 Ordered By: Ryan Alegria Admission Data Admit Date/Time: 02/08/19 06:27 Attending Provider: Ryan Alegria Admit Provider: Tiara Ring Primary Care Provider: Sarah Everett Other Providers: Tiara Ring ; Mc Skaggs ; Brad Cortes ; Amaury Dawkins Service: Medical Other Interventions: Discharge Summary Assessment (RN) Last Done: 02/12/19 09:59 DC Date/Time DO NOT enter until pt leaves facility: 02/12/19 12:30
--- NOTE | 2019-03-16 17:35 | Cardiac Catheterization ---
Date of Service February 08, 2019 Cardiac Cath Report Cardiac Cath Report Procedure performed: Left heart catheterization, coronary angiography Staff sales promoter: Nathen Skaggs MD Indication: Patient is a 64-year-old woman with a history of persistent dyspnea with activity. Despite extensive outpatient evaluation involving stress testing on more than 1 occasion she continues to have the symptoms. Due to the persistent nature of her symptoms and the concern over coronary disease as well as heart failure she was brought to the catheterization suite for procedure today. Procedure in detail: The patient was informed of the risks benefits and alternatives to the intended procedure, he understood such and wished to proceed. She was taken to the cardiac catheterization suite in a fasting state. Conscious sedation was administered per protocol and the patient was monitored electrocardiographically throughout today's procedure. The right wrist area was prepped and draped in usual sterile fashion. This area was anesthetized using subcutaneous administration of a lidocaine solution. The right radial artery was then accessed using Seldinger technique, and a arterial sheath was placed at this site over a guidewire. The sheath was used to facilitate passage of the cardiac catheter for coronary angiography and left heart catheterization. Coronary angiogram was then obtained in multiple orthogonal views prior to removal of the catheter. At the conclusion of the procedure the sheath was removed and hemostasis was achieved at the access site using manual pressure. The patient tolerated procedure well, there were no immediate complications. Equipment used: 5 [place] tiger 4, 5 [place] AL1 Findings: Opening aortic pressure: 54/33 after vasodilators with increased to 146/65 with volume administration Left ventricular pressure: 103/9 millimeters of mercury Left ventricular end-diastolic pressure 13 millimeters of mercury Closing aortic pressure: 140/64 millimeters of mercury Coronary angiography: Left main: Left main coronary was normal in size and caliber without evidence of obstructive disease. It bifurcated normally into the left anterior descending, left circumflex and medium size ramus intermedius Left anterior descending: Left anterior descending was a large very tortuous vessel. New produced a single large diagonal system. There was approximately 50 percent stenosis just proximal to the takeoff of the large diagonal branch. There was some mild ostial disease involving the 1st diagonal branch. Left circumflex: Left circumflex artery was a nondominant vessel. Effectively produced 1 OM branch without significant disease. Ramus intermedius: There was a medium size ramus intermedius without evidence of disease Right coronary artery: The right coronary artery was a dominant vessel. There are only luminal irregularities without obstructive disease. Impression: Right-dominant coronary system Nonobstructive disease involving the proximal LAD Normal left ventricular end-diastolic pressure No evidence of aortic stenosis
== END 2019-02-12 12:30 | disposition home or self-care (01) | DRG 206 ==
LOC: 2N 14:35 → ED 14:35 → SUATTDRO 17:28 → 2N 17:58 → SUATTDRO 02-08 06:27 → 2E 02-08 14:00 → 2W 02-08 17:26
DX: E11.65 Type 2 diabetes mellitus with hyperglycemia; J45.909 Unspecified asthma, uncomplicated; T17.890A Other foreign object in other parts of respiratory tract causing asphyxiation, initial encounter; Z79.4 Long term (current) use of insulin; Y92.009 Unspecified place in unspecified non-institutional (private) residence as the place of occurrence of the external cause; Z79.82 Long term (current) use of aspirin; Z80.41 Family history of malignant neoplasm of ovary; E66.01 Morbid (severe) obesity due to excess calories; I25.10 Atherosclerotic heart disease of native coronary artery without angina pectoris; Z82.49 Family history of ischemic heart disease and other diseases of the circulatory system; R07.9 Chest pain, unspecified; T38.0X5A Adverse effect of glucocorticoids and synthetic analogues, initial encounter; E87.2 Acidosis; I10 Essential (primary) hypertension

== ENCOUNTER 2021-01-08 15:52 | Observation (INO) ==
[2021-01-08] MEDS ORDERED: ASPIRIN CHEW 324 MG PO STA (16:37)
[2021-01-08 16:42] LABS: Basophils # (auto) 0.12 K/uL (0-0.2); Basophils % (auto) 1.1 %; Eosinophils # (auto) 0.49 K/uL (0-0.5); Eosinophils % (auto) 4.6 %; Hematocrit (blood only) 41.9 % (37-47); Hemoglobin 14.4 g/dL (12.0-16.0); Immature Granulocytes # (auto) 0.02 K/uL (0.00-0.02); Immature Granulocytes % (auto) 0.2 %; Lymphocytes # (auto) 2.85 K/uL (1.2-3.4); Lymphocytes % (auto) 26.7 %; Mean Corpuscular Hemoglobin 29.4 pg (25-34); Mean Corpuscular Hgb Conc 34.4 g/dL (32-36); Mean Corpuscular Volume 85.5 fL (80-100); Mean Platelet Volume 11.2 fL (7.4-10.4); Monocytes # (auto) 0.76 K/uL (0.11-0.59); Monocytes % (auto) 7.1 %; Neutrophils # (auto) 6.42 K/uL (1.4-6.5); Neutrophils % (auto) 60.3 %; Platelet Count 325 K/uL (130-400); RDW Coefficient of Variation 13.2 % (11.5-14.5); RDW Standard Deviation 41.2 fL (36.4-46.3); White Blood Count 10.66 K/uL (4.8-10.8)
[2021-01-08 16:51] LABS: Alanine Aminotransferase 30 U/L (12-78); Albumin Level 3.4 gm/dl (3.4-5.0); Aspartate Aminotransferase 32 U/L (15-37); BUN Creatinine Ratio 12.8 (10-20); Blood Urea Nitrogen 16 mg/dl (7-18); Calcium 8.8 mg/dl (8.5-10.1); Carbon Dioxide 25 mmol/L (21-32); Chloride 108 mmol/L (98-107); Est GFR (African American) 52.6 ml/min; Est GFR (Non-African American) 45.4 ml/min; Glucose 191 mg/dl (70-99); Potassium 3.9 mmol/L (3.5-5.1); Sodium 139 mmol/L (136-145)
[2021-01-08 16:56] LABS: Albumin Globulin Ratio 0.8 (0.9-2); Alkaline Phosphatase 149 U/L (45-117); Bilirubin,Total 0.4 mg/dl (0.2-1); Globulin 4.3 gm/dl (2.5-4.0); Total Protein 7.7 gm/dl (6.4-8.2); Troponin I < 0.015 ng/ml (0-0.045)
[2021-01-08 16:59] LABS: Lipase 59 U/L (73-393)
--- NOTE | 2021-01-08 17:05 | XRay Report ---
XR chest 1V portable HISTORY: 65 years-old Female Chest Pain acute atypical chest pain COMPARISON: Chest radiograph 02/08/2019 TECHNIQUE: Portable AP view of the chest FINDINGS: Cardiac mediastinal and hilar silhouettes are unchanged. No pneumothorax, pleural effusion, airspace consolidation or overt pulmonary edema. The bones appear grossly intact. IMPRESSION: No acute process. ACT 112: Negative or not required by law. The above report was generated using voice recognition software. It may contain grammatical, syntax o r spelling errors. Electronically signed by: Shukri Quiles M.D. 01/08/2021 5:03 PM
[2021-01-08 17:39] LABS: D Dimer 330 ug/L FEU (0-500); Prothrombin Time 9.7 Seconds (9.0-12.0)
--- NOTE | 2021-01-08 18:59 | History & Physical Report ---
Date of Service January 08, 2021 Assessment & Plan (1) Chest pain: Patient does have chest pain with some radiation to her neck. Patient has confirmed reproducibility with minor exertion or even bathing with associated symptoms of nausea and diaphoresis. She has shortness of breath but she has significant pulmonary disease. Patient underwent cardiac catheterization by Dr. 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 Circumflex was nondominant ramus intermedius was without evidence of disease right coronary with luminal irregularities seen Patient kept on aspirin should be on telemetry serial troponins will be drawn an echocardiogram be done in the morning, last echocardiogram was January 2019 normal LV systolic function aortic sclerosis without stenosis Given her concern for reproducibility with exertion and associated symptoms cardiology be consulted to determine if we should do additional stress versus interventional study on her (2) Severe persistent chronic asthma without complication: Patient has a history of eosinophilic asthma she is on Combivent albuterol but she also receives injections of dupilumab which had lessened her hospital stay (3) MADAY on CPAP: Compliance test is good she uses 2 L additional at night with the CPAP arrange for 11.5 to 20 cm of water (4) Diabetes mellitus, type 2: Patient typically is on insulin 70/30 + glimepiride is controlled A1c will be checked in the morning and she will be on glycemic consultation (5) DVT prophylaxis: Heparin subcu will be used for DVT prevention History of Present Illness Primary Care Provider: VALERY Chavez 65-year-old female who is got history of diabetes, this lipidemia, morbid obesity, sleep apnea and hypertension who presents with dyspnea on exertion chest pain with radiation to her neck. Patient is fairly assured that this is definitely reproducible with exertion and last about an hour. She says anytime she does walk slightly she gets very diaphoretic nauseous and her symptoms occur. This even occurs while she showers. He feels this is more significant than her previous chest pain for which she had a heart catheterization in 2019. Initial work-up in the emergency department is negative including troponin EKG and chest x-ray. Patient is brought in for observation for chest pain Allergies Allergy/AdvReac Type Severity Reaction Status Date / Time metformin Allergy Severe STOMACH Verified 01/07/21 12:52 CRAMPS DIARRHEA amoxicillin [From Augmentin] Allergy Intermediate ITCHING Verified 01/07/21 12:52 clavulanic acid Allergy Intermediate ITCHING Verified 01/07/21 12:52 [From Augmentin] dulaglutide [From Trulicity] Allergy Intermediate FEELS SICK Verified 01/07/21 12:52 ALL OVER lisinopril Allergy Mild SINUS Verified 01/07/21 12:52 SWELLING, COUGH cetirizine [From Zyrtec] AdvReac Intermediate Dizziness Verified 01/07/21 12:52 diphenhydramine AdvReac Intermediate HYPERACTIVE Verified 01/07/21 12:52 olmesartan AdvReac Mild pt reports Verified 01/07/21 12:52 nonstop coughing after taking (3 years ago) DAMP COLDNESS ENVIRONMENT Allergy Intermediate SYNCOPAL Uncoded 01/07/21 12:52 EPISODE Home Medications Medication Instructions Recorded Confirmed Type epinephrine 0.3 mg IM Q3H PRN 03/26/19 01/08/21 History aspirin 81 mg tablet,delayed 81 mg PO QAM tab 04/30/19 01/08/21 History release guaifenesin 600 mg tablet, 600 mg PO BID PRN 04/30/19 01/08/21 History extended release 12 hr desloratadine 5 mg tablet 5 mg PO QAM #30 tab 07/05/19 01/08/21 Rx budesonide 0.5 mg/2 mL suspension 2 ml INH USEASDIRECTD PRN ml 08/18/19 01/08/21 History for nebulization triamcinolone acetonide 0.1 % 1 appln TOP USEASDIRECTD PRN gm 08/18/19 01/08/21 History topical cream ipratropium 0.5 mg-albuterol 3 mg 3 ml INH Q4H PRN #540 ml 06/24/20 01/08/21 Rx (2.5 mg base)/3 mL nebulization soln clotrimazole [Antifungal 1 appln TOP BID PRN 08/27/20 01/08/21 History (clotrimazole)] furosemide 20 mg PO QAM 08/27/20 01/08/21 History glimepiride 4 mg PO BID 08/27/20 01/08/21 History cyclobenzaprine 10 mg tablet 10 mg PO TID PRN #60 tab 09/03/20 01/08/21 Rx insulin lispro 100 unit/mL See Rx Instructions SUBCUT 09/03/20 01/08/21 Rx subcutaneous solution .COMPLEX #10 ml dupilumab 300 mg/2 mL subcutaneous See Rx Instructions .ROUTE 10/09/20 01/08/21 Rx syringe .COMPLEX #2 ml azelastine 137 mcg (0.1 %) nasal 2 spray INTNAS DAILY #30 ml 11/04/20 01/08/21 Rx spray aerosol ipratropium bromide 42 mcg (0.06 2 spray INTRANASAL DAILY #15 ml 11/04/20 01/08/21 Rx %) nasal spray omeprazole 40 mg capsule,delayed 40 mg PO DAILY cap 11/04/20 01/08/21 History release albuterol sulfate 90 mcg/actuation 1 - 2 puff INHALATION Q6H PRN #18 11/24/20 01/08/21 Rx aerosol inhaler gm chlorpheniramine maleate 4 mg 4 mg PO Q6H PRN #40 tab 11/24/20 01/08/21 Rx tablet ipratropium 20 mcg-albuterol 100 1 puff INHALATION QID PRN #4 gm 11/24/20 01/08/21 Rx mcg/actuation mist for inhalation pseudoephedrine HCl 120 mg 120 mg PO Q12H #40 tab 11/24/20 01/08/21 Rx tablet,extended release insulin human U-100 NPH-regulr See Rx Instructions SQ BID #30 ml 01/07/21 01/08/21 Rx 70-30 mix 100 unit/mL subcutaneous susp losartan 50 mg PO DAILY 01/08/21 01/08/21 History Past Med/Surg History Medical History Abnormal CT scan of lung Diabetes mellitus, type 2 Diverticular disease Fatigue GERD (gastroesophageal reflux disease) Hiatal hernia Left knee pain Morbid obesity Seizure Surgical History H/O laparoscopy History of bronchoscopy History of cardiac cath History of colonoscopy History of esophagogastroduodenoscopy (EGD) History of repair of hiatal hernia (07/11/19) S/P laparoscopic cholecystectomy Family History Father Myocardial infarction Cardiac disorder Lung disease Mother Ovarian cancer Stroke Family history of diabetes mellitus Gallbladder disease Hypertension Sister Stroke Family history of diabetes mellitus Gallbladder disease Cancer Pancreatic cancer Family/Other Asthma Coronary heart disease Other Family history non-contributory Denies family history of Prostate cancer Breast cancer Colorectal cancer Social History Smoking Status: Never smoker Second Hand Exposure: No; Hx Alcohol Use: No Hx Substance Use: No Preferred Language: Hungarian Communication Ability: Effective 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 Required: No Beliefs That Will Affect Care: None marital status: Current Living Situation: Spouse current occupational status: unemployed Feels Safe at Home: Yes Dental Care, Regularly: Yes Seatbelt Use: always Assistive Devices: CPAP, Glasses and Oxygen - at Night Review of Systems Review of Systems: At rest she has absolutely no distress no headache, blurry or double vision no speech or swallowing issues no chest pain, at times it is reproducible with pressure which is a separate discomfort but with exertion she experiences chest pressure plus associated symptoms Pain radiates to her neck and shoulder on the left side Dyspnea on exertion plus diaphoresis no abdominal pain, nausea or vomiting, diarrhea or constipation no dysuria, hematuria or frequency no focal joint pain or swelling no back pain, CVA tenderness or radicular pain no bruising, bleeding or rashes no focal signs of weakness or numbness or altered sensation no complaints of anxiety or depression.. Physical Exam Physical Exam: The patient appeared well nourished and morbidly obese Vital signs as documented. Head exam is normocephalic atraumatic Neck is without JVD, thyromegaly, or carotid bruits. Lungs are clear to auscultation, no focal loss of breath sounds Cardiac exam, Rhythm is regular.. No murmurs, rubs or gallops. There is a component of reproducibility of discomfort to her left rib margin but she states this is slightly different than the exertional exacerbated pain Abdominal exam reveals normal bowel sounds, soft non tender, no masses Extremities are nonedematous and both pedal pulses are present Neurologic exam is alert and oriented, no focal loss of strength or sensation Skin is without bruises or rashes Psychologically is without concerns for anxiety or depression Results & Data Results & Data ([facility]) Vital Signs (Past 12 Hours) Vital Signs Temp Pulse Resp BP Pulse Ox 01/08/21 18:31 93 H 17 01/08/21 18:30 94 H 18 119/82 01/08/21 18:01 95 H 18 01/08/21 18:00 97 H 14 01/08/21 17:31 97 H 16 96 01/08/21 17:30 100 H 14 134/75 96 01/08/21 17:01 101 H 18 96 01/08/21 17:00 103 H 18 135/74 94 01/08/21 16:53 104 H 18 95 01/08/21 16:52 103 H 15 96 01/08/21 16:49 105 H 18 131/75 94 01/08/21 16:04 99.1 F 107 H 20 136/80 96 Chest X-Ray 01/08/21 16:07 XR chest 1V portable HISTORY: 65 years-old Female Chest Pain acute atypical chest pain COMPARISON: Chest radiograph 02/08/2019 TECHNIQUE: Portable AP view of the chest FINDINGS: Cardiac mediastinal and hilar silhouettes are unchanged. No pneumothorax, pleural effusion, airspace consolidation or overt pulmonary edema. The bones appear grossly intact. IMPRESSION: No acute process. Electronically signed by: Shukri Quiles M.D. 01/08/2021 5:03 PM PG Care Time/CCT Total # of Minutes Spent Total Time Spent with Patient: Total time spent is greater than 50% in coordination of care (as documented) at patient's floor/unit and/or counseling patient: Coding Level of Care Code 15302 Initial Inpt Care Lvl 3 Diagnoses Chest pain R07.9 Severe persistent chronic asthma without complication J45.50 MADAY on CPAP G47.33; Z99.89 Diabetes mellitus, type 2 E11.9 DVT prophylaxis Z29.9
--- NOTE | 2021-01-08 20:08 | Emergency Department Note ---
History of Present Illness General Chief Complaint: Chest Pain Stated Complaint: CHEST PRESSURE,SOB,PAINS OFF AND ON Time Seen by Provider: 01/08/21 16:31 History of Present Illness Provider Complaint: chest pain Onset (ago): week(s) Onset (Weeks): 3 Duration: intermittent Onset: during exertion Pain Location: substernal and left chest Pain Radiation: LUE and back Severity: moderate Maximum Pain Intensity: 5 Current Pain Intensity: 5 Quality: + other (pressure) Relieved By: + rest Exacerbated By: + exertion Associated symptoms: + dyspnea; no nausea, no vomiting, no diaphoresis, no syncope, no palpitations, no fever, no cough and no leg swelling Home Medications Medication Instructions Recorded Confirmed Type epinephrine 0.3 mg IM Q3H PRN 03/26/19 01/08/21 History aspirin 81 mg tablet,delayed 81 mg PO QAM tab 04/30/19 01/08/21 History release guaifenesin 600 mg tablet, 600 mg PO BID PRN 04/30/19 01/08/21 History extended release 12 hr desloratadine 5 mg tablet 5 mg PO QAM #30 tab 07/05/19 01/08/21 Rx budesonide 0.5 mg/2 mL suspension 2 ml INH USEASDIRECTD PRN ml 08/18/19 01/08/21 History for nebulization triamcinolone acetonide 0.1 % 1 appln TOP USEASDIRECTD PRN gm 08/18/19 01/08/21 History topical cream ipratropium 0.5 mg-albuterol 3 mg 3 ml INH Q4H PRN #540 ml 06/24/20 01/08/21 Rx (2.5 mg base)/3 mL nebulization soln clotrimazole [Antifungal 1 appln TOP BID PRN 08/27/20 01/08/21 History (clotrimazole)] furosemide 20 mg PO QAM 08/27/20 01/08/21 History glimepiride 4 mg PO BID 08/27/20 01/08/21 History cyclobenzaprine 10 mg tablet 10 mg PO TID PRN #60 tab 09/03/20 01/08/21 Rx insulin lispro 100 unit/mL See Rx Instructions SUBCUT 09/03/20 01/08/21 Rx subcutaneous solution .COMPLEX #10 ml dupilumab 300 mg/2 mL subcutaneous See Rx Instructions .ROUTE 10/09/20 01/08/21 Rx syringe .COMPLEX #2 ml azelastine 137 mcg (0.1 %) nasal 2 spray INTNAS DAILY #30 ml 11/04/20 01/08/21 Rx spray aerosol ipratropium bromide 42 mcg (0.06 2 spray INTRANASAL DAILY #15 ml 11/04/20 01/08/21 Rx %) nasal spray omeprazole 40 mg capsule,delayed 40 mg PO DAILY cap 11/04/20 01/08/21 History release albuterol sulfate 90 mcg/actuation 1 - 2 puff INHALATION Q6H PRN #18 11/24/20 01/08/21 Rx aerosol inhaler gm chlorpheniramine maleate 4 mg 4 mg PO Q6H PRN #40 tab 11/24/20 01/08/21 Rx tablet ipratropium 20 mcg-albuterol 100 1 puff INHALATION QID PRN #4 gm 11/24/20 01/08/21 Rx mcg/actuation mist for inhalation pseudoephedrine HCl 120 mg 120 mg PO Q12H #40 tab 11/24/20 01/08/21 Rx tablet,extended release insulin human U-100 NPH-regulr See Rx Instructions SQ BID #30 ml 01/07/21 01/08/21 Rx 70-30 mix 100 unit/mL subcutaneous susp losartan 50 mg PO DAILY 01/08/21 01/08/21 History Allergies Allergy/AdvReac Type Severity Reaction Status Date / Time metformin Allergy Severe STOMACH Verified 01/07/21 12:52 CRAMPS DIARRHEA amoxicillin [From Augmentin] Allergy Intermediate ITCHING Verified 01/07/21 12:52 clavulanic acid Allergy Intermediate ITCHING Verified 01/07/21 12:52 [From Augmentin] dulaglutide [From Trulicity] Allergy Intermediate FEELS SICK Verified 01/07/21 12:52 ALL OVER lisinopril Allergy Mild SINUS Verified 01/07/21 12:52 SWELLING, COUGH cetirizine [From Zyrtec] AdvReac Intermediate Dizziness Verified 01/07/21 12:52 diphenhydramine AdvReac Intermediate HYPERACTIVE Verified 01/07/21 12:52 olmesartan AdvReac Mild pt reports Verified 01/07/21 12:52 nonstop coughing after taking (3 years ago) DAMP COLDNESS ENVIRONMENT Allergy Intermediate SYNCOPAL Uncoded 01/07/21 12:52 EPISODE Past Med/Surg History Medical History Abnormal CT scan of lung Diabetes mellitus, type 2 IDDM Diverticular disease Fatigue GERD (gastroesophageal reflux disease) occasional Hiatal hernia Left knee pain Morbid obesity Seizure seizures as a child until age 6- no seizures since/no anticonvulsants Surgical History H/O laparoscopy History of bronchoscopy History of cardiac cath 02/08/19= NO STENTS History of colonoscopy History of esophagogastroduodenoscopy (EGD) History of repair of hiatal hernia (07/11/19) Laparoscopic Cholecystectomy, Laparoscopic Hiatal Hernia Repair Dr. Borjas 07/11/19 S/P laparoscopic cholecystectomy Laparoscopic Cholecystectomy, Laparoscopic Hiatal Hernia Repair Dr. Borjas 07/11/19 Family History Father Myocardial infarction Cardiac disorder Lung disease Mother Ovarian cancer Stroke Family history of diabetes mellitus Gallbladder disease Hypertension Sister Stroke Family history of diabetes mellitus Gallbladder disease Cancer Pancreatic cancer Family/Other Asthma Coronary heart disease Other Family history non-contributory Denies family history of Prostate cancer Breast cancer Colorectal cancer Social History Smoking Status: Never smoker Second Hand Exposure: No; Hx Alcohol Use: No Hx Substance Use: No Preferred Language: Croatian Communication Ability: Effective County Surveyor Required: No Beliefs That Will Affect Care: None marital status: Current Living Situation: Spouse current occupational status: unemployed Feels Safe at Home: Yes Dental Care, Regularly: Yes Seatbelt Use: always Assistive Devices: CPAP, Glasses and Oxygen - at Night Review of Systems A total of 10 systems reviewed and were otherwise negative Physical Exam Vital Signs Vital Signs - 24 hr 01/08/21 16:04 01/08/21 16:49 01/08/21 16:52 Temperature 37.3 C Temperature Source Temporal Artery Scan Pulse Rate 107 H 105 H 103 H Pulse Rate from SpO2 Sensor 105 H 103 H Pulse Rhythm Regular Pulse Strength Normal Respiratory Rate 20 18 15 Respiratory Effort / Characteristics Non-Labored Spontaneous Respiratory Depth Normal Respiratory Pattern Regular Blood Pressure 136/80 131/75 Blood Pressure Mean 98 93 Blood Pressure Position Sitting Pulse Oximetry 96 94 96 Oxygen Delivery Method Room Air Sepsis Recent Fever Within 48 Hours No Sepsis New/Unexplained Change in Mental Status No Sepsis Action Taken by Nursing No Action Required 01/08/21 16:53 01/08/21 17:00 01/08/21 17:01 Temperature Temperature Source Pulse Rate 104 H 103 H 101 H Pulse Rate from SpO2 Sensor 104 H 102 H Pulse Rhythm Regular Pulse Strength Respiratory Rate 18 18 18 Respiratory Effort / Characteristics Respiratory Depth Respiratory Pattern Blood Pressure 135/74 Blood Pressure Mean 94 Blood Pressure Position Pulse Oximetry 95 94 96 Oxygen Delivery Method Room Air Sepsis Recent Fever Within 48 Hours Sepsis New/Unexplained Change in Mental Status Sepsis Action Taken by Nursing 01/08/21 17:30 01/08/21 17:31 01/08/21 18:00 Temperature Temperature Source Pulse Rate 100 H 97 H 97 H Pulse Rate from SpO2 Sensor Pulse Rhythm Pulse Strength Respiratory Rate 14 16 14 Respiratory Effort / Characteristics Respiratory Depth Respiratory Pattern Blood Pressure 134/75 Blood Pressure Mean 94 Blood Pressure Position Pulse Oximetry 96 96 Oxygen Delivery Method Sepsis Recent Fever Within 48 Hours Sepsis New/Unexplained Change in Mental Status Sepsis Action Taken by Nursing 01/08/21 18:01 01/08/21 18:30 01/08/21 18:31 Temperature Temperature Source Pulse Rate 95 H 94 H 93 H Pulse Rate from SpO2 Sensor Pulse Rhythm Pulse Strength Respiratory Rate 18 18 17 Respiratory Effort / Characteristics Respiratory Depth Respiratory Pattern Blood Pressure 119/82 Blood Pressure Mean 101 94 Blood Pressure Position Pulse Oximetry Oxygen Delivery Method Sepsis Recent Fever Within 48 Hours Sepsis New/Unexplained Change in Mental Status Sepsis Action Taken by Nursing 01/08/21 19:00 01/08/21 19:30 01/08/21 19:31 Temperature Temperature Source Pulse Rate 95 H 93 H 91 H Pulse Rate from SpO2 Sensor Pulse Rhythm Pulse Strength Respiratory Rate 27 H 18 17 Respiratory Effort / Characteristics Respiratory Depth Respiratory Pattern Blood Pressure 119/76 143/104 H Blood Pressure Mean 90 117 Blood Pressure Position Pulse Oximetry 95 Oxygen Delivery Method Sepsis Recent Fever Within 48 Hours Sepsis New/Unexplained Change in Mental Status Sepsis Action Taken by Nursing Physical Exam GENERAL: She is oriented to person, place, and time. She appears well-developed and well-nourished. She does not appear distressed. HENT: Exam performed. -Head: Normocephalic and atraumatic. -Right Ear: External ear normal. No mastoid tenderness. -Left Ear: External ear normal. No mastoid tenderness. -Mouth/Throat: The oropharynx is clear and moist. No trismus in the jaw. No dental abscesses or uvula swelling. No oropharyngeal exudate or tonsillar abscesses. EYES: Conjunctivae and EOM are normal. Pupils are equal, round, and reactive to light. Right eye exhibits no discharge. Left eye exhibits no discharge. No scleral icterus. NECK: Normal range of motion. Neck supple. No JVD present. No spinous process tenderness present. No carotid bruit present. No rigidity. No tracheal deviation and normal range of motion present. No Brudzinski's sign and no Kernig's sign noted. CV: Normal rate, regular rhythm, normal heart sounds and intact distal pulses. There is no peripheral edema. Palpable radial pulses bue. PULM/CHEST: Effort normal and breath sounds normal. No respiratory distress. No stridor. She has no wheezes. She has no rales. -Chest Wall: She exhibits no tenderness. ABD: The abdomen is soft and obese. Bowel sounds are normal. She has no distension. No mass is present. There is no tenderness. There is no rebound, no guarding, no Vaz's sign and no tenderness at McBurney's point. Rovsig negative MUSC/SKEL: Normal range of motion. There is no peripheral edema, tenderness or deformity. LYMPH: No cervical adenopathy. NEURO: She is alert and oriented to person, place, and time. She has normal strength. No cranial nerve deficit or sensory deficit. Coordination and gait normal. GCS eye subscore is 4. GCS verbal subscore is 5. GCS motor subscore is 6. Cerebellar tests wnl. SKIN: Skin is warm and dry. She is not diaphoretic. PSYCH: She has a normal mood and affect. Behavior is normal. Judgment and thought content normal. Course Course 1631: The patient was evaluated in room C11. A complete history and physical exam was performed Cardiac monitoring: An order was placed for continuous cardiac monitoring. The monitor shows a rate of 110 with sinus tachycardia rhythm 1900: Vital signs stable. Labs and imaging within normal limits. [facility] for rule out ACS Dr. Grace notified. Administered Medications Discontinued Medications Aspirin (Aspirin Chew 324 Mg) 324 mg PO NOW STA Stop: 01/08/21 16:38 Last Admin: 01/08/21 16:49 Dose: 324 mg Documented by: [id number] Medical Decision Making Laboratory Data Result diagrams: 01/08/21 16:20 01/08/21 16:10 Labs: Lab Results 01/08/21 01/08/21 01/08/21 Range/Units 16:10 16:10 16:20 WBC 10.66 (4.8-10.8) K/uL RBC 4.90 (4.2-5.4) M/uL Hgb 14.4 (12.0-16.0) g/dL Hct 41.9 (37-47) % MCV 85.5 (80-100) fL MCH 29.4 (25-34) pg MCHC 34.4 (32-36) g/dL RDW Std Deviation 41.2 (36.4-46.3) fL RDW Coeff of Carolyn 13.2 (11.5-14.5) % Plt Count 325 (130-400) K/uL MPV 11.2 H (7.4-10.4) fL Immature Gran % (Auto) 0.2 % Neut % (Auto) 60.3 % Lymph % (Auto) 26.7 % Grayson % (Auto) 7.1 % Eos % (Auto) 4.6 % Baso % (Auto) 1.1 % Neut # (Auto) 6.42 (1.4-6.5) K/uL Lymph # (Auto) 2.85 (1.2-3.4) K/uL Grayson # (Auto) 0.76 H (0.11-0.59) K/uL Eos # (Auto) 0.49 (0-0.5) K/uL Baso # (Auto) 0.12 (0-0.2) K/uL Immature Gran # (Auto) 0.02 (0.00-0.02) K/uL PT Cancelled INR Cancelled APTT Cancelled PTT Ratio Cancelled D-Dimer (0-500) ug/L FEU Sodium 139 (136-145) mmol/L Potassium 3.9 (3.5-5.1) mmol/L Chloride 108 H (98-107) mmol/L Carbon Dioxide 25 (21-32) mmol/L Anion Gap 6.0 (3-11) BUN 16 (7-18) mg/dl Creatinine 1.25 H (0.6-1.2) mg/dl Est Cr Clr Drug Dosing Not Reportable Est GFR ( Amer) 52.6 ml/min Est GFR (Non-Af Amer) 45.4 ml/min BUN/Creatinine Ratio 12.8 (10-20) Glucose 191 H (70-99) mg/dl Calcium 8.8 (8.5-10.1) mg/dl Total Bilirubin 0.4 (0.2-1) mg/dl AST 32 (15-37) U/L ALT 30 (12-78) U/L Alkaline Phosphatase 149 H (45-117) U/L Troponin I < 0.015 (0-0.045) ng/ml Total Protein 7.7 (6.4-8.2) gm/dl Albumin 3.4 (3.4-5.0) gm/dl Globulin 4.3 H (2.5-4.0) gm/dl Albumin/Globulin Ratio 0.8 L (0.9-2) Lipase 59 L (73-393) U/L COVID-19 Eval Order SARS-CoV-2 (PCR) (Negative) 01/08/21 01/08/21 01/08/21 Range/Units 16:58 16:58 17:06 WBC (4.8-10.8) K/uL RBC (4.2-5.4) M/uL Hgb (12.0-16.0) g/dL Hct (37-47) % MCV (80-100) fL MCH (25-34) pg MCHC (32-36) g/dL RDW Std Deviation (36.4-46.3) fL RDW Coeff of Carolyn (11.5-14.5) % Plt Count (130-400) K/uL MPV (7.4-10.4) fL Immature Gran % (Auto) % Neut % (Auto) % Lymph % (Auto) % Grayson % (Auto) % Eos % (Auto) % Baso % (Auto) % Neut # (Auto) (1.4-6.5) K/uL Lymph # (Auto) (1.2-3.4) K/uL Grayson # (Auto) (0.11-0.59) K/uL Eos # (Auto) (0-0.5) K/uL Baso # (Auto) (0-0.2) K/uL Immature Gran # (Auto) (0.00-0.02) K/uL PT 9.7 INR 1.0 APTT 25.0 PTT Ratio 1.0 D-Dimer 330 (0-500) ug/L FEU Sodium (136-145) mmol/L Potassium (3.5-5.1) mmol/L Chloride (98-107) mmol/L Carbon Dioxide (21-32) mmol/L Anion Gap (3-11) BUN (7-18) mg/dl Creatinine (0.6-1.2) mg/dl Est Cr Clr Drug Dosing Est GFR ( Amer) ml/min Est GFR (Non-Af Amer) ml/min BUN/Creatinine Ratio (10-20) Glucose (70-99) mg/dl Calcium (8.5-10.1) mg/dl Total Bilirubin (0.2-1) mg/dl AST (15-37) U/L ALT (12-78) U/L Alkaline Phosphatase (45-117) U/L Troponin I (0-0.045) ng/ml Total Protein (6.4-8.2) gm/dl Albumin (3.4-5.0) gm/dl Globulin (2.5-4.0) gm/dl Albumin/Globulin Ratio (0.9-2) Lipase (73-393) U/L COVID-19 Eval Order Covid19 at [facility] SARS-CoV-2 (PCR) NEGATIVE (Negative) Imaging Data Chest x-ray: Radiologist's impression: Chest X-Ray 01/08/21 16:07 XR chest 1V portable HISTORY: 65 years-old Female Chest Pain acute atypical chest pain COMPARISON: Chest radiograph 02/08/2019 TECHNIQUE: Portable AP view of the chest FINDINGS: Cardiac mediastinal and hilar silhouettes are unchanged. No pneumothorax, pleural effusion, airspace consolidation or overt pulmonary edema. The bones appear grossly intact. IMPRESSION: No acute process. ACT 112: Negative or not required by law. The above report was generated using voice recognition software. It may contain grammatical, syntax or spelling errors. Electronically signed by: Shukri Quiles M.D. 01/08/2021 5:03 PM ECG Data Indication: chest pain Rate (beats per minute): 111 Rhythm: sinus tachycardia Findings: no ST depression, no ST elevation and no prolonged QT MDM Narrative Vital signs stable. Labs and imaging within normal limits. Patient will be admitted to the [facility] hospitalist team for rule out ACS Dr. Grace notified. Impression & Plan Chest pain Discharge Plan Visit Data Chief Complaint: Chest Pain Stated Complaint: CHEST PRESSURE,SOB,PAINS OFF AND ON ED Provider: Maximus Wade Discharge Problem: Chest pain Patient Disposition: Being Evaluated by Hospitalist Forms Stand Alone Forms: My [facility] Prescriptions Prescriptions: No Action desloratadine [Clarinex] 5 mg tablet 5 mg PO QAM Qty: 30 RF: 5 ipratropium-albuterol 0.5 mg-3 mg(2.5 mg base)/3 mL solution for nebulization 3 ml INH Q4H PRN (Reason: SHORT OF BREATH) Qty: 540 RF: 0 Dupixent Syringe 300 mg/2 mL syringe See Rx Instructions .ROUTE .COMPLEX Qty: 2 RF: 4 Humulin 70/30 U-100 Insulin 100 unit/mL (70-30) suspension See Rx Instructions SQ BID Qty: 30 RF: 8 Hold Instructions: wants to try basal cyclobenzaprine 10 mg tablet 10 mg PO TID PRN (Reason: muscle spasm) Qty: 60 RF: 5 insulin lispro 100 unit/mL solution See Rx Instructions subcut .COMPLEX Qty: 10 RF: 11 omeprazole 40 mg capsule,delayed release(DR/EC) 40 mg PO DAILY RF: 0 azelastine 137 mcg (0.1 %) aerosol,spray 2 spray INTNAS DAILY Qty: 30 RF: 6 ipratropium bromide 42 mcg (0.06 %) spray,non-aerosol 2 spray intranasal DAILY Qty: 15 RF: 11 aspirin 81 mg tablet,delayed release (DR/EC) 81 mg PO QAM RF: 0 guaifenesin 600 mg tablet extended release 12hr 600 mg PO BID PRN (Reason: Cough) RF: 0 budesonide 0.5 mg/2 mL suspension for nebulization 2 ml INH USEASDIRECTD PRN (Reason: SHORT OF BREATH) RF: 0 triamcinolone acetonide 0.1 % cream 1 appln TOP USEASDIRECTD PRN (Reason: Skin Irritation) RF: 0 albuterol sulfate [Ventolin HFA] 90 mcg/actuation HFA aerosol inhaler 1 - 2 puff INHALATION Q6H PRN (Reason: Wheezing) Qty: 18 RF: 8 chlorpheniramine maleate 4 mg tablet 4 mg PO Q6H PRN (Reason: itching) Qty: 40 RF: 0 Combivent Respimat 20-100 mcg/actuation mist 1 puff INHALATION QID PRN (Reason: Wheezing) Qty: 4 RF: 11 pseudoephedrine HCl 120 mg tablet extended release 120 mg PO Q12H Qty: 40 RF: 0 glimepiride 4 mg tablet 4 mg PO BID RF: 0 furosemide 20 mg tablet 20 mg PO QAM RF: 0 clotrimazole [Antifungal (clotrimazole)] 1 % cream 1 appln TOP BID PRN (Reason: break outs) RF: 0 epinephrine 0.3 mg/0.3 mL Syringe 0.3 mg IM Q3H PRN (Reason: Allergic Reaction) RF: 0 losartan 50 mg tablet 50 mg PO DAILY RF: 0 Referrals Referrals: Sarah Everett CRNP [Primary Care Provider] - Discharge Problem: Chest pain Qualifiers: Chest pain type: unspecified Qualified Code(s): R07.9 - Chest pain, unspecified
[2021-01-08] MEDS ORDERED: ACETAMINOPHEN 325 MG TAB PO PRN (21:37)
[2021-01-08] MEDS ORDERED: TRIAMCINOLONE ACET 0.1% CR 15 GM TUBE TOP PRN (21:37)
[2021-01-08] MEDS ORDERED: CLOTRIMAZOLE 1% CR 15 GM TUBE TOP PRN (21:37)
[2021-01-08] MEDS ORDERED: ALBUT/IPRATROP 3MG/0.5MG NEB 3 ML VIAL INH PRN (21:37)
[2021-01-08] MEDS ORDERED: ALBUTEROL HFA 8 GM INHALER INH PRN (21:37)
[2021-01-08] MEDS ORDERED: IPRATROPIUM BROMIDE/ALBUTEROL respimat INH INH PRN (21:37)
[2021-01-08] MEDS ORDERED: MoRPHine SULFATE 2 MG/ML CARP IV PRN (21:37)
[2021-01-08] MEDS ORDERED: BUDESONIDE 0.5 MG/2 ML VIAL (PULMICORT) INH PRN (21:37)
[2021-01-08] MEDS ORDERED: guaiFENesin 600 MG TABCR PO PRN (21:37)
[2021-01-08] MEDS ORDERED: ALUMINUM/MAGNESIUM SUSP 30 ML UDC PO PRN (21:37)
[2021-01-08] MEDS ORDERED: NITROGLYCERIN SL 0.4 MG/TAB TAB SL PRN (21:37)
[2021-01-08] MEDS ORDERED: ONDANSETRON INJ 2 MG/ML 2 ML VIAL IV PRN (21:37)
[2021-01-08] MEDS ORDERED: CYCLOBENZAPRINE HCL 10 MG TAB PO PRN (21:59)
[2021-01-08] MEDS ORDERED: GLUCAGON FOR INJ 1 MG VIAL SQ PRN (22:16)
[2021-01-08] MEDS ORDERED: DEXTROSE 50% 50 ML SYRINGE IV PRN (22:16)
[2021-01-08] MEDS ORDERED: CARBOHYDRATES FOR HYPOGLYCEMIA PO PRN (22:16)
[2021-01-08] MEDS ORDERED: GLUCOSE 40% GEL 15 GM TUBE PO PRN (22:16)
[2021-01-08] MEDS ORDERED: GLUCOSE 10 TAB/TUBE PO PRN (22:16)
[2021-01-08] MEDS: HEPARIN SOD 5,000 UNIT/0.5 ML VIAL SQ SCH (22:40)
[2021-01-08] MEDS: INSULIN ASPART 100 UNITS/ML 3 ML PEN SC SCH (22:52)
[2021-01-08] MEDS: GLIMEPIRIDE 2 MG TAB PO SCH (22:55)
[2021-01-09] MEDS ORDERED: Ipratropium HFA Inhaler (Combivent Respimat P&T Subs) INH PRN (03:23)
[2021-01-09] MEDS ORDERED: Albuterol HFA 8 GM Inhaler (Combivent Respimat P&T Subs) INH PRN (03:23)
[2021-01-09] MEDS ORDERED: EPINEPHrine INJ 1 MG/ML AMP IM PRN (03:25)
[2021-01-09] MEDS: HEPARIN SOD 5,000 UNIT/0.5 ML VIAL SQ SCH ×3 (06:30→21:11)
[2021-01-09] MEDS ORDERED: INSULIN ASPART 100 UNITS/ML 3 ML PEN SC SCH (07:30)
[2021-01-09 07:46] LABS: Estimated Average Glucose 209 mg/dl; Hemoglobin A1C 8.9 % (4.5-5.6)
[2021-01-09 08:01] LABS: BUN Creatinine Ratio 25.4 (10-20); Calcium 8.8 mg/dl (8.5-10.1); Creatinine Clr Calc Pharmacy 82.1 ml/min; Est GFR (African American) 83.9 ml/min; Est GFR (Non-African American) 72.4 ml/min; Potassium 3.8 mmol/L (3.5-5.1)
[2021-01-09] MEDS: FUROSEMIDE 20 MG TAB PO SCH (08:23)
[2021-01-09] MEDS: PANTOprazole 40 MG TAB PO SCH (08:24)
[2021-01-09] MEDS: GLIMEPIRIDE 2 MG TAB PO SCH (08:24)
[2021-01-09] MEDS: LOSARTAN POTASSIUM 50 MG TAB PO SCH (08:24)
[2021-01-09] MEDS: LORATADINE 10 MG TAB PO SCH (08:24)
[2021-01-09] MEDS: ASPIRIN 81 MG ECTAB PO SCH (08:25)
[2021-01-09] MEDS: IPRATROPIUM BROMIDE NASAL SPRAY 0.06% 15ML SCH (08:26)
[2021-01-09] MEDS: INSULIN ASPART 100 UNITS/ML 3 ML PEN SC SCH ×4 (08:32→21:17)
[2021-01-09] MEDS ORDERED: ASPIRIN 81 MG ECTAB PO SCH (09:00)
[2021-01-09] MEDS: INSULIN GLARGINE SOLOSTAR 100 UNITS/ML 3 ML PEN SC SCH (10:43)
--- NOTE | 2021-01-09 10:46 | XCELERA ---
[id number] [id number]
--- NOTE | 2021-01-09 11:50 | Cardiology Consultation ---
Date of Consultation January 09, 2021 Assessment & Plan (1) Chest pain: (2) CAD (coronary artery disease): (3) Dyspnea on exertion: (4) Hyperlipidemia: (5) Hypertension: ASSESSMENT/PLAN: 1. Chest pain: Has multiple risk factors for CAD and has documented moderate nonobstructive CAD in 2019. Her symptoms have some typical components but also atypical in the sense that she is having rest pain and pain that can last for more than 1 hour with negative troponin levels and unremarkable echo. Recommend noninvasive ischemic evaluation in the form of dobutamine stress echo. Considered myocardial perfusion study given her hyperdynamic state at rest but given her asthma history, ultimately chose dobutamine as the pharmacologic agent. She states that she would be unable to walk on a treadmill. Repeat ECG now. 2. CAD: Continue aspirin 81 mg daily. Chest pain as above. Start diltiazem 120 mg daily given her hyperdynamic LV systolic function and to see if it offers any benefit. Her symptoms are atypical for ischemic heart disease as the etiology given prolonged episodes and negative troponin levels. Recommend high- intensity statin therapy. Start atorvastatin 40 mg daily. Beta-marycruz not ordered given asthma history. Stress echo as above. 3. Dyspnea with exertion: Had significant dyspnea with exertion in 2019 with cardiac catheterization as noted. Continues to have dyspnea with exertion. Stress echo as noted. Otherwise, would defer noncardiac evaluation to primary service. 4. Dyslipidemia: High-intensity statin therapy recommended and ordered at this time. 5. Hypertension: Blood pressure reasonably controlled. Adding calcium channel marycruz as noted above. 6. Disposition: Patient care communicated with Dr. Azul of the primary hospitalist service. Please call with any other questions or concerns. Today's visit was 45 minutes in duration, with greater than 50% of that time spent [id number] including counseling patient, coordinating care, reviewing cardiac catheterization imaging, reviewing other studies/chart. Thank you for allowing me to participate in the care of your patient. Please call for any other questions or concerns. Sincerely, Alex Pichardo M.D. History of Present Illness Reason for Consultation: Exertional chest pain Requesting Physician: Dr. Alegria Attending Physician: Camille Azul MD History of Present Illness Mrs. Flood is a 65-year-old female with history significant for nonobstructive CAD, eosinophilic asthma, dyslipidemia, hypertension, sleep apnea on CPAP, and insulin-dependent diabetes. She has been seen in the past by Dr. Skaggs for cardiology consultation. She was hospitalized in January of 2019 with dyspnea with exertion and chest discomfort. She was seen by Dr. Skaggs in cardiology consultation and eventually underwent catheterization on 02/08/2019 which demonstrated proximal LAD 50%, but no obstructive CAD. Over the past 3 weeks or more, she has had progressively worsening left-sided chest pressure. It occurs with any exertion, even taking a shower and has been occurring at rest as she currently has chest discomfort during our visit. The chest discomfort tends to improve with resting or lying supine. She took nitroglycerin last night and the pain improved within 20 seconds and then eventually resolved approximately 40 minutes later. Chest discomfort lasts anywhere from 20 minutes up to 2 hours in duration. There is associated shortness of breath, diaphoresis, nausea, and sometimes left neck/left arm symptoms. She states that no one has been able to help figure out what is causing her symptoms and she appears frustrated by this. She stated that she might as well stay at home and . She admits that she has fallen 3 times in the past year. Each occurrence was due to mechanical causes, such as stepping in a hole, tripping on a curb, and her left knee gave out on 1 such occasion. When she falls, she tends to land on her knees and her hands and she wonders if she may have injured her left shoulder/neck/chest area. She has chronic but stable swelling in her lower extremities for which she takes a diuretic. She has not had any recent syncope, near-syncope, palpitations, fevers, or bleeding such as melena, hematochezia, or hematuria. While laying in her hospital bed, she has experienced left-sided chest pressure this morning for the past hour. There is no associated shortness of breath. She admits that if she turns in bed, the pain occurs. She chronically sleeps with her head elevated stating that she would have a panic attack if she did not do this. She uses CPAP and supplemental oxygen at home. She has performed a Google search at home including her symptoms and states that it indicated that she may have heart disease or "eosinophilic myalgia syndrome." She questioned if her symptoms could be related to her eosinophilic asthma by some other eosinophilic process. Review of systems: As above. Review of systems otherwise negative/unremarkable. Family history: Father from [place] at the age of 61. Social history: She denies tobacco, alcohol, or drug abuse. She lives at home with her . She has an adopted son. She was unaccompanied in her hospital room. Allergies Allergy/AdvReac Type Severity Reaction Status Date / Time metformin Allergy Severe STOMACH Verified 01/07/21 12:52 CRAMPS DIARRHEA amoxicillin [From Augmentin] Allergy Intermediate ITCHING Verified 01/07/21 12:52 clavulanic acid Allergy Intermediate ITCHING Verified 01/07/21 12:52 [From Augmentin] dulaglutide [From Trulicity] Allergy Intermediate FEELS SICK Verified 01/07/21 12:52 ALL OVER lisinopril Allergy Mild SINUS Verified 01/07/21 12:52 SWELLING, COUGH cetirizine [From Zyrtec] AdvReac Intermediate Dizziness Verified 01/07/21 12:52 diphenhydramine AdvReac Intermediate HYPERACTIVE Verified 01/07/21 12:52 olmesartan AdvReac Mild pt reports Verified 01/07/21 12:52 nonstop coughing after taking (3 years ago) DAMP COLDNESS ENVIRONMENT Allergy Intermediate SYNCOPAL Uncoded 01/07/21 12:52 EPISODE Home Medications Medication Instructions Recorded Confirmed Type epinephrine 0.3 mg IM Q3H PRN 03/26/19 01/08/21 History aspirin 81 mg tablet,delayed 81 mg PO QAM tab 04/30/19 01/08/21 History release guaifenesin 600 mg tablet, 600 mg PO BID PRN 04/30/19 01/08/21 History extended release 12 hr desloratadine 5 mg tablet 5 mg PO QAM #30 tab 07/05/19 01/08/21 Rx budesonide 0.5 mg/2 mL suspension 2 ml INH USEASDIRECTD PRN ml 08/18/19 01/08/21 History for nebulization triamcinolone acetonide 0.1 % 1 appln TOP USEASDIRECTD PRN gm 08/18/19 01/08/21 History topical cream ipratropium 0.5 mg-albuterol 3 mg 3 ml INH Q4H PRN #540 ml 06/24/20 01/08/21 Rx (2.5 mg base)/3 mL nebulization soln clotrimazole [Antifungal 1 appln TOP BID PRN 08/27/20 01/08/21 History (clotrimazole)] furosemide 20 mg PO QAM 08/27/20 01/08/21 History glimepiride 4 mg PO BID 08/27/20 01/08/21 History cyclobenzaprine 10 mg tablet 10 mg PO TID PRN #60 tab 09/03/20 01/08/21 Rx insulin lispro 100 unit/mL See Rx Instructions SUBCUT 09/03/20 01/08/21 Rx subcutaneous solution .COMPLEX #10 ml dupilumab 300 mg/2 mL subcutaneous See Rx Instructions .ROUTE 10/09/20 01/08/21 Rx syringe .COMPLEX #2 ml azelastine 137 mcg (0.1 %) nasal 2 spray INTNAS DAILY #30 ml 11/04/20 01/08/21 Rx spray aerosol ipratropium bromide 42 mcg (0.06 2 spray INTRANASAL DAILY #15 ml 11/04/20 01/08/21 Rx %) nasal spray omeprazole 40 mg capsule,delayed 40 mg PO DAILY cap 11/04/20 01/08/21 History release albuterol sulfate 90 mcg/actuation 1 - 2 puff INHALATION Q6H PRN #18 11/24/20 01/08/21 Rx aerosol inhaler gm chlorpheniramine maleate 4 mg 4 mg PO Q6H PRN #40 tab 11/24/20 01/08/21 Rx tablet ipratropium 20 mcg-albuterol 100 1 puff INHALATION QID PRN #4 gm 11/24/20 01/08/21 Rx mcg/actuation mist for inhalation pseudoephedrine HCl 120 mg 120 mg PO Q12H #40 tab 11/24/20 01/08/21 Rx tablet,extended release insulin human U-100 NPH-regulr See Rx Instructions SQ BID #30 ml 01/07/21 01/08/21 Rx 70-30 mix 100 unit/mL subcutaneous susp losartan 50 mg PO DAILY 01/08/21 01/08/21 History Patient History Medical History Abnormal CT scan of lung Diabetes mellitus, type 2 IDDM Diverticular disease Fatigue GERD (gastroesophageal reflux disease) occasional Hiatal hernia Left knee pain Morbid obesity Seizure seizures as a child until age 6- no seizures since/no anticonvulsants Surgical History H/O laparoscopy History of bronchoscopy History of cardiac cath 02/08/19= NO STENTS History of colonoscopy History of esophagogastroduodenoscopy (EGD) History of repair of hiatal hernia (07/11/19) Laparoscopic Cholecystectomy, Laparoscopic Hiatal Hernia Repair Dr. Borjas 07/11/19 S/P laparoscopic cholecystectomy Laparoscopic Cholecystectomy, Laparoscopic Hiatal Hernia Repair Dr. Borjas 07/11/19 Family History Father Myocardial infarction Cardiac disorder Lung disease Mother Ovarian cancer Stroke Family history of diabetes mellitus Gallbladder disease Hypertension Sister Stroke Family history of diabetes mellitus Gallbladder disease Cancer Pancreatic cancer Family/Other Asthma Coronary heart disease Other Family history non-contributory Denies family history of Prostate cancer Breast cancer Colorectal cancer Social History Smoking Status: Never smoker Second Hand Exposure: No; Do You Dip or Chew Tobacco: No; Tobacco Cessation Education Requested by Patient: No Hx Alcohol Use: No Hx Substance Use: No Preferred Language: [place] Communication Ability: Effective Manager Fine Required: No Beliefs That Will Affect Care: None marital status: Current Living Situation: Spouse current occupational status: unemployed Other Information That Helps Us Care for You: No Feels Safe at Home: Yes Safety Concerns: Feels Safe At This Time Dental Care, Regularly: Yes Seatbelt Use: always Assistive Devices: CPAP Physical Exam Physical Exam: Gen.: No acute distress. Alert and oriented. HEENT: Anicteric sclera. Neck: No JVD. No bruits. Normal carotid upstrokes bilaterally. Cardiac: PMI was nonpalpable. No ventricular heave. Regular. Normal S1-S2. No murmurs, rubs, or gallops. Pulmonary: Clear to auscultation bilaterally without wheezes, rales, or rhonchi. Abdomen: Soft, nontender, nondistended, with normoactive bowel sounds. No bruits noted. Extremities: 2+ radial pulses bilaterally. 2+ posterior tibialis pulses fernie aterally. No significant pitting edema or cyanosis. No palpable cords. Psychiatric: Affect appears appropriate. Chest: Tender to palpation left chest but different than her pressure that she describes in HPI. Results & Data ([facility]) Vital Signs (Past 12 Hours) Vital Signs Temp Pulse Pulse Resp BP Pulse Ox 01/09/21 11:28 36.7 C 98 H 20 126/73 93 01/09/21 07:40 36.5 C 88 20 127/71 96 01/09/21 07:21 92 H 01/09/21 04:09 36.6 C 91 H 20 133/73 97 Laboratory Results Laboratory Results - last 24 hr 01/08/21 01/08/21 01/08/21 16:10 16:10 16:20 WBC 10.66 RBC 4.90 Hgb 14.4 Hct 41.9 MCV 85.5 MCH 29.4 MCHC 34.4 RDW Std Deviation 41.2 RDW Coeff of Carolyn 13.2 Plt Count 325 MPV 11.2 H Immature Gran % (Auto) 0.2 Neut % (Auto) 60.3 Lymph % (Auto) 26.7 [place] % (Auto) 7.1 Eos % (Auto) 4.6 Baso % (Auto) 1.1 Neut # (Auto) 6.42 Lymph # (Auto) 2.85 [place] # (Auto) 0.76 H Eos # (Auto) 0.49 Baso # (Auto) 0.12 Immature Gran # (Auto) 0.02 PT Cancelled INR Cancelled APTT Cancelled PTT Ratio Cancelled D-Dimer Sodium 139 Potassium 3.9 Chloride 108 H Carbon Dioxide 25 Anion Gap 6.0 BUN 16 Creatinine 1.25 H Est Cr Clr Drug Dosing Not Reportable Est GFR ( Amer) 52.6 Est GFR (Non-Af Amer) 45.4 BUN/Creatinine Ratio 12.8 Glucose 191 H POC Glucose Estimat Average Glucose Hemoglobin A1c Calcium 8.8 Total Bilirubin 0.4 AST 32 ALT 30 Alkaline Phosphatase 149 H Troponin I < 0.015 Total Protein 7.7 Albumin 3.4 Globulin 4.3 H Albumin/Globulin Ratio 0.8 L Lipase 59 L COVID-19 Eval Order SARS-CoV-2 (PCR) 01/08/21 01/08/21 01/08/21 16:58 16:58 17:06 WBC RBC Hgb Hct MCV MCH MCHC RDW Std Deviation RDW Coeff of Carolyn Plt Count MPV Immature Gran % (Auto) Neut % (Auto) Lymph % (Auto) [place] % (Auto) Eos % (Auto) Baso % (Auto) Neut # (Auto) Lymph # (Auto) [place] # (Auto) Eos # (Auto) Baso # (Auto) Immature Gran # (Auto) PT 9.7 INR 1.0 APTT 25.0 PTT Ratio 1.0 D-Dimer 330 Sodium Potassium Chloride Carbon Dioxide Anion Gap BUN Creatinine Est Cr Clr Drug Dosing Est GFR ( Amer) Est GFR (Non-Af Amer) BUN/Creatinine Ratio Glucose POC Glucose Estimat Average Glucose Hemoglobin A1c Calcium Total Bilirubin AST ALT Alkaline Phosphatase Troponin I Total Protein Albumin Globulin Albumin/Globulin Ratio Lipase COVID-19 Eval Order Covid19 at [facility] SARS-CoV-2 (PCR) NEGATIVE 01/08/21 01/08/21 01/09/21 21:16 21:49 07:18 WBC RBC Hgb Hct MCV MCH MCHC RDW Std Deviation RDW Coeff of Carolyn Plt Count MPV Immature Gran % (Auto) Neut % (Auto) Lymph % (Auto) [place] % (Auto) Eos % (Auto) Baso % (Auto) Neut # (Auto) Lymph # (Auto) [place] # (Auto) Eos # (Auto) Baso # (Auto) Immature Gran # (Auto) PT INR APTT PTT Ratio D-Dimer Sodium 137 Potassium 3.8 Chloride 107 Carbon Dioxide 25 Anion Gap 5.0 BUN 22 H Creatinine 0.85 D Est Cr Clr Drug Dosing 82.1 Est GFR ( Amer) 83.9 Est GFR (Non-Af Amer) 72.4 BUN/Creatinine Ratio 25.4 H Glucose 197 H POC Glucose 133 H Estimat Average Glucose Hemoglobin A1c Calcium 8.8 Total Bilirubin AST ALT Alkaline Phosphatase Troponin I < 0.015 Total Protein Albumin Globulin Albumin/Globulin Ratio Lipase COVID-19 Eval Order SARS-CoV-2 (PCR) 01/09/21 01/09/21 01/09/21 07:18 07:28 09:52 WBC RBC Hgb Hct MCV MCH MCHC RDW Std Deviation RDW Coeff of Carolyn Plt Count MPV Immature Gran % (Auto) Neut % (Auto) Lymph % (Auto) [place] % (Auto) Eos % (Auto) Baso % (Auto) Neut # (Auto) Lymph # (Auto) [place] # (Auto) Eos # (Auto) Baso # (Auto) Immature Gran # (Auto) PT INR APTT PTT Ratio D-Dimer Sodium Potassium Chloride Carbon Dioxide Anion Gap BUN Creatinine Est Cr Clr Drug Dosing Est GFR ( Amer) Est GFR (Non-Af Amer) BUN/Creatinine Ratio Glucose POC Glucose 189 H Estimat Average Glucose 209 Hemoglobin A1c 8.9 H Calcium Total Bilirubin AST ALT Alkaline Phosphatase Troponin I < 0.015 Total Protein Albumin Globulin Albumin/Globulin Ratio Lipase COVID-19 Eval Order SARS-CoV-2 (PCR) 01/09/21 11:38 WBC RBC Hgb Hct MCV MCH MCHC RDW Std Deviation RDW Coeff of Carolyn Plt Count MPV Immature Gran % (Auto) Neut % (Auto) Lymph % (Auto) [place] % (Auto) Eos % (Auto) Baso % (Auto) Neut # (Auto) Lymph # (Auto) [place] # (Auto) Eos # (Auto) Baso # (Auto) Immature Gran # (Auto) PT INR APTT PTT Ratio D-Dimer Sodium Potassium Chloride Carbon Dioxide Anion Gap BUN Creatinine Est Cr Clr Drug Dosing Est GFR ( Amer) Est GFR (Non-Af Amer) BUN/Creatinine Ratio Glucose POC Glucose 192 H Estimat Average Glucose Hemoglobin A1c Calcium Total Bilirubin AST ALT Alkaline Phosphatase Troponin I Total Protein Albumin Globulin Albumin/Globulin Ratio Lipase COVID-19 Eval Order SARS-CoV-2 (PCR) Diagnostic Findings Cardiac catheterization report from January of 2019 personally reviewed: Nonobstructive CAD within the proximal LAD. Telemetry personally reviewed: Sinus rhythm. No arrhythmia. Echo 01/09/2021: Normal LV size with hyperdynamic systolic function. EF > 70%. Normal wall motion. No LVH. No significant valvular abnormalities. ECG 01/08/2021 at 4:12 p.m.: Sinus tachycardia 111 beats per minute. Nonspecific ST abnormality Chest x-ray 01/08/2021: No acute process per Radiology. Medications Administered Current Inpatient Medications Acetaminophen (Acetaminophen 325 Mg Tab) 650 mg PO Q4H PRN PRN Reason: Pain or Fever Stop: 02/07/21 21:36 Al Hydrox/Mg Hydrox/Simethicone (Aluminum/Magnesium Susp 30 Ml Udc) 15 ml PO Q4H PRN PRN Reason: Dyspepsia Stop: 02/07/21 21:36 Albuterol (Albut/Ipratrop 3mg/0.5mg Neb 3 Ml Vial) 3 ml INH Q4H PRN PRN Reason: SHORT OF BREATH Stop: 02/07/21 21:36 Albuterol (Albuterol Hfa 8 Gm Inhaler (Combivent Respimat P&T Subs)) 1 puffs INH QIDR PRN PRN Reason: Wheezing Stop: 02/08/21 03:22 Aspirin (Aspirin 81 Mg Ectab) 81 mg PO QAM [facility] Stop: 02/08/21 08:59 Last Admin: 01/09/21 08:25 Dose: 81 mg Documented by: Budesonide (Budesonide 0.5 Mg/2 Ml Vial (Pulmicort)) 0.5 mg INH DAILY PRN PRN Reason: SHORT OF BREATH Stop: 02/07/21 21:36 Clotrimazole (Clotrimazole 1% Cr 15 Gm Tube) 1 appln TOP BID PRN PRN Reason: break outs Stop: 02/07/21 21:36 Cyclobenzaprine HCl (Cyclobenzaprine Hcl 10 Mg Tab) 5 - 10 mg PO TID PRN PRN Reason: muscle spasm Stop: 02/07/21 21:58 Dextrose (Dextrose 50% 50 Ml Syringe) 25 - 50 ml IV UD PRN; Protocol PRN Reason: Hypoglycemia Protocol Stop: 02/07/21 22:15 Epinephrine HCl (Epinephrine Inj 1 Mg/Ml Amp) 0.3 mg IM Q3H PRN PRN Reason: Allergic Reaction Stop: 02/08/21 03:24 Furosemide (Furosemide 20 Mg Tab) 20 mg PO QAM [facility] Stop: 02/08/21 08:59 Last Admin: 01/09/21 08:23 Dose: 20 mg Documented by: Glucagon (Glucagon For Inj 1 Mg Vial) 1 mg SQ UD PRN; Protocol PRN Reason: Hypoglycemia Protocol Stop: 02/07/21 22:15 Glucose (Glucose 10 Tabs/Tube) 4 - 8 tabs PO UD PRN; Protocol PRN Reason: Hypoglycemia Protocol Stop: 02/07/21 22:15 Glucose (Glucose 40% Gel 15 Gm Tube) 15 - 30 gm PO UD PRN; Protocol PRN Reason: Hypoglycemia Protocol Stop: 02/07/21 22:15 Guaifenesin (Guaifenesin 600 Mg Tabcr) 600 mg PO BID PRN PRN Reason: Cough Stop: 02/07/21 21:36 Last Admin: 01/09/21 08:23 Dose: 600 mg Documented by: Heparin Sodium (Porcine) (Heparin Sod 5,000 Unit/0.5 Ml Vial) 7,500 units SQ Q8 [facility] Stop: 02/07/21 21:59 Last Admin: 01/09/21 06:30 Dose: 7,500 units Documented by: Insulin Aspart (Insulin Aspart 100 Units/Ml 3 Ml Pen) 0 units SC ACHS [facility] Stop: 02/07/21 22:29 Last Admin: 01/09/21 08:32 Dose: 8 units Documented by: Insulin Glargine (Insulin Glargine Solostar 100 Units/Ml 3 Ml Pen) 8 units SC QAM [facility] Stop: 02/08/21 09:44 Last Admin: 01/09/21 10:43 Dose: 8 units Documented by: Ipratropium [place] (Ipratropium [place] Nasal [place] 0.06% 15ml) 2 sprays NA DAILY [facility] Stop: 02/08/21 08:59 Last Admin: 01/09/21 08:26 Dose: 2 sprays Documented by: Ipratropium [place] (Ipratropium Hfa Inhaler (Combivent Respimat P&T Subs)) 1 puffs INH QIDR PRN PRN Reason: Wheezing Stop: 02/08/21 03:22 Loratadine (Loratadine 10 Mg Tab) 5 mg PO QAM [facility] Stop: 02/08/21 08:59 Last Admin: 01/09/21 08:24 Dose: 5 mg Documented by: Losartan Potassium (Losartan Potassium 50 Mg Tab) 50 mg PO DAILY [facility] Stop: 02/08/21 08:59 Last Admin: 01/09/21 08:24 Dose: 50 mg Documented by: Miscellaneous (Azelastine: Order Awaiting Action) 1 ea N/A QS [facility] Stop: 02/08/21 07:59 Last Admin: 01/09/21 08:27 Dose: Not Given Documented by: Miscellaneous (Chlorpheniramine: Order Awaiting Action) 1 ea N/A QS [facility] Stop: 02/08/21 07:59 Last Admin: 01/09/21 08:27 Dose: Not Given Documented by: Miscellaneous (Carbohydrates For Hypoglycemia ) 15 - 30 gm PO UD PRN PRN Reason: Hypoglycemia Protocol Stop: 02/07/21 22:15 Morphine Sulfate (Morphine Sulfate 2 Mg/Ml [place]) 2 mg IV Q30M PRN PRN Reason: Chest Pain Stop: 01/22/21 21:36 Nitroglycerin (Nitroglycerin Sl 0.4 Mg/Tab Tab) 0.4 mg SL UD PRN PRN Reason: Chest Pain Stop: 02/07/21 21:36 Ondansetron HCl (Ondansetron Inj 2 Mg/Ml 2 Ml Vial) 4 mg IV Q6H PRN PRN Reason: Nausea Stop: 02/07/21 21:36 Pantoprazole Sodium (Pantoprazole 40 Mg Tab) 40 mg PO DAILY SUJIT Stop: 02/08/21 08:59 Last Admin: 01/09/21 08:24 Dose: 40 mg Documented by: Triamcinolone Acetonide (Triamcinolone Acet 0.1% Cr 15 Gm Tube) 1 appln TOP DAILY PRN PRN Reason: Skin Irritation Stop: 02/07/21 21:36 PG Care Time/CCT Total # of Minutes Spent Total Time Spent with Patient: Total time spent is greater than 50% in coordination of care (as documented) at patient's floor/unit and/or counseling patient: Coding Level of Care Code 29321 Office/Outpt Visit, Est Diagnoses Chest pain R07.9 CAD (coronary artery disease) I25.10 Dyspnea on exertion R06.00 Hyperlipidemia E78.5 Hypertension I10
[2021-01-09] MEDS: dilTIAZem HCL 120 MG CAPCR PO SCH (15:33)
--- NOTE | 2021-01-09 17:09 | Hospitalist Progress Note ---
Date of Service January 09, 2021 Assessment & Plan (1) Chest pain: Patient does have chest pain with some radiation to her neck. Patient has confirmed reproducibility with minor exertion or even bathing with associated symptoms of nausea and diaphoresis. She has shortness of breath but she has significant pulmonary disease. Patient underwent cardiac catheterization by Dr. 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 Circumflex was nondominant ramus intermedius was without evidence of disease right coronary with luminal irregularities seen Troponins serially negative, ECHO normal Discussed with Cardiology-while atypical , does have risk factors for worsening CAD and will have stress test on Monday arranged by Cardiology -continue aspirin and remain on telemetry -could be GI related as well--> has a h/o hiatal hernia repair recently and perhaps this pain is related? Will consult GI to see about EGD while here -continue Protonix (2) Severe persistent chronic asthma without complication: Patient has a history of eosinophilic asthma -continue Combivent -receives injections of dupilumab which had lessened her hospital stays (3) MADAY on CPAP: Compliance test is good she uses 2 L additional at night with the CPAP arrange for 11.5 to 20 cm of water (4) Diabetes mellitus, type 2: add on Lantus, continue Novolog holding home 70/30 uncontrollled with HgbA1C 8.9% discussed weigh tloss (5) Eosinophilic asthma: as above (6) CAD (coronary artery disease): nonobstructive, as above continue ASA, start statin adding on diltiazem today as per Cardio given h/o significant asthma issues- can't give BB (7) Hypertension: BPs elevated adding on diltiazem as per Cardiology (8) Hyperlipidemia: has known CAD add on statin check LFTs, lipids in 6 weeks (9) Super-super obese: BMI 54.3 Discussed referral to Obesity Management. Will give names of Dr. Mercedes Boss and Dr. Jean on discharge for referral (10) GERD (gastroesophageal reflux disease): continue PPI consult GI (11) DVT prophylaxis: Heparin subcu will be used for DVT prevention Dispo-stya until Monday for stress, ? EGD Admission and Anticipated Discharge Date Admission Date: January 08, 2021 Subjective Pt continues to have chest pains on left side off nad on. Reports after taking the diltiazem today prescribed by Cardiology, she had a similar CP episode that was more intense than usual and went to her left side of her chin. ECG performed at that time was unchanged. She is frustrated about her multiple somatic complaints over the years and wants an all-encompassing dfiagnosis. She has c/o feeling of burning heat at times up and down her spine, tingling in certain finger tips, pains in her legs and thighs, dyspnea not related to her asthma, various myalgias all over, headaches for weeks at a time but none currently.She also gets waves of sweating and flushing with any exertion. All of these symptoms ongoing for months- years. She had a hiatal hernia repair and cholecystectomy with Dr. Borjas 2 years ago. Reports frequent indigestion as well. Tele with NSR-ST rates 80-100 Discussed her care with Cardiology. While stable for dc with outpt stress, she wishes to stay until Monday for stress. We discussed weight loss and she reports no matter what diet she tries, she can't lose weight. She is not able to physically exercise. SHe is interested in a referral to obesity management physician Review of Systems Review of Systems: All systems reviewed & are unremarkable except as noted in HPI & below Physical Exam Constitutional: WD/WN, vitals as above + morbidly obese Eyes: PERRL, conjunctivae normal, anicteric sclerae ENMT: external ear and nose normal, oropharynx normal Neck: trachea midline, no thyromegaly Respiratory: normal respiratory effort, lungs clear to auscultation Cardiovascular: RRR, no murmur, no edema Chest (Breasts): Chest: normal inspection of chest Gastrointestinal (Abdomen): normal bowel sounds, soft, nontender, no hepatosplenomegaly Musculoskeletal: Extremities: extremities normal to inspection; no cyanosis and no clubbing Skin: no rashes, warm and dry Neurologic: moves all extremities and awake; no focal motor deficits Psychiatric: A+Ox3, euthymic affect Lymphatic: no lymphedema Results & Data Results & Data ([facility]) Vital Signs (Past 12 Hours) Vital Signs Temp Pulse Pulse Resp BP Pulse Ox 01/09/21 15:37 36.8 C 88 20 124/77 95 01/09/21 14:52 93 H 01/09/21 11:28 36.7 C 98 H 20 126/73 93 01/09/21 07:40 36.5 C 88 20 127/71 96 01/09/21 07:21 92 H Laboratory Results labs reviewed PG Care Time/CCT Total # of Minutes Spent Total Time Spent with Patient: Total time spent is greater than 50% in coordination of care (as documented) at patient's floor/unit and/or counseling patient: Coding Level of Care Code 70580 Subseq Hosp Care Lvl 3 Diagnoses Chest pain R07.9 Severe persistent chronic asthma without complication J45.50 MADAY on CPAP G47.33; Z99.89 Diabetes mellitus, type 2 E11.9 Eosinophilic asthma J82 CAD (coronary artery disease) I25.10 Hypertension I10 Hyperlipidemia E78.5 Super-super obese E66.01 GERD (gastroesophageal reflux disease) K21.9 Esophagitis presence: without esophagitis DVT prophylaxis Z29.9 (1) GERD (gastroesophageal reflux disease) Esophagitis presence: without esophagitis Qualified Code(s): K21.9 - Gastro- esophageal reflux disease without esophagitis
[2021-01-09] MEDS: ATORVASTATIN 40 MG TAB PO SCH (21:10)
--- NOTE | 2021-01-09 23:56 | Electrocardiogram Report ---
Test Reason : Blood Pressure : / mmHG Vent. Rate : 111 BPM Atrial Rate : 111 BPM P-R Int : 136 ms QRS Dur : 078 ms QT Int : 336 ms P-R-T Axes : 063 036 059 degrees QTc Int : 456 ms Sinus tachycardia Nonspecific ST abnormality Abnormal ECG When compared with ECG of 05-FEB-2019 14:55, No significant change was found Confirmed by Kalyan Pichardo ([id number]) on 01/09/2021 11:56:04 PM Referred By: REFERRED SELF Confirmed By:Kalyan Pichardo
[2021-01-10] MEDS: HEPARIN SOD 5,000 UNIT/0.5 ML VIAL SQ SCH ×2 (05:15→08:17)
--- NOTE | 2021-01-10 06:31 | Electrocardiogram Report ---
Test Reason : Blood Pressure : / mmHG Vent. Rate : 093 BPM Atrial Rate : 093 BPM P-R Int : 158 ms QRS Dur : 064 ms QT Int : 362 ms P-R-T Axes : 074 046 070 degrees QTc Int : 450 ms Normal sinus rhythm Normal ECG When compared with ECG of 08-JAN-2021 16:12, No significant change was found Confirmed by Kalyan Pichardo ([id number]) on 01/10/2021 6:31:04 AM Referred By: REFERRED SELF Confirmed By:Kalyan Pichardo
[2021-01-10 08:09] LABS: Hematocrit (blood only) 39.1 % (37-47); Hemoglobin 13.3 g/dL (12.0-16.0); Mean Corpuscular Hemoglobin 28.6 pg (25-34); Mean Corpuscular Volume 84.1 fL (80-100); Mean Platelet Volume 10.6 fL (7.4-10.4); Platelet Count 281 K/uL (130-400); RDW Coefficient of Variation 13.2 % (11.5-14.5); RDW Standard Deviation 39.5 fL (36.4-46.3); Red Blood Count 4.65 M/uL (4.2-5.4); White Blood Count 8.99 K/uL (4.8-10.8)
[2021-01-10] MEDS: dilTIAZem HCL 120 MG CAPCR PO SCH (08:11)
[2021-01-10] MEDS: FUROSEMIDE 20 MG TAB PO SCH (08:12)
[2021-01-10] MEDS: LOSARTAN POTASSIUM 50 MG TAB PO SCH (08:12)
[2021-01-10] MEDS: LORATADINE 10 MG TAB PO SCH (08:13)
[2021-01-10] MEDS: ASPIRIN 81 MG ECTAB PO SCH (08:15)
[2021-01-10] MEDS: PANTOprazole 40 MG TAB PO SCH (08:15)
[2021-01-10] MEDS: IPRATROPIUM BROMIDE NASAL SPRAY 0.06% 15ML SCH (08:16)
[2021-01-10] MEDS: INSULIN ASPART 100 UNITS/ML 3 ML PEN SC SCH ×4 (08:24→21:02)
[2021-01-10] MEDS: INSULIN GLARGINE SOLOSTAR 100 UNITS/ML 3 ML PEN SC SCH ×2 (08:26→21:04)
[2021-01-10 08:35] LABS: BUN Creatinine Ratio 25.9 (10-20); Calcium 9.2 mg/dl (8.5-10.1); Creatinine Clr Calc Pharmacy 79.3 ml/min; Est GFR (African American) 80.5 ml/min; Est GFR (Non-African American) 69.4 ml/min; Potassium 3.9 mmol/L (3.5-5.1)
[2021-01-10] MEDS ORDERED: INSULIN GLARGINE SOLOSTAR 100 UNITS/ML 3 ML PEN SC STA (10:32)
--- NOTE | 2021-01-10 11:44 | Gastrointestinal Consultation ---
Date of Consultation January 10, 2021 Assessment & Plan (1) Atypical chest pain: (2) GERD (gastroesophageal reflux disease): possibly from uncontrolled GERD, esophagitis. Recs: NPO post midnight EGD tomorrow to further evaluate continue protonix 40 mg daily Thank you for allowing me to participate in the care of this patient History of Present Illness Attending Physician: Camille Azul MD 65 yo female with hx hiatal hernia repair 2 years ago here with atypical chest pain. Pain is pressure like, she also describes heartburn symptoms despite her hernia repair, takes ppi omeprazole at home. labs reviewed, vss. Allergies Allergy/AdvReac Type Severity Reaction Status Date / Time metformin Allergy Severe STOMACH Verified 01/07/21 12:52 CRAMPS DIARRHEA amoxicillin [From Augmentin] Allergy Intermediate ITCHING Verified 01/07/21 12:52 clavulanic acid Allergy Intermediate ITCHING Verified 01/07/21 12:52 [From Augmentin] dulaglutide [From Trulicity] Allergy Intermediate FEELS SICK Verified 01/07/21 12:52 ALL OVER lisinopril Allergy Mild SINUS Verified 01/07/21 12:52 SWELLING, COUGH cetirizine [From Zyrtec] AdvReac Intermediate Dizziness Verified 01/07/21 12:52 diphenhydramine AdvReac Intermediate HYPERACTIVE Verified 01/07/21 12:52 olmesartan AdvReac Mild pt reports Verified 01/07/21 12:52 nonstop coughing after taking (3 years ago) DAMP COLDNESS ENVIRONMENT Allergy Intermediate SYNCOPAL Uncoded 01/07/21 12:52 EPISODE Home Medications Medication Instructions Recorded Confirmed Type epinephrine 0.3 mg IM Q3H PRN 03/26/19 01/08/21 History aspirin 81 mg tablet,delayed 81 mg PO QAM tab 04/30/19 01/08/21 History release guaifenesin 600 mg tablet, 600 mg PO BID PRN 04/30/19 01/08/21 History extended release 12 hr desloratadine 5 mg tablet 5 mg PO QAM #30 tab 07/05/19 01/08/21 Rx budesonide 0.5 mg/2 mL suspension 2 ml INH USEASDIRECTD PRN ml 08/18/19 01/08/21 History for nebulization triamcinolone acetonide 0.1 % 1 appln TOP USEASDIRECTD PRN gm 08/18/19 01/08/21 History topical cream ipratropium 0.5 mg-albuterol 3 mg 3 ml INH Q4H PRN #540 ml 06/24/20 01/08/21 Rx (2.5 mg base)/3 mL nebulization soln clotrimazole [Antifungal 1 appln TOP BID PRN 08/27/20 01/08/21 History (clotrimazole)] furosemide 20 mg PO QAM 08/27/20 01/08/21 History glimepiride 4 mg PO BID 08/27/20 01/08/21 History cyclobenzaprine 10 mg tablet 10 mg PO TID PRN #60 tab 09/03/20 01/08/21 Rx insulin lispro 100 unit/mL See Rx Instructions SUBCUT 09/03/20 01/08/21 Rx subcutaneous solution .COMPLEX #10 ml dupilumab 300 mg/2 mL subcutaneous See Rx Instructions .ROUTE 10/09/20 01/08/21 Rx syringe .COMPLEX #2 ml azelastine 137 mcg (0.1 %) nasal 2 spray INTNAS DAILY #30 ml 11/04/20 01/08/21 Rx spray aerosol ipratropium bromide 42 mcg (0.06 2 spray INTRANASAL DAILY #15 ml 11/04/20 01/08/21 Rx %) nasal spray omeprazole 40 mg capsule,delayed 40 mg PO DAILY cap 11/04/20 01/08/21 History release albuterol sulfate 90 mcg/actuation 1 - 2 puff INHALATION Q6H PRN #18 11/24/20 01/08/21 Rx aerosol inhaler gm chlorpheniramine maleate 4 mg 4 mg PO Q6H PRN #40 tab 11/24/20 01/08/21 Rx tablet ipratropium 20 mcg-albuterol 100 1 puff INHALATION QID PRN #4 gm 11/24/20 01/08/21 Rx mcg/actuation mist for inhalation pseudoephedrine HCl 120 mg 120 mg PO Q12H #40 tab 11/24/20 01/08/21 Rx tablet,extended release insulin human U-100 NPH-regulr See Rx Instructions SQ BID #30 ml 01/07/21 01/08/21 Rx 70-30 mix 100 unit/mL subcutaneous susp losartan 50 mg PO DAILY 01/08/21 01/08/21 History Patient History Medical History Abnormal CT scan of lung CAD (coronary artery disease) non-obstructive per 01/2019 cardiac cath Diabetes mellitus, type 2 IDDM Diverticular disease Eosinophilic asthma Fatigue GERD (gastroesophageal reflux disease) occasional Hiatal hernia Hyperlipidemia Hypertension Left knee pain Morbid obesity MADAY on CPAP Seizure seizures as a child until age 6- no seizures since/no anticonvulsants Surgical History H/O laparoscopy History of bronchoscopy History of cardiac cath 02/08/19= NO STENTS History of colonoscopy History of esophagogastroduodenoscopy (EGD) History of repair of hiatal hernia (07/11/19) Laparoscopic Cholecystectomy, Laparoscopic Hiatal Hernia Repair Dr. Borjas 07/11/19 S/P laparoscopic cholecystectomy Laparoscopic Cholecystectomy, Laparoscopic Hiatal Hernia Repair Dr. Borjas 07/11/19 Family History Father Myocardial infarction Cardiac disorder Lung disease Mother Ovarian cancer Stroke Family history of diabetes mellitus Gallbladder disease Hypertension Sister Stroke Family history of diabetes mellitus Gallbladder disease Cancer Pancreatic cancer Family/Other Asthma Coronary heart disease Other Family history non-contributory Denies family history of Prostate cancer Breast cancer Colorectal cancer Social History Smoking Status: Never smoker Second Hand Exposure: No; Do You Dip or Chew Tobacco: No; Tobacco Cessation Education Requested by Patient: No Hx Alcohol Use: No Hx Substance Use: No Preferred Language: Lao Communication Ability: Effective Legal Researcher Required: No Beliefs That Will Affect Care: None marital status: Current Living Situation: Spouse current occupational status: unemployed Other Information That Helps Us Care for You: No Feels Safe at Home: Yes Safety Concerns: Feels Safe At This Time Dental Care, Regularly: Yes Seatbelt Use: always Assistive Devices: CPAP Review of Systems Constitutional: no fever, no chills and no weight loss Eyes: as per Subjective / HPI Ear, Nose, Mouth, Throat: as per Subjective / HPI Respiratory: no dyspnea and no dyspnea on exertion Cardiovascular: no chest pain and no palpitations Gastrointestinal: as per Subjective / HPI Musculoskeletal: no joint pain and no swelling Integumentary: no rash and no lesions Neurologic: no numbness and no paresthesia Psychiatric: no depression and no anxiety Endocrine: no fatigue Hematologic / Lymphatic: no easy bleeding and no easy bruising Physical Exam Constitutional: WD/WN, vitals as above Eyes: EOM intact bilaterally Neck: normal visual inspection Respiratory: normal respiratory effort, lungs clear to auscultation Cardiovascular: RRR, no murmur, no edema Gastrointestinal (Abdomen): Inspection/Auscultation: abdomen normal to inspection; abdomen not distended Percussion/Palpation: + abdomen tender (mild diffuse) and abdomen soft; no hepatosplenomegaly Musculoskeletal: Extremities: no cyanosis Gait: normal gait Skin: no rashes, warm and dry Neurologic: moves all extremities Psychiatric: A+Ox3, euthymic affect Results & Data ([facility]) Vital Signs (Past 12 Hours) Vital Signs Temp Pulse Pulse Resp BP Pulse Ox 01/10/21 11:17 36.9 C 76 20 144/79 H 94 01/10/21 07:32 36.4 C L 92 H 20 152/85 H 98 01/10/21 06:56 95 H 01/10/21 03:50 36.4 C L 95 H 20 155/79 H 98 PG Care Time/CCT Total # of Minutes Spent Total Time Spent with Patient: Total time spent is greater than 50% in coordination of care (as documented) at patient's floor/unit and/or counseling patient: Coding Level of Care Code 12137 Office/OBS Consult Lvl 4 Diagnoses Atypical chest pain R07.89 GERD (gastroesophageal reflux disease) K21.9 Esophagitis presence: without esophagitis (1) GERD (gastroesophageal reflux disease) Esophagitis presence: without esophagitis Qualified Code(s): K21.9 - Gastro- esophageal reflux disease without esophagitis
[2021-01-10] MEDS ORDERED: SODIUM CHLORIDE 0.65% NA SOLN 45 ML (OCEAN) PRN (17:31)
--- NOTE | 2021-01-10 17:31 | Hospitalist Progress Note ---
Date of Service January 10, 2021 Assessment & Plan (1) Chest pain: Patient does have chest pain with some radiation to her neck. Patient has confirmed reproducibility with minor exertion or even bathing with associated symptoms of nausea and diaphoresis. She has shortness of breath but she has significant pulmonary disease. Patient underwent cardiac catheterization by Dr. 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 Circumflex was nondominant ramus intermedius was without evidence of disease right coronary with luminal irregularities seen Troponins serially negative, ECHO normal Chest pain is ongoing intermittently throughout the day on 01/10, comes on at rest and goes away on its own-again, very atypical Discussed with Cardiology-while atypical , does have risk factors for worsening CAD and will have dobutamine stress test on Monday arranged by Cardiology -continue aspirin and remain on telemetry -could be GI related as well--> has a h/o hiatal hernia repair recently and perhaps this pain is related? Appreciate GI consultation-plan for EGD also on Monday -continue Protonix (2) Severe persistent chronic asthma without complication: Patient has a history of eosinophilic asthma No acute issues -continue Combivent -receives injections of dupilumab which had lessened her hospital stays (3) MADAY on CPAP: Compliance test is good she uses 2 L additional at night with the CPAP arrange for 11.5 to 20 cm of water (4) Diabetes mellitus, type 2: With persistent hyperglycemia here -Increase Lantus to 20 units SQ twice daily Tighten down Novolog to correction factor of 12 and carb coverage 1: 4 holding home 70/30 uncontrolled with HgbA1C 8.9% discussed weight loss (5) Eosinophilic asthma: as above (6) CAD (coronary artery disease): nonobstructive, as above continue ASA, start statin added on diltiazem here as per Cardio given h/o significant asthma issues-can't give BB (7) Hypertension: BPs elevated but improved with adding on diltiazem added on diltiazem as per Cardiology (8) Hyperlipidemia: has known CAD added on atorvastatin as per cardiology check LFTs, lipids in 6 weeks (9) Super-super obese: BMI 54.3 Discussed referral to Obesity Management. I provided her the names of Dr. Mercedes Boss and Dr. Jean on discharge for referral for obesity management (10) GERD (gastroesophageal reflux disease): continue PPI consult GI appreciated-plan for EGD on Monday N.p.o. after midnight (11) DVT prophylaxis: Heparin subcu will be used for DVT prevention-we will place on hold this evening for EGD tomorrow Dispo-continued stay through Monday for stress test and EGD, possible discharge to home on Monday after test complete if normal Admission and Anticipated Discharge Date Admission Date: January 08, 2021 Subjective Pt still having the same chest pain on left side off and on throughout the day that goes away on its own. Otherwise is eating/drinking. She is also having some sinus congestion and postnasal drip worse than her usual. Telemetry with normal sinus rhythm, rates in the 70s to 90s Review of Systems Review of Systems: All systems reviewed & are unremarkable except as noted in HPI & below Physical Exam Constitutional: WD/WN, vitals as above + morbidly obese Eyes: + anicteric sclerae Neck: trachea midline, no thyromegaly Respiratory: normal respiratory effort, lungs clear to auscultation Cardiovascular: RRR, no murmur, no edema Chest (Breasts): Chest: normal inspection of chest Gastrointestinal (Abdomen): normal bowel sounds, soft, nontender, no hepatosplenomegaly Musculoskeletal: Extremities: extremities normal to inspection; no cyanosis and no clubbing Skin: no rashes, warm and dry Neurologic: moves all extremities and awake; no focal motor deficits Psychiatric: A+Ox3, euthymic affect Lymphatic: no lymphedema Results & Data Results & Data ([facility]) Vital Signs (Past 12 Hours) Vital Signs Temp Pulse Pulse Resp BP Pulse Ox 01/10/21 15:21 37.0 C 86 20 135/69 97 01/10/21 15:00 89 01/10/21 11:17 36.9 C 76 20 144/79 H 94 01/10/21 07:32 36.4 C L 92 H 20 152/85 H 98 01/10/21 06:56 95 H Laboratory Results 01/10/21 01/10/21 01/10/21 Range/Units 16:26 11:33 07:45 WBC (4.8-10.8) K/uL RBC (4.2-5.4) M/uL Hgb (12.0-16.0) g/dL Hct (37-47) % MCV (80-100) fL MCH (25-34) pg MCHC (32-36) g/dL RDW Std Deviation (36.4-46.3) fL RDW Coeff of Carolyn (11.5-14.5) % Plt Count (130-400) K/uL MPV (7.4-10.4) fL Sodium 136 (136-145) mmol/L Potassium 3.9 (3.5-5.1) mmol/L Chloride 105 (98-107) mmol/L Carbon Dioxide 24 (21-32) mmol/L Anion Gap 8.0 (3-11) BUN 23 H (7-18) mg/dl Creatinine 0.88 (0.6-1.2) mg/dl Est Cr Clr Drug Dosing 79.3 ml/min Est GFR ( Amer) 80.5 ml/min Est GFR (Non-Af Amer) 69.4 ml/min BUN/Creatinine Ratio 25.9 H (10-20) Glucose 236 H (70-99) mg/dl POC Glucose 204 H 228 H (70-99) mg/dl Calcium 9.2 (8.5-10.1) mg/dl 01/10/21 01/10/21 Range/Units 07:45 07:42 WBC 8.99 (4.8-10.8) K/uL RBC 4.65 (4.2-5.4) M/uL Hgb 13.3 (12.0-16.0) g/dL Hct 39.1 (37-47) % MCV 84.1 (80-100) fL MCH 28.6 (25-34) pg MCHC 34.0 (32-36) g/dL RDW Std Deviation 39.5 (36.4-46.3) fL RDW Coeff of Carolyn 13.2 (11.5-14.5) % Plt Count 281 (130-400) K/uL MPV 10.6 H (7.4-10.4) fL Sodium (136-145) mmol/L Potassium (3.5-5.1) mmol/L Chloride (98-107) mmol/L Carbon Dioxide (21-32) mmol/L Anion Gap (3-11) BUN (7-18) mg/dl Creatinine (0.6-1.2) mg/dl Est Cr Clr Drug Dosing ml/min Est GFR ( Amer) ml/min Est GFR (Non-Af Amer) ml/min BUN/Creatinine Ratio (10-20) Glucose (70-99) mg/dl POC Glucose 227 H (70-99) mg/dl Calcium (8.5-10.1) mg/dl PG Care Time/CCT Total # of Minutes Spent Total Time Spent with Patient: Total time spent is greater than 50% in coordination of care (as documented) at patient's floor/unit and/or counseling patient: Coding Level of Care Code 24589 Subseq Hosp Care Lvl 3 Diagnoses Chest pain R07.9 Severe persistent chronic asthma without complication J45.50 MADAY on CPAP G47.33; Z99.89 Diabetes mellitus, type 2 E11.9 Eosinophilic asthma J82 CAD (coronary artery disease) I25.10 Hypertension I10 Hyperlipidemia E78.5 Super-super obese E66.01 GERD (gastroesophageal reflux disease) K21.9 Esophagitis presence: without esophagitis DVT prophylaxis Z29.9 (1) GERD (gastroesophageal reflux disease) Esophagitis presence: without esophagitis Qualified Code(s): K21.9 - Gastro- esophageal reflux disease without esophagitis
[2021-01-10] MEDS: ATORVASTATIN 40 MG TAB PO SCH (21:41)
--- NOTE | 2021-01-10 23:32 | Electrocardiogram Report ---
Test Reason : Blood Pressure : / mmHG Vent. Rate : 092 BPM Atrial Rate : 092 BPM P-R Int : 146 ms QRS Dur : 078 ms QT Int : 370 ms P-R-T Axes : 074 057 069 degrees QTc Int : 457 ms Normal sinus rhythm Normal ECG When compared with ECG of 09-JAN-2021 16:10, No significant change was found Confirmed by Kalyan Pichardo ([id number]) on 01/10/2021 11:31:52 PM Referred By: REFERRED SELF Confirmed By:Kalyan Pichardo
[2021-01-11 07:24] LABS: BUN Creatinine Ratio 23.3 (10-20); Calcium 8.9 mg/dl (8.5-10.1); Creatinine Clr Calc Pharmacy 74.2 ml/min; Est GFR (African American) 74.3 ml/min; Est GFR (Non-African American) 64.1 ml/min; Potassium 4.1 mmol/L (3.5-5.1)
[2021-01-11] MEDS: INSULIN ASPART 100 UNITS/ML 3 ML PEN SC SCH ×3 (08:08→18:00)
[2021-01-11] MEDS: INSULIN GLARGINE SOLOSTAR 100 UNITS/ML 3 ML PEN SC SCH (08:09)
--- NOTE | 2021-01-11 08:25 | History & Physical Bridge Note ---
Date of Service January 11, 2021 History & Physical Bridge Note I have examined the patient, reviewed the History & Physical and in the interval since the performance of the History & Physical I have noted the following changes of clinical significance: no changes noted Proceed with EGD. risks/benefits and procedure discussed with patient, who agrees to proceed
[2021-01-11] MEDS ORDERED: LIDOCAINE 2% 2 ML VIAL/AMP(20MG/ML) INFIL ONE (08:44)
[2021-01-11] MEDS ORDERED: PROPOFOL IV EMULSION 10 MG/ML 20 ML VIAL IV ONE (08:44)
--- NOTE | 2021-01-11 08:57 | Anesthesiology Consultation ---
Date of Service January 11, 2021 Assessment & Plan Chart Review Chart Review: Acceptable Risk for Surgery Consults Requested none ASA ASA4 Proposed Anesthesia Anesthesia Type: MAC Risk / Benefits Reviewed With: PT / POA / Parent / Guardian, Accepts Plan and Informed Consent Obtained History Surgery Operation Date: 01/11/21 17:30 Proposed Procedures p Esophagogastroduodenoscopy Dr. Frances Daniels MD Height/Weight Height: 5 ft Weight: 126 kg Allergies Allergy/AdvReac Type Severity Reaction Status Date / Time metformin Allergy Severe STOMACH Verified 01/11/21 08:28 CRAMPS DIARRHEA amoxicillin [From Augmentin] Allergy Intermediate ITCHING Verified 01/11/21 08:28 clavulanic acid Allergy Intermediate ITCHING Verified 01/11/21 08:28 [From Augmentin] dulaglutide [From Trulicity] Allergy Intermediate FEELS SICK Verified 01/11/21 08:28 ALL OVER lisinopril Allergy Mild SINUS Verified 01/11/21 08:28 SWELLING, COUGH cetirizine [From Zyrtec] AdvReac Intermediate Dizziness Verified 01/11/21 08:28 diphenhydramine AdvReac Intermediate HYPERACTIVE Verified 01/11/21 08:28 olmesartan AdvReac Mild pt reports Verified 01/11/21 08:28 nonstop coughing after taking (3 years ago) DAMP COLDNESS ENVIRONMENT Allergy Intermediate SYNCOPAL Uncoded 01/11/21 08:28 EPISODE Medications Home Medications Medication Instructions Recorded Confirmed Last Taken epinephrine 0.3 mg IM Q3H PRN 03/26/19 01/08/21 Unknown aspirin 81 mg tablet,delayed 81 mg PO QAM tab 04/30/19 01/08/21 07/10/19 10:00 release guaifenesin 600 mg tablet, 600 mg PO BID PRN 04/30/19 01/08/21 07/09/19 21:00 extended release 12 hr desloratadine 5 mg tablet 5 mg PO QAM #30 tab 07/05/19 01/08/21 07/10/19 10:00 budesonide 0.5 mg/2 mL suspension 2 ml INH USEASDIRECTD PRN ml 08/18/19 01/08/21 Unknown for nebulization triamcinolone acetonide 0.1 % 1 appln TOP USEASDIRECTD PRN gm 08/18/19 01/08/21 Unknown topical cream ipratropium 0.5 mg-albuterol 3 mg 3 ml INH Q4H PRN #540 ml 06/24/20 01/08/21 Unknown (2.5 mg base)/3 mL nebulization soln clotrimazole [Antifungal 1 appln TOP BID PRN 08/27/20 01/08/21 Unknown (clotrimazole)] furosemide 20 mg PO QAM 08/27/20 01/08/21 Unknown glimepiride 4 mg PO BID 08/27/20 01/08/21 Unknown cyclobenzaprine 10 mg tablet 10 mg PO TID PRN #60 tab 09/03/20 01/08/21 Unknown insulin lispro 100 unit/mL See Rx Instructions SUBCUT 09/03/20 01/08/21 Unknown subcutaneous solution .COMPLEX #10 ml dupilumab 300 mg/2 mL subcutaneous See Rx Instructions .ROUTE 10/09/20 01/08/21 Unknown syringe .COMPLEX #2 ml azelastine 137 mcg (0.1 %) nasal 2 spray INTNAS DAILY #30 ml 11/04/20 01/08/21 Unknown spray aerosol ipratropium bromide 42 mcg (0.06 2 spray INTRANASAL DAILY #15 ml 11/04/20 Unknown %) nasal spray omeprazole 40 mg capsule,delayed 40 mg PO DAILY cap 11/04/20 01/08/21 Unknown release albuterol sulfate 90 mcg/actuation 1 - 2 puff INHALATION Q6H PRN #18 11/24/20 01/08/21 Unknown aerosol inhaler gm chlorpheniramine maleate 4 mg 4 mg PO Q6H PRN #40 tab 11/24/20 01/08/21 Unknown tablet ipratropium 20 mcg-albuterol 100 1 puff INHALATION QID PRN #4 gm 11/24/20 01/08/21 Unknown mcg/actuation mist for inhalation pseudoephedrine HCl 120 mg 120 mg PO Q12H #40 tab 11/24/20 01/08/21 Unknown tablet,extended release insulin human U-100 NPH-regulr See Rx Instructions SQ BID #30 ml 01/07/21 01/08/21 Unknown 70-30 mix 100 unit/mL subcutaneous susp losartan 50 mg PO DAILY 01/08/21 01/08/21 Unknown Active Medications Generic Name Dose Route Start Last Admin Trade Name Freq PRN Reason Stop Dose Admin Aspirin 81 mg 01/09/21 09:00 01/10/21 08:15 Aspirin 81 Mg Ectab PO 02/08/21 08:59 81 mg QAM SUJIT Administration Atorvastatin Calcium 40 mg 01/09/21 21:00 01/10/21 21:41 Atorvastatin 40 Mg Tab PO 02/08/21 20:59 40 mg HS SUJIT Administration Cyclobenzaprine HCl 5 - 10 mg 01/08/21 21:59 01/10/21 20:58 Cyclobenzaprine Hcl 10 Mg Tab PO 02/07/21 21:58 10 mg TID PRN Administration muscle spasm Diltiazem HCl 120 mg 01/09/21 13:45 01/10/21 08:11 Diltiazem Hcl 120 Mg Capcr PO 02/08/21 13:44 120 mg QAM SUJIT Administration Furosemide 20 mg 01/09/21 09:00 01/10/21 08:12 Furosemide 20 Mg Tab PO 02/08/21 08:59 20 mg QAM SUJIT Administration Guaifenesin 600 mg 01/08/21 21:37 01/09/21 08:23 Guaifenesin 600 Mg Tabcr PO 02/07/21 21:36 600 mg BID PRN Administration Cough Heparin Sodium (Porcine) 7,500 units 01/08/21 22:00 01/10/21 08:17 Heparin Sod 5,000 Unit/0.5 Ml Vial SQ 02/07/21 21:59 7,500 units Q8 SUJIT Administration Insulin Aspart 0 units 01/08/21 22:30 01/11/21 08:08 Insulin Aspart 100 Units/Ml 3 Ml Pen SC 02/07/21 22:29 5 units ACHS SUJIT Administration Insulin Glargine 20 units 01/10/21 21:00 01/11/21 08:09 Insulin Glargine Solostar 100 Units/Ml 3 Ml Pen SC 02/09/21 20:59 20 units BID SUJIT Administration Ipratropium [place] 2 sprays 01/09/21 09:00 01/10/21 08:16 Ipratropium [place] Nasal [place] 0.06% 15ml NA 02/08/21 08:59 2 sprays DAILY SUJIT Administration Loratadine 5 mg 01/09/21 09:00 01/10/21 08:13 Loratadine 10 Mg Tab PO 02/08/21 08:59 5 mg QAM SUJIT Administration Losartan Potassium 50 mg 01/09/21 09:00 01/10/21 08:12 Losartan Potassium 50 Mg Tab PO 02/08/21 08:59 50 mg DAILY SUJIT Administration Miscellaneous 1 ea 01/09/21 08:00 01/11/21 01:47 Azelastine: Order Awaiting Action N/A 02/08/21 07:59 Not Given QS SUJIT Miscellaneous 1 ea 01/09/21 08:00 01/11/21 01:47 Chlorpheniramine: Order Awaiting Action N/A 02/08/21 07:59 Not Given QS SUJIT Pantoprazole Sodium 40 mg 01/09/21 09:00 01/10/21 08:15 Pantoprazole 40 Mg Tab PO 02/08/21 08:59 40 mg DAILY SUJIT Administration NPO Date Last Intake of Fluids: 01/10/21 Time Last Intake of Fluids: 17:00 Date Last Intake of Solids: 01/10/21 Time Last Intake of Solids: 17:00 Past Medical History Medical History (Updated 01/11/21 @ 08:53 by Lou Espitia DO) Abnormal CT scan of lung Axillary lymphadenopathy CAD (coronary artery disease) non-obstructive per 01/2019 cardiac cath Chest pain Chronic bilateral low back pain Chronic sinusitis Diabetes mellitus, type 2 IDDM Diverticular disease Dyspnea on exertion Eosinophilic asthma Fatigue GERD (gastroesophageal reflux disease) occasional Hiatal hernia Hyperlipidemia Hypertension Left knee pain Morbid obesity MADAY on CPAP Peripheral edema Renal insufficiency, mild Seizure seizures as a child until age 6- no seizures since/no anticonvulsants Severe persistent chronic asthma without complication Exercise / Class Metabolic Activity IV < 2 Limit ADL/Bedbound (can walk <10ft w/ QIU) Past Family History Family History Father Myocardial infarction Cardiac disorder Lung disease Mother Ovarian cancer Stroke Family history of diabetes mellitus Gallbladder disease Hypertension Sister Stroke Family history of diabetes mellitus Gallbladder disease Cancer Pancreatic cancer Family/Other Asthma Coronary heart disease Other Family history non-contributory Denies family history of Prostate cancer Breast cancer Colorectal cancer Past Surgical History Surgical History H/O laparoscopy History of bronchoscopy History of cardiac cath 02/08/19= NO STENTS History of colonoscopy History of esophagogastroduodenoscopy (EGD) History of repair of hiatal hernia (07/11/19) Laparoscopic Cholecystectomy, Laparoscopic Hiatal Hernia Repair Dr. Borjas 07/11/19 S/P laparoscopic cholecystectomy Laparoscopic Cholecystectomy, Laparoscopic Hiatal Hernia Repair Dr. Borjas 07/11/19 Past Anesthesia History No Hx of Anesthesia Complications and No Family Hx of Anesthesia Complications History of PONV No Hx of PONV and No Hx of Motion Sickness Social History Smoking Status: Never smoker Do You Dip or Chew Tobacco: No Hx Alcohol Use: No alcohol intake frequency: other Hx Substance Use: No substance use type: does not use Physical Exam Vital Signs Last Vital Signs Temp 36.4 C L 01/11/21 08:29 Pulse 90 01/11/21 08:29 Resp 18 01/11/21 08:29 BP 111/68 01/11/21 08:29 Pulse Ox 94 01/11/21 08:29 Constitutional + morbidly obese ENMT Mouth: + dentition abnormality (1 missing bottom right tooth); no TMJ abnormality Thyromental Distance: > or= 3.5 Finger Breadths Mallampati Class: II Neck normal visual inspection and trachea midline; neck extension not limited Respiratory normal respiratory effort Auscultation: lungs clear to auscultation bilaterally Cardiovascular Rate/Rhythm: regular rate and regular rhythm Heart Sounds: no murmur Musculoskeletal Spine: normal cervical ROM Extremities: full ROM of extremities Neurologic moves all extremities Psychiatric Orientation: alert and oriented x 3 Testing Laboratory Results 01/10/21 07:45 01/11/21 06:34 PT 9.7 Seconds (9.0-12.0) 01/08/21 17:06 INR 1.0 (0.9-1.1) 01/08/21 17:06 APTT 25.0 Seconds (21.0-31.0) 01/08/21 17:06 Hemoglobin A1c 8.9 % (4.5-5.6) H 01/09/21 07:18 01/11/21 07:38 POC Glucose 198 H COVID neg 01/08/21 Electrocardiogram Date: 01/08/21 Findings: + NSR @ (92) Chest X-Ray Date: 01/08/21 Findings: + NAD Echocardiogram Date: 01/09/21 EF: >70 LV Function: normal RWMA: + none Valvular Disease: + no significant valvular disease
[2021-01-11] MEDS ORDERED: INSULIN GLARGINE SOLOSTAR 100 UNITS/ML 3 ML PEN SC SCH (09:00)
[2021-01-11] MEDS: ASPIRIN 81 MG ECTAB PO SCH (09:00)
[2021-01-11] MEDS: LOSARTAN POTASSIUM 50 MG TAB PO SCH (09:00)
[2021-01-11] MEDS: FUROSEMIDE 20 MG TAB PO SCH (09:00)
[2021-01-11] MEDS: LORATADINE 10 MG TAB PO SCH (09:00)
[2021-01-11] MEDS: dilTIAZem HCL 120 MG CAPCR PO SCH (09:00)
--- NOTE | 2021-01-11 09:35 | GI REPORT ---
Addendum Number: 1 Addendum Date: 01/11/2021 9:35:09 AM correction: return patient to hospital [facility] for ongoing care. Jose Daniels MD 01/11/2021 9:35:26 AM This report has been signed electronically. Patient Name: Salina Flood Procedure Date: 01/11/2021 8:43 AM Date of : 1955 Admit Type: Inpatient Age: 65 Gender: Female Attending MD: Jose Daniels MD Procedure: Upper GI endoscopy Providers: Jose Daniels MD Referring MD: Luis Davis Indications: Unexplained chest pain Medicines: Monitored Anesthesia Care Complications: No immediate complications. Estimated blood loss: None. Estimated Blood Loss: Estimated blood loss: none. Procedure: Pre-Anesthesia Assessment: - Prior Anticoagulants: The patient has taken no previous anticoagulant or antiplatelet agents. - ASA Grade Assessment: II - A patient with mild systemic disease. After obtaining informed consent, the endoscope was passed under direct vision. Throughout the procedure, the patient's blood pressure, pulse, and oxygen saturations were monitored continuously. The Endoscope was introduced through the mouth, and advanced to the second part of duodenum. The upper GI endoscopy was accomplished without difficulty. The patient tolerated the procedure well. Findings: The examined esophagus was normal. A guidewire was placed and the scope was withdrawn. Dilation was performed with a Savary dilator with no resistance at 45 Fr. The dilation site was examined following endoscope reinsertion and showed no change. Estimated blood loss: none. Segmental moderate inflammation characterized by erythema was found in the gastric antrum. Biopsies were taken with a cold forceps for Helicobacter pylori testing. Estimated blood loss: none. The duodenal bulb and second portion of the duodenum were normal. Impression: - Normal esophagus. Dilated. - Gastritis. Biopsied. - Normal duodenal bulb and second portion of the duodenum. Recommendation: - Discharge patient to home (with escort). - Resume previous diet today. - Await pathology results. Jose Daniels MD 01/11/2021 9:34:54 AM This report has been signed electronically. Note Initiated On: 01/11/2021 8:43 AM Number of Addenda: 1 I attest to the content of the Intraoperative Record and orders documented therein, exceptions below {[id number]}
--- NOTE | 2021-01-11 10:29 | Anesthesiology Progress Note ---
Date of Service January 11, 2021 Anesthesia Post Procedure Vital Signs Vital Signs: Temp Pulse Pulse Resp BP BP Pulse Ox 01/11/21 10:06 65 18 129/76 99 01/11/21 09:35 93 H 16 104/45 L 95 01/11/21 08:29 36.4 C L 90 18 111/68 94 01/11/21 07:21 80 01/11/21 06:59 36.9 C 91 H 20 118/68 98 01/11/21 04:15 37.0 C 61 18 127/70 97 01/10/21 23:38 36.9 C 84 20 129/55 L 96 01/10/21 22:20 86 01/10/21 20:07 36.9 C 91 H 20 144/81 H 91 01/10/21 15:21 37.0 C 86 20 135/69 97 01/10/21 15:00 89 01/10/21 11:17 36.9 C 76 20 144/79 H 94 Pain Intensity Left Arm: Pain Intensity: 6 Transfer of Care Handoff Completed per policy Notes Mental Status: alert / awake / arousable Patient Amnestic to Procedure: Yes Nausea / Vomiting: adequately controlled Pain: adequately controlled Airway Patency, RR, SpO2: stable & adequate BP & HR: stable & adequate Hydration State: stable & adequate Anesthetic Complications: no major complications apparent and Pt Satisfied with anesthetic care
[2021-01-11] MEDS ORDERED: ATROPINE SULFATE 0.1 MG/ML 10ML SYR IV ONE (12:55)
[2021-01-11] MEDS ORDERED: DOBUTamine HCL 12.5 MG/ML 20 ML VIAL IV ONE (12:56)
[2021-01-11] MEDS ORDERED: METOPROLOL TARTRATE 1 MG/ML VIAL IV ONE (12:56)
[2021-01-11] MEDS ORDERED: ESMOLOL HCL INJ 10 MG/ML 10ML VIAL IV ONE (13:55)
--- NOTE | 2021-01-11 15:09 | XCELERA ---
[id number]
[2021-01-11 15:48] VITALS: PULSE 95; TEMP 97.3; O2SAT 100
--- NOTE | 2021-01-11 16:27 | Discharge Summary ---
Date of Service January 11, 2021 Admission HPI Per Admitting Provider 65-year-old female who is got history of diabetes, this lipidemia, morbid obesity, sleep apnea and hypertension who presents with dyspnea on exertion chest pain with radiation to her neck. Patient is fairly assured that this is definitely reproducible with exertion and last about an hour. She says anytime she does walk slightly she gets very diaphoretic nauseous and her symptoms occur. This even occurs while she showers. He feels this is more significant than her previous chest pain for which she had a heart catheterization in 2019. Initial work-up in the emergency department is negative including troponin EKG and chest x-ray. Patient is brought in for observation for chest pain Principal Diagnosis Atypical chest pain Discharge Exam Constitutional WD/WN, vitals as above + obese; no acute distress Neck trachea midline, no thyromegaly Respiratory normal respiratory effort, lungs clear to auscultation Cardiovascular RRR, no murmur, no edema Gastrointestinal (Abdomen) normal bowel sounds, soft, nontender, no hepatosplenomegaly Musculoskeletal no cyanosis or clubbing, extremities motor strength 5/5 Skin no rashes, warm and dry Neurologic patellar DTR's 2+ bilat, sensation intact and PERRL, EOMI, accommodation nl, no face palsy, no dysarthria Psychiatric A+Ox3, euthymic affect Lymphatic no cervical or axillary lymphadenopathy Discharge Data Allergies Allergy/AdvReac Type Severity Reaction Status Date / Time metformin Allergy Severe STOMACH Verified 01/11/21 08:28 CRAMPS DIARRHEA amoxicillin [From Augmentin] Allergy Intermediate ITCHING Verified 01/11/21 08:28 clavulanic acid Allergy Intermediate ITCHING Verified 01/11/21 08:28 [From Augmentin] dulaglutide [From Trulicity] Allergy Intermediate FEELS SICK Verified 01/11/21 08:28 ALL OVER lisinopril Allergy Mild SINUS Verified 01/11/21 08:28 SWELLING, COUGH cetirizine [From Zyrtec] AdvReac Intermediate Dizziness Verified 01/11/21 08:28 diphenhydramine AdvReac Intermediate HYPERACTIVE Verified 01/11/21 08:28 olmesartan AdvReac Mild pt reports Verified 01/11/21 08:28 nonstop coughing after taking (3 years ago) DAMP COLDNESS ENVIRONMENT Allergy Intermediate SYNCOPAL Uncoded 01/11/21 08:28 EPISODE Consultations 01/08/21 18:40 ED Decision to Admit Stat 01/09/21 07:00 Consult Cardiology Routine 01/10/21 00:17 Consult Gastroenterology Routine Procedures Performed Operation Date: 01/11/21 17:30 Actual Procedures p EGD Biopsy Dilatation - Jose Daniels MD Hospital Course (1) Chest pain: Patient does have chest pain with some radiation to her neck. Patient has confirmed reproducibility with minor exertion or even bathing with associated symptoms of nausea and diaphoresis. She has shortness of breath but she has significant pulmonary disease. Patient underwent cardiac catheterization by Dr. 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 Circumflex was nondominant ramus intermedius was without evidence of disease right coronary with luminal irregularities seen Troponins serially negative, ECHO normal Chest pain is ongoing intermittently throughout the day on 01/10, comes on at rest and goes away on its own-again, very atypical Dobutamine stress echocardiogram done on 01/11, no evidence of ischemia on EKG tracing and echo, no chest pain/pressure during stress test EGD on 01/11 in the morning with no ulcers, did have some mild gastritis that was biopsied but this typically does not cause pain patient wanted to be discharged, pain still there intermittently but tolerable and she felt better knowing heart was ruled out as etiology (2) Severe persistent chronic asthma without complication: Patient has a history of eosinophilic asthma No acute issues -continue Combivent -receives injections of dupilumab which had lessened her hospital stays (3) MADAY on CPAP: Compliance test is good she uses 2 L additional at night with the CPAP arrange for 11.5 to 20 cm of water (4) Diabetes mellitus, type 2: With persistent hyperglycemia here -Increase Lantus to 20 units SQ twice daily Tighten down Novolog to correction factor of 12 and carb coverage 1: 4 resume home 70/30 uncontrolled with HgbA1C 8.9% discussed weight loss, refer to provider as outpatient (5) Eosinophilic asthma: as above (6) CAD (coronary artery disease): nonobstructive, as above continue ASA, start statin Lipitor 20mg daily added on diltiazem 120mg daily due to hyperdynamic left ventricle (cannot take beta blockers due to severe asthma) (7) Hypertension: BPs elevated but improved with adding on diltiazem (8) Hyperlipidemia: has known CAD added on atorvastatin as per cardiology check LFTs, lipids in 6 weeks (9) Super-super obese: BMI 54.3 Discussed referral to Obesity Management. I provided her the names of Dr. Mercedes Montoya and Dr. Jean on discharge for referral for obesity management (10) GERD (gastroesophageal reflux disease): continue PPI EGD on 01/11 with gastritis, biopsies done no peptic ulcer disease (11) DVT prophylaxis: Heparin subcu will be used for DVT prevention Total Time Total Time Spent Total Time Spent (In Minutes): 32 Total Time Includes: Examination of the Patient, Discharge Planning, Medication Reconciliation and Communication With Other Providers (GI and cardiology) Discharge Plan Discharge Items Patient Disposition: Home - Self-Care Reason For Visit: CHEST PAIN Discharge Diagnosis: Atypical left sided chest pain Gastritis, non-specific finding Chronic asthma Obesity Condition on Discharge: Good Goals: follow up with PCP regarding chest pain referral to weight loss/dietary specialist Activity: Resume your previous activity Non-emergency contact: Primary Care Provider Call non-emergency contact if: you have any medication questions and your symptoms worsen Follow-up/Referrals: Sarah Everett CRNP [Primary Care Provider] - (one week) Mc Skaggs MD [Physician] - 01/27/21 9:00 am (2-3 weeks, atypical chest pain) Jose Daniels MD [Physician] - 02/03/21 1:10 pm (2-3 weeks, gastritis, h/o hiatal hernia repair, can be with another provider) Mercedes Montoya DO [Physician] - (first available, for weigh loss consultation) Diet: Carb Consistent or DM2 and Heart Healthy Addtl Attending Provider Instructions: Medications: two new medications recommended by cardiology - ATORVASTATIN: 40mg daily, this is to lower cholesterol but also to stabilize plaques in coronary arteries, proven to reduce risk of heart attack - CARDIZEM: 120mg daily, this is to lower heart rate, help reduce how hard the heart is working, typically would use beta marycruz but these are contraindicated with your asthma Atypical left sided chest pain still unclear etiology, EGD today showed some gastritis but that is typically not painful, history of hiatal hernia repair dobutamine stress echo did not trigger the chest pain and your echocardiogram remained normal during stress thus making significant coronary disease much less likely no evidence of heart attack on initial work up with EKG and troponin levels chest x-ray was normal recommend discharge to home, can follow up with PCP, gastroenterology and cardiology weight loss: recommend referral to Dr. Mercedes Montoya and/or Dr. Jean Pending Studies at Discharge: No Stand-Alone Forms: My [facility] [employer], Smoking Cessation Medications and DC Order Prescriptions: New atorvastatin 40 mg Tablet 40 mg PO HS 30 Days Qty: 30 RF: 3 diltiazem HCl 120 mg Capsule,Extended Release 24hr 120 mg PO QAM 30 Days Qty: 30 RF: 3 Continued desloratadine [Clarinex] 5 mg tablet 5 mg PO QAM Qty: 30 RF: 5 ipratropium-albuterol 0.5 mg-3 mg(2.5 mg base)/3 mL solution for nebulization 3 ml INH Q4H PRN (Reason: SHORT OF BREATH) Qty: 540 RF: 0 Dupixent Syringe 300 mg/2 mL syringe See Rx Instructions .ROUTE .COMPLEX Qty: 2 RF: 4 Humulin 70/30 U-100 Insulin 100 unit/mL (70-30) suspension See Rx Instructions SQ BID Qty: 30 RF: 8 Hold Instructions: wants to try basal cyclobenzaprine 10 mg tablet 10 mg PO TID PRN (Reason: muscle spasm) Qty: 60 RF: 5 insulin lispro 100 unit/mL solution See Rx Instructions subcut .COMPLEX Qty: 10 RF: 11 omeprazole 40 mg capsule,delayed release(DR/EC) 40 mg PO DAILY RF: 0 azelastine 137 mcg (0.1 %) aerosol,spray 2 spray INTNAS DAILY Qty: 30 RF: 6 ipratropium bromide 42 mcg (0.06 %) spray,non-aerosol 2 spray intranasal DAILY Qty: 15 RF: 11 aspirin 81 mg tablet,delayed release (DR/EC) 81 mg PO QAM RF: 0 guaifenesin 600 mg tablet extended release 12hr 600 mg PO BID PRN (Reason: Cough) RF: 0 budesonide 0.5 mg/2 mL suspension for nebulization 2 ml INH USEASDIRECTD PRN (Reason: SHORT OF BREATH) RF: 0 triamcinolone acetonide 0.1 % cream 1 appln TOP USEASDIRECTD PRN (Reason: Skin Irritation) RF: 0 albuterol sulfate [Ventolin HFA] 90 mcg/actuation HFA aerosol inhaler 1 - 2 puff INHALATION Q6H PRN (Reason: Wheezing) Qty: 18 RF: 8 chlorpheniramine maleate 4 mg tablet 4 mg PO Q6H PRN (Reason: itching) Qty: 40 RF: 0 Combivent Respimat 20-100 mcg/actuation mist 1 puff INHALATION QID PRN (Reason: Wheezing) Qty: 4 RF: 11 pseudoephedrine HCl 120 mg tablet extended release 120 mg PO Q12H Qty: 40 RF: 0 glimepiride 4 mg tablet 4 mg PO BID RF: 0 furosemide 20 mg tablet 20 mg PO QAM RF: 0 clotrimazole [Antifungal (clotrimazole)] 1 % cream 1 appln TOP BID PRN (Reason: break outs) RF: 0 epinephrine 0.3 mg/0.3 mL Syringe 0.3 mg IM Q3H PRN (Reason: Allergic Reaction) RF: 0 losartan 50 mg tablet 50 mg PO DAILY RF: 0 Discharge Orders: Discharge Order (Routine); Ordered 01/11/21 Ordered By: Luis Richey/Other Patient Handouts: Managing Type 2 Diabetes, A1C Admission Data Admit Date/Time: 01/08/21 19:30 Attending Provider: Luis Davis Admit Provider: Ryan Alegria Primary Care Provider: Sarah Everett Other Providers: Ryan Alegria ; Mc Skaggs ; Jose Daniels Other Interventions: Discharge Summary Assessment (RN) Last Done: 01/11/21 17:05 Coding Level of Care Code D/C Day Management >30 mins Diagnoses Chest pain R07.9 Severe persistent chronic asthma without complication J45.50 MADAY on CPAP G47.33; Z99.89 Diabetes mellitus, type 2 E11.9 Eosinophilic asthma J82 CAD (coronary artery disease) I25.10 Hypertension I10 Hyperlipidemia E78.5 Super-super obese E66.01 GERD (gastroesophageal reflux disease) K21.9 Esophagitis presence: without esophagitis DVT prophylaxis Z29.9
[2021-01-11 17:13] VITALS: BP 111/68
[2021-01-11] MEDS: PANTOprazole 40 MG TAB PO SCH (18:25)
== END 2021-01-11 18:39 | disposition home or self-care (01) ==
LOC: 2N 15:52 → ED 15:52 → SUATTDRO 19:30 → 2N 20:12 → SUATTDRO 01-10 17:31

== ENCOUNTER 2022-03-06 10:31 | Inpatient (IN) ==
[2022-03-06] MEDS ORDERED: dexAMETHasone**PF** 10 MG/ML VIAL IV ONE (11:03)
[2022-03-06] MEDS ORDERED: ALBUT/IPRATROP 3MG/0.5MG NEB 3 ML VIAL INH STA (11:03)
--- NOTE | 2022-03-06 11:10 | Emergency Department Note ---
Impression & Plan SOB (shortness of breath), Bilateral wheezing, Asthma exacerbation ED Provider Note INFORMANT: Patient ED PROVIDER(S): Poncho Snyder MD CHIEF COMPLAINT: Shortness of breath PLAN: Disposition: Admitted Condition: Good Outpatient prescription management: none Referral: None MEDICAL DECISION MAKING: Patient presented to the emergency department after 2 weeks of treatment with steroids, nebulizers, inhaler, and a course of antibiotics. On physical examination she was mildly dyspneic and had increased work of breathing. She was wheezing. She and I discussed starting an hour-long treatment initially but the patient had some reservations. She had an IV established and was given IV Decadron and a DuoNeb. Patient was reassessed and was still wheezing and feeling short of breath. She was given a second DuoNeb. Patient's oxygen level was somewhat borderline. She had an unremarkable CBC and chemistry panel except for mild leukocytosis which I suspect may be from her steroid. The patient's potassium was negative. Her x-ray did not reveal any acute findings. The patient's BNP and troponin were negative. ECG was negative as well. Patient was reassessed and was still wheezy. She was given a third nebulizer treatment and I discussed treatment in the hospital. Patient like to try to avoid admission. She did do the third treatment and was reassessed. She was still wheezing and oxygen levels were borderline with her going down to at percent while awake and conversing. At this point patient is agreeable to come in for inpatient treatment. Consultation was made with [facility] service. Case was discussed. Medicine did request a blood gas and magnesium treatment IV. Patient was given 1 g of IV magnesium. VBG was performed and was unremarkable. Patient was evaluated in the ER for further management. Triage Nursing notes reviewed and agree them. Vital Signs: reviewed and remarkable for mild tachycardia, hypertension. Borderline Differential diagnosis: Reactive airway disease, pneumonia, pneumothorax, COPD, CHF, infections, cardiac ischemia, pulmonary embolism, musculoskeletal, gastrointestinal, as well as other pathologies. Diagnostics interpreted by me: EC Lead ECG performed and revealed Normal sinus rhythm at 91, normal [place], QRS normal. No elevation or depression. No PACs or PVCs Cardiac Monitoring: Cardiac monitoring ordered by me: The patient was placed on continuous cardiac monitoring and observed. It revealed a normal sinus rhythm at 95 beats per minute without ectopy or evidence of dysrhythmia. Imaging studies: Chest x-ray. Findings: A chest x-ray was performed and revealed no pneumothorax, effusion, infiltrate, pulmonary edema, free air under the diaphragm, or wide mediastinum. Impression: No acute disease. HPI: The patient is a 66 year old female who presents to the Emergency Room with complaints of shortness of breath. This started 3 to 4 weeks ago and is set. The patient also notes the following associated symptoms, wheezing and mild cough. Patient has a history of reactive airway disease. She has been using her inhaler, nebulizer, prednisone x2, and a course of Zithromax without much relief.Current pain is rated as 0/10. Patient took a home COVID test and was negative. No known sick contacts. Denies any fluid retention or leg pain. Pt denies LOC, headache, fevers, chills, diaphoresis, visual changes, neck pain, chest pain, nausea, vomiting, abdominal pain, back pain, melena, hematochezia, urinary symptoms, numbness, weakness, lymphadenopathy, rash, or other complaints. ROS: See above HPI for pertinent positives & negatives. A total of 10 systems reviewed and were otherwise negative. PAST MEDICAL HISTORY:See Below , asthma PAST SURGICAL HISTORY:See Below, FAMILY HISTORY:See Below SOCIAL HISTORY:See Below, non-smoker HOME MEDICATIONS:See Below ALLERGIES:See Below VITALS:See Below PHYSICAL EXAMINATION: GENERAL: Awake, alert, uncomfortable-appearing, in no distress HENT: Normocephalic, atraumatic. Oropharynx unremarkable. EYES: Normal conjunctiva. Sclera non-icteric. NECK: Inspection normal. Non-tender. Supple. No nuchal rigidity. FROM. No masses. RESPIRATORY: Bilateral scattered wheezes. No rales. Increased respiratory effort. CARDIAC: Normal rate. Normal rhythm. No murmurs. No rubs. Extremities warm and well perfused. Pulses equal. No JVD. GI: Soft, non-distended. No tenderness to palpation. No rebound or guarding. No masses. RECTAL: Deferred. MUSCULOSKELETAL: Atraumatic. Chest examination reveals no tenderness. The back is symmetrical on inspection without obvious abnormality. There is no CVA tenderness to palpation. No joint edema. LOWER EXTREMITIES: Calves are equal size bilaterally and non-tender. No edema. No discoloration. NEURO: Normal sensorium. No sensory or motor deficits noted. SKIN: No rash or jaundice noted. Poncho Snyder MD Past Med/Surg History Medical History Abnormal CT scan of lung Axillary lymphadenopathy CAD (coronary artery disease) non-obstructive per 01/2019 cardiac cath Chronic bilateral low back pain Chronic sinusitis Diabetes mellitus, type 2 IDDM Diverticular disease Dyspnea on exertion Eosinophilic asthma Fatigue GERD (gastroesophageal reflux disease) occasional Hiatal hernia Hyperlipidemia pt ABSOLUTELY refuses a statin Hypertension Morbid obesity MADAY on CPAP Peripheral edema Renal insufficiency, mild Seizure seizures as a child until age 6- no seizures since/no anticonvulsants Severe persistent chronic asthma without complication Surgical History H/O laparoscopy History of bronchoscopy History of cardiac cath 02/08/19= NO STENTS History of colonoscopy History of esophagogastroduodenoscopy (EGD) History of repair of hiatal hernia (07/11/19) Laparoscopic Cholecystectomy, Laparoscopic Hiatal Hernia Repair Dr. Borjas 07/11/19 S/P laparoscopic cholecystectomy Laparoscopic Cholecystectomy, Laparoscopic Hiatal Hernia Repair Dr. Borjas 07/11/19 Family History Father Myocardial infarction Cardiac disorder Lung disease Heart disease Mother Ovarian cancer Stroke Family history of diabetes mellitus Gallbladder disease Hypertension Cancer Sister Stroke Family history of diabetes mellitus Gallbladder disease Cancer Pancreatic cancer Heart disease Allergies Family/Other Asthma Coronary heart disease Other Family history non-contributory No family history of bleeding disorder Denies family history of Prostate cancer Breast cancer Colorectal cancer Social History Smoking Status: Never smoker Second Hand Exposure: No; Hx Alcohol Use: No Hx Substance Use: No Preferred Language: Romanian Communication Ability: Effective Senior Integration Developer Required: No Beliefs That Will Affect Care: None marital status: Current Living Situation: Spouse current occupational status: unemployed How many Children do You have: 0 Feels Safe at Home: Yes Dental Care, Regularly: Yes Seatbelt Use: always Assistive Devices: CPAP and Glasses Allergies Allergies Allergy/AdvReac Type Severity Reaction Status Date / Time Iodinated Contrast Media Allergy Severe SOB Verified 03/06/22 15:05 metformin Allergy Severe STOMACH Verified 03/06/22 15:05 CRAMPS DIARRHEA amoxicillin [From Augmentin] Allergy Intermediate ITCHING Verified 03/06/22 15:05 clavulanic acid Allergy Intermediate ITCHING Verified 03/06/22 15:05 [From Augmentin] dulaglutide [From Trulicity] Allergy Intermediate FEELS SICK Verified 03/06/22 15:05 ALL OVER lisinopril Allergy Mild SINUS Verified 03/06/22 15:05 SWELLING, COUGH cetirizine [From Zyrtec] AdvReac Intermediate Dizziness Verified 03/06/22 15:05 diphenhydramine AdvReac Intermediate HYPERACTIVE Verified 03/06/22 15:05 empagliflozin AdvReac Mild pelvic Verified 03/06/22 15:05 [From Jardiance] pain, urinary urgency olmesartan AdvReac Mild pt reports Verified 03/06/22 15:05 nonstop coughing after taking (3 years ago) DAMP COLDNESS ENVIRONMENT Allergy Intermediate SYNCOPAL Uncoded 03/06/22 15:05 EPISODE Home Meds Home Medications Medication Instructions Recorded Confirmed epinephrine 0.3 mg/0.3 mL 0.3 mg IM Q3H PRN Allergic Reaction 03/26/19 03/06/22 injection syringe (SymjeStore Eyes) aspirin 81 mg tablet,delayed 81 mg PO QAM 04/30/19 03/06/22 release (Mena Low Dose Aspirin) chlorpheniramine maleate 4 mg 4 mg PO Q6H PRN allergies 05/07/21 03/06/22 tablet clotrimazole 1 % topical cream 1 applic topical BID PRN Skin 05/07/21 03/06/22 (Antifungal (clotrimazole)) Irritation guaifenesin 600 mg tablet, 600 mg PO BID PRN Congestion 05/07/21 03/06/22 extended release 12 hr losartan 25 mg tablet 25 mg PO DAILY PRN ELEVATED B/P 03/06/22 03/06/22 sucralfate 100 mg/mL oral 10 ml PO QID PRN SEVERE STOMACH 03/06/22 03/06/22 suspension (Carafate) PAIN Previous Rx's Medication Instructions Recorded desloratadine 5 mg tablet 5 mg PO DAILY #30 tabs 03/23/21 (Clarinex) furosemide 20 mg tablet (Lasix) 20 mg PO QAM #30 tabs 08/03/21 fluticasone propionate 50 2 spray intranasal DAILY #15.8 05/07/21 mcg/actuation nasal grams spray,suspension blood sugar diagnostic (OneTouch #100 ea 06/10/21 Ultra Test) cyclobenzaprine 10 mg tablet 10 mg PO TID PRN muscle spasm #60 09/06/21 tabs ipratropium 20 mcg-albuterol 100 1 puff inhalation QID PRN SOB and 09/06/21 mcg/actuation mist for inhalation wheezing #4 grams (Combivent Respimat) albuterol sulfate 90 mcg/actuation 1 - 2 puff inhalation Q6H PRN 09/14/21 aerosol inhaler (Ventolin HFA) Wheezing #18 grams insulin lispro 100 unit/mL See Rx Instructions subcut 09/20/21 subcutaneous solution (Humalog .COMPLEX #10 mL U-100 Insulin) budesonide-formoterol HFA 160 1 inh inhalation BID #10.2 grams 10/18/21 mcg-4.5 mcg/actuation aerosol inhaler (Symbicort) losartan 50 mg tablet (Cozaar) 50 mg PO QAM #30 tabs 10/25/21 famotidine 20 mg tablet 20 mg PO BID #20 tabs 11/29/21 insulin human U-100 NPH-regulr See Rx Instructions subcut BID #30 12/10/21 70-30 mix 100 unit/mL subcutaneous mL susp (Humulin 70/30 U-100 Insulin) pantoprazole 40 mg tablet,delayed 40 mg PO BID #60 tabs 01/12/22 release (Protonix) ipratropium 0.5 mg-albuterol 3 mg 3 ml inhalation Q4H PRN SHORT OF 02/23/22 (2.5 mg base)/3 mL nebulization BREATH #540 mL soln tiotropium bromide 1.25 2 puff inhalation DAILY #4 grams 02/28/22 mcg/actuation mist for inhalation (Spiriva Respimat) nebulizers #1 ea 03/03/22 Results & Data (ED) Vital Signs Vital Signs - 24 hr 03/06/22 10:35 03/06/22 10:32 03/06/22 10:32 Temperature 36.3 C L Temperature Source Temporal Artery Scan Pulse Rate 91 H Pulse Rate [Apical] Pulse Rate from SpO2 Sensor Pulse Rhythm Regular Pulse Strength Normal Respiratory Rate 20 Respiratory Effort / Characteristics Non-Labored Spontaneous Non-Labored Respiratory Depth Normal Normal Respiratory Pattern Regular Regular Blood Pressure 136/78 Blood Pressure [Left Arm] Blood Pressure Mean 97 Blood Pressure Mean [Left Arm] Blood Pressure Position Sitting Pulse Oximetry 95 95 Oxygen Delivery Method Room Air Room Air Room Air Sepsis Recent Fever Within 48 Hours No Sepsis New/Unexplained Change in Mental Status No Sepsis Action Taken by Nursing No Action Required 03/06/22 10:59 03/06/22 11:00 03/06/22 11:00 Temperature Temperature Source Pulse Rate 100 H 95 H Pulse Rate [Apical] Pulse Rate from SpO2 Sensor 98 H 87 Pulse Rhythm Pulse Strength Respiratory Rate 16 20 Respiratory Effort / Characteristics Respiratory Depth Respiratory Pattern Blood Pressure 151/91 H Blood Pressure [Left Arm] Blood Pressure Mean 111 Blood Pressure Mean [Left Arm] Blood Pressure Position Pulse Oximetry 98 96 Oxygen Delivery Method Sepsis Recent Fever Within 48 Hours Sepsis New/Unexplained Change in Mental Status Sepsis Action Taken by Nursing 03/06/22 11:03 03/06/22 11:10 03/06/22 11:20 Temperature Temperature Source Pulse Rate 88 91 H Pulse Rate [Apical] Pulse Rate from SpO2 Sensor 88 91 H Pulse Rhythm Pulse Strength Respiratory Rate 18 18 Respiratory Effort / Characteristics Respiratory Depth Respiratory Pattern Blood Pressure Blood Pressure [Left Arm] Blood Pressure Mean Blood Pressure Mean [Left Arm] Blood Pressure Position Pulse Oximetry 95 94 99 Oxygen Delivery Method Room Air Sepsis Recent Fever Within 48 Hours Sepsis New/Unexplained Change in Mental Status Sepsis Action Taken by Nursing 03/06/22 11:30 03/06/22 11:30 03/06/22 11:40 Temperature Temperature Source Pulse Rate Pulse Rate [Apical] Pulse Rate from SpO2 Sensor 92 H 88 Pulse Rhythm Pulse Strength Respiratory Rate Respiratory Effort / Characteristics Respiratory Depth Respiratory Pattern Blood Pressure 132/87 Blood Pressure [Left Arm] Blood Pressure Mean 102 Blood Pressure Mean [Left Arm] Blood Pressure Position Pulse Oximetry 90 94 Oxygen Delivery Method Sepsis Recent Fever Within 48 Hours Sepsis New/Unexplained Change in Mental Status Sepsis Action Taken by Nursing 03/06/22 11:50 03/06/22 12:00 03/06/22 12:00 Temperature Temperature Source Pulse Rate 90 89 Pulse Rate [Apical] Pulse Rate from SpO2 Sensor 89 96 H Pulse Rhythm Pulse Strength Respiratory Rate 23 18 Respiratory Effort / Characteristics Respiratory Depth Respiratory Pattern Blood Pressure 146/78 H Blood Pressure [Left Arm] Blood Pressure Mean 100 Blood Pressure Mean [Left Arm] Blood Pressure Position Pulse Oximetry 93 91 Oxygen Delivery Method Sepsis Recent Fever Within 48 Hours Sepsis New/Unexplained Change in Mental Status Sepsis Action Taken by Nursing 03/06/22 12:10 03/06/22 12:20 03/06/22 12:30 Temperature Temperature Source Pulse Rate 87 88 Pulse Rate [Apical] Pulse Rate from SpO2 Sensor 87 87 Pulse Rhythm Pulse Strength Respiratory Rate 21 24 Respiratory Effort / Characteristics Respiratory Depth Respiratory Pattern Blood Pressure 155/85 H Blood Pressure [Left Arm] Blood Pressure Mean 108 Blood Pressure Mean [Left Arm] Blood Pressure Position Pulse Oximetry 93 91 Oxygen Delivery Method Sepsis Recent Fever Within 48 Hours Sepsis New/Unexplained Change in Mental Status Sepsis Action Taken by Nursing 03/06/22 12:30 03/06/22 12:40 03/06/22 12:50 Temperature Temperature Source Pulse Rate 85 91 H 98 H Pulse Rate [Apical] Pulse Rate from SpO2 Sensor 85 90 98 H Pulse Rhythm Pulse Strength Respiratory Rate 23 19 15 Respiratory Effort / Characteristics Respiratory Depth Respiratory Pattern Blood Pressure Blood Pressure [Left Arm] Blood Pressure Mean Blood Pressure Mean [Left Arm] Blood Pressure Position Pulse Oximetry 97 92 96 Oxygen Delivery Method Sepsis Recent Fever Within 48 Hours Sepsis New/Unexplained Change in Mental Status Sepsis Action Taken by Nursing 03/06/22 13:00 03/06/22 13:01 03/06/22 13:01 Temperature Temperature Source Pulse Rate 90 96 H Pulse Rate [Apical] Pulse Rate from SpO2 Sensor Pulse Rhythm Pulse Strength Respiratory Rate 18 15 Respiratory Effort / Characteristics Respiratory Depth Respiratory Pattern Blood Pressure 102/72 Blood Pressure [Left Arm] Blood Pressure Mean 82 Blood Pressure Mean [Left Arm] Blood Pressure Position Pulse Oximetry 91 Oxygen Delivery Method Sepsis Recent Fever Within 48 Hours Sepsis New/Unexplained Change in Mental Status Sepsis Action Taken by Nursing 03/06/22 13:10 03/06/22 13:20 03/06/22 13:30 Temperature Temperature Source Pulse Rate 93 H 94 H Pulse Rate [Apical] Pulse Rate from SpO2 Sensor Pulse Rhythm Pulse Strength Respiratory Rate 18 17 Respiratory Effort / Characteristics Respiratory Depth Respiratory Pattern Blood Pressure 154/88 H Blood Pressure [Left Arm] Blood Pressure Mean 110 Blood Pressure Mean [Left Arm] Blood Pressure Position Pulse Oximetry 93 99 Oxygen Delivery Method Sepsis Recent Fever Within 48 Hours Sepsis New/Unexplained Change in Mental Status Sepsis Action Taken by Nursing 03/06/22 13:30 03/06/22 13:40 03/06/22 13:50 Temperature Temperature Source Pulse Rate 93 H 83 90 Pulse Rate [Apical] Pulse Rate from SpO2 Sensor 90 Pulse Rhythm Pulse Strength Respiratory Rate 18 23 22 Respiratory Effort / Characteristics Respiratory Depth Respiratory Pattern Blood Pressure Blood Pressure [Left Arm] Blood Pressure Mean Blood Pressure Mean [Left Arm] Blood Pressure Position Pulse Oximetry 93 94 96 Oxygen Delivery Method Sepsis Recent Fever Within 48 Hours Sepsis New/Unexplained Change in Mental Status Sepsis Action Taken by Nursing 03/06/22 14:00 03/06/22 14:00 03/06/22 14:10 Temperature Temperature Source Pulse Rate 94 H 88 Pulse Rate [Apical] Pulse Rate from SpO2 Sensor 95 H 83 Pulse Rhythm Pulse Strength Respiratory Rate 20 22 Respiratory Effort / Characteristics Respiratory Depth Respiratory Pattern Blood Pressure 152/88 H Blood Pressure [Left Arm] Blood Pressure Mean 109 Blood Pressure Mean [Left Arm] Blood Pressure Position Pulse Oximetry 94 96 Oxygen Delivery Method Sepsis Recent Fever Within 48 Hours Sepsis New/Unexplained Change in Mental Status Sepsis Action Taken by Nursing 03/06/22 14:20 03/06/22 14:30 03/06/22 14:30 Temperature Temperature Source Pulse Rate 89 103 H Pulse Rate [Apical] Pulse Rate from SpO2 Sensor 87 101 H Pulse Rhythm Pulse Strength Respiratory Rate 19 19 Respiratory Effort / Characteristics Respiratory Depth Respiratory Pattern Blood Pressure 127/66 Blood Pressure [Left Arm] Blood Pressure Mean 86 Blood Pressure Mean [Left Arm] Blood Pressure Position Pulse Oximetry 95 95 Oxygen Delivery Method Sepsis Recent Fever Within 48 Hours Sepsis New/Unexplained Change in Mental Status Sepsis Action Taken by Nursing 03/06/22 14:40 03/06/22 14:40 03/06/22 15:25 Temperature Temperature Source Pulse Rate 106 H Pulse Rate [Apical] 94 H Pulse Rate from SpO2 Sensor 107 H Pulse Rhythm Pulse Strength Respiratory Rate 38 H 18 Respiratory Effort / Characteristics Respiratory Depth Respiratory Pattern Blood Pressure 163/97 H Blood Pressure [Left Arm] 195/88 H Blood Pressure Mean 119 Blood Pressure Mean [Left Arm] 123 Blood Pressure Position Pulse Oximetry 95 98 Oxygen Delivery Method Sepsis Recent Fever Within 48 Hours Sepsis New/Unexplained Change in Mental Status Sepsis Action Taken by Nursing Laboratory Data Result diagrams: 03/06/22 10:53 03/06/22 10:53 Lab Results 03/06/22 03/06/22 03/06/22 Range/Units 10:53 10:53 10:53 WBC 12.31 H (4.8-10.8) K/ul RBC 4.76 (3.93-5.22) M/uL Hgb 13.6 (12.0-16.0) g/dl Hct 40.2 (34.1-44.9) % MCV 84.5 (80.0-100.0) fL MCH 28.6 (25.0-34.0) pg MCHC 33.8 (32.0-36.0) g/dL RDW Std Deviation 41.4 (36.4-46.3) fL RDW Coeff of Carolyn 13.4 (11.5-14.5) % Plt Count 299 (130-400) K/uL MPV 10.7 (9.4-12.3) fL Immature Gran % (Auto) 0.6 % Neut % (Auto) 62.1 % Lymph % (Auto) 24.5 % [place] % (Auto) 7.0 % Eos % (Auto) 4.7 % Baso % (Auto) 1.1 % Neut # (Auto) 7.65 H (1.4-6.5) K/uL Lymph # (Auto) 3.01 (1.2-3.4) K/uL [place] # (Auto) 0.86 H (0.24-0.82) K/uL Eos # (Auto) 0.58 H (0-0.50) K/uL Baso # (Auto) 0.14 (0-0.2) K/uL Immature Gran # (Auto) 0.07 H (0.00-0.02) K/uL VBG pH (7.36-7.41) VBG pCO2 (38-50) mmHg VBG pO2 mmHg VBG HCO3 mmol/L VBG O2 Saturation % VBG Base Excess mEq/L Sodium 136 (136-145) mmol/L Potassium 4.1 (3.5-5.1) mmol/L Chloride 102 (98-107) mmol/L Carbon Dioxide 23 (21-32) mmol/L Anion Gap 11 (3-11) BUN 20 (6-23) mg/dl Creatinine 1.06 (0.6-1.2) mg/dl Est Cr Clr Drug Dosing Not Reportable Est GFR ( Amer) 63.8 ml/min Est GFR (Non-Af Amer) 55.1 ml/min BUN/Creatinine Ratio 18.9 (10-20) Glucose 226 H (70-99(Fasting)) mg/dl POC Glucose (70-99) mg/dl Calcium 8.6 (8.5-10.1) mg/dl Total Bilirubin 0.7 (0.2-1.0) mg/dl AST 19 (13-39) U/L ALT 16 (7-52) U/L Alkaline Phosphatase 94 (34-104) U/L Troponin I High Sens 4.5 (0-14) pg/ml C-Reactive Protein 1.10 H (0-0.5) mg/dl B-Natriuretic Peptide (0-100) pg/ml Total Protein 6.8 (6.0-8.3) gm/dl Albumin 3.7 (3.4-5.0) gm/dl Globulin 3.1 (2.5-4.0) gm/dl Albumin/Globulin Ratio 1.2 (0.9-2) Urine Color Urine Appearance (Clear) Urine pH (4.5-7.5) Ur Specific [place] (1.000-1.030) Urine Protein (Negative) Urine Glucose (UA) (Negative) Urine Ketones (Negative) Urine Blood (Negative) Urine Nitrite (Negative) Urine Bilirubin (Negative) Urine Urobilinogen (Negative) Ur Leukocyte Esterase (Negative) SARS-CoV-2 (PCR) (Negative) 03/06/22 03/06/22 03/06/22 Range/Units 11:14 11:40 14:33 WBC (4.8-10.8) K/ul RBC (3.93-5.22) M/uL Hgb (12.0-16.0) g/dl Hct (34.1-44.9) % MCV (80.0-100.0) fL MCH (25.0-34.0) pg MCHC (32.0-36.0) g/dL RDW Std Deviation (36.4-46.3) fL RDW Coeff of Carolyn (11.5-14.5) % Plt Count (130-400) K/uL MPV (9.4-12.3) fL Immature Gran % (Auto) % Neut % (Auto) % Lymph % (Auto) % [place] % (Auto) % Eos % (Auto) % Baso % (Auto) % Neut # (Auto) (1.4-6.5) K/uL Lymph # (Auto) (1.2-3.4) K/uL [place] # (Auto) (0.24-0.82) K/uL Eos # (Auto) (0-0.50) K/uL Baso # (Auto) (0-0.2) K/uL Immature Gran # (Auto) (0.00-0.02) K/uL VBG pH (7.36-7.41) VBG pCO2 (38-50) mmHg VBG pO2 mmHg VBG HCO3 mmol/L VBG O2 Saturation % VBG Base Excess mEq/L Sodium (136-145) mmol/L Potassium (3.5-5.1) mmol/L Chloride (98-107) mmol/L Carbon Dioxide (21-32) mmol/L Anion Gap (3-11) BUN (6-23) mg/dl Creatinine (0.6-1.2) mg/dl Est Cr Clr Drug Dosing Est GFR ( Amer) ml/min Est GFR (Non-Af Amer) ml/min BUN/Creatinine Ratio (10-20) Glucose (70-99(Fasting)) mg/dl POC Glucose (70-99) mg/dl Calcium (8.5-10.1) mg/dl Total Bilirubin (0.2-1.0) mg/dl AST (13-39) U/L ALT (7-52) U/L Alkaline Phosphatase (34-104) U/L Troponin I High Sens (0-14) pg/ml C-Reactive Protein (0-0.5) mg/dl B-Natriuretic Peptide 11 (0-100) pg/ml Total Protein (6.0-8.3) gm/dl Albumin (3.4-5.0) gm/dl Globulin (2.5-4.0) gm/dl Albumin/Globulin Ratio (0.9-2) Urine Color Yellow Urine Appearance Clear (Clear) Urine pH 5.5 (4.5-7.5) Ur Specific [place] 1.006 (1.000-1.030) Urine Protein Negative (Negative) Urine Glucose (UA) Trace H (Negative) Urine Ketones Negative (Negative) Urine Blood Negative (Negative) Urine Nitrite Negative (Negative) Urine Bilirubin Negative (Negative) Urine Urobilinogen Negative (Negative) Ur Leukocyte Esterase Negative (Negative) SARS-CoV-2 (PCR) NEGATIVE (Negative) 03/06/22 03/06/22 Range/Units 15:14 15:58 WBC (4.8-10.8) K/ul RBC (3.93-5.22) M/uL Hgb (12.0-16.0) g/dl Hct (34.1-44.9) % MCV (80.0-100.0) fL MCH (25.0-34.0) pg MCHC (32.0-36.0) g/dL RDW Std Deviation (36.4-46.3) fL RDW Coeff of Carolyn (11.5-14.5) % Plt Count (130-400) K/uL MPV (9.4-12.3) fL Immature Gran % (Auto) % Neut % (Auto) % Lymph % (Auto) % [place] % (Auto) % Eos % (Auto) % Baso % (Auto) % Neut # (Auto) (1.4-6.5) K/uL Lymph # (Auto) (1.2-3.4) K/uL [place] # (Auto) (0.24-0.82) K/uL Eos # (Auto) (0-0.50) K/uL Baso # (Auto) (0-0.2) K/uL Immature Gran # (Auto) (0.00-0.02) K/uL VBG pH 7.40 (7.36-7.41) VBG pCO2 40 (38-50) mmHg VBG pO2 45 mmHg VBG HCO3 25 mmol/L VBG O2 Saturation 78.6 % VBG Base Excess 0 mEq/L Sodium (136-145) mmol/L Potassium (3.5-5.1) mmol/L Chloride (98-107) mmol/L Carbon Dioxide (21-32) mmol/L Anion Gap (3-11) BUN (6-23) mg/dl Creatinine (0.6-1.2) mg/dl Est Cr Clr Drug Dosing Est GFR ( Amer) ml/min Est GFR (Non-Af Amer) ml/min BUN/Creatinine Ratio (10-20) Glucose (70-99(Fasting)) mg/dl POC Glucose 245 H (70-99) mg/dl Calcium (8.5-10.1) mg/dl Total Bilirubin (0.2-1.0) mg/dl AST (13-39) U/L ALT (7-52) U/L Alkaline Phosphatase (34-104) U/L Troponin I High Sens (0-14) pg/ml C-Reactive Protein (0-0.5) mg/dl B-Natriuretic Peptide (0-100) pg/ml Total Protein (6.0-8.3) gm/dl Albumin (3.4-5.0) gm/dl Globulin (2.5-4.0) gm/dl Albumin/Globulin Ratio (0.9-2) Urine Color Urine Appearance (Clear) Urine pH (4.5-7.5) Ur Specific [place] (1.000-1.030) Urine Protein (Negative) Urine Glucose (UA) (Negative) Urine Ketones (Negative) Urine Blood (Negative) Urine Nitrite (Negative) Urine Bilirubin (Negative) Urine Urobilinogen (Negative) Ur Leukocyte Esterase (Negative) SARS-CoV-2 (PCR) (Negative) Administered Medications Magnesium Sulfate/Dextrose (Magnesium Sulfate / D5w) 1 gm in 100 mls @ 50 mls /hr IV ONE ONE Stop: 03/06/22 18:20 Last Admin: 03/06/22 16:48 Dose: 50 mls/hr Documented By: BK Discontinued Medications Albuterol (Albut/Ipratrop 3mg/0.5mg Neb 3 Ml Vial) 3 ml INH NOW STA Stop: 03/06/22 11:04 Last Admin: 03/06/22 11:21 Dose: 3 ml Documented By: AB Albuterol (Albut/Ipratrop 3mg/0.5mg Neb 3 Ml Vial) 3 ml NEB NOW STA; Protocol Stop: 03/06/22 12:16 Last Admin: 03/06/22 12:23 Dose: 3 ml Documented By: AB Albuterol (Albut/Ipratrop 3mg/0.5mg Neb 3 Ml Vial) 3 ml NEB NOW STA; Protocol Stop: 03/06/22 13:08 Last Admin: 03/06/22 13:13 Dose: 3 ml Documented By: AB Albuterol (Albut/Ipratrop 3mg/0.5mg Neb 3 Ml Vial) 3 ml NEB NOW STA; Protocol Stop: 03/06/22 15:09 Last Admin: 03/06/22 15:16 Dose: 3 ml Documented By: NAILA Dexamethasone Sodium Phosphate (DexamethasonePf 10 Mg/Ml Vial) 10 mg IV NOW ONE Stop: 03/06/22 11:04 Last Admin: 03/06/22 11:21 Dose: 10 mg Documented By: Magnesium Sulfate/Dextrose (Magnesium Sulfate / D5w) 1 gm in 100 mls @ 100 mls/hr IV NOW STA Stop: 03/06/22 16:26 Last Admin: 03/06/22 15:42 Dose: 100 mls/hr Documented By: NAILA Insulin Human Regular (Novolin-R Insulin Per Unit Charge) 4 units IV NOW STA Stop: 03/06/22 12:08 Last Admin: 03/06/22 12:23 Dose: 4 units Documented By: Co-signed By: KAY Montelukast Sodium (Montelukast Sodium 10 Mg Tablet) 10 mg PO NOW ONE Stop: 03/06/22 16:04 Last Admin: 03/06/22 16:17 Dose: 10 mg Documented By: NAILA Imaging Data Radiologist's Impression: Chest X-Ray 03/06/22 11:03 SINGLE VIEW CHEST CLINICAL HISTORY: Dyspnea FINDINGS: An AP, portable, upright chest radiograph is compared to study dated 11/29/2021 and correlated with chest CT dated 03/08/2019. The examination is degraded by portable technique, large body habitus, and apical lordotic positioning. The cardiomediastinal silhouette is unremarkable. There is mild bibasilar atelectasis. The lungs and pleural spaces are otherwise clear. No pneumothorax is seen. The bony thorax is grossly intact. IMPRESSION: No active disease in the chest. ACT 112: Negative or not required by law. Electronically signed by: Freddy Gomez M.D. 03/06/2022 11:30 AM Discharge Plan Visit Data Chief Complaint: Shortness of Breath/Dyspnea Stated Complaint: SOB,ASTHMA ED Provider: Poncho Snyder Discharge Problem: SOB (shortness of breath), Bilateral wheezing, Asthma exacerbation Forms Stand Alone Forms: [facility] Prescriptions Prescriptions: No Action (DME) OneTouch Ultra Test Strip See Rx Instructions .Route Qty: 100 5RF Rx Instructions: test 3-4 times a day cyclobenzaprine 10 mg tablet 10 mg PO TID PRN (Reason: muscle spasm) Qty: 60 5RF Rx Instructions: TAKE : 1/2 to 1 tab up to 3 times a day Combivent Respimat 20-100 mcg/actuation mist 1 puff inhalation QID PRN (Reason: SOB and wheezing) Qty: 4 2RF Rx Instructions: space evenly during waking hours albuterol sulfate [Ventolin HFA] 90 mcg/actuation HFA aerosol inhaler 1 - 2 puff INHALATION Q6H PRN (Reason: Wheezing) Qty: 18 2RF Rx Instructions: Needs to be Ventolin brand for insurance insulin lispro [Humalog U-100 Insulin] 100 unit/mL solution See Rx Instructions subcut .COMPLEX Qty: 10 6RF Rx Instructions: 1 sliding scale dose subcut Inject SQ before meals per sliding scale directed by meal carbs and blood sugar readings; losartan [Cozaar] 50 mg tablet 50 mg PO QAM Qty: 30 11RF pantoprazole [Protonix] 40 mg tablet,delayed release (DR/EC) 40 mg PO BID Qty: 60 3RF ipratropium-albuterol 0.5 mg-3 mg(2.5 mg base)/3 mL solution for nebulization 3 ml INH Q4H PRN (Reason: SHORT OF BREATH) Qty: 540 0RF Spiriva Respimat 1.25 mcg/actuation mist 2 puff inhalation DAILY Qty: 4 3RF (DME) nebulizers [facility] [place] Rx Instructions .Route Qty: 1 0RF Rx Instructions: nebulizer and nebulizer kits /supplies budesonide-formoterol [Symbicort] 160-4.5 mcg/actuation HFA aerosol inhaler 1 inh inhalation BID Qty: 10.2 6RF guaifenesin 600 mg tablet extended release 12hr 600 mg PO BID PRN (Reason: Congestion) clotrimazole [Antifungal (clotrimazole)] 1 % cream 1 applic topical BID PRN (Reason: Skin Irritation) Rx Instructions: 1 application topical twice a day as needed for break outs on the lower legs chlorpheniramine maleate 4 mg tablet 4 mg PO Q6H PRN (Reason: allergies) Rx Instructions: do not exceed 2 doses per 24 hrs fluticasone propionate 50 mcg/actuation spray,suspension 2 spray intranasal DAILY Qty: 15.8 2RF Rx Instructions: administer into each nostril Humulin 70/30 U-100 Insulin 100 unit/mL (70-30) suspension See Rx Instructions SQ BID Qty: 30 8RF Hold Instructions: wants to try basal Rx Instructions: 55 units in the a.m., 55 units in the p.m. subcut twice a day; aspirin [Mena Low Dose Aspirin] 81 mg tablet,delayed release (DR/EC) 81 mg PO QAM furosemide [Lasix] 20 mg tablet 20 mg PO QAM Qty: 30 11RF desloratadine [Clarinex] 5 mg tablet 5 mg PO DAILY Qty: 30 5RF Symjepi 0.3 mg/0.3 mL Syringe 0.3 mg IM Q3H PRN (Reason: Allergic Reaction) Rx Instructions: COLD RESPONSE-HIVES sucralfate [Carafate] 100 mg/mL suspension 10 ml PO QID PRN (Reason: SEVERE STOMACH PAIN) Rx Instructions: swish in mouth and swallow; use after food/drink: May substitute tablets as a slurry. losartan 25 mg tablet 25 mg PO DAILY PRN (Reason: ELEVATED B/P) famotidine 20 mg tablet 20 mg PO BID Qty: 20 0RF Referrals Referrals: Sarah Everett CRNP [Primary Care Provider] -
[2022-03-06 11:24] LABS: Basophils # (auto) 0.14 K/uL (0-0.2); Basophils % (auto) 1.1 %; Eosinophils # (auto) 0.58 K/uL (0-0.50); Eosinophils % (auto) 4.7 %; Hematocrit (blood only) 40.2 % (34.1-44.9); Hemoglobin 13.6 g/dl (12.0-16.0); Immature Granulocytes # (auto) 0.07 K/uL (0.00-0.02); Immature Granulocytes % (auto) 0.6 %; Lymphocytes # (auto) 3.01 K/uL (1.2-3.4); Lymphocytes % (auto) 24.5 %; Mean Corpuscular Hemoglobin 28.6 pg (25.0-34.0); Mean Corpuscular Hgb Conc 33.8 g/dL (32.0-36.0); Mean Corpuscular Volume 84.5 fL (80.0-100.0); Mean Platelet Volume 10.7 fL (9.4-12.3); Monocytes # (auto) 0.86 K/uL (0.24-0.82); Neutrophils # (auto) 7.65 K/uL (1.4-6.5); Neutrophils % (auto) 62.1 %; Platelet Count 299 K/uL (130-400); RDW Coefficient of Variation 13.4 % (11.5-14.5); RDW Standard Deviation 41.4 fL (36.4-46.3); Red Blood Count 4.76 M/uL (3.93-5.22); White Blood Count 12.31 K/ul (4.8-10.8)
--- NOTE | 2022-03-06 11:32 | XRay Report ---
SINGLE VIEW CHEST CLINICAL HISTORY: Dyspnea FINDINGS: An AP, portable, upright chest radiograph is compared to study dated 11/29/2021 and correlat ed with chest CT dated 03/08/2019. The examination is degraded by portable technique, large body habit us, and apical lordotic positioning. The cardiomediastinal silhouette is unremarkable. There is mild bibasilar atelectasis. The lungs and pleural spaces are otherwise clear. No pneumothorax is seen. Th e bony thorax is grossly intact. IMPRESSION: No active disease in the chest. ACT 112: Negative or not required by law. Electronically signed by: Freddy Gomez M.D. 03/06/2022 11:30 AM
[2022-03-06 11:51] LABS: Troponin I High Sensitivity 4.5 pg/ml (0-14)
[2022-03-06 12:05] LABS: Alanine Aminotransferase 16 U/L (7-52); Albumin Globulin Ratio 1.2 (0.9-2); Albumin Level 3.7 gm/dl (3.4-5.0); Alkaline Phosphatase 94 U/L (34-104); Anion Gap 11 (3-11); Aspartate Aminotransferase 19 U/L (13-39); BUN Creatinine Ratio 18.9 (10-20); Bilirubin,Total 0.7 mg/dl (0.2-1.0); Blood Urea Nitrogen 20 mg/dl (6-23); Calcium 8.6 mg/dl (8.5-10.1); Carbon Dioxide 23 mmol/L (21-32); Chloride 102 mmol/L (98-107); Est GFR (African American) 63.8 ml/min; Est GFR (Non-African American) 55.1 ml/min; Globulin 3.1 gm/dl (2.5-4.0); Glucose 226 mg/dl (70-99(Fasting)); Potassium 4.1 mmol/L (3.5-5.1); Sodium 136 mmol/L (136-145); Total Protein 6.8 gm/dl (6.0-8.3)
[2022-03-06] MEDS ORDERED: NovoLIN-R INSULIN PER UNIT CHARGE IV STA (12:07)
[2022-03-06] MEDS ORDERED: ALBUT/IPRATROP 3MG/0.5MG NEB 3 ML VIAL NEB STA ×3 (12:15→15:08)
--- NOTE | 2022-03-06 12:59 | Electrocardiogram Report ---
Test Reason : Blood Pressure : / mmHG Vent. Rate : 091 BPM Atrial Rate : 091 BPM P-R Int : 146 ms QRS Dur : 068 ms QT Int : 348 ms P-R-T Axes : 063 042 059 degrees QTc Int : 428 ms Normal sinus rhythm Normal ECG When compared with ECG of 29-NOV-2021 11:37, Criteria for Anterior infarct are no longer Present Confirmed by Brad Barrios ([id number]) on 03/06/2022 12:58:50 PM Referred By: REFERRED SELF Confirmed By:Brad Barrios
[2022-03-06 14:51] LABS: Appearance Urine Clear (Clear); Bilirubin Urine Negative (Negative); Blood Urine Negative (Negative); Color Urine Yellow; Glucose Urine UA Trace (Negative); Ketones Urine Negative (Negative); Leukocyte Esterase Urine Negative (Negative); Nitrite Urine Negative (Negative); Protein Urine Negative (Negative); Specific Gravity Urine 1.006 (1.000-1.030); Urobilinogen Urine Negative (Negative); pH Urine 5.5 (4.5-7.5)
[2022-03-06] MEDS ORDERED: MAGNESIUM SULFATE / D5W 1 GM/100 ML BAG IV STA (15:27)
[2022-03-06] MEDS ORDERED: MONTELUKAST SODIUM 10 MG TABLET PO ONE (16:03)
[2022-03-06 16:13] LABS: Base Excess VBG 0 mEq/L; HCO3 VBG 25 mmol/L; Oxygen Saturation VBG 78.6 %; PCO2 VBG 40 mmHg (38-50); PO2 VBG 45 mmHg
[2022-03-06] MEDS ORDERED: MAGNESIUM SULFATE / D5W 1 GM/100 ML BAG IV ONE (16:21)
--- NOTE | 2022-03-06 16:38 | History & Physical Report ---
Date of Service March 06, 2022 Assessment & Plan (1) Asthma exacerbation: Plan: Patient presents with 3-4 weeks of wheezing and dyspnea without relief with outpatient steroid therapy, with increased use of nebulizers and inhalers Astma exacrebation- severe persistent asthma at baseline - EOS count is elevated- will re-initiate Montelukast- she was on previous but felt it was not helping - Continue Methylpred at 40mg IV q6 hours - Budesonide nebulizer now- transition back to Symbicort inh. tomorrow - Continue with Ipratropium/Albuterol nebulizers scheduled - Continue Spiriva - VBG without hypercapnia and PH 7.40 - Magnesium 2 GM IV now - Respiratory BIOfire now - CPAP at night - CBC in morning - (2) Allergic rhinitis with postnasal drip: Plan: Continue loratidine continue flonase (3) Morbid obesity: Plan: weight loss would be imperative to decrease assisted CV mortality as well as improve pulmonary mechanics (4) MADAY on CPAP: Plan: Compliant - continue CPAP 11.5-20CM H20 with 2L oxygen bled in (5) CAD (coronary artery disease): Plan: Non-obstructive CAD previous Cath - Dobutamine Stress ECHO performed 01/08 with evaluation of dyspnea - normal - continue asa, ARB, (6) Hypertension: Plan: As above (7) Diabetes mellitus, type 2: Plan: She is on 70/30 at home and sliding scale lispro - glycemic pharmacy consult for transition to basal bolus insulin while on systemic steroids - she also endorses 2-3 times per week waking up with hypoglycemic symptoms with her BG in the 60s- she reports that she does take snack before bed (8) GERD (gastroesophageal reflux disease): Plan: Continue H2, PPI, Carfate History of Present Illness Primary Care Provider: VALERY Chavez 66 YOF with medical history of: Morbid Obesity (BMI 54), Severe persistent Asthma. Eosinophilic Asthma, PND, MADAY, DMII(on insulin), HTN, HLD. Patient comes to the emergency room today for complaints of wheezing and dyspnea. Patient reports that this has been ongoing for the past 3-4 weeks. She reports that during that time she did talk with pulmonary office and originally completed 5 day course of 40mg oral prednisone with Azithromycin, this did not relieve her symptoms and then was placed on 20mg of Prednisone that finished this week. She reports that she has been using her JOSEPH nebulizers and Inhalers each 3-4 times per day with no relief of her wheezing and cough. The patient states that she has had no fevers or chills, and has not been around anyone else that is ill. She reports compliance with her CPAP and other inhalers. Patient states that they are in the process of moving and there is cleaning around the house, but feels her symptoms started before this. She also denies any medication changes. She was previously followed with Pulmonary and Allergy and was on Dupixent at one time, but stopped this secondary to feeling dizzy. She reports that she has an appointment with allergy on March 28. She was last seen by Pulmonary 10/12. Patient has history of multiple reports of reactions to medications as well as feeling that medications aren't helping her so they are either stopped or discontinued. In the EMD the patient had 10mg of IV Decadron, 4 albuterol nebulizers, ECH, CXR. Hospitalist service was consulted for admission. Blood gas analysis requested, and Magnesium IV requested. WIll add on respiratory bio-fire. Patient will be admitted to medical telemetry for following of symptoms. COVID test: NEGATIVE Allergies Allergy/AdvReac Type Severity Reaction Status Date / Time Iodinated Contrast Media Allergy Severe SOB Verified 03/06/22 15:05 metformin Allergy Severe STOMACH Verified 03/06/22 15:05 CRAMPS DIARRHEA amoxicillin [From Augmentin] Allergy Intermediate ITCHING Verified 03/06/22 15:05 clavulanic acid Allergy Intermediate ITCHING Verified 03/06/22 15:05 [From Augmentin] dulaglutide [From Trulicity] Allergy Intermediate FEELS SICK Verified 03/06/22 15:05 ALL OVER lisinopril Allergy Mild SINUS Verified 03/06/22 15:05 SWELLING, COUGH cetirizine [From Zyrtec] AdvReac Intermediate Dizziness Verified 03/06/22 15:05 diphenhydramine AdvReac Intermediate HYPERACTIVE Verified 03/06/22 15:05 empagliflozin AdvReac Mild pelvic Verified 03/06/22 15:05 [From Jardiance] pain, urinary urgency olmesartan AdvReac Mild pt reports Verified 03/06/22 15:05 nonstop coughing after taking (3 years ago) DAMP COLDNESS ENVIRONMENT Allergy Intermediate SYNCOPAL Uncoded 03/06/22 15:05 EPISODE Home Medications Medication Instructions Recorded Confirmed Type epinephrine 0.3 mg/0.3 mL 0.3 mg IM Q3H PRN Allergic Reaction 03/26/19 03/06/22 History injection syringe (Symjepi) aspirin 81 mg tablet,delayed 81 mg PO QAM 04/30/19 03/06/22 History release (Mnea Low Dose Aspirin) desloratadine 5 mg tablet 5 mg PO DAILY #30 tabs 03/23/21 03/06/22 Rx (Clarinex) furosemide 20 mg tablet (Lasix) 20 mg PO QAM #30 tabs 03/23/21 03/06/22 Rx chlorpheniramine maleate 4 mg 4 mg PO Q6H PRN allergies 05/07/21 03/06/22 History tablet clotrimazole 1 % topical cream 1 applic topical BID PRN Skin 05/07/21 03/06/22 History (Antifungal (clotrimazole)) Irritation fluticasone propionate 50 2 spray intranasal DAILY #15.8 05/07/21 03/06/22 Rx mcg/actuation nasal grams spray,suspension guaifenesin 600 mg tablet, 600 mg PO BID PRN Congestion 05/07/21 03/06/22 History extended release 12 hr blood sugar diagnostic (OneTouch #100 ea 06/10/21 12/10/21 Rx Ultra Test) cyclobenzaprine 10 mg tablet 10 mg PO TID PRN muscle spasm #60 09/06/21 03/06/22 Rx tabs ipratropium 20 mcg-albuterol 100 1 puff inhalation QID PRN SOB and 09/06/21 03/06/22 Rx mcg/actuation mist for inhalation wheezing #4 grams (Combivent Respimat) albuterol sulfate 90 mcg/actuation 1 - 2 puff inhalation Q6H PRN 09/14/21 03/06/22 Rx aerosol inhaler (Ventolin HFA) Wheezing #18 grams insulin lispro 100 unit/mL See Rx Instructions subcut 09/20/21 03/06/22 Rx subcutaneous solution (Humalog .COMPLEX #10 mL U-100 Insulin) budesonide-formoterol HFA 160 1 inh inhalation BID #10.2 grams 10/18/21 03/06/22 Rx mcg-4.5 mcg/actuation aerosol inhaler (Symbicort) losartan 50 mg tablet (Cozaar) 50 mg PO QAM #30 tabs 10/25/21 03/06/22 Rx famotidine 20 mg tablet 20 mg PO BID #20 tabs 11/29/21 03/06/22 Rx insulin human U-100 NPH-regulr See Rx Instructions subcut BID #30 12/10/21 03/06/22 Rx 70-30 mix 100 unit/mL subcutaneous mL susp (Humulin 70/30 U-100 Insulin) pantoprazole 40 mg tablet,delayed 40 mg PO BID #60 tabs 01/12/22 03/06/22 Rx release (Protonix) ipratropium 0.5 mg-albuterol 3 mg 3 ml inhalation Q4H PRN SHORT OF 02/23/22 03/06/22 Rx (2.5 mg base)/3 mL nebulization BREATH #540 mL soln tiotropium bromide 1.25 2 puff inhalation DAILY #4 grams 02/28/22 03/06/22 Rx mcg/actuation mist for inhalation (Spiriva Respimat) nebulizers #1 ea 03/03/22 Rx losartan 25 mg tablet 25 mg PO DAILY PRN ELEVATED B/P 03/06/22 03/06/22 History sucralfate 100 mg/mL oral 10 ml PO QID PRN SEVERE STOMACH 03/06/22 03/06/22 History suspension (Carafate) PAIN Past Med/Surg History Medical History Abnormal CT scan of lung Axillary lymphadenopathy CAD (coronary artery disease) non-obstructive per 01/2019 cardiac cath Chronic bilateral low back pain Chronic sinusitis Diabetes mellitus, type 2 IDDM Diverticular disease Dyspnea on exertion Eosinophilic asthma Fatigue GERD (gastroesophageal reflux disease) occasional Hiatal hernia Hyperlipidemia pt ABSOLUTELY refuses a statin Hypertension Morbid obesity MADAY on CPAP Peripheral edema Renal insufficiency, mild Seizure seizures as a child until age 6- no seizures since/no anticonvulsants Severe persistent chronic asthma without complication Surgical History H/O laparoscopy History of bronchoscopy History of cardiac cath 02/08/19= NO STENTS History of colonoscopy History of esophagogastroduodenoscopy (EGD) History of repair of hiatal hernia (07/11/19) Laparoscopic Cholecystectomy, Laparoscopic Hiatal Hernia Repair Dr. Borjas 07/11/19 S/P laparoscopic cholecystectomy Laparoscopic Cholecystectomy, Laparoscopic Hiatal Hernia Repair Dr. Borjas 07/11/19 Family History Father Myocardial infarction Cardiac disorder Lung disease Heart disease Mother Ovarian cancer Stroke Family history of diabetes mellitus Gallbladder disease Hypertension Cancer Sister Stroke Family history of diabetes mellitus Gallbladder disease Cancer Pancreatic cancer Heart disease Allergies Family/Other Asthma Coronary heart disease Other Family history non-contributory No family history of bleeding disorder Denies family history of Prostate cancer Breast cancer Colorectal cancer Social History Smoking Status: Never smoker Second Hand Exposure: No; Hx Alcohol Use: No Hx Substance Use: No Preferred Language: Maori Communication Ability: Effective Pets Salesperson Required: No Beliefs That Will Affect Care: None marital status: Current Living Situation: Spouse current occupational status: unemployed How many Children do You have: 0 Other Information That Helps Us Care for You: No Feels Safe at Home: Yes Safety Concerns: Feels Safe At This Time Dental Care, Regularly: Yes Seatbelt Use: always Assistive Devices: Cane, CPAP, Crutches, Walker and Wheelchair Review of Systems Review of Systems: REVIEW OF SYSTEMS: Constitutional: No fever, sweats or chills Eyes: No diplopia, no worsening or blurred vision ENT: normal hearing, no trouble swallowing Respiratory: (+) wheeze cough, sputum, dyspnea at rest or on exertion Cardiovascular: No chest pain, tightness or palpitations Abdomen: (+) diarrhea, No pain, nausea, vomiting, diarrhea or constipation Musculoskeletal: No joint pain, calf pain, swelling Neurologic: No weakness, numbness/tingling, or balance problems Psychiatric: No anxiety or depression Skin: No rash or itch Physical Exam Physical Exam: PHYSICAL EXAM: General: awake, alert, no apparent distress Head: Normocephalic, atraumatic ENT: PERRL, EOMI, no pharyngeal exudate, mucous membranes moist Neuro: AAO x 3, speech clear and appropriate, strength intact bilaterally 5/5, sensation intact and equal all extremities and dermatomes, no pronator drift Chest: equal rise and fall of the chest, no accessory muscle use, end expiratory wheeze bilaterally all lung [place], Cardiac: Regular rate and rhythm, telemetry reviewed, skin warm dry, cap refill <3 seconds, peripheral pulses +2 no JVD, no murmur, trace edema bilateral lower extremities GI: NABS x 4 quadrants, soft, nontender to palpation, no rebound, guarding or tenderness : Spontaneously voiding, no pain, no CVA tenderness, Extremities: Normal inspection, no peripheral edema or erythema, calfs nontender to palpation Psych: Normal mood and affect Skin: no rash or erythema Results & Data Results & Data ([facility]) Vital Signs (Past 12 Hours) Vital Signs Temp Pulse Pulse Resp BP BP Pulse Ox 03/06/22 15:25 94 H 18 195/88 H 98 03/06/22 14:40 106 H 38 H 95 03/06/22 14:40 163/97 H 03/06/22 14:30 103 H 19 95 03/06/22 14:30 127/66 03/06/22 14:20 89 19 95 03/06/22 14:10 88 22 96 03/06/22 14:00 94 H 20 94 03/06/22 14:00 152/88 H 03/06/22 13:50 90 22 96 03/06/22 13:40 83 23 94 03/06/22 13:30 93 H 18 93 03/06/22 13:30 154/88 H 03/06/22 13:20 94 H 17 99 03/06/22 13:10 93 H 18 93 03/06/22 13:01 102/72 03/06/22 13:01 96 H 15 03/06/22 13:00 90 18 91 03/06/22 12:50 98 H 15 96 03/06/22 12:40 91 H 19 92 03/06/22 12:30 85 23 97 03/06/22 12:30 155/85 H 03/06/22 12:20 88 24 91 03/06/22 12:10 87 21 93 03/06/22 12:00 89 18 91 03/06/22 12:00 146/78 H 03/06/22 11:50 90 23 93 03/06/22 11:40 94 03/06/22 11:30 90 03/06/22 11:30 132/87 03/06/22 11:20 91 H 18 99 03/06/22 11:10 88 18 94 03/06/22 11:03 95 03/06/22 11:00 95 H 20 96 03/06/22 11:00 151/91 H 03/06/22 10:59 100 H 16 98 03/06/22 10:32 95 03/06/22 10:32 03/06/22 10:35 36.3 C L 91 H 20 136/78 95 O2 Del Method 03/06/22 15:25 03/06/22 14:40 03/06/22 14:40 03/06/22 14:30 03/06/22 14:30 03/06/22 14:20 03/06/22 14:10 03/06/22 14:00 03/06/22 14:00 03/06/22 13:50 03/06/22 13:40 03/06/22 13:30 03/06/22 13:30 03/06/22 13:20 03/06/22 13:10 03/06/22 13:01 03/06/22 13:01 03/06/22 13:00 03/06/22 12:50 03/06/22 12:40 03/06/22 12:30 03/06/22 12:30 03/06/22 12:20 03/06/22 12:10 03/06/22 12:00 03/06/22 12:00 03/06/22 11:50 03/06/22 11:40 03/06/22 11:30 03/06/22 11:30 03/06/22 11:20 03/06/22 11:10 03/06/22 11:03 Room Air 03/06/22 11:00 03/06/22 11:00 03/06/22 10:59 03/06/22 10:32 Room Air 03/06/22 10:32 Room Air 03/06/22 10:35 Room Air Laboratory Results Abnormal lab results 03/06/22 03/06/22 03/06/22 Range/Units 10:53 10:53 10:53 WBC 12.31 H (4.8-10.8) K/ul Neut # (Auto) 7.65 H (1.4-6.5) K/uL [place] # (Auto) 0.86 H (0.24-0.82) K/uL Eos # (Auto) 0.58 H (0-0.50) K/uL Immature Gran # (Auto) 0.07 H (0.00-0.02) K/uL Glucose 226 H (70-99(Fasting)) mg/dl POC Glucose (70-99) mg/dl C-Reactive Protein 1.10 H (0-0.5) mg/dl Urine Glucose (UA) (Negative) 03/06/22 03/06/22 Range/Units 14:33 15:14 WBC (4.8-10.8) K/ul Neut # (Auto) (1.4-6.5) K/uL [place] # (Auto) (0.24-0.82) K/uL Eos # (Auto) (0-0.50) K/uL Immature Gran # (Auto) (0.00-0.02) K/uL Glucose (70-99(Fasting)) mg/dl POC Glucose 245 H (70-99) mg/dl C-Reactive Protein (0-0.5) mg/dl Urine Glucose (UA) Trace H (Negative) Diagnostic Findings Chest X-Ray 03/06/22 11:03 SINGLE VIEW CHEST CLINICAL HISTORY: Dyspnea FINDINGS: An AP, portable, upright chest radiograph is compared to study dated 11/29/2021 and correlated with chest CT dated 03/08/2019. The examination is degraded by portable technique, large body habitus, and apical lordotic positioning. The cardiomediastinal silhouette is unremarkable. There is mild bibasilar atelectasis. The lungs and pleural spaces are otherwise clear. No pneumothorax is seen. The bony thorax is grossly intact. IMPRESSION: No active disease in the chest. ACT 112: Negative or not required by law. Electronically signed by: Freddy Gomez M.D. 03/06/2022 11:30 AM Medications Administered Home Medications epinephrine 0.3 mg/0.3 mL injection syringe (Symjepi) 0.3 mg IM Q3H PRN Allergic Reaction 03/26/19 [History Confirmed 03/06/22] aspirin 81 mg tablet,delayed release ([place]ena Low Dose Aspirin) 81 mg PO QAM 04/30/19 [History Confirmed 03/06/22] desloratadine 5 mg tablet (Clarinex) 5 mg PO DAILY #30 tabs 03/23/21 [Rx Confirmed 03/06/22] furosemide 20 mg tablet (Lasix) 20 mg PO QAM #30 tabs 03/23/21 [Rx Confirmed 03/06/22] chlorpheniramine maleate 4 mg tablet 4 mg PO Q6H PRN allergies 05/07/21 [History Confirmed 03/06/22] clotrimazole 1 % topical cream (Antifungal (clotrimazole)) 1 applic topical BID PRN Skin Irritation 05/07/21 [History Confirmed 03/06/22] fluticasone propionate 50 mcg/actuation nasal spray,suspension 2 spray intranasal DAILY #15.8 grams 05/07/21 [Rx Confirmed 03/06/22] guaifenesin 600 mg tablet, extended release 12 hr 600 mg PO BID PRN Congestion 05/07/21 [History Confirmed 03/06/22] blood sugar diagnostic ([place] Ultra Test) #100 ea 06/10/21 [Rx Confirmed 12/10/21] cyclobenzaprine 10 mg tablet 10 mg PO TID PRN muscle spasm #60 tabs 09/06/21 [Rx Confirmed 03/06/22] ipratropium 20 mcg-albuterol 100 mcg/actuation mist for inhalation (Combivent Respimat) 1 puff inhalation QID PRN SOB and wheezing #4 grams 09/06/21 [Rx Confirmed 03/06/22] albuterol sulfate 90 mcg/actuation aerosol inhaler (Ventolin HFA) 1 - 2 puff inhalation Q6H PRN Wheezing #18 grams 09/14/21 [Rx Confirmed 03/06/22] insulin lispro 100 unit/mL subcutaneous solution (Humalog U-100 Insulin) See Rx Instructions subcut .COMPLEX #10 mL 09/20/21 [Rx Confirmed 03/06/22] budesonide-formoterol HFA 160 mcg-4.5 mcg/actuation aerosol inhaler (Symbicort) 1 inh inhalation BID #10.2 grams 10/18/21 [Rx Confirmed 03/06/22] losartan 50 mg tablet (Cozaar) 50 mg PO QAM #30 tabs 10/25/21 [Rx Confirmed 03/06/22] famotidine 20 mg tablet 20 mg PO BID #20 tabs 11/29/21 [Rx Confirmed 03/06/22] insulin human U-100 NPH-regulr 70-30 mix 100 unit/mL subcutaneous susp (Humulin 70/30 U-100 Insulin) See Rx Instructions subcut BID #30 mL 12/10/21 [Rx Confirmed 03/06/22] pantoprazole 40 mg tablet,delayed release (Protonix) 40 mg PO BID #60 tabs 01/12/22 [Rx Confirmed 03/06/22] ipratropium 0.5 mg-albuterol 3 mg (2.5 mg base)/3 mL nebulization soln 3 ml inhalation Q4H PRN SHORT OF BREATH #540 mL 02/23/22 [Rx Confirmed 03/06/22] tiotropium bromide 1.25 mcg/actuation mist for inhalation (Spiriva Respimat) 2 puff inhalation DAILY #4 grams 02/28/22 [Rx Confirmed 03/06/22] nebulizers #1 ea 03/03/22 [Rx] losartan 25 mg tablet 25 mg PO DAILY PRN ELEVATED B/P 03/06/22 [History Confirmed 03/06/22] sucralfate 100 mg/mL oral suspension (Carafate) 10 ml PO QID PRN SEVERE STOMACH PAIN 03/06/22 [History Confirmed 03/06/22] Active Medications Magnesium Sulfate/Dextrose (Magnesium Sulfate / D5w) 1 gm in 100 mls @ 50 mls/hr IV ONE ONE Stop: 03/06/22 18:20 Discontinued Medications Albuterol (Albut/Ipratrop 3mg/0.5mg Neb 3 Ml Vial) 3 ml INH NOW STA Stop: 03/06/22 11:04 Last Admin: 03/06/22 11:21 Dose: 3 ml Documented By: AB Albuterol (Albut/Ipratrop 3mg/0.5mg Neb 3 Ml Vial) 3 ml NEB NOW STA; Protocol Stop: 03/06/22 12:16 Last Admin: 03/06/22 12:23 Dose: 3 ml Documented By: AB Albuterol (Albut/Ipratrop 3mg/0.5mg Neb 3 Ml Vial) 3 ml NEB NOW STA; Protocol Stop: 03/06/22 13:08 Last Admin: 03/06/22 13:13 Dose: 3 ml Documented By: AB Albuterol (Albut/Ipratrop 3mg/0.5mg Neb 3 Ml Vial) 3 ml NEB NOW STA; Protocol Stop: 03/06/22 15:09 Last Admin: 03/06/22 15:16 Dose: 3 ml Documented By: NAILA Dexamethasone Sodium Phosphate (DexamethasonePf 10 Mg/Ml Vial) 10 mg IV NOW ONE Stop: 03/06/22 11:04 Last Admin: 03/06/22 11:21 Dose: 10 mg Documented By: Magnesium Sulfate/Dextrose (Magnesium Sulfate / D5w) 1 gm in 100 mls @ 100 mls/hr IV NOW STA Stop: 03/06/22 16:26 Last Admin: 03/06/22 15:42 Dose: 100 mls/hr Documented By: NAILA Insulin Human Regular (Novolin-R Insulin Per Unit Charge) 4 units IV NOW Stop: 03/06/22 12:08 Last Admin: 03/06/22 12:23 Dose: 4 units Documented By: Co-signed By: OAM Montelukast Sodium (Montelukast Sodium 10 Mg Tablet) 10 mg PO NOW ONE Stop: 03/06/22 16:04 Last Admin: 03/06/22 16:17 Dose: 10 mg Documented By: NAILA ECG Additional Comments: Vent. Rate : 091 BPM Atrial Rate : 091 BPM P-R Int : 146 ms QRS Dur : 068 ms QT Int : 348 ms P-R-T Axes : 063 042 059 degrees QTc Int : 428 ms Normal sinus rhythm Normal ECG When compared with ECG of 29-NOV-2021 11:37, Criteria for Anterior infarct are no longer Present Code Status & VTE Plan Code Status CODE: FULL VTE: SCDS, Lovenox 40mg sc daily VTE Prophylaxis Plan VTE Prophylaxis will be ordered: Yes Supervising Physician Co-Signing Physician Notes Patient seen and examined at bedside. I obtained a history and physical examination. I reviewed above note and agree with it. Discused plan of care with patient and APC Judith. Patient will be admitted with an asthma exacerbation. Placed on steroid IV and breathing treatment. BIOFIRE will be ordered. PG Care Time/CCT Total # of Minutes Spent Total Time Spent with Patient: Total time spent is greater than 50% in coordination of care (as documented) at patient's floor/unit and/or counseling patient: Coding Level of Care Code 02329 Initial Inpt Care Lvl 3 Diagnoses Asthma exacerbation J45.901 Allergic rhinitis with postnasal drip J30.9; R09.82 Morbid obesity E66.01 MADAY on CPAP G47.33; Z99.89 CAD (coronary artery disease) I25.10 Hypertension I10 Diabetes mellitus, type 2 E11.9 GERD (gastroesophageal reflux disease) K21.9 Esophagitis presence: without esophagitis (1) GERD (gastroesophageal reflux disease) Esophagitis presence: without esophagitis Qualified Code(s): K21.9 - Gastro- esophageal reflux disease without esophagitis
[2022-03-06 17:21] LABS: Adenovirus PCR Not Detected (NotDetected); Bordetella parapertussis PCR Not Detected (NotDetected); Bordetella pertussis PCR Not Detected (NotDetected); Chlamydia pneumoniae PCR Not Detected (NotDetected); Coronavirus 229E PCR Not Detected (NotDetected); Coronavirus CoV-2 (COVID19)PCR Not Detected (NotDetected); Coronavirus HKU1 PCR Not Detected (NotDetected); Coronavirus NL63 PCR Not Detected (NotDetected); Coronavirus OC43PCR Not Detected (NotDetected); Human Metapneumovirus PCR Not Detected (NotDetected); Influenza A PCR Not Detected (NotDetected); Influenza B PCR Not Detected (NotDetected); Mycoplasma pneumoniae PCR Not Detected (NotDetected); Parainfluenza Virus 1 PCR Not Detected (NotDetected); Parainfluenza Virus 2 PCR Not Detected (NotDetected); Parainfluenza Virus 3 PCR Not Detected (NotDetected); Parainfluenza Virus 4 PCR Not Detected (NotDetected); Respiratory Syncytial VirusPCR Not Detected (NotDetected)
[2022-03-06] MEDS ORDERED: BUDESONIDE 0.5 MG/2 ML VIAL (PULMICORT) NEB STA (17:40)
[2022-03-06] MEDS ORDERED: PHARMACY GLYCEMIC MGMT CONSULT PRN (17:40)
[2022-03-06] MEDS ORDERED: guaiFENesin 600 MG TABCR PO PRN (17:40)
[2022-03-06] MEDS ORDERED: SUCRALFATE 1 GM/10 ML UDC PO PRN (17:40)
[2022-03-06] MEDS ORDERED: CYCLOBENZAPRINE HCL 10 MG TAB PO PRN (17:40)
[2022-03-06] MEDS ORDERED: ALBUTEROL HFA 8 GM INHALER INH PRN (17:40)
[2022-03-06] MEDS ORDERED: methylPREDNISolone 125 MG/2 ML VIAL IV SCH (18:00)
[2022-03-06 18:09] LABS: Rhinovirus/Enterovirus PCR DETECTED (NotDetected)
[2022-03-06] MEDS ORDERED: DEXTROSE 50% 50 ML SYRINGE IV PRN (18:15)
[2022-03-06] MEDS ORDERED: GLUCAGON FOR INJ 1 MG VIAL IM PRN (18:15)
[2022-03-06] MEDS ORDERED: GLUCOSE 40% GEL 15 GM TUBE PO PRN (18:15)
[2022-03-06] MEDS ORDERED: GLUCOSE 10 TAB/TUBE PO PRN (18:15)
[2022-03-06] MEDS ORDERED: CARBOHYDRATES FOR HYPOGLYCEMIA PO PRN (18:15)
[2022-03-06] MEDS ORDERED: INSULIN HUMAN REGULAR PER UNIT 8 UNITS in SYRINGE 7.92 ML IV ONE (18:15)
[2022-03-06] MEDS ORDERED: INSULIN ASPART PER UNIT SC SCH (18:15)
[2022-03-06] MEDS: INSULIN HUMAN NPH SC SCH (18:35)
[2022-03-06] MEDS ORDERED: ALBUT/IPRATROP 3MG/0.5MG NEB 3 ML VIAL NEB SCH (19:00)
[2022-03-06] MEDS: methylPREDNISolone 40 MG in SYRINGE 0 ML IV SCH (20:46)
[2022-03-06] MEDS: FAMOTIDINE 20 MG TAB PO SCH (20:46)
[2022-03-06] MEDS: PANTOprazole 40 MG TAB PO SCH (20:46)
[2022-03-06] MEDS ORDERED: STAT IV Infusion **Titration per Protocol STA (20:49)
[2022-03-06] MEDS ORDERED: INSULIN REGULAR 250 UNITS in SODIUM CHLORIDE 0.9% 247.5 ML IV SCH (21:00)
[2022-03-06] MEDS: INSULIN ASPART PER UNIT SC SCH (21:03)
[2022-03-06] MEDS ORDERED: NovoLIN-R BOLUS FROM BAG IV ONE (21:15)
--- NOTE | 2022-03-06 21:23 | Pharmacy Report ---
Pharmacy Glycemic Short Note 2 - Date of Service March 06, 2022 - Glycemic Short BSG Results (Last 24 hours): 03/06/22 03/06/22 03/06/22 10:53 15:14 17:46 Glucose 226 H POC Glucose 245 H 394 H* 03/06/22 03/06/22 17:48 20:05 Glucose POC Glucose 373 H* 407 H* OUTPATIENT ANTIDIABETIC REGIMEN: * Humulin 70/30 - 55 units BID - pt reports waking up with hypoglycemia in 60s 2-3x/ week * Humalog sliding scale * A1c 9% 10/18/21, new A1c ordered ASSESSMENT: * 66 year old type 2 diabetic admitted for asthma exacerbation, with steroid induced hyperglycemia. * Patient received dexamethasone 10mg IV x1, followed by Solu-Medrol 40mg IV Q6H. * Blood sugar 226mg/dl on admission, tio to 394mg/dl with 4 units IV insulin and IV steroids started * Gave patient NPH 40 units, 8 units IV insulin, and 17 units SQ at dinner time, BSG tio to 407mg/dl at HS * Start insulin drip protocol PLAN FOR INPATIENT GLYCEMIC CONTROL: * Hold outpatient diabetes medications * Basal insulin * Continue NPH 40 units SQ BID while on insulin drip for transition to SQ * IV insulin infusion * Goal Range: Low 110 mg/dL - High 180 mg/dL * 4.5 units IV bolus from bag then begin at 4.5 units/hr
[2022-03-07] MEDS ORDERED: INSULIN ASPART PER UNIT SC SCH
[2022-03-07] MEDS: ALBUT/IPRATROP 3MG/0.5MG NEB 3 ML VIAL NEB SCH ×4 (00:19→19:10)
[2022-03-07] MEDS: methylPREDNISolone 40 MG in SYRINGE 0 ML IV SCH ×2 (02:04→08:12)
[2022-03-07 07:34] LABS: Basophils # (auto) 0.02 K/uL (0-0.2); Basophils % (auto) 0.3 %; Hematocrit (blood only) 40.7 % (34.1-44.9); Hemoglobin 13.4 g/dl (12.0-16.0); Immature Granulocytes # (auto) 0.06 K/uL (0.00-0.02); Immature Granulocytes % (auto) 0.8 %; Lymphocytes # (auto) 1.08 K/uL (1.2-3.4); Lymphocytes % (auto) 13.7 %; Mean Corpuscular Hemoglobin 28.3 pg (25.0-34.0); Mean Corpuscular Hgb Conc 32.9 g/dL (32.0-36.0); Mean Platelet Volume 10.6 fL (9.4-12.3); Monocytes % (auto) 3.8 %; Neutrophils # (auto) 6.45 K/uL (1.4-6.5); Neutrophils % (auto) 81.4 %; Platelet Count 278 K/uL (130-400); RDW Coefficient of Variation 13.2 % (11.5-14.5); RDW Standard Deviation 41.2 fL (36.4-46.3); Red Blood Count 4.73 M/uL (3.93-5.22); White Blood Count 7.91 K/ul (4.8-10.8)
[2022-03-07 07:55] LABS: Calcium 9.5 mg/dl (8.5-10.1); Creatinine Clr Calc Pharmacy 69.1 ml/min; Est GFR (African American) 71.4 ml/min; Est GFR (Non-African American) 61.6 ml/min; Magnesium 2.4 mg/dl (1.7-2.4); Potassium 4.5 mmol/L (3.5-5.1)
[2022-03-07] MEDS: INSULIN HUMAN NPH SC SCH (08:14)
[2022-03-07] MEDS: INSULIN ASPART PER UNIT SC SCH ×4 (08:15→21:02)
[2022-03-07] MEDS: ENOXAPARIN INJ 40 MG/0.4 ML SYR SQ SCH (08:17)
[2022-03-07] MEDS: ASPIRIN 81 MG ECTAB PO SCH (08:17)
[2022-03-07] MEDS: FAMOTIDINE 20 MG TAB PO SCH ×2 (08:18→21:03)
[2022-03-07] MEDS: FLUTICASONE PROPIONATE NA SPR 16 GM BTL NAE SCH (08:19)
[2022-03-07] MEDS: FLUTICASONE/VILANTEROL 200/25MCG 14 PUFFS/INHALER INH SCH (08:20)
[2022-03-07] MEDS: LOSARTAN POTASSIUM 50 MG TAB PO SCH (08:20)
[2022-03-07] MEDS: PANTOprazole 40 MG TAB PO SCH ×2 (08:20→21:04)
[2022-03-07] MEDS: UMECLIDINIUM BROMIDE 62.5MCG/BLISTER 7 PUFFS/INHALER INH SCH (08:21)
--- NOTE | 2022-03-07 13:50 | Pharmacy Report ---
Pharmacy Glycemic Short Note 2 - Date of Service March 07, 2022 - Glycemic Short BSG Results (Last 24 hours): 03/06/22 03/06/22 03/06/22 15:14 17:46 17:48 Glucose POC Glucose 245 H 394 H* 373 H* 03/06/22 03/06/22 03/06/22 20:05 22:45 23:43 Glucose POC Glucose 407 H* 252 H 244 H 03/07/22 03/07/22 03/07/22 00:53 01:49 02:49 Glucose POC Glucose 204 H 207 H 189 H 03/07/22 03/07/22 03/07/22 03:53 05:05 06:03 Glucose POC Glucose 206 H 220 H 199 H 03/07/22 03/07/22 03/07/22 06:46 07:15 08:04 Glucose 189 H POC Glucose 182 H 200 H 03/07/22 03/07/22 03/07/22 09:13 10:17 11:08 Glucose POC Glucose 281 H 288 H 226 H 03/07/22 03/07/22 12:19 13:13 Glucose POC Glucose 192 H 176 H OUTPATIENT ANTIDIABETIC REGIMEN: * Humulin 70/30 - 55 units BID - pt reports waking up with hypoglycemia in 60s 2-3x/ week * Humalog sliding scale * A1c 9% 10/18/21, new A1c ordered ASSESSMENT: * Patient has been maintained on an insulin infusion that increased to 6.2 units overnight. During the day on 03/07/22, the insulin infusion increased to 11 units/hr. * Steroids were changed from Solu-Medrol 40 mg IV q6 hours to daily. On 03/07/22, the patient received 2 doses of 40 mg of steroids. * Patient received 40 units of NPH in the morning to help cover early steroid doses. Reduce this to 20 units tonight to prevent overcorrection. * Scheduled drip transition NOT to be scheduled currently as insulin infusion continues at > 10 units/hr. With steroid decrease, expect drip to cease tonight or tomorrow morning naturally. * Carbohydrate ratio fixed at 1 unit per 3 grams of carbohydrates consumed to adequate cover blood sugar spikes for diet. Background * 66 year old type 2 diabetic admitted for asthma exacerbation, with steroid induced hyperglycemia. * Patient received dexamethasone 10mg IV x1, followed by Solu-Medrol 40mg IV Q6H. * Blood sugar 226mg/dl on admission, tio to 394mg/dl with 4 units IV insulin and IV steroids started * Gave patient NPH 40 units, 8 units IV insulin, and 17 units SQ at dinner time, BSG tio to 407mg/dl at HS * Start insulin drip protocol PLAN FOR INPATIENT GLYCEMIC CONTROL: * Hold outpatient diabetes medications * Basal insulin * Continue NPH 40 units SQ this morning then 20 units SQ this evening with dinner. * IV insulin infusion * Goal Range: Low 110 mg/dL - High 180 mg/dL * Continue per protocol
[2022-03-07] MEDS ORDERED: INSULIN HUMAN NPH SC SCH (16:30)
--- NOTE | 2022-03-07 18:48 | Hospitalist Progress Note ---
Date of Service March 07, 2022 Assessment & Plan (1) Asthma exacerbation: Plan: Patient presents with 3-4 weeks of wheezing and dyspnea without relief with outpatient steroid therapy, with increased use of nebulizers and inhalers Astma exacrebation- severe persistent asthma at baseline - EOS count is elevated- will re-initiate Montelukast- she was on previous but felt it was not helping - Continue Methylpred at 40mg IV q6 hours - Budesonide nebulizer now- transition back to Symbicort inh. tomorrow - Continue with Ipratropium/Albuterol nebulizers scheduled - Continue Spiriva - VBG without hypercapnia and PH 7.40 - Magnesium 2 GM IV now - Respiratory BIOfire now - CPAP at night - CBC in morning - On 03/07 Patient had positive biofire showing rhinovirus. Patient however is improving. Will taper steroids down to daily. will monitor for another night. Possible discharge tomorrow or Monday. (2) Allergic rhinitis with postnasal drip: Plan: Continue loratidine continue flonase (3) Morbid obesity: Plan: weight loss would be imperative to decrease [facility] CV mortality as well as improve pulmonary mechanics (4) MADAY on CPAP: Plan: Compliant - continue CPAP 11.5-20CM H20 with 2L oxygen bled in (5) CAD (coronary artery disease): Plan: Non-obstructive CAD previous Cath - Dobutamine Stress ECHO performed 01/08 with evaluation of dyspnea - normal - continue asa, ARB, (6) Hypertension: Plan: As above (7) Diabetes mellitus, type 2: Plan: She is on 70/30 at home and sliding scale lispro - glycemic pharmacy consult for transition to basal bolus insulin while on systemic steroids - she also endorses 2-3 times per week waking up with hypoglycemic symptoms with her BG in the 60s- she reports that she does take snack before bed (8) GERD (gastroesophageal reflux disease): Plan: Continue H2, PPI, Carfate Admission and Anticipated Discharge Date Admission Date: March 06, 2022 Subjective 67 yo female reports no new symptoms. Review of Systems Review of Systems: All systems reviewed & are unremarkable except as noted in HPI & below Physical Exam Physical Exam: General: awake, alert, no apparent distress Head: Normocephalic, atraumatic ENT: PERRL, EOMI, no pharyngeal exudate, mucous membranes moist Neuro: AAO x 3, speech clear and appropriate, strength intact bilaterally 5/5, sensation intact and equal all extremities and dermatomes, no pronator drift Chest: equal rise and fall of the chest, no accessory muscle use, end expiratory wheeze bilaterally all lung [place], Cardiac: Regular rate and rhythm, telemetry reviewed, skin warm dry, cap refill <3 seconds, peripheral pulses +2 no JVD, no murmur, trace edema bilateral lower extremities GI: NABS x 4 quadrants, soft, nontender to palpation, no rebound, guarding or tenderness : Spontaneously voiding, no pain, no CVA tenderness, Extremities: Normal inspection, no peripheral edema or erythema, calfs nontender to palpation Psych: Normal mood and affect Skin: no rash or erythema Results & Data Results & Data ([facility]) Vital Signs (Past 12 Hours) Vital Signs Temp Pulse Resp BP Pulse Ox Pulse Ox O2 Del Method 03/07/22 17:40 94 03/07/22 17:02 86 20 96 Nasal Cannula 03/07/22 15:21 36.7 C 89 22 122/64 96 Nasal Cannula 03/07/22 12:49 100 H 18 94 Nasal Cannula 03/07/22 11:08 36.7 C 98 H 17 100/62 94 Nasal Cannula 03/07/22 08:45 Room Air 03/07/22 07:46 36.6 C 107 H 22 159/72 H 95 Nasal Cannula 03/07/22 07:24 79 17 97 Nasal Cannula O2 Del Method O2 Flow Rate 03/07/22 17:40 Room Air 03/07/22 17:02 2 03/07/22 15:21 2 03/07/22 12:49 2 03/07/22 11:08 2 03/07/22 08:45 03/07/22 07:46 2 03/07/22 07:24 2 PG Care Time/CCT Total # of Minutes Spent Total Time Spent with Patient: Total time spent is greater than 50% in coordination of care (as documented) at patient's floor/unit and/or counseling patient: Coding Level of Care Code 15223 Subseq Hosp Care Lvl 2 Diagnoses Asthma exacerbation J45.901 Allergic rhinitis with postnasal drip J30.9; R09.82 Morbid obesity E66.01 MADAY on CPAP G47.33; Z99.89 CAD (coronary artery disease) I25.10 Hypertension I10 Diabetes mellitus, type 2 E11.9 GERD (gastroesophageal reflux disease) K21.9 Esophagitis presence: without esophagitis (1) GERD (gastroesophageal reflux disease) Esophagitis presence: without esophagitis Qualified Code(s): K21.9 - Gastro- esophageal reflux disease without esophagitis
[2022-03-08] MEDS: INSULIN ASPART PER UNIT SC SCH ×4 (00:18→12:29)
[2022-03-08] MEDS: ALBUT/IPRATROP 3MG/0.5MG NEB 3 ML VIAL NEB SCH ×3 (00:37→13:14)
[2022-03-08 07:32] LABS: Basophils # (auto) 0.03 K/uL (0-0.2); Basophils % (auto) 0.2 %; Eosinophils # (auto) 0.05 K/uL (0-0.50); Eosinophils % (auto) 0.4 %; Hematocrit (blood only) 39.4 % (34.1-44.9); Hemoglobin 13.1 g/dl (12.0-16.0); Immature Granulocytes # (auto) 0.08 K/uL (0.00-0.02); Immature Granulocytes % (auto) 0.6 %; Lymphocytes # (auto) 3.54 K/uL (1.2-3.4); Lymphocytes % (auto) 28.1 %; Mean Corpuscular Hemoglobin 28.6 pg (25.0-34.0); Mean Corpuscular Hgb Conc 33.2 g/dL (32.0-36.0); Mean Platelet Volume 10.9 fL (9.4-12.3); Monocytes # (auto) 1.01 K/uL (0.24-0.82); Neutrophils # (auto) 7.88 K/uL (1.4-6.5); Neutrophils % (auto) 62.7 %; Platelet Count 279 K/uL (130-400); RDW Coefficient of Variation 13.7 % (11.5-14.5); RDW Standard Deviation 42.8 fL (36.4-46.3); Red Blood Count 4.58 M/uL (3.93-5.22); White Blood Count 12.59 K/ul (4.8-10.8)
[2022-03-08 07:53] LABS: BUN Creatinine Ratio 27.5 (10-20); Calcium 8.9 mg/dl (8.5-10.1); Creatinine Clr Calc Pharmacy 60.8 ml/min; Est GFR (African American) 61.3 ml/min; Est GFR (Non-African American) 52.9 ml/min
[2022-03-08 08:03] LABS: Estimated Average Glucose 194 mg/dl; Hemoglobin A1C 8.4 % (4.5-5.6)
[2022-03-08] MEDS ORDERED: INSULIN HUMAN NPH SC SCH ×2 (09:00→16:30)
[2022-03-08] MEDS ORDERED: methylPREDNISolone 40 MG in SYRINGE 0 ML IV SCH (09:00)
[2022-03-08] MEDS: ASPIRIN 81 MG ECTAB PO SCH (09:20)
[2022-03-08] MEDS: PANTOprazole 40 MG TAB PO SCH (09:20)
[2022-03-08] MEDS: FAMOTIDINE 20 MG TAB PO SCH (09:20)
[2022-03-08] MEDS: LOSARTAN POTASSIUM 50 MG TAB PO SCH (09:21)
[2022-03-08] MEDS: ENOXAPARIN INJ 40 MG/0.4 ML SYR SQ SCH (09:21)
[2022-03-08] MEDS: FLUTICASONE PROPIONATE NA SPR 16 GM BTL NAE SCH (09:21)
[2022-03-08] MEDS: UMECLIDINIUM BROMIDE 62.5MCG/BLISTER 7 PUFFS/INHALER INH SCH (09:23)
[2022-03-08] MEDS: FLUTICASONE/VILANTEROL 200/25MCG 14 PUFFS/INHALER INH SCH (09:23)
--- NOTE | 2022-03-08 10:58 | Pharmacy Report ---
Pharmacy Glycemic Short Note 2 - Date of Service March 08, 2022 - Glycemic Short BSG Results (Last 24 hours): 03/07/22 03/07/22 03/07/22 10:17 11:08 12:19 Glucose POC Glucose 288 H 226 H 192 H 03/07/22 03/07/22 03/07/22 13:13 14:07 14:54 Glucose POC Glucose 176 H 133 H 87 03/07/22 03/07/22 03/07/22 15:20 16:16 20:18 Glucose POC Glucose 106 H 171 H 221 H 03/07/22 03/08/22 03/08/22 23:59 04:00 07:02 Glucose 197 H POC Glucose 147 H 154 H 03/08/22 07:24 Glucose POC Glucose 203 H OUTPATIENT ANTIDIABETIC REGIMEN: * Humulin 70/30 - 55 units BID - pt reports waking up with hypoglycemia in 60s 2-3x/ week * Humalog sliding scale * HbA1c: 8.4% (03/08/22) ASSESSMENT: 03/08/22: * Insulin gtt was stopped last evening. * SoluMedrol has been reduced: 40mg IV q6h --> 40mg IV daily. Expect insulin requirements to decrease with significantly reduced steroids. * Continue NPH BID for ease of transition back to 70/30 insulin on discharge. * Would recommend larger AM dose with reduced PM dose to reduce the risk of AM hypoglycemia. Will try to follow this model during admission. * Patient reports fasting hypoglycemia at home, so would recommend adjusting insulin dosing similarly at home. * Will loosen carb coverage today in response to reduced steroid dose. 03/07 * Patient has been maintained on an insulin infusion that increased to 6.2 units overnight. During the day on 03/07/22, the insulin infusion increased to 11 units/hr. * Steroids were changed from Solu-Medrol 40 mg IV q6 hours to daily. On 03/07/22, the patient received 2 doses of 40 mg of steroids. * Patient received 40 units of NPH in the morning to help cover early steroid doses. Reduce this to 20 units tonight to prevent overcorrection. * Scheduled drip transition NOT to be scheduled currently as insulin infusion continues at > 10 units/hr. With steroid decrease, expect drip to cease tonight or tomorrow morning naturally. * Carbohydrate ratio fixed at 1 unit per 3 grams of carbohydrates consumed to adequate cover blood sugar spikes for diet. PLAN FOR INPATIENT GLYCEMIC CONTROL: * Hold outpatient diabetes medications * Basal insulin * NPH 30 units SQ this morning * NPH 20 units SQ this evening * Bolus insulin * NovoLog per scale ACHS or Q6hrs while NPO * Goal Range: Low 110 mg/dL - High 140 mg/dL * Correction Factor: 15 mg/dL/unit * Nutritional / Prandial insulin per carb ratio of 1 unit per 5 grams CHO consumed
[2022-03-09] MEDS ORDERED: LORATADINE 10 MG TAB PO SCH (09:00)
== END 2022-03-08 15:21 | disposition home or self-care (01) | DRG 202 ==
LOC: ED 10:31 → 2S 16:12